=== PATIENT | female | born 1955 | race Caucasian/White ===

== ENCOUNTER 2017-06-30 14:46 | Emergency (ER) | payer MEDICARE, MEDICAID ==
[2017-06-30] MEDS ORDERED: DEXAMETHASONE SOD PHOS INJ 10 MG/1 ML VIAL IV ONE (15:22)
[2017-06-30] MEDS ORDERED: MAGNESIUM SULFATE/D5W 1 GM/100 ML RTUPB IV PRN (15:22)
[2017-06-30] MEDS ORDERED: IPRATROPIUM/ALBUTEROL 0.5-2.5 MG/3 ML AMPUL NEB ONE (15:22)
--- NOTE | 2017-06-30 15:32 | ER Document Report ---
ED Medical Screen (RME) - General Chief Complaint: Cough Stated Complaint: COUGH Time Seen by Provider: 06/30/17 15:14 TRAVEL OUTSIDE OF THE [place] IN LAST 30 DAYS: No - HPI Notes: 06/30/17 15:26 Patient is a 61-year-old female with a history of COPD, chronic pain, HTN who presents to the ED complaining of dry nonproductive cough, posttussive emesis, epigastric abdominal pain, worsening shortness of breath/dyspnea on exertion, chest tightness, and anxiousness 2 days. Pt developed nausea today as well. Patient states that she cannot lie supine bc she cannot breathe in that position. She is on oxygen 2 L nasal cannula at home. Patient states that she has been under a lot of stress lately as well and her anxiety has been flaring up. She denies any drug allergies. She is eating and drinking without any difficulties, but does have a decreased p.o. intake. She is urinating normally and having normal bowel movements. Denies any previous VA. Denies any headache , fever, neck pain, URI, sore throat, palpitations, syncope, abdominal pain, diarrhea, urinary retention, dysuria, hematuria, or rash. I have treated and performed a rapid initial assessment of this patient. A comprehensive ED assessment and evaluation of the patient, analysis of test results and completion of medical decision making process will be conducted by additional ED providers. PHYSICAL EXAMINATION: GENERAL: A&Ox4. Answers questions appropriately. Able to speak about 3 word sentences, but does have trouble breathing near the end. Is on O2 via [place] currently. LUNGS: Dec breath sounds throughout HEART: Regular rate and rhythm without murmurs, rubs, gallops. ABDOMEN: Soft, nondistended abdomen. No guarding, no rebound. No masses appreciated. Normal bowel sounds present. No CVA tenderness bilaterally. + epigastric tenderness Extremities: No cyanosis, clubbing, or edema b/l. PSYCH: Normal mood, normal affect. - Related Data Allergies/Adverse Reactions: No Known Allergies Allergy (Verified 06/30/17 14:50) Physical Exam - Vital signs Vitals: Temp Pulse Resp BP Pulse Ox 97.6 F 82 16 184/105 H 97 06/30/17 14:53 06/30/17 14:53 06/30/17 14:53 06/30/17 14:53 06/30/17 14:53 Course - Vital Signs Vital signs: Temp Pulse Resp BP Pulse Ox 97.6 F 82 16 184/105 H 97 06/30/17 14:53 06/30/17 14:53 06/30/17 14:53 06/30/17 14:53 06/30/17 14:53
--- NOTE | 2017-06-30 16:22 | ER Document Report ---
ED General <MONSE PENNY - Last Filed: 07/01/17 07:05> - General Mode of Arrival: Medic Information source: Patient TRAVEL OUTSIDE OF THE [place] IN LAST 30 DAYS: No - HPI Onset: Last week Onset/Duration: Persistent Quality of pain: Achy Associated symptoms: Nonproductive cough, Shortness of breath Exacerbated by: Movement, Walking Relieved by: Denies Similar symptoms previously: Yes Recently seen / treated by doctor: No <REJI NUNEZ - Last Filed: 07/06/17 11:44> - General Chief Complaint: Cough Stated Complaint: COUGH Time Seen by Provider: 06/30/17 15:14 Notes: Patient presents to emergency department via EMS. Patient reports that she has had a deep cough nonproductive for the past 2 days it is getting worse. She complains of epigastric right upper quadrant abdominal pain. Patient reports she did have some chest pressure but does not have any now. Reports increasing cough and shortness of breath. Patient has been on home oxygen for the past 3 years. She lives alone. She reports few years ago she was [place] for respiratory failure. Patient has a history of COPD & reflux. Patient also complains of back and neck pain for which she takes Clarinda. Patient reports she has vomited after coughing several times. Patient reports she called EMS because she could not breathe. When they arrived they told her that she was fine but told her that she should come to the emergency department. Patient is very irritated reports she is having a difficult time breathing. (REJI NUNEZ) - Related Data Allergies/Adverse Reactions: No Known Allergies Allergy (Verified 06/30/17 14:50) Past Medical History - General Information source: Patient - Social History Smoking Status: Former Smoker Chew tobacco use (# tins/day): No Frequency of alcohol use: None Drug Abuse: None Lives with: Alone Family History: Reviewed & Not Pertinent Patient has suicidal ideation: No Patient has homicidal ideation: No Pulmonary Medical History: Reports: Hx COPD Renal/ Medical History: Denies: Hx Peritoneal Dialysis Past Surgical History: Reports: Hx Hysterectomy, Hx Tubal Ligation <REJI NUNEZ - Last Filed: 07/06/17 11:44> Review of Systems <MONSE PENNY - Last Filed: 07/01/17 07:05> <REJI NUNEZ - Last Filed: 07/06/17 11:44> - Review of Systems Notes: Review HPI for review of systems., All other systems negative (REJI NUNEZ) Physical Exam <MONSE PENNY - Last Filed: 07/01/17 07:05> <REJI NUNEZ - Last Filed: 07/06/17 11:44> - Vital signs Vitals: Temp Pulse Resp BP Pulse Ox 97.6 F 82 16 184/105 H 97 06/30/17 14:53 06/30/17 14:53 06/30/17 14:53 06/30/17 14:53 06/30/17 14:53 - Notes Notes: PHYSICAL EXAMINATION: GENERAL: looks older than stated age HEAD: Atraumatic, normocephalic. EYES: Pupils equal round, extraocular movements intact, sclera anicteric, conjunctiva are normal. ENT: nares patent, oropharynx clear without exudates. Moist mucous membranes. NECK: Normal range of motion, supple without lymphadenopathy c/o pain LUNGS: decreased bilateral a&p HEART: Regular rate and rhythm ABDOMEN: Soft, c/o RUQ, Epigastric ttp EXTREMITIES: Normal range of motion, no pitting edema. No cyanosis. NEUROLOGICAL: Cranial nerves grossly intact. Normal sensory/motor exams. PSYCH: irritated SKIN: Warm, Dry, normal turgor, no rashes or lesions noted (REJI NUNEZ) Course - Laboratory Result Diagrams: 06/30/17 16:00 06/30/17 16:00 <MONSE PENNY - Last Filed: 07/01/17 07:05> - Laboratory Result Diagrams: 06/30/17 16:00 06/30/17 16:00 - Diagnostic Test Radiology reviewed: Image reviewed, Reports reviewed - Diagnostic report text EXAM DESCRIPTION: CHEST 2 VIEWS COMPLETED DATE/TIME: 06/30/2017 4: 18 pm REASON FOR STUDY: cough COMPARISON: None. NUMBER OF VIEWS: Two view. TECHNIQUE: Frontal and lateral radiographic views of the chest acquired. LIMITATIONS: None. FINDINGS: LUNGS AND PLEURA: No opacities, masses or pneumothorax. No pleural effusion. Attenuated blood vessels and flattened suzie-diaphragms. MEDIASTINUM AND HILAR STRUCTURES: No masses. No contour abnormalities. HEART AND VASCULAR STRUCTURES: Heart normal in size and contour. No evidence for failure. BONES: No acute findings. HARDWARE: None in the chest. OTHER: No other significant finding. IMPRESSION: COPD. NO ACUTE RADIOGRAPHIC FINDING IN THE CHEST EXAM DESCRIPTION: U/S ABDOMEN LIMITED W/O DOP COMPLETED DATE/TIME: 06/30/2017 6:24 pm REASON FOR STUDY: abdominal pain COMPARISON: None. TECHNIQUE: Dynamic and static grayscale images acquired of the abdomen and recorded on PACS. Additional selected color Doppler and spectral images recorded. LIMITATIONS: None. FINDINGS: PANCREAS: No masses. Visualized pancreatic duct normal caliber. LIVER: No masses. Echotexture normal. LIVER VASCULATURE: Normal directional flow of the main portal vein and hepatic veins. GALLBLADDER: No stones. Normal wall thickness. No pericholecystic fluid. ULTRASOUND-DETECTED TOLLIVER'S SIGN: Negative. INTRAHEPATIC DUCTS AND COMMON DUCT: CBD and intrahepatic ducts normal caliber. No filling defects. INFERIOR VENA CAVA: Normal flow. AORTA: No aneurysm. RIGHT KIDNEY: Normal size. Small parenchymal cysts, largest 1.9 cm. No solid or suspicious masses. No hydronephrosis. No calcifications. PERITONEAL AND RIGHT PLEURAL SPACE: No ascites or effusions. OTHER: No other significant findings. IMPRESSION: No acute findings. - EKG Interpretation by [facility] EKG shows normal: Sinus rhythm Rate: Normal <REJI NUNEZ - Last Filed: 07/06/17 11:44> - Re-evaluation Re-evalutation: Second troponin was negative. Patient states that she is unable to be discharged home as she has no oxygen taking. Patient states that she brought her oxygen tank and that it was lost at some point. Staff members contacted EMS and looked around the emergency department there is no sign of said oxygen tank. Patient is discharged from a medical standpoint. Will arrange transport via from the medical floor oxygen usage. (MONSE PENNY) 06/30/17 19:08 Discussed all labs with patient. Discussed negative ultrasound negative chest xray. Waiting for the second troponin. Patient reports she is tired, just wants to sleep, worried how she will get home to [place]. Report given to Monse YI (REJI NUNEZ) - Vital Signs Vital signs: Temp Pulse Resp BP Pulse Ox 97.8 F 92 16 175/84 H 97 07/01/17 06:30 07/01/17 06:30 07/01/17 06:30 07/01/17 06:30 07/01/17 06:30 - Laboratory Laboratory results interpreted by me: 06/30/17 16:00 Creatine Kinase 181 H Discharge <MONSE PENNY - Last Filed: 07/01/17 07:05> <REJI NUNEZ - Last Filed: 07/06/17 11:44> - Discharge Clinical Impression: Anxiety, Cough High blood pressure Qualifiers: Hypertension type: unspecified Qualified Code(s): I10 - Essential (primary) hypertension Condition: Stable Disposition: HOME, SELF-CARE Additional Instructions: Please start taking the hydrochlorothiazide 25 mg each morning for your blood pressure. We have also been given a prescription for Vistaril, this is for your anxiety. You may take this every 6 hours as needed when you feel a heightened state of anxiety. It is very important that you have close follow- up with a primary care provider. Please call your primary care provider this week and get a follow-up appointment as the blood pressure medication that we have prescribed will only last to 30 days. You have been given a dose of dexamethasone in the emergency room today, this will last 3 days. Please return to the emergency department if you develop worsening symptoms, shortness of breath, chest pain, fever or any other symptoms that are concerning to you. Prescriptions: Hydrochlorothiazide 25 mg PO DAILY 30 Days #30 tablet Hydroxyzine Pamoate [Vistaril 25 mg Capsule] 25 mg PO Q6 PRN #30 capsule PRN Reason: Anxiety Forms: Elevated Blood Pressure Referrals: ARUNA ISAACS NP-C [Primary Care Provider] - Follow up as needed
[2017-06-30 16:30] LABS: ABSOLUTE BASOPHILS # (AUTO) 0.1 10^3/uL (0.0-0.2); ABSOLUTE EOSINOPHILS # (AUTO) 0.2 10^3/uL (0.0-0.6); ABSOLUTE LYMPHOCYTES (AUTO) 1.5 10^3/uL (0.5-4.7); ABSOLUTE MONOCYTES (AUTO) 0.9 10^3/uL (0.1-1.4); ABSOLUTE NEUT (AUTO) 6.1 10^3/uL (1.7-8.2); BASOPHILS % (AUTO) 1.1 % (0-2); EOSINOPHILS % (AUTO) 2.6 % (0-6); HEMATOCRIT 38.3 % (36.0-47.0); HEMOGLOBIN 12.8 g/dL (12.0-15.5); LYMPHOCYTES % (AUTO) 17.1 % (13-45); MEAN CORPUSCULAR HEMOGLOBIN 28.3 pg (27.0-33.4); MEAN CORPUSCULAR HGB CONC 33.4 g/dL (32.0-36.0); MEAN CORPUSCULAR VOLUME 85 fl (80-97); MONOCYTES % (AUTO) 10.3 % (3-13); PLATELET COUNT 377 10^3/uL (150-450); RED BLOOD COUNT 4.53 10^6/uL (3.72-5.28); RED CELL DISTRIBUTION WIDTH 13.8 % (11.5-14.0); SEGMENTED NEUTROPHILS % (AUTO) 68.9 % (42-78); TOTAL CELLS COUNTED % (AUTO) 100 %; WHITE BLOOD COUNT 8.9 10^3/uL (4.0-10.5)
--- NOTE | 2017-06-30 16:31 | RADIOLOGY REPORT (SQ) ---
EXAM DESCRIPTION: CHEST 2 VIEWS COMPLETED DATE/TIME: 06/30/2017 4:18 pm REASON FOR STUDY: cough COMPARISON: None. NUMBER OF VIEWS: Two view. TECHNIQUE: Frontal and lateral radiographic views of the chest acquired. LIMITATIONS: None. FINDINGS: LUNGS AND PLEURA: No opacities, masses or pneumothorax. No pleural effusion. Attenuated bl ood vessels and flattened suzie-diaphragms. MEDIASTINUM AND HILAR STRUCTURES: No masses. No contour abnormalities. HEART AND VASCULAR STRUCTURES: Heart normal in size and contour. No evidence for failure. BONES: No acute findings. HARDWARE: None in the chest. OTHER: No other significant finding. IMPRESSION: COPD. NO ACUTE RADIOGRAPHIC FINDING IN THE CHEST. TECHNICAL DOCUMENTATION: JOB ID: [id number] [employer]- All Rights Reserved Reading location - IP/workstation name: [email or web address]
[2017-06-30 16:32] LABS: INTERNATIONAL RATION (INR) 0.88; PARTIAL THROMBOPLASTIN TIME 29.9 SEC (23.5-35.8); PROTHROMBIN TIME 12.4 SEC (11.4-15.4)
[2017-06-30 16:47] LABS: ALANINE AMINOTRANSFERASE 35 U/L (9-52); ALBUMIN 4.2 g/dL (3.5-5.0); ALKALINE PHOSPHATASE 81 U/L (38-126); ANION GAP 9 (5-19); ASPARTATE AMINO TRANSFERASE 30 U/L (14-36); BILIRUBIN,DIRECT 0.3 mg/dL (0.0-0.4); BILIRUBIN,TOTAL 0.4 mg/dL (0.2-1.3); BLOOD UREA NITROGEN 8 mg/dL (7-20); CALCIUM 9.7 mg/dL (8.4-10.2); CARBON DIOXIDE 30 mmol/L (22-30); CHLORIDE 99 mmol/L (98-107); CREATINE KINASE 181 U/L (30-135); GLUCOSE 103 mg/dL (75-110); POTASSIUM 4.7 mmol/L (3.6-5.0); SODIUM 138.4 mmol/L (137-145); TOTAL PROTEIN 6.8 g/dL (6.3-8.2)
[2017-06-30 17:01] LABS: TROPONIN I < 0.012 ng/mL
[2017-06-30 17:03] LABS: CREATINE KINASE MB 3.41 ng/mL (<4.55); NT PRO BNP 400 pg/mL (5-900)
--- NOTE | 2017-06-30 17:40 | EKG REPORT ---
SEVERITY:- NORMAL ECG - SINUS RHYTHM : Confirmed by: Inocente Lorenzo MD 30-Jun-2017 17:39:04
--- NOTE | 2017-06-30 18:33 | RADIOLOGY REPORT (SQ) ---
EXAM DESCRIPTION: U/S ABDOMEN LIMITED W/O DOP COMPLETED DATE/TIME: 06/30/2017 6:24 pm REASON FOR STUDY: abdominal pain COMPARISON: None. TECHNIQUE: Dynamic and static grayscale images acquired of the abdomen and recorded on PACS. Additio nal selected color Doppler and spectral images recorded. LIMITATIONS: None. FINDINGS: PANCREAS: No masses. Visualized pancreatic duct normal caliber. LIVER: No masses. Echotexture normal. LIVER VASCULATURE: Normal directional flow of the main portal vein and hepatic veins. GALLBLADDER: No stones. Normal wall thickness. No pericholecystic fluid. ULTRASOUND-DETECTED TOLLIVER'S SIGN: Negative. INTRAHEPATIC DUCTS AND COMMON DUCT: CBD and intrahepatic ducts normal caliber. No filling defects. INFERIOR VENA CAVA: Normal flow. AORTA: No aneurysm. RIGHT KIDNEY: Normal size. Small parenchymal cysts, largest 1.9 cm. No solid or suspicious masses. No hydronephrosis. No calcifications. PERITONEAL AND RIGHT PLEURAL SPACE: No ascites or effusions. OTHER: No other significant findings. IMPRESSION: No acute findings. TECHNICAL DOCUMENTATION: JOB ID: [id number] [id number] 2010 [employer]- All Rights Reserved Reading location - IP/workstation name: [email or web address]
[2017-06-30] MEDS ORDERED: HYDROCHLOROTHIAZIDE 25 MG TABLET PO ONE (21:43)
[2017-06-30] MEDS ORDERED: ACETAMINOPHEN 325 MG TABLET PO ONE (21:44)
[2017-06-30] MEDS ORDERED: IBUPROFEN 600 MG TABLET PO ONE (22:08)
[2017-07-01] MEDS ORDERED: ACETAMINOPHEN 325 MG TABLET PO ONE (07:13)
[2017-07-01 07:24] VITALS: BP 175/84
== END 2017-07-01 07:23 | disposition home or self-care (01) ==
LOC: ER 14:46
DX: R05 Cough (principal); F41.9 Anxiety disorder, unspecified; I10 Essential (primary) hypertension; R10.13 Epigastric pain; R10.11 Right upper quadrant pain; R06.02 Shortness of breath; J44.9 Chronic obstructive pulmonary disease, unspecified; Z99.81 Dependence on supplemental oxygen; M54.9 Dorsalgia, unspecified; M54.2 Cervicalgia; Z87.19 Personal history of other diseases of the digestive system; Z87.891 Personal history of nicotine dependence
CPT/HCPCS: 93005; 94640; 99284; 96374; 36415; 82553; 82550; 83690; 85025; 85610; 85730; 80053; 84484; 83880; 71046; 76705; 93010; A9270 ×4; J1100; J7620

== ENCOUNTER → 2017-07-31 | Outpatient (CLI) | payer MEDICARE, MEDICAID ==
--- NOTE | 2017-07-31 14:23 | RADIOLOGY REPORT (SQ) ---
EXAM DESCRIPTION: CT CHEST WITHOUT COMPLETED DATE/TIME: 07/31/2017 12:54 pm REASON FOR STUDY: PULMONARY NODULE (R91.1) R91.1 SOLITARY PULMONARY NODULE COMPARISON: 11/29/2015 TECHNIQUE: CT scan performed of the chest without intravenous contrast. Images reviewed with lung, soft tissue and bone windows. Reconstructed coronal and sagittal MPR images reviewed. All images st ored on PACS. All CT scanners at this facility use dose modulation, iterative reconstruction, and/or weight based d osing when appropriate to reduce radiation dose to as low as reasonably achievable (ALARA). [facility]: Dose Right [facility]: CareDose [facility]: Dose Right [facility]: Teradose 4D [facility]: Smart [employer] RADIATION DOSE: CT Rad equipment meets quality standard of care and radiation dose reduction techniq ues were employed. CTDIvol: 2.9 mGy. DLP: 124 mGy-cm. mGy. LIMITATIONS: No technical limitations. FINDINGS: LUNGS AND PLEURA: Right lower lobe has cleared. There has been interval decrease in the a mount of scarring in the middle lobe. Stable scarring in the lingula. No developing nodules. No ef fusions. HILAR AND MEDIASTINAL STRUCTURES: No identified masses or abnormal nodes. No obvious aneurysm. HEART AND VASCULAR STRUCTURES: No aneurysm. No pericardial effusion. UPPER ABDOMEN: No significant findings. Limited exam. THYROID AND OTHER SOFT TISSUES: No masses. No adenopathy. BONES: No significant finding. HARDWARE: None in the chest. OTHER: No other significant findings. IMPRESSION: COPD. Stable chest with interval clearing of the right lower lobe. No developing nodul es. TECHNICAL DOCUMENTATION: JOB ID: [id number] Quality ID # [id number]: Final reports with documentation of one or more dose reduction techniques (e.g., Au tomated exposure control, adjustment of the mA and/or kV according to patient size, use of iterative reconstruction technique) 2010 [employer]- All Rights Reserved Reading location - IP/workstation name: [email or web address]
== END ==
LOC: RAD 12:41
PROVIDERS: ATTEND Internal Medicine Critical Care Medicine
DX: J40 Bronchitis, not specified as acute or chronic (principal); R06.09 Other forms of dyspnea; R91.1 Solitary pulmonary nodule; J45.40 Moderate persistent asthma, uncomplicated; J30.9 Allergic rhinitis, unspecified; R91.8 Other nonspecific abnormal finding of lung field; R09.02 Hypoxemia; K21.9 Gastro-esophageal reflux disease without esophagitis; J43.9 Emphysema, unspecified
CPT/HCPCS: 36415; 71250; 82785

== ENCOUNTER 2018-03-31 09:18 | Inpatient (IN) | payer MEDICARE, MEDICAID ==
[2018-03-31] MEDS ORDERED: PROPOFOL 1,000 MG/100 ML INFUS..BTL IV ONE (09:28)
[2018-03-31] MEDS ORDERED: ROCURONIUM BROMIDE INJ 50 MG/5 ML VIAL IV ONE ×2 (09:30→14:55)
[2018-03-31] MEDS ORDERED: FENTANYL CITRATE INJ/PF 100 MCG/2 ML AMPUL ONE (09:30)
[2018-03-31] MEDS ORDERED: ETOMIDATE INJ/PF 20 MG/10 ML SDV IV ONE ×2 (09:30)
[2018-03-31] MEDS ORDERED: FENTANYL CITRATE INJ/PF 100 MCG/2 ML AMPUL IV ONE (09:31)
[2018-03-31] MEDS ORDERED: NORMAL SALINE 1000 ML 1,000 ML IV ONE ×3 (09:31→09:49)
[2018-03-31] MEDS ORDERED: METHYLPREDNISOLONE INJ 125 MG/2 ML SDV IV ONE (09:36)
[2018-03-31] MEDS ORDERED: IPRATROPIUM/ALBUTEROL 0.5-2.5 MG/3 ML AMPUL NEB ONE (09:36)
[2018-03-31 09:51] LABS: ABSOLUTE BASOPHILS # (AUTO) 0.1 10^3/uL (0.0-0.2); ABSOLUTE LYMPHOCYTES (AUTO) 4.6 10^3/uL (0.5-4.7); ABSOLUTE MONOCYTES (AUTO) 0.8 10^3/uL (0.1-1.4); ABSOLUTE NEUT (AUTO) 7.5 10^3/uL (1.7-8.2); EOSINOPHILS % (AUTO) 0.1 % (0-6); HEMATOCRIT 43.4 % (36.0-47.0); LYMPHOCYTES % (AUTO) 35.2 % (13-45); MEAN CORPUSCULAR HEMOGLOBIN 28.6 pg (27.0-33.4); MEAN CORPUSCULAR HGB CONC 32.1 g/dL (32.0-36.0); MEAN CORPUSCULAR VOLUME 89 fl (80-97); MONOCYTES % (AUTO) 5.8 % (3-13); PLATELET COUNT 316 10^3/uL (150-450); RED BLOOD COUNT 4.88 10^6/uL (3.72-5.28); RED CELL DISTRIBUTION WIDTH 13.9 % (11.5-14.0); SEGMENTED NEUTROPHILS % (AUTO) 57.9 % (42-78); TOTAL CELLS COUNTED % (AUTO) 100 %
--- NOTE | 2018-03-31 09:51 | RADIOLOGY REPORT (SQ) ---
EXAM DESCRIPTION: CHEST SINGLE VIEW COMPLETED DATE/TIME: 03/31/2018 9:37 am REASON FOR STUDY: post intubation COMPARISON: CT chest 07/05/2015, 11/29/2015, 07/31/2017 Two-view chest 06/30/2017 EXAM PARAMETERS: NUMBER OF VIEWS: One view. TECHNIQUE: Single frontal radiographic view of the chest acquired. RADIATION DOSE: NA LIMITATIONS: None. FINDINGS: LUNGS AND PLEURA: Lungs are hyperinflated and hyperlucent from obstructive disease. No fo dustin infiltrates. No pleural effusion. No pneumothorax. MEDIASTINUM AND HILAR STRUCTURES: No masses. Contour normal. HEART AND VASCULAR STRUCTURES: Heart normal in size. Normal vasculature. BONES: No acute findings. HARDWARE: Endotracheal tube tip 5 to 6 cm above the aiyana. Nasogastric tube tip and side port in th e stomach. OTHER: No other significant finding. IMPRESSION: Obstructive lung disease without focal infiltrates. Endotracheal and nasogastric tubes in good positioning. TECHNICAL DOCUMENTATION: JOB ID: [id number] [employer]- All Rights Reserved Reading location - IP/workstation name: [email or web address]
[2018-03-31 09:57] LABS: INTERNATIONAL RATION (INR) 0.93
[2018-03-31 10:05] LABS: VENOUS BLOOD BASE EXCESS -0.4 mmol/L; VENOUS BLOOD HCO3 33.3 mmol/L (20-32)
[2018-03-31 10:11] LABS: ALANINE AMINOTRANSFERASE 31 U/L (9-52); ALBUMIN 4.1 g/dL (3.5-5.0); ALKALINE PHOSPHATASE 84 U/L (38-126); ASPARTATE AMINO TRANSFERASE 38 U/L (14-36); BILIRUBIN,DIRECT 0.3 mg/dL (0.0-0.4); BILIRUBIN,TOTAL 0.5 mg/dL (0.2-1.3); BLOOD UREA NITROGEN 10 mg/dL (7-20); CALCIUM 9.2 mg/dL (8.4-10.2); CHLORIDE 91 mmol/L (98-107); GLUCOSE 132 mg/dL (75-110); LIPASE 27.4 U/L (23-300); POTASSIUM 4.8 mmol/L (3.6-5.0); SODIUM 142.8 mmol/L (137-145); TOTAL PROTEIN 6.6 g/dL (6.3-8.2)
[2018-03-31] MEDS ORDERED: DIGOXIN INJ 0.5 MG/2 ML AMPULE IV ONE (10:15)
[2018-03-31 10:21] LABS: VENOUS BLOOD PCO2 126.4 mmHg (35-63); VENOUS BLOOD PH 7.04 (7.30-7.42)
[2018-03-31 10:21] LABS: ANION GAP 7 (5-19); CARBON DIOXIDE 45 mmol/L (22-30)
[2018-03-31 10:22] LABS: NT PRO BNP 684 pg/mL (5-900)
[2018-03-31 10:24] LABS: TROPONIN I < 0.012 ng/mL
--- NOTE | 2018-03-31 10:29 | RADIOLOGY REPORT (SQ) ---
EXAM DESCRIPTION: CHEST SINGLE VIEW COMPLETED DATE/TIME: 03/31/2018 9:56 am REASON FOR STUDY: NG tube placement COMPARISON: CT chest 07/05/2015, 11/29/2015, 07/31/2017 Chest films 03/31/2018, 06/30/2017 EXAM PARAMETERS: NUMBER OF VIEWS: One view. TECHNIQUE: Single frontal radiographic view of the chest acquired. RADIATION DOSE: NA LIMITATIONS: None. FINDINGS: LUNGS AND PLEURA: Lungs are hyperinflated and hyperlucent from obstructive disease. No pn eumothorax or pleural effusion. No acute infiltrate. MEDIASTINUM AND HILAR STRUCTURES: No masses. Contour normal. HEART AND VASCULAR STRUCTURES: Heart normal in size. Normal vasculature. BONES: No acute findings. HARDWARE: Nasogastric tube tip and side port in the stomach. Endotracheal tube tip in the midtrachea OTHER: No other significant finding. IMPRESSION: Nasogastric tube tip and side port in the stomach. Endotracheal tube tip in the midtrac hea. Lungs hyperinflated and hyperlucent from obstructive disease TECHNICAL DOCUMENTATION: JOB ID: [id number] [employer]- All Rights Reserved Reading location - IP/workstation name: [email or web address]
--- NOTE | 2018-03-31 11:06 | RADIOLOGY REPORT (SQ) ---
EXAM DESCRIPTION: CT HEAD WITHOUT COMPLETED DATE/TIME: 03/31/2018 10:55 am REASON FOR STUDY: ams resp failure COMPARISON: None. TECHNIQUE: Axial images acquired through the brain without intravenous contrast. Images reviewed wi th bone, brain and subdural windows. Additional sagittal and coronal reconstructions were generated. Images stored on PACS. All CT scanners at this facility use dose modulation, iterative reconstruction, and/or weight based d osing when appropriate to reduce radiation dose to as low as reasonably achievable (ALARA). [facility]: Dose Right [facility]: CareDose [facility]: Dose Right [facility]: Teradose 4D [facility]: Smart [employer] RADIATION DOSE: CT Rad equipment meets quality standard of care and radiation dose reduction techniq ues were employed. CTDIvol: 53.2 mGy. DLP: 1044 mGy-cm. mGy. LIMITATIONS: None. FINDINGS: VENTRICLES: Normal size and contour. CEREBRUM: No masses. No hemorrhage. No midline shift. No evidence for acute infarction. Normal gra y/white matter differentiation. No areas of low density in the white matter. CEREBELLUM: No masses. No hemorrhage. No alteration of density. No evidence for acute infarction. EXTRAAXIAL SPACES: No fluid collections. No masses. ORBITS AND GLOBE: No intra- or extraconal masses. Normal contour of globe without masses. CALVARIUM: No fracture. PARANASAL SINUSES: No fluid or mucosal thickening. SOFT TISSUES: No mass or hematoma. OTHER: No other significant finding. IMPRESSION: NORMAL BRAIN CT WITHOUT CONTRAST. EVIDENCE OF ACUTE STROKE: NO. COMMENT: Quality ID # 436: Final reports with documentation of one or more dose reduction techniques (e.g., Automated exposure control, adjustment of the mA and/or kV according to patient size, use of iterative reconstruction technique) TECHNICAL DOCUMENTATION: JOB ID: [id number] [employer]- All Rights Reserved Reading location - IP/workstation name: [email or web address]
--- NOTE | 2018-03-31 11:12 | RADIOLOGY REPORT (SQ) ---
EXAM DESCRIPTION: CTA CHEST COMPLETED DATE/TIME: 03/31/2018 10:55 am REASON FOR STUDY: ams resp failure COMPARISON: CT chest 07/05/2015, 11/29/2015, 07/31/2017 TECHNIQUE: CT scan of the chest performed using helical scanning technique with dynamic intravenous contrast injection. Images reviewed with lung, soft tissue and bone windows. Reconstructed coronal and sagittal MPR images reviewed. Additional 3 dimensional post-processing performed to develop Maximal Intensity Projection images (NE P). All images stored on PACS. All CT scanners at this facility use dose modulation, iterative reconstruction, and/or weight based d osing when appropriate to reduce radiation dose to as low as reasonably achievable (ALARA). [facility]: Dose Right [facility]: CareDose [facility]: Dose Right [facility]: Teradose 4D [facility]: [employer] CONTRAST TYPE AND DOSE: contrast/concentration: Isovue 350.00 mg/ml; Total Contrast Delivered: 72.0 ml; Total Saline Delivered: 80.0 ml Contrast bolus optimized for the pulmonary arteries and thoracic aorta. RENAL FUNCTION: Creatinine 0.5 RADIATION DOSE: CT Rad equipment meets quality standard of care and radiation dose reduction techniq ues were employed. CTDIvol: 6.6 - 33.1 mGy. DLP: 1229 mGy-cm. . LIMITATIONS: None. FINDINGS: LUNGS AND PLEURA: Advanced changes of obstructive lung disease with diffuse hyperinflation and hyperlucency. Chronic consolidation and volume loss in the right middle lobe unchanged from 2016. Since the prior studies, patient has developed a 1.5 cm nodule in the posterior right lower lobe on a xial image 65. No acute infiltrates. No pleural effusion. No pneumothorax. AORTA AND GREAT VESSELS: Ascending aorta 3.7 cm in greatest diameter, similar compared to previous st udies. No thoracic aortic dissection. . HEART: No pericardial effusion. Moderate left coronary artery calcifications. PULMONARY ARTERIES: No emboli visualized in the main pulmonary arteries or the segmental branches. HILAR AND MEDIASTINAL STRUCTURES: No identified masses or abnormal nodes. HARDWARE: Right jugular central line tip superior vena cava. Endotracheal tube tip midtrachea. Naso gastric tube tip and side port in the stomach. UPPER ABDOMEN: No significant findings. Limited exam. THYROID AND OTHER SOFT TISSUES: No masses. No adenopathy. BONES: No acute or significant finding. 3D MIPS: Confirm above findings. OTHER: No other significant finding. IMPRESSION: No CT angio evidence of acute pulmonary emboli or thoracic aortic dissection. No acute infiltrates. Chronic right middle lobe volume loss and consolidation 1.5 cm nodule in the posterior right lower lobe, new compared to prior CT 07/31/2017. This is worriso me for malignancy COMMENT: Quality ID # 436: Final reports with documentation of one or more dose reduction techniques (e.g., Automated exposure control, adjustment of the mA and/or kV according to patient size, use of iterative reconstruction technique) TECHNICAL DOCUMENTATION: JOB ID: [id number] [employer]- All Rights Reserved Reading location - IP/workstation name: [email or web address]
--- NOTE | 2018-03-31 11:19 | RADIOLOGY REPORT (SQ) ---
EXAM DESCRIPTION: CHEST SINGLE VIEW COMPLETED DATE/TIME: 03/31/2018 11:06 am REASON FOR STUDY: s/p line COMPARISON: Previous chest film 03/31/2018, [address] angio chest 03/31/2018, 1045 hours EXAM PARAMETERS: NUMBER OF VIEWS: One view. TECHNIQUE: Single frontal radiographic view of the chest acquired. RADIATION DOSE: NA LIMITATIONS: None. FINDINGS: LUNGS AND PLEURA: Hyperinflated and hyperlucent from obstructive disease. Chronic collaps e right middle lobe, 1.5 cm right lower lobe nodule seen on chest CT 03/31/2018 are not apparent by pl ain film. No pneumothorax post right jugular line placement. MEDIASTINUM AND HILAR STRUCTURES: No masses. Contour normal. HEART AND VASCULAR STRUCTURES: Heart normal in size. Normal vasculature. BONES: No acute findings. HARDWARE: Endotracheal tube, nasogastric tube, right jugular line in good positioning. OTHER: No other significant finding. IMPRESSION: No pneumothorax post right jugular central line placement TECHNICAL DOCUMENTATION: JOB ID: [id number] [employer]- All Rights Reserved Reading location - IP/workstation name: [email or web address]
[2018-03-31 11:28] LABS: APPEARANCE,URINE TURBID; BILIRUBIN,URINE NEGATIVE (NEGATIVE); COLOR,URINE AMBER; GLUCOSE, URINE NEGATIVE (NEGATIVE); KETONES,URINE 20 mg/dL (NEGATIVE); LEUKOCYTE ESTERASE,URINE NEGATIVE (NEGATIVE); NITRITE,URINE NEGATIVE (NEGATIVE); PROTEIN,URINE 100 mg/dL (NEGATIVE); URINE SPECIFIC GRAVITY 1.025; UROBILINOGEN,URINE NEGATIVE mg/dL (<2.0)
[2018-03-31] MEDS ORDERED: PROMETHAZINE HCL INJ 25 MG/1 ML VIAL IV PRN (11:59)
--- NOTE | 2018-03-31 12:05 | ER Document Report ---
ED General - General Chief Complaint: Respiratory Distress Stated Complaint: DIFFICULTY BREATHING Time Seen by Provider: 03/31/18 09:30 TRAVEL OUTSIDE OF THE [place] IN LAST 30 DAYS: No - HPI Patient complains to provider of: Respiratory distress Notes: Patient coming in for evaluation of respiratory distress. According to EMS that because the patient's house to 3 times earlier this week for respiratory distress patient has a history of COPD continues to smoke. States the patient called today started on antibiotic treatments that she was found hypoxic however during transport became combative and not tolerate CPAP upon evaluation here in ER more obtunded pulses and respiratory rate remained however patient had pink foamy sputum coming out of the mouth. Patient upon my evaluation not following commands is nonverbal spontaneously opening of her eyes. - Related Data Allergies/Adverse Reactions: No Known Allergies Allergy (Verified 06/30/17 14:50) Past Medical History - Social History Smoking Status: Unknown if Ever Smoked Family History: Reviewed & Not Pertinent Pulmonary Medical History: Reports: Hx COPD Renal/ Medical History: Denies: Hx Peritoneal Dialysis Past Surgical History: Reports: Hx Hysterectomy, Hx Tubal Ligation Review of Systems - Review of Systems -: Yes ROS unobtainable due to patient's medical condition - Respiratory distress Physical Exam - Vital signs Vitals: Resp BP 12 62/39 L 03/31/18 09:46 03/31/18 09:46 Interpretation: Hypertensive, Tachycardic, Tachypneic - General General appearance: Alert, Unresponsive In distress: Severe - HEENT Head: Normocephalic, Atraumatic Eyes: Normal Conjunctiva: Normal Cornea: Normal Eyelashes: Normal Notes: Patient will what looks like to be anisocoria or postsurgical changes to the right eye dilated approximately 6 mm with the left eye approximately 3 mm - Respiratory Respiratory status: Respiratory distress Chest status: Nontender Breath sounds: Decreased air movement, Wheezing Chest palpation: [place] frothy sputum - Cardiovascular Rhythm: Regular, Tachycardia Heart sounds: Normal auscultation Murmur: No - Abdominal Inspection: Normal Distension: No distension Bowel sounds: Normal Tenderness: Nontender Organomegaly: No organomegaly - Back Back: Normal, Nontender - Extremities General upper extremity: Normal inspection, Nontender, Normal temperature General lower extremity: Normal inspection, Nontender, Normal temperature - Neurological [place] Coma Scale Eye Opening: Spontaneous [place] Coma Scale Verbal: None Cory Coma Scale Motor: None [place] Coma Scale Total: 6 - Skin Skin Temperature: Warm Skin Moisture: Dry Skin Color: Normal Course - Re-evaluation Re-evalutation: 03/31/18 14:29 Patient was intubated with central line placement Patient initially was significantly hypertensive with systolics in the 250s. After intubation patient went into a A. fib with RVR and became hypotensive. Patient was given digoxin IV fluids with later improvement of her vital signs transitioning from atrial fibrillation to sinus tach workup because of anisocoria head CT was performed this was otherwise negative. Patient also had a CTA performed because of slight swelling to the right leg this was negative for PE Doppler was also performed and was negative for DVT. Laboratory studies shows hypercapnia with acidosis. Otherwise no signs of infection patient afebrile no consolidations on CT scan. More likely significant COPD exacerbation. Patient case was discussed with the hospitalist will admit to the ICU 03/31/18 14:30 - Vital Signs Vital signs: Temp Pulse Resp BP Pulse Ox 97.3 F 27 H 185/97 H 100 03/31/18 12:46 03/31/18 12:46 03/31/18 12:46 03/31/18 12:46 - Laboratory Result Diagrams: 03/31/18 09:24 03/31/18 09:24 Laboratory results interpreted by me: 03/31/18 03/31/18 03/31/18 09:24 09:24 09:46 WBC 13.0 H Carbonic Acid ABG pH ABG pCO2 ABG pO2 ABG HCO3 ABG Total CO2 ABG O2 Saturation VBG pH VBG pCO2 VBG HCO3 Chloride 91 L Carbon Dioxide 45 H* Creatinine 0.49 L Glucose 132 H Magnesium 4.7 H* AST 38 H Urine Protein 100 H Urine Ketones 20 H Urine Blood SMALL H 03/31/18 03/31/18 09:55 11:25 WBC Carbonic Acid 2.05 H ABG pH 7.27 L ABG pCO2 68.0 H ABG pO2 135.7 H ABG HCO3 30.6 H ABG Total CO2 32.7 H ABG O2 Saturation 98.3 H VBG pH 7.04 L* VBG pCO2 126.4 H* VBG HCO3 33.3 H Chloride Carbon Dioxide Creatinine Glucose Magnesium AST Urine Protein Urine Ketones Urine Blood Procedures - Central Line Right Internal jugular Consent obtained: Yes Central line pre-insertion: Sterile PPE donned Central line lumen type: Triple Ultrasound guided: Yes CM at insertion site: 20 Line secured with sutures: Yes Central line post-insertion: Blood return from lumens, Biopatch applied, Sutured, Sterile dressing applied, Position confirmed w/ CXR Number of attempts: 1 Complications: No - Intubation Nasotracheal Airway evaluation: Normal anatomy Mallampati Classification: Class 2 Medications: Etomidate, Other - rocuronium Intubation method: Orotracheal Blade size: 3 Equipment used: Glidescope ETT size: 7.0 ETT secured at: Teeth ETT secured at (cm): 20 Breath Sounds after Intubation: Equal Post Intubation Xray: Yes Intubation Complications: No complications Critical Care Note - Critical Care Note Total time excluding time spent on procedures (mins): 60 Comments: Time managing patient with development of A. fib RVR hypertension COPD exacerbation requiring intubation time excludes procedures performed Discharge - Discharge Clinical Impression: Acute respiratory distress Condition: Good [facility] Unit Admitted: ICU
[2018-03-31 12:07] LABS: ARTERIAL BLOOD BASE EXCESS 1.8 mmol/L; ARTERIAL BLOOD H2CO3 2.05 mmol/L (1.05-1.35); ARTERIAL BLOOD HCO3 30.6 mmol/L (20-24); ARTERIAL BLOOD O2 SATURATION 98.3 % (94-98); ARTERIAL BLOOD PH 7.27 (7.35-7.45); ARTERIAL BLOOD PO2 135.7 mmHg (80-100); ARTERIAL BLOOD TOTAL CO2 32.7 mmol/L (21-25)
[2018-03-31 12:08] LABS: ARTERIAL BLOOD FIO2 100%
[2018-03-31] MEDS ORDERED: DEXTROSE 40% GEL 15 GM TUBE PO PRN ×2 (12:09)
[2018-03-31] MEDS ORDERED: DEXTROSE 50%-WATER 25 GM/50 ML DISP.SYRIN IV PRN ×2 (12:09)
[2018-03-31] MEDS ORDERED: INSULIN LISPRO 100 UNIT/ML 3 ML VIAL SUBCUT PRN (12:09)
[2018-03-31] MEDS ORDERED: GLUCAGON,HUMAN RECOMB 1 MG INJ IM PRN (12:09)
[2018-03-31 13:32] LABS: URINE AMPHETAMINES SCREEN NEGATIVE; URINE BARBITURATES SCREEN NEGATIVE; URINE BENZODIAZEPINES SCREEN NEGATIVE; URINE COCAINE SCREEN NEGATIVE; URINE MARIJUANA (THC) SCREEN NEGATIVE; URINE METHADONE SCREEN NEGATIVE; URINE PHENCYCLIDINE SCREEN NEGATIVE
--- NOTE | 2018-03-31 13:52 | RADIOLOGY REPORT (SQ) ---
EXAM DESCRIPTION: VENOUS UNILATERAL LOWER COMPLETED DATE/TIME: 03/31/2018 1:37 pm REASON FOR STUDY: right leg swelling COMPARISON: None. TECHNIQUE: Grayscale and color images acquired of the right leg venous system. Selected spectral gurwinder ges acquired with additional compression and augmentation maneuvers. The contralateral common femoral vein and saphenofemoral junction were also imaged. Images stored on PACS. LIMITATIONS: None. FINDINGS: COMMON FEMORAL: Normal phasicity, compression and augmentation. No visualized echogenic ma terial on rodriguez scale. No defects on color images. FEMORAL: Normal compression and augmentation. No visualized echogenic material on rodriguez scale. No defe cts on color images. POPLITEAL: Normal compression, augmentation. No visualized echogenic material on rodriguez scale. No defec ts on color images. CALF VESSELS: Normal compression, augmentation. No visualized echogenic material on rodriguez scale. No de fects on color images. GSV and SSV: Normal compression, augmentation. No visualized echogenic material on rodriguez scale. No def ects on color images. ANY DEEP VENOUS INSUFFICIENCY: Not evaluated. ANY EVIDENCE OF POPLITEAL CYST: No. CONTRALATERAL COMMON FEMORAL VEIN AND SAPHENOFEMORAL JUNCTION: Normal phasicity, compression and augmentation. No visualized echogenic material on rodriguez scale. No de fects on color images. IMPRESSION: NO EVIDENCE FOR DVT OR SVT IN THE RIGHT LEG. TECHNICAL DOCUMENTATION: JOB ID: [id number] [employer]- All Rights Reserved Reading location - IP/workstation name: [email or web address]
[2018-03-31] MEDS ORDERED: SUCCINYLCHOLINE CHLORIDE INJ 200 MG/10 ML VIAL ONE (14:55)
[2018-03-31] MEDS: DEXTROSE 5%-NORMAL SALINE 1,000 ML IV PRN (15:00)
[2018-03-31] MEDS: CEFTRIAXONE 1 GM/D5W RTU 1 GM/50 ML RTUPB IV SCH (17:00)
[2018-03-31] MEDS: PROPOFOL 1,000 MG/100 ML INFUS..BTL IV PRN (17:46)
[2018-03-31] MEDS: HEPARIN SOD (PORCINE) 5,000 UNIT/ML 1 ML SYRINGE SUBCUT SCH ×2 (18:07→22:40)
--- NOTE | 2018-03-31 18:16 | PDOC H&P ---
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 Patient was brought to ED by EMS for respiratory distress. According to EMS report that had been to patient's house 3 times earlier this week for respiratory distress. As per EMS report during transport patient became com bative could not tolerate CPAP and by the time she was in ED she was obtunded. As per ED doctor as of report patient had pink foamy sputum coming out of the mouth. She was intubated in ED and was noted to be hypertensive with systolics in the 250s. Intubation patient briefly went to A. fib went into A. fib with RVR and became hypotensive. She was given 1 dose of IV digoxin, fluids and patient converted back to sinus tach. Patient was noted to have anisocoria and a CT head was done which was negative. CTA of the chest was also negative for PE showed a new 1.5 cm nodule in the posterior right lower lobe compared to previous CT in 2018. Was also noted to have right ankle swelling and a Doppler was done to rule out any DVT which was negative. Labs significant for white blood cell of 13,000 otherwise unremarkable, coags within normal limits, VBG showed pH of 7.04 and a follow-up ABG positive for pH of 7.27, PCO2 of 68, PO2 of 135. Troponin is negative, BNP 684. On my encounter patient was intubated and sedated. Past Medical History Pulmonary Medical History: Reports: Chronic Obstructive Pulmonary Disease (COPD) Past Surgical History Past Surgical History: Reports: Hysterectomy, Tubal Ligation Social History Smoking Status: Unknown if Ever Smoked Family History Family History: Reviewed & Not Pertinent Parental Family History Reviewed: Yes Children Family History Reviewed: Yes Sibling(s) Family History Reviewed.: Yes Medication/Allergy Home Medications: Albuterol Sulfate [Proair Hfa Inhalation Aerosol 8.5 gm Mdi] 2 puff IH Q6HP PRN 03/31/18 Fluticasone/Salmeterol [Advair 500-50 Diskus 14 Dose/Diskus] 1 inh IH Q12 03/31/18 Gabapentin [Neurontin 400 mg Capsule] 800 mg PO Q8 03/31/18 Hydrocodone Bit/Acetaminophen [Hydrocodon-Acetaminophn 10-325] 1 each PO Q8HP PRN 03/31/18 Hydroxyzine Pamoate [Vistaril 25 mg Capsule] 25 mg PO Q8HP PRN 03/31/18 Ipratropium/Albuterol Sulfate [Duoneb 3 ml Ampul] 3 ml NEB RTQIDP PRN 03/31/18 Umeclidinium Thompson [Incruse Ellipta] 1 puff IH DAILY 03/31/18 Allergies/Adverse Reactions: No Known Allergies Allergy (Verified 06/30/17 14:50) Review of Systems ROS unobtainable: Due to endotracheal tube Physical Exam Vital Signs: Temp Pulse Resp BP Pulse Ox 99.3 F 23 H 143/81 H 100 03/31/18 15:01 03/31/18 15:01 03/31/18 15:00 03/31/18 16:00 Intake & Output 03/30/18 03/31/18 04/01/18 06:59 06:59 06:59 Intake Total 50 Balance 50 Weight 51.1 kg General appearance: PRESENT: thin, other - Intubated. Head exam: PRESENT: atraumatic, normocephalic Respiratory exam: PRESENT: symmetrical, wheezes Cardiovascular exam: PRESENT: RRR. ABSENT: diastolic murmur, rubs, systolic murmur Pulses: PRESENT: normal dorsalis pedis pul GI/Abdominal exam: PRESENT: normal bowel sounds, soft. ABSENT: distended, guarding, mass, organolmegaly, rebound, tenderness Extremities exam: PRESENT: other - Mild right ankle swelling. Neurological exam: PRESENT: other - Intubated. Sedated Results Laboratory Results: 03/31/18 09:24 03/31/18 09:24 03/31/18 03/31/18 03/31/18 09:24 09:24 09:24 WBC 13.0 H RBC 4.88 Hgb 14.0 Hct 43.4 MCV 89 MCH 28.6 MCHC 32.1 RDW 13.9 Plt Count 316 Seg Neutrophils % 57.9 Lymphocytes % 35.2 Monocytes % 5.8 Eosinophils % 0.1 Basophils % 1.0 Absolute Neutrophils 7.5 Absolute Lymphocytes 4.6 Absolute Monocytes 0.8 Absolute Eosinophils 0.0 Absolute Basophils 0.1 Carbonic Acid HCO3/H2CO3 Ratio ABG pH ABG pCO2 ABG pO2 ABG HCO3 ABG O2 Saturation ABG Base Excess VBG pH VBG pCO2 VBG HCO3 VBG Base Excess FiO2 Sodium 142.8 Potassium 4.8 Chloride 91 L Carbon Dioxide 45 H* Anion Gap 7 BUN 10 Creatinine 0.49 L Est GFR ( Amer) > 60 Est GFR (Non-Af Amer) > 60 Glucose 132 H Lactic Acid 1.2 Calcium 9.2 Magnesium 4.7 H* Total Bilirubin 0.5 AST 38 H ALT 31 Alkaline Phosphatase 84 Total Protein 6.6 Albumin 4.1 Lipase 27.4 Urine Color Urine Appearance Urine pH Ur Specific [place] Urine Protein Urine Glucose (UA) Urine Ketones Urine Blood Urine Nitrite Ur Leukocyte Esterase Urine WBC (Auto) Urine RBC (Auto) 03/31/18 03/31/18 03/31/18 09:46 09:55 11:25 WBC RBC Hgb Hct MCV MCH MCHC RDW Plt Count Seg Neutrophils % Lymphocytes % Monocytes % Eosinophils % Basophils % Absolute Neutrophils Absolute Lymphocytes Absolute Monocytes Absolute Eosinophils Absolute Basophils Carbonic Acid 2.05 H HCO3/H2CO3 Ratio 14:1 ABG pH 7.27 L ABG pCO2 68.0 H ABG pO2 135.7 H ABG HCO3 30.6 H ABG O2 Saturation 98.3 H ABG Base Excess 1.8 VBG pH 7.04 L* VBG pCO2 126.4 H* VBG HCO3 33.3 H VBG Base Excess -0.4 FiO2 100% Sodium Potassium Chloride Carbon Dioxide Anion Gap BUN Creatinine Est GFR ( Amer) Est GFR (Non-Af Amer) Glucose Lactic Acid Calcium Magnesium Total Bilirubin AST ALT Alkaline Phosphatase Total Protein Albumin Lipase Urine Color ROSENDO Urine Appearance TURBID Urine pH 5.0 Ur Specific [place] 1.025 Urine Protein 100 H Urine Glucose (UA) NEGATIVE Urine Ketones 20 H Urine Blood SMALL H Urine Nitrite NEGATIVE Ur Leukocyte Esterase NEGATIVE Urine WBC (Auto) 1 Urine RBC (Auto) 13 03/31/18 09:24 Troponin I < 0.012 NT-Pro-B Natriuret Pep 684 Impressions: Chest X-Ray 03/31/18 10:36 IMPRESSION: No pneumothorax post right jugular central line placement Chest/Abdomen CTA 03/31/18 10:36 IMPRESSION: No CT angio evidence of acute pulmonary emboli or thoracic aortic dissection. No acute infiltrates. Chronic right middle lobe volume loss and consolidation 1.5 cm nodule in the posterior right lower lobe, new compared to prior CT 07/31/2017. This is worrisome for malignancy Head CT 03/31/18 10:36 IMPRESSION: NORMAL BRAIN CT WITHOUT CONTRAST. EVIDENCE OF ACUTE STROKE: NO. Venous Doppler Study 03/31/18 12:07 IMPRESSION: NO EVIDENCE FOR DVT OR SVT IN THE RIGHT LEG. Assessment & Plan - Diagnosis (1) Acute respiratory failure with hypercapnia Is this a current diagnosis for this admission?: Yes Plan: Likely due to COPD exacerbation. 2018. ABG: PH 7.27, PCO2 68.0, PO2 135.7, O2 sat 98% on 100% oxygen. Ventilatory support, IV steroids, empiric antibiotics. ABG, CBC, CMP tomorrow. Pulmonary consult. (2) COPD exacerbation Is this a current diagnosis for this admission?: Yes Plan: As per problem #1. (3) Atrial fibrillation, transient Is this a current diagnosis for this admission?: Yes Plan: Likely induced by intubation and COPD exacerbation. [id number] Score 1. Patient converted back to sinus tach receiving 1 dose of digoxin. Will start on aspirin. 2D echo. Cardiology consulted. (4) Tobacco abuse Is this a current diagnosis for this admission?: Yes Plan: Will provide counseling on quitting and nicotine patch. (5) Lung nodule Is this a current diagnosis for this admission?: Yes Plan: Likely malignant due to high risk factors. Pulmonary consulted for further recommendation.
[2018-03-31] MEDS ORDERED: MIDAZOLAM HCL 50 MG/100 ML RTUINJ ONE (20:13)
[2018-03-31] MEDS: MIDAZOLAM HCL 50 MG/100 ML RTUINJ IV PRN (20:35)
[2018-03-31] MEDS ORDERED: ACETAMINOPHEN 325 MG SUPP.RECT PR ONE (21:36)
[2018-03-31] MEDS ORDERED: ACETAMINOPHEN 650 MG SUPP.RECT PR ONE ×2 (21:36→21:44)
[2018-03-31] MEDS: FAMOTIDINE INJ/PF 20 MG/2 ML SDV IV SCH (21:40)
[2018-03-31] MEDS: METHYLPREDNISOLONE INJ 125 MG/2 ML SDV IV SCH (21:41)
[2018-04-01] MEDS: KETOROLAC TROMETHAMINE INJ/PF 30 MG/1 ML SDV IV PRN ×2 (00:13→20:42)
[2018-04-01] MEDS: PROPOFOL 1,000 MG/100 ML INFUS..BTL IV PRN ×5 (02:25→22:35)
[2018-04-01 04:10] LABS: HEMATOCRIT 36.1 % (36.0-47.0); MEAN CORPUSCULAR HEMOGLOBIN 28.5 pg (27.0-33.4); MEAN CORPUSCULAR HGB CONC 32.5 g/dL (32.0-36.0); MEAN CORPUSCULAR VOLUME 88 fl (80-97); PLATELET COUNT 195 10^3/uL (150-450); RED BLOOD COUNT 4.12 10^6/uL (3.72-5.28); RED CELL DISTRIBUTION WIDTH 14.2 % (11.5-14.0); WHITE BLOOD COUNT 19.7 10^3/uL (4.0-10.5)
[2018-04-01] MEDS: DEXTROSE 5%-NORMAL SALINE 1,000 ML IV PRN ×2 (04:11→21:18)
[2018-04-01 04:25] LABS: ALANINE AMINOTRANSFERASE 27 U/L (9-52); ALBUMIN 2.8 g/dL (3.5-5.0); ALKALINE PHOSPHATASE 55 U/L (38-126); ANION GAP 5 (5-19); ASPARTATE AMINO TRANSFERASE 34 U/L (14-36); BILIRUBIN,DIRECT 0.4 mg/dL (0.0-0.4); BILIRUBIN,TOTAL 0.4 mg/dL (0.2-1.3); BLOOD UREA NITROGEN 14 mg/dL (7-20); CALCIUM 7.9 mg/dL (8.4-10.2); CHLORIDE 100 mmol/L (98-107); GLUCOSE 165 mg/dL (75-110); TOTAL PROTEIN 4.8 g/dL (6.3-8.2)
[2018-04-01 04:31] LABS: HEMOGLOBIN 11.7 g/dL (12.0-15.5)
[2018-04-01 04:37] LABS: ABSOLUTE MONOCYTES # (MANUAL) 1.2 10^3/uL (0.1-1.4); ABSOLUTE NEUTROPHILS# (MANUAL) 17.5 10^3/uL (1.7-8.2); BASOPHILS % (MANUAL) 0 % (0-2); EOSINOPHILS % (MANUAL) 0 % (0-6); LYMPHOCYTES % (MANUAL) 5 % (13-45); MONOCYTES % (MANUAL) 6 % (3-13); SEGMENTED NEUTROPHILS % (MAN) 89 % (42-78); TOTAL CELLS COUNTED 100
[2018-04-01 04:38] LABS: ANISOCYTOSIS SLIGHT; POIKILOCYTOSIS SLIGHT; TOXIC GRANULATION SLIGHT; TOXIC VACUOLATION PRESENT
[2018-04-01 04:39] LABS: HELMET CELLS SLIGHT; OVALOCYTES SLIGHT; PLATELET COMMENT ADEQUATE
[2018-04-01 04:43] LABS: CARBON DIOXIDE 33 mmol/L (22-30)
[2018-04-01 05:03] LABS: ARTERIAL BLOOD BASE EXCESS 8.1 mmol/L; ARTERIAL BLOOD FIO2 28%; ARTERIAL BLOOD H2CO3 1.78 mmol/L (1.05-1.35); ARTERIAL BLOOD HCO3 34.8 mmol/L (20-24); ARTERIAL BLOOD O2 SATURATION 89.9 % (94-98); ARTERIAL BLOOD PH 7.39 (7.35-7.45); ARTERIAL BLOOD PO2 59.4 mmHg (80-100); ARTERIAL BLOOD TOTAL CO2 36.6 mmol/L (21-25)
[2018-04-01] MEDS: METHYLPREDNISOLONE INJ 125 MG/2 ML SDV IV SCH ×3 (05:12→22:35)
[2018-04-01] MEDS: HEPARIN SOD (PORCINE) 5,000 UNIT/ML 1 ML SYRINGE SUBCUT SCH (05:12)
[2018-04-01] MEDS: MIDAZOLAM HCL 50 MG/100 ML RTUINJ IV PRN ×2 (06:47→17:32)
--- NOTE | 2018-04-01 07:04 | RADIOLOGY REPORT (SQ) ---
EXAM DESCRIPTION: X-ray single view chest. CLINICAL HISTORY: 62 years Female, intubated COMPARISON: 03/31/2018 at 11:05 AM 9:[address] chest performed on 03/31/2018. TECHNIQUE: Single portable view of the chest performed on 04/01/2018 at 6:19 AM FINDINGS: The lungs are hyperinflated consistent with underlying obstructive airways disease. The previously identified nodule in the right lower lobe is not clearly demonstrated on this examination. There is no evidence of a pneumothorax. The cardiac silhouette is normal in size and configuration. The mediastinal contours are normal. No acute osseous abnormality is identified. No focal soft tissue abnormalities are seen. Lines and tubes: The endotracheal tube, right IJ central venous catheter and feeding tube are grossly stable as visualized. IMPRESSION: 1. Hyperinflation of the lungs consistent with underlying obstructive airways disease. No definite acute intrathoracic disease. 2. Stable life support lines and tubes.
--- NOTE | 2018-04-01 07:25 | EKG REPORT ---
SEVERITY:- ABNORMAL ECG - SINUS TACHYCARDIA RIGHT ATRIAL ABNORMALITY BORDERLINE T ABNORMALITIES, ANT-LAT LEADS : Confirmed by: Alisia Edmond MD 01-Apr-2018 07:25:07
--- NOTE | 2018-04-01 07:25 | EKG REPORT ---
SEVERITY:- ABNORMAL ECG - ATRIAL FIBRILLATION, V-RATE 109-[address] DEPRESSION, DIFFUSE LEADS PROLONGED QT INTERVAL : Confirmed by: Alisia Edmond MD 01-Apr-2018 07:25:16
[2018-04-01] MEDS: CEFTRIAXONE 1 GM/D5W RTU 1 GM/50 ML RTUPB IV SCH (10:16)
[2018-04-01] MEDS: FAMOTIDINE INJ/PF 20 MG/2 ML SDV IV SCH ×2 (10:17→22:36)
[2018-04-01] MEDS ORDERED: DILTIAZEM HCL/D5W 125 MG/125 ML RTUINJ IV ONE (11:16)
[2018-04-01] MEDS: DILTIAZEM HCL/D5W 125 MG/125 ML RTUINJ IV PRN (11:20)
--- NOTE | 2018-04-01 13:20 | EKG REPORT ---
SEVERITY:- ABNORMAL ECG - ATRIAL FIBRILLATION, V-RATE 91-[address]-T CHANGES- INFERIOR LEADS : Confirmed by: Inocente Lorenzo MD 01-Apr-2018 13:19:10
--- NOTE | 2018-04-01 19:05 | PDOC PROGRESS REPORT ---
Subjective Progress Note for:: 04/01/18 Subjective:: Patient still intubated. ABG shows mild improvement of hypercarbia but worsening hypoxia. PH is within normal limits. Patient has white blood cell 19.7 which could likely be due to IV steroids that she is receiving. Reason For Visit: HYPOXIC RESPIRATORY DISTRESS Physical Exam Vital Signs: Temp Pulse Resp BP Pulse Ox 100.0 F 91 12 141/84 H 100 04/01/18 16:00 04/01/18 18:00 04/01/18 18:00 04/01/18 18:00 04/01/18 18:00 Intake & Output 03/31/18 04/01/18 04/02/18 06:59 06:59 06:59 Intake Total 3667 231 Output Total 2665 190 Balance 1002 41 Weight 47.1 kg General appearance: PRESENT: other - Intubated Respiratory exam: PRESENT: clear to auscultation flaco, other - Intubated. GI/Abdominal exam: PRESENT: normal bowel sounds, soft. ABSENT: distended, guarding, mass, organolmegaly, rebound, tenderness Neurological exam: PRESENT: other - Intubated and sedated Results Laboratory Results: 04/01/18 03:45 04/01/18 03:45 04/01/18 04/01/18 04/01/18 03:45 03:45 03:45 WBC 19.7 H RBC 4.12 Hgb 11.7 L D Hct 36.1 MCV 88 MCH 28.5 MCHC 32.5 RDW 14.2 H Plt Count 195 Seg Neutrophils % Not Reportable Lymphocytes % Not Reportable Monocytes % Not Reportable Eosinophils % Not Reportable Basophils % Not Reportable Absolute Neutrophils Not Reportable Absolute Lymphocytes Not Reportable Absolute Monocytes Not Reportable Absolute Eosinophils Not Reportable Absolute Basophils Not Reportable Carbonic Acid HCO3/H2CO3 Ratio ABG pH ABG pCO2 ABG pO2 ABG HCO3 ABG O2 Saturation ABG Base Excess FiO2 Sodium 138.0 Potassium 4.0 Chloride 100 Carbon Dioxide 33 H D Anion Gap 5 BUN 14 Creatinine 0.50 L Est GFR ( Amer) > 60 Est GFR (Non-Af Amer) > 60 Glucose 165 H Calcium 7.9 L Magnesium 2.3 D Total Bilirubin 0.4 AST 34 ALT 27 Alkaline Phosphatase 55 Total Protein 4.8 L Albumin 2.8 L TSH 0.07 L 04/01/18 04:57 WBC RBC Hgb Hct MCV MCH MCHC RDW Plt Count Seg Neutrophils % Lymphocytes % Monocytes % Eosinophils % Basophils % Absolute Neutrophils Absolute Lymphocytes Absolute Monocytes Absolute Eosinophils Absolute Basophils Carbonic Acid 1.78 H HCO3/H2CO3 Ratio 19:1 ABG pH 7.39 ABG pCO2 59.0 H ABG pO2 59.4 L ABG HCO3 34.8 H ABG O2 Saturation 89.9 L ABG Base Excess 8.1 FiO2 28% Sodium Potassium Chloride Carbon Dioxide Anion Gap BUN Creatinine Est GFR ( Amer) Est GFR (Non-Af Amer) Glucose Calcium Magnesium Total Bilirubin AST ALT Alkaline Phosphatase Total Protein Albumin TSH 03/31/18 09:24 Troponin I < 0.012 NT-Pro-B Natriuret Pep 684 Impressions: Chest/Abdomen CTA 03/31/18 10:36 IMPRESSION: No CT angio evidence of acute pulmonary emboli or thoracic aortic dissection. No acute infiltrates. Chronic right middle lobe volume loss and consolidation 1.5 cm nodule in the posterior right lower lobe, new compared to prior CT 07/31/2017. This is worrisome for malignancy Head CT 03/31/18 10:36 IMPRESSION: NORMAL BRAIN CT WITHOUT CONTRAST. EVIDENCE OF ACUTE STROKE: NO. Venous Doppler Study 03/31/18 12:07 IMPRESSION: NO EVIDENCE FOR DVT OR SVT IN THE RIGHT LEG. Chest X-Ray 04/01/18 06:00 IMPRESSION: 1. Hyperinflation of the lungs consistent with underlying obstructive airways disease. No definite acute intrathoracic disease. 2. Stable life support lines and tubes. Assessment & Plan - Diagnosis (1) Acute respiratory failure with hypercapnia Is this a current diagnosis for this admission?: Yes Plan: Likely due to COPD exacerbation. Ventilatory support, IV steroids, empiric antibiotics. ABG, CBC, CMP tomorrow. Pulmonary consult. (2) COPD exacerbation Is this a current diagnosis for this admission?: Yes Plan: As per problem #1. (3) Atrial fibrillation, transient Is this a current diagnosis for this admission?: Yes Plan: Likely induced by intubation and COPD exacerbation. [id number] Score 1. Patient converted back to sinus tach receiving 1 dose of digoxin. Will start on aspirin. 2D echo. Cardiology consulted. (4) Tobacco abuse Is this a current diagnosis for this admission?: Yes Plan: Will counseled on quitting and start on nicotine patch if desired (5) Lung nodule Is this a current diagnosis for this admission?: Yes Plan: Likely malignant due to high risk factors. Pulmonary consulted for further recommendation.
[2018-04-01] MEDS: FENTANYL CITRATE INJ/PF 100 MCG/2 ML AMPUL IV PRN (21:12)
[2018-04-01] MEDS: ENOXAPARIN SODIUM INJ 60 MG/0.6 ML DISP.SYRIN SUBCUT SCH (22:36)
[2018-04-01] MEDS: PIPERACILLIN/TAZOBACTAM 3.375 GM VIAL IV SCH (22:36)
--- NOTE | 2018-04-01 22:41 | PDOC CONSULTATION ---
Consultation-Blank Consultation: CARDIOLOGY CONSULTATION by Dr. Alisia Edmond. Patient seen at 10:10 AM on 04/01/2018. 60 minutes spent on this patient, with more than 50% of time spent in direct patient care. REASON FOR CONSULTATION: New onset atrial fibrillation with rapid ventricular response. HISTORY PRESENT ILLNESS: Note unable to obtain history from patient since she is intubated and sedated. Her chart has been reviewed in detail. Patient is a 62-year-old female with known history of COPD with ongoing tobacco abuse, and chronic pain syndrome on gabapentin, was brought into the emergency room in acute respiratory distress. She was in acute hypercapnic respiratory failure on admission, and subsequently intubated. She continues to be in acute respiratory failure with hypoxemia and hypercarbia. The patient the last week and multiple visits by the EMT to her house. The patient today developed atrial fibrillation with rapid ventricular response. The patient has been started on Cardizem drip with control of her heart rate. PAST MEDICAL HISTORY: The patient has no history of hypertension or diabetes mellitus. There is no history of chronic kidney disease. The patient has no major illnesses. It is not clear if the patient has had prior atrial fibrillation episodes. PAST SURGICAL HISTORY: Hysterectomy and tubal ligation. SOCIAL HISTORY: History of ongoing tobacco abuse. ALLERGIES: The patient has no known drug allergies. DISPOSITION: The patient is a full code. Her son Mr. Rocky Irwin is her surrogate healthcare decision maker. REVIEW SYSTEMS: Is not obtainable since the patient is intubated and sedated, and no family member available. PHYSICAL EXAMINATION: The patient is a frail build, appears to be chronically ill. Selected Entries 04/01/18 04/01/18 10:00 10:28 Core 99.0 F Temperature Pulse Rate 117 H Respiratory 36 H Rate Blood Pressure 116/70 [Upper Arm] Blood Pressure 85 Mean [Upper Arm ] O2 Sat by Pulse 100 Oximetry Oxygen Delivery Mechanical Method ( Ventilator includes room air) FIO2 equals 35% HEAD: Head is atraumatic and normocephalic. EYES: Pupils are equal round regular reactive to light accommodation. Extraocular movements are normal, there is no conjunctival pallor, and no scleral icterus. EARS: Tympanic membranes are intact external auditory canals are clear. NOSE: There is no inflammation of the nasal mucous membrane there is no deviated nasal septum. MOUTH: Mucous membranes of mouth and tongue are moist, there is no ulcers in the mouth or tongue, and no bleeding from the gums. THROAT: There is no redness of the oropharynx, no exudate seen. SKIN: There is no petechia or ecchymosis. There is no rashes or lesions. NECK: Supple. There is no JVD. Carotids are equal there is no bruit. There is no lymphadenopathy. There is no goiter. Trachea central LUNGS: There is diminished air entry and prolonged expiration. There is bilateral scattered rhonchi. On percussion there is hyperresonance although there is no chest wall tenderness HEART: S1 and S2 are heard. S1 is of variable intensity, there is no S3 or S4 gallops. There is a systolic murmur the left sternal border and the apex. There is no rub. ABDOMEN: Normoactive bowel sounds, soft, nontender, no masses, no rebound, no guarding. There is no hepatosplenomegaly. EXTREMITIES: Femorals are slightly diminished. There is no femoral bruits. Leg pulses are diminished. There is no pedal edema. There is no DVT or cellulitis. There is no cyanosis or clubbing. 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 03/31/18 03/31/18 03/31/18 09:24 09:24 09:46 WBC RBC Hgb Hct MCV MCH MCHC RDW Plt Count Total Counted Seg Neuts % (Manual) Lymphocytes % Lymphocytes % (Manual) Monocytes % Monocytes % (Manual) Eosinophils % Basophils % Basophils % (Manual) Absolute Neutrophils Abs Neuts (Manual) Absolute Lymphocytes Abs Lymphs (Manual) Absolute Monocytes Abs Monocytes (Manual) Absolute Eosinophils Absolute Eos (Manual) Absolute Basophils Abs Basophils (Manual) Toxic Granulation PT 13.0 INR 0.93 Carbonic Acid ABG pCO2 ABG pO2 ABG HCO3 ABG Total CO2 ABG O2 Saturation ABG Base Excess FiO2 Sodium Potassium Chloride Carbon Dioxide Anion Gap BUN Creatinine Est GFR (Non-Af Amer) Glucose Calcium Magnesium Total Bilirubin Direct Bilirubin Neonat Total Bilirubin Neonat Direct Bilirubin Neonat Indirect Bili AST ALT Alkaline Phosphatase Troponin I < 0.012 NT-Pro-B Natriuret Pep 684 Total Protein Albumin TSH Urine Opiates Screen UNCONFIRMED POSITIVE Urine Methadone Screen NEGATIVE Ur Barbiturates Screen NEGATIVE Ur Phencyclidine Scrn NEGATIVE Ur Amphetamines Screen NEGATIVE U Benzodiazepines Scrn NEGATIVE Urine Cocaine Screen NEGATIVE U Marijuana (THC) Screen NEGATIVE 04/01/18 04/01/18 04/01/18 03:45 03:45 03:45 WBC 19.7 H RBC 4.12 Hgb 11.7 L D Hct 36.1 MCV 88 MCH 28.5 MCHC 32.5 RDW 14.2 H Plt Count 195 Total Counted 100 Seg Neuts % (Manual) 89 H Lymphocytes % Not Reportable Lymphocytes % (Manual) 5 L Monocytes % Not Reportable Monocytes % (Manual) 6 Eosinophils % Not Reportable Basophils % Not Reportable Basophils % (Manual) 0 Absolute Neutrophils Not Reportable Abs Neuts (Manual) 17.5 H Absolute Lymphocytes Not Reportable Abs Lymphs (Manual) 1.0 Absolute Monocytes Not Reportable Abs Monocytes (Manual) 1.2 Absolute Eosinophils Not Reportable Absolute Eos (Manual) 0.0 Absolute Basophils Not Reportable Abs Basophils (Manual) 0.0 Toxic Granulation SLIGHT PT INR Carbonic Acid ABG pCO2 ABG pO2 ABG HCO3 ABG Total CO2 ABG O2 Saturation ABG Base Excess FiO2 Sodium 138.0 Potassium 4.0 Chloride 100 Carbon Dioxide 33 H D Anion Gap 5 BUN 14 Creatinine 0.50 L Est GFR (Non-Af Amer) > 60 Glucose 165 H Calcium 7.9 L Magnesium 2.3 D Total Bilirubin 0.4 Direct Bilirubin 0.4 Neonat Total Bilirubin Not Reportable Neonat Direct Bilirubin Not Reportable Neonat Indirect Bili Not Reportable AST 34 ALT 27 Alkaline Phosphatase 55 Troponin I NT-Pro-B Natriuret Pep Total Protein 4.8 L Albumin 2.8 L TSH 0.07 L Urine Opiates Screen Urine Methadone Screen Ur Barbiturates Screen Ur Phencyclidine Scrn Ur Amphetamines Screen U Benzodiazepines Scrn Urine Cocaine Screen U Marijuana (THC) Screen 04/01/18 04:57 WBC RBC Hgb Hct MCV MCH MCHC RDW Plt Count Total Counted Seg Neuts % (Manual) Lymphocytes % Lymphocytes % (Manual) Monocytes % Monocytes % (Manual) Eosinophils % Basophils % Basophils % (Manual) Absolute Neutrophils Abs Neuts (Manual) Absolute Lymphocytes Abs Lymphs (Manual) Absolute Monocytes Abs Monocytes (Manual) Absolute Eosinophils Absolute Eos (Manual) Absolute Basophils Abs Basophils (Manual) Toxic Granulation PT INR Carbonic Acid 1.78 H ABG pCO2 59.0 H ABG pO2 59.4 L ABG HCO3 34.8 H ABG Total CO2 36.6 H ABG O2 Saturation 89.9 L ABG Base Excess 8.1 FiO2 28% Sodium Potassium Chloride Carbon Dioxide Anion Gap BUN Creatinine Est GFR (Non-Af Amer) Glucose Calcium Magnesium Total Bilirubin Direct Bilirubin Neonat Total Bilirubin Neonat Direct Bilirubin Neonat Indirect Bili AST ALT Alkaline Phosphatase Troponin I NT-Pro-B Natriuret Pep Total Protein Albumin TSH Urine Opiates Screen Urine Methadone Screen Ur Barbiturates Screen Ur Phencyclidine Scrn Ur Amphetamines Screen U Benzodiazepines Scrn Urine Cocaine Screen U Marijuana (THC) Screen Home Meds Table Albuterol Sulfate [Proair HFA Inhalation Aerosol 8.5 gm MDI] 2 puff IH Q6HP PRN 03/31/18 Fluticasone/Salmeterol [Advair 500-50 Diskus 14 Dose/Diskus] 1 inh IH Q12 03/31/18 Gabapentin [Neurontin 400 mg Capsule] 800 mg PO Q8 03/31/18 Hydrocodone Bit/Acetaminophen [Hydrocodon-Acetaminophn 10-325] 1 each PO Q8HP PRN 03/31/18 Hydroxyzine Pamoate [Vistaril 25 mg Capsule] 25 mg PO Q8HP PRN 03/31/18 Ipratropium/Albuterol Sulfate [Duoneb 3 ml Ampul] 3 ml NEB RTQIDP PRN 03/31/18 Umeclidinium [place] [Incruse Ellipta] 1 puff IH DAILY 03/31/18 03/31/18 11:59 Dextrose 5%-Normal Saline [D5ns 1000 ml IV Soln] 1,000 ml IV CONTINUOUS Promethazine HCl [Phenergan Inj 25 mg/1 ml Vial] 12.5 mg IV Q4HP PRN Propofol [Diprivan RTU 1000 mg/100 ml Inf.bottle] 1,000 mg in 100 ml IV CONTINUOUS 03/31/18 12:09 Dextrose 50%-Water [Dextrose Inj 50% Syringe (25 gm/50 ml)] 12.5 gm IV PRN PRN Dextrose 50%-Water [Dextrose Inj 50% Syringe (25 gm/50 ml)] 25 gm IV PRN PRN Dextrose [Glutose 40% Gel 15 gm Tube] 15 gm PO PRN PRN Dextrose [Glutose 40% Gel 15 gm Tube] 30 gm PO PRN PRN Glucagon,Human Recombinant [Glucagen Inj 1 mg Vial] 1 mg IM PRN PRN Insulin Lispro [Humalog Insulin 100 Unit/1 ml 3 ml Vial] 0 - 12 unit SUBCUT ACHSP PRN 03/31/18 14:00 Normal Saline [Saline Flush 2.5 ml Monoject Prefil Syrin] 2.5 ml IV Q8 03/31/18 20:16 Midazolam HCl [Versed RTU 50 mg/100 ml Premix Bag] 50 mg in 100 ml IV CONTINUOUS 03/31/18 22:00 Famotidine/Pf [Pepcid Inj/Pf 20 mg/2 ml Sdv] 20 mg IV Q12 Methylprednisolone Sod Succ/Pf [Solu-Medrol Inj/Pf 125 mg/2 ml Sdv] 60 mg IV Q8 03/31/18 23:51 Ketorolac Tromethamine [Toradol Inj/Pf 30 mg/1 ml Sdv] 30 mg IV Q8HP PRN 04/01/18 03:15 Flu Vacc [id number](6Mos Up)/Pf [Fluarix Adlt Quad Vac 0.5 ml Syr] 0.5 ml IM .DISCHARGE PRN 04/01/18 11:16 Diltiazem HCl/D5w [Cardizem RTU Inj 125 mg-D5w 125 ml Premix] 125 mg in 125 ml IV .STK-MED 04/01/18 11:32 Diltiazem HCl/D5w [Cardizem RTU Inj 125 mg-D5w 125 ml Premix] 125 mg in 125 ml IV CONTINUOUS 04/01/18 19:36 Albuterol Sulfate [Ventolin 0.083% Neb 2.5 mg/3 ml Ampul] 2.5 mg NEB RTQ6HP PRN 04/01/18 20:47 Fentanyl Citrate/Pf [Sublimaze Inj/Pf 100 Mcg/2 ml Ampule] 50 mcg IV Q4HP PRN 04/01/18 22:00 Piperacillin Sodium/Tazobactam [Zosyn Inj 3.375 gm Vial] 3.375 gm IV Q8 04/02/18 00:00 Ipratropium [place] [Atrovent 0.02% Neb 0.5 mg/2.5 ml Ampul] 0.5 mg NEB RTQ8 Levalbuterol HCl [Xopenex Neb 1.25 mg/3 ml Ampul] 1.25 mg NEB RTQ8 EKG: Shows atrial fibrillation with rapid ventricular response. CHEST x-ray: Shows COPD with no acute infiltrates. IMPRESSION/RECOMMENDATION: 1. New onset of atrial fibrillation with rapid ventricular response: The patient will be started on a Cardizem drip and will titrate the drip up from the starting dose of 5 mg/h to obtain adequate rate control or conversion of the patient to sinus rhythm. Note that the patient's corrected enedelia was VASC 2 score is 1. Hence can go with aspirin 325 mg via the NG tube or p.o. daily. No indication for chronic long-term anticoagulation. 2. Acute on chronic respiratory failure with at present acute hypercapnic and hypoxic sick respiratory failure 3. History of chronic pain syndrome. 4. History of tobacco abuse. Medications reviewed. Medications started. Medical decision making is of moderate complexity. Note 60 minutes spent on this patient with more than 50% of time spent in direct patient care. Management plan discussed with the attending physician on the case. Will follow with you.
[2018-04-02] MEDS ORDERED: ALBUTEROL SULFATE 0.042% NEB (1.25 MG/3 ML) AMPUL NEB SCH
[2018-04-02] MEDS: LEVALBUTEROL HCL NEB 1.25 MG/3 ML AMPUL NEB SCH ×4 (00:12→23:59)
[2018-04-02] MEDS: IPRATROPIUM BROMIDE 0.02% NEB 0.5 MG/2.5 ML AMPUL NEB SCH ×4 (00:12→23:59)
[2018-04-02] MEDS: MIDAZOLAM HCL 50 MG/100 ML RTUINJ IV PRN ×3 (01:08→18:19)
[2018-04-02] MEDS: FENTANYL CITRATE INJ/PF 100 MCG/2 ML AMPUL IV PRN ×2 (02:04→20:48)
[2018-04-02] MEDS: PROPOFOL 1,000 MG/100 ML INFUS..BTL IV PRN ×4 (03:28→21:17)
[2018-04-02 04:35] LABS: ARTERIAL BLOOD BASE EXCESS 4.6 mmol/L; ARTERIAL BLOOD H2CO3 1.87 mmol/L (1.05-1.35); ARTERIAL BLOOD HCO3 32.1 mmol/L (20-24); ARTERIAL BLOOD PCO2 62.1 mmHg (35-45); ARTERIAL BLOOD PH 7.33 (7.35-7.45); ARTERIAL BLOOD PO2 89.3 mmHg (80-100)
[2018-04-02 04:40] LABS: HEMATOCRIT 35.6 % (36.0-47.0); HEMOGLOBIN 11.4 g/dL (12.0-15.5); MEAN CORPUSCULAR HEMOGLOBIN 28.1 pg (27.0-33.4); MEAN CORPUSCULAR HGB CONC 31.9 g/dL (32.0-36.0); MEAN CORPUSCULAR VOLUME 88 fl (80-97); PLATELET COUNT 197 10^3/uL (150-450); RED BLOOD COUNT 4.04 10^6/uL (3.72-5.28); RED CELL DISTRIBUTION WIDTH 14.5 % (11.5-14.0); WHITE BLOOD COUNT 14.9 10^3/uL (4.0-10.5)
[2018-04-02 04:41] LABS: ARTERIAL BLOOD FIO2 35%
[2018-04-02 05:04] LABS: ABSOLUTE LYMPHOCYTES# (MANUAL) 0.3 10^3/uL (0.5-4.7); ABSOLUTE NEUTROPHILS# (MANUAL) 14.6 10^3/uL (1.7-8.2); ALANINE AMINOTRANSFERASE 26 U/L (9-52); ALBUMIN 2.5 g/dL (3.5-5.0); ALKALINE PHOSPHATASE 56 U/L (38-126); ASPARTATE AMINO TRANSFERASE 16 U/L (14-36); BAND NEUTROPHILS % (MANUAL) 6 % (3-5); BASOPHILS % (MANUAL) 0 % (0-2); BILIRUBIN,DIRECT 0.2 mg/dL (0.0-0.4); BILIRUBIN,TOTAL 0.2 mg/dL (0.2-1.3); BLOOD UREA NITROGEN 17 mg/dL (7-20); EOSINOPHILS % (MANUAL) 0 % (0-6); GLUCOSE 242 mg/dL (75-110); LYMPHOCYTES % (MANUAL) 2 % (13-45); MONOCYTES % (MANUAL) 0 % (3-13); PLATELET COMMENT ADEQUATE; POTASSIUM 3.8 mmol/L (3.6-5.0); RBC MORPHOLOGY COMMENT NORMO-CYTIC/CHROMIC; SEGMENTED NEUTROPHILS % (MAN) 92 % (42-78); TOTAL CELLS COUNTED 100; TOTAL PROTEIN 4.7 g/dL (6.3-8.2)
[2018-04-02 05:09] LABS: CARBON DIOXIDE 34 mmol/L (22-30); CHLORIDE 101 mmol/L (98-107); SODIUM 139.1 mmol/L (137-145)
[2018-04-02 05:17] LABS: ANION GAP 4 (5-19)
[2018-04-02] MEDS: PIPERACILLIN/TAZOBACTAM 3.375 GM VIAL IV SCH (05:35)
[2018-04-02] MEDS: METHYLPREDNISOLONE INJ 125 MG/2 ML SDV IV SCH ×3 (05:36→21:16)
[2018-04-02] MEDS: DILTIAZEM HCL/D5W 125 MG/125 ML RTUINJ IV PRN (05:43)
--- NOTE | 2018-04-02 07:38 | EKG REPORT ---
SEVERITY:- OTHERWISE NORMAL ECG - SINUS RHYTHM BORDERLINE RIGHT AXIS DEVIATION : Confirmed by: Inocente Lorenzo MD 02-Apr-2018 07:37:45
--- NOTE | 2018-04-02 08:27 | RADIOLOGY REPORT (SQ) ---
EXAM DESCRIPTION: CHEST SINGLE VIEW COMPLETED DATE/TIME: 04/02/2018 6:43 am REASON FOR STUDY: on ventilator COMPARISON: 04/01/2018 EXAM PARAMETERS: NUMBER OF VIEWS: One view. TECHNIQUE: Single frontal radiographic view of the chest acquired. RADIATION DOSE: NA LIMITATIONS: None. FINDINGS: LUNGS AND PLEURA: COPD, unchanged finding. Mild interstitial changes at the left lung ba se, unchanged finding. No pneumothorax or pleural effusion. MEDIASTINUM AND HILAR STRUCTURES: No masses. Contour normal. HEART AND VASCULAR STRUCTURES: Heart normal in size. Normal vasculature. BONES: No acute findings. HARDWARE: Support tubes and lines are unchanged. OTHER: No other significant finding. IMPRESSION: 1. No significant interval changes since the prior examination dated 04/01/2018. Findin gs of COPD and mild interstitial changes at the left lung base. 2. Support lines and tubes, unchanged findings. TECHNICAL DOCUMENTATION: JOB ID: [id number] [employer]- All Rights Reserved Reading location - IP/workstation name: [email or web address]
[2018-04-02] MEDS: FAMOTIDINE INJ/PF 20 MG/2 ML SDV IV SCH ×2 (09:54→21:16)
[2018-04-02] MEDS: ENOXAPARIN SODIUM INJ 60 MG/0.6 ML DISP.SYRIN SUBCUT SCH ×2 (09:55→21:15)
[2018-04-02] MEDS: DEXTROSE 5%-NORMAL SALINE 1,000 ML IV PRN (10:02)
[2018-04-02] MEDS: INSULIN LISPRO 100 UNIT/ML 3 ML VIAL SUBCUT SCH ×3 (11:18→21:29)
[2018-04-02] MEDS: PIPERACILLIN SODIUM/TAZOBACTAM 3.375 GM in NORMAL SALINE 100 ML IV SCH ×2 (13:53→21:16)
--- NOTE | 2018-04-02 15:27 | PDOC PROGRESS REPORT ---
Subjective Progress Note for:: 04/02/18 Subjective:: No acute events overnight. Patient is still intubated and sedated. Saturating 93% on FiO2 of 35%. She has been afebrile except for one episode of hypothermia temperature 96.6. White blood cells 14.9 down from 19.7 and ABG pH is 7.33 PCO2 62.1 PO2 89 up from 59.4 chemistry within normal limits 11 cultures positive for gram-positive cocci and sputum culture prelim positive for gram-positive cocci gram-negative rods. Reason For Visit: HYPOXIC RESPIRATORY DISTRESS Physical Exam Vital Signs: Temp Pulse Resp BP Pulse Ox 98.1 F 76 12 107/75 93 04/02/18 14:00 04/02/18 14:00 04/02/18 14:00 04/02/18 14:00 04/02/18 14:00 Intake & Output 04/01/18 04/02/18 04/03/18 06:59 06:59 06:59 Intake Total 3667 1731 981 Output Total 2665 520 25 Balance 1002 1211 956 Weight 47.1 kg 49 kg General appearance: PRESENT: other - Sedated and intubated. Head exam: PRESENT: atraumatic, normocephalic Respiratory exam: PRESENT: clear to auscultation flaco. ABSENT: rales, rhonchi, wheezes GI/Abdominal exam: PRESENT: normal bowel sounds, soft. ABSENT: distended, guarding, mass, rebound, tenderness Neurological exam: PRESENT: other - Sedated and intubated. Results Laboratory Results: 04/02/18 04:20 04/02/18 04:20 04/02/18 04/02/18 04/02/18 04:20 04:20 04:20 WBC 14.9 H RBC 4.04 Hgb 11.4 L Hct 35.6 L MCV 88 MCH 28.1 MCHC 31.9 L RDW 14.5 H Plt Count 197 Seg Neutrophils % Not Reportable Lymphocytes % Not Reportable Monocytes % Not Reportable Eosinophils % Not Reportable Basophils % Not Reportable Absolute Neutrophils Not Reportable Absolute Lymphocytes Not Reportable Absolute Monocytes Not Reportable Absolute Eosinophils Not Reportable Absolute Basophils Not Reportable Carbonic Acid 1.87 H HCO3/H2CO3 Ratio 17:1 ABG pH 7.33 L ABG pCO2 62.1 H ABG pO2 89.3 ABG HCO3 32.1 H ABG O2 Saturation 96.0 ABG Base Excess 4.6 FiO2 35% Sodium 139.1 Potassium 3.8 Chloride 101 Carbon Dioxide 34 H Anion Gap 4 L BUN 17 Creatinine 0.55 Est GFR ( Amer) > 60 Est GFR (Non-Af Amer) > 60 Glucose 242 H Calcium 8.0 L Magnesium 2.2 Total Bilirubin 0.2 AST 16 ALT 26 Alkaline Phosphatase 56 Total Protein 4.7 L Albumin 2.5 L 03/31/18 09:46 Catheterized Urine Urine Culture - Final NO GROWTH 2 DAYS 03/31/18 09:24 Troponin I < 0.012 NT-Pro-B Natriuret Pep 684 Impressions: Chest/Abdomen CTA 03/31/18 10:36 IMPRESSION: No CT angio evidence of acute pulmonary emboli or thoracic aortic dissection. No acute infiltrates. Chronic right middle lobe volume loss and consolidation 1.5 cm nodule in the posterior right lower lobe, new compared to prior CT 07/31/2017. This is worrisome for malignancy Head CT 03/31/18 10:36 IMPRESSION: NORMAL BRAIN CT WITHOUT CONTRAST. EVIDENCE OF ACUTE STROKE: NO. Venous Doppler Study 03/31/18 12:07 IMPRESSION: NO EVIDENCE FOR DVT OR SVT IN THE RIGHT LEG. Chest X-Ray 04/02/18 05:00 IMPRESSION: 1. No significant interval changes since the prior examination dated 04/01/2018. Findings of COPD and mild interstitial changes at the left lung base. 2. Support lines and tubes, unchanged findings. Assessment & Plan - Diagnosis (1) Acute respiratory failure with hypercapnia Is this a current diagnosis for this admission?: Yes Plan: Likely due to COPD exacerbation/pneumonia. ABG pH is 7.33 PCO2 62.1 PO2 89 up from 59.4 Blood cultures positive for gram-positive cocci and sputum culture prelim positive for gram-positive cocci gram-negative rods. Ventilatory support, IV steroids, empiric antibiotics. ABG, CBC, CMP tomorrow. Pulmonary on board. (2) Gram-positive bacteremia Is this a current diagnosis for this admission?: Yes Plan: Prelim blood cultures from 04/02/2018 is + for gram-positive cocci in clusters. Currently on Zosyn. Will start Vanco for broader coverage. Follow-up cultures. (3) COPD exacerbation Is this a current diagnosis for this admission?: Yes Plan: As per problem #1. (4) Atrial fibrillation, transient Is this a current diagnosis for this admission?: Yes Plan: New onset, [id number] Score 1. Currently on Cardizem drip. Continue aspirin. No indication for chronic long-term anticoagulation as per cardiology note. (5) Tobacco abuse Is this a current diagnosis for this admission?: Yes Plan: Will provide counseling on quitting and nicotine patch. (6) Lung nodule Is this a current diagnosis for this admission?: Yes Plan: Likely malignant due to high risk factors. Pulmonary consulted for further recommendation.
[2018-04-02] MEDS ORDERED: VANCOMYCIN HCL 0 MG in DEXTROSE 5%-WATER 250 ML IV NR (15:30)
[2018-04-02] MEDS: VANCOMYCIN HCL 750 MG in DEXTROSE 5%-WATER 250 ML IV SCH (18:54)
[2018-04-02] MEDS: DILTIAZEM HCL 30 MG TABLET NG SCH (22:04)
--- NOTE | 2018-04-02 23:41 | Progress Note ---
Provider Note Provider Note: CARDIOLOGY PROGRESS NOTE by Dr. Alisia Hauser on 04/02/2018. SUBJECTIVE:. The patient is intubated and sedated. She is converted to sinus rhythm. There is no ventricular arrhythmia seen on the monitor. There is no leg edema. PHYSICAL examination: The patient appears to be chronically ill. She is at present in no acute distress. Selected Entries 04/02/18 04/02/18 20:29 21:00 Core 99.5 F Temperature Heart Rate ( 77 Monitors) Respiratory 20 12 Rate Blood Pressure 121/76 Blood Pressure 91 Mean O2 Sat by Pulse 97 94 Oximetry Fraction of 28 Inspired Oxygen (FIO2) HEAD: Head is atraumatic and normocephalic. EYES: Pupils are equal round regular reactive to light accommodation. Extraocular movements are normal, there is no conjunctival pallor, and no scleral icterus. EARS: Tympanic membranes are intact external auditory canals are clear. NOSE: There is no inflammation of the nasal mucous membrane there is no deviated nasal septum. MOUTH: Mucous membranes of mouth and tongue are moist, there is no ulcers in the mouth or tongue, and no bleeding from the gums. THROAT: There is no redness of the oropharynx, no exudate seen. SKIN: There is no petechia or ecchymosis. There is no rashes or lesions. NECK: Supple. There is no JVD. Carotids are equal there is no bruit. There is no lymphadenopathy. There is no goiter. Trachea central LUNGS: There is diminished air entry and prolonged expiration. There is bilateral scattered rhonchi. There are a few dry crackles at the left base. On percussion there is hyperresonance although there is no chest wall tenderness HEART: S1 and S2 are heard. S1 is of normal intensity, there is no S3 or S4 gallops. There is a systolic murmur the left sternal border and the apex. There is no rub. ABDOMEN: Normoactive bowel sounds, soft, nontender, no masses, no rebound, no guarding. There is no hepatosplenomegaly. EXTREMITIES: Femorals are slightly diminished. There is no femoral bruits. Leg pulses are diminished. There is no pedal edema. There is no DVT or cellulitis. There is no cyanosis or clubbing. 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 04/02/18 04/02/18 04/02/18 04:20 04:20 04:20 WBC 14.9 H RBC 4.04 Hgb 11.4 L Hct 35.6 L MCV 88 MCH 28.1 MCHC 31.9 L RDW 14.5 H Plt Count 197 Total Counted 100 Carbonic Acid 1.87 H HCO3/H2CO3 Ratio 17:1 ABG pH 7.33 L ABG pCO2 62.1 H ABG pO2 89.3 ABG HCO3 32.1 H ABG Total CO2 34.0 H ABG O2 Saturation 96.0 ABG Base Excess 4.6 FiO2 35% Sodium 139.1 Potassium 3.8 Chloride 101 Carbon Dioxide 34 H Anion Gap 4 L BUN 17 Creatinine 0.55 Est GFR (Non-Af Amer) > 60 Glucose 242 H Calcium 8.0 L Magnesium 2.2 Total Bilirubin 0.2 Direct Bilirubin 0.2 Neonat Total Bilirubin Not Reportable Neonat Direct Bilirubin Not Reportable Neonat Indirect Bili Not Reportable AST 16 ALT 26 Alkaline Phosphatase 56 Total Protein 4.7 L Albumin 2.5 L IMPRESSION/RECOMMENDATION: 1. PAROXYSMAL atrial fibrillation. Patient at present in sinus rhythm. We will stop the patient Cardizem drip and start the patient on Cardizem 30 mg via NG tube every 8 hours and increase as tolerated. Note that the patient's corrected enedelia was VASC 2 score is 1. Hence can go with aspirin 325 mg via the NG tube or p.o. daily. No indication for chronic long-term anticoagulation. We will discontinue the patient's foot Lovenox at 1 mg/kg subcutaneous every 12 hours, and start the patient on Lovenox at 40 mg subcutaneously daily for DVT prophylaxis. 2. Acute on chronic respiratory failure with at present acute hypercapnic and hypoxic sick respiratory failure 3. Possible left lower lobe pneumonia. Continue antibiotics. 4. History of tobacco abuse. .5. History of chronic pain syndrome. MEDICATIONS reviewed. Medications adjusted. Management plan discussed with attending physician on the case. Note medical decision making is of moderate complexity. 40 minutes spent on this patient with more than 50% time spent in direct patient care. Cardiac status stable. We will sign off.
[2018-04-03] MEDS: MIDAZOLAM HCL 50 MG/100 ML RTUINJ IV PRN ×3 (02:27→23:44)
[2018-04-03 03:45] LABS: ARTERIAL BLOOD BASE EXCESS 6.7 mmol/L; ARTERIAL BLOOD HCO3 32.4 mmol/L (20-24); ARTERIAL BLOOD O2 SATURATION 95.1 % (94-98); ARTERIAL BLOOD PCO2 49.9 mmHg (35-45); ARTERIAL BLOOD PH 7.43 (7.35-7.45); ARTERIAL BLOOD PO2 73.9 mmHg (80-100); ARTERIAL BLOOD TOTAL CO2 33.9 mmol/L (21-25)
[2018-04-03 03:46] LABS: HEMATOCRIT 34.2 % (36.0-47.0); MEAN CORPUSCULAR HGB CONC 32.2 g/dL (32.0-36.0); MEAN CORPUSCULAR VOLUME 87 fl (80-97); PLATELET COUNT 261 10^3/uL (150-450); RED BLOOD COUNT 3.93 10^6/uL (3.72-5.28); RED CELL DISTRIBUTION WIDTH 14.4 % (11.5-14.0); WHITE BLOOD COUNT 14.1 10^3/uL (4.0-10.5)
[2018-04-03 03:50] LABS: ARTERIAL BLOOD FIO2 28%
[2018-04-03 04:03] LABS: ABSOLUTE LYMPHOCYTES# (MANUAL) 0.7 10^3/uL (0.5-4.7); ABSOLUTE MONOCYTES # (MANUAL) 0.1 10^3/uL (0.1-1.4); ABSOLUTE NEUTROPHILS# (MANUAL) 13.3 10^3/uL (1.7-8.2); BAND NEUTROPHILS % (MANUAL) 3 % (3-5); BASOPHILS % (MANUAL) 0 % (0-2); EOSINOPHILS % (MANUAL) 0 % (0-6); LYMPHOCYTES % (MANUAL) 5 % (13-45); MONOCYTES % (MANUAL) 1 % (3-13); PLATELET COMMENT ADEQUATE; RBC MORPHOLOGY COMMENT NORMO-CYTIC/CHROMIC; SEGMENTED NEUTROPHILS % (MAN) 91 % (42-78); TOTAL CELLS COUNTED 100
[2018-04-03] MEDS: PROPOFOL 1,000 MG/100 ML INFUS..BTL IV PRN ×3 (04:18→17:10)
[2018-04-03] MEDS: FENTANYL CITRATE INJ/PF 100 MCG/2 ML AMPUL IV PRN ×3 (04:25→20:10)
[2018-04-03 04:31] LABS: ALANINE AMINOTRANSFERASE 24 U/L (9-52); ALBUMIN 2.4 g/dL (3.5-5.0); ALKALINE PHOSPHATASE 48 U/L (38-126); ASPARTATE AMINO TRANSFERASE 11 U/L (14-36); BILIRUBIN,DIRECT 0.3 mg/dL (0.0-0.4); BILIRUBIN,TOTAL 0.3 mg/dL (0.2-1.3); BLOOD UREA NITROGEN 16 mg/dL (7-20); CALCIUM 8.1 mg/dL (8.4-10.2); GLUCOSE 151 mg/dL (75-110); POTASSIUM 3.7 mmol/L (3.6-5.0); TOTAL PROTEIN 4.4 g/dL (6.3-8.2)
[2018-04-03 04:36] LABS: CARBON DIOXIDE 30 mmol/L (22-30); CHLORIDE 107 mmol/L (98-107); SODIUM 139.7 mmol/L (137-145)
[2018-04-03 04:41] LABS: ANION GAP 3 (5-19)
[2018-04-03 04:47] LABS: FREE T3 3.26 pg/mL (2.77-5.27); FREE T4 (FREE THYROXINE) 1.56 ng/dL (0.78-2.19)
[2018-04-03 05:05] LABS: THYROID STIMULATING HORMONE < 0.01 uIU/mL (0.47-4.68)
[2018-04-03] MEDS: METHYLPREDNISOLONE INJ 125 MG/2 ML SDV IV SCH ×3 (05:43→21:03)
[2018-04-03] MEDS: DILTIAZEM HCL 30 MG TABLET NG SCH ×3 (05:43→21:05)
[2018-04-03] MEDS: PIPERACILLIN SODIUM/TAZOBACTAM 3.375 GM in NORMAL SALINE 100 ML IV SCH (05:44)
[2018-04-03] MEDS: VANCOMYCIN HCL 750 MG in DEXTROSE 5%-WATER 250 ML IV SCH ×2 (05:44→17:09)
[2018-04-03] MEDS: DEXTROSE 5%-NORMAL SALINE 1,000 ML IV PRN (05:55)
--- NOTE | 2018-04-03 06:47 | RADIOLOGY REPORT (SQ) ---
EXAM DESCRIPTION: XR CHEST 1 VIEW COMPLETED DATE/TME: 04/03/2018 06:00 CLINICAL HISTORY: Respiratory Distress. 62 years Female, intubobated COMPARISON: One day prior. NUMBER OF VIEWS/TECHNIQUE: 1/AP FINDINGS: Increased lung volume, small streaky and bandlike opacity of the left lower retrocardiac lung. Adequate appearing endotracheal tube. Likely adequate appearing enteric tube partially obscured. Adequate appearing right jugular central line. Normal cardiac silhouette size. No pneumothorax. Stable bony thorax. IMPRESSION: No significant change.
--- NOTE | 2018-04-03 08:15 | CONSULTATION REPORT E ---
Consultation Report NAME: ILDA MORALES : 1955 AGE: 62Y DATE: 04/01/2018 606 A TO: DELMY NEELY M.D. FROM: SHREE CALLEJAS M.D. Requesting Physician HISTORY OF PRESENT ILLNESS: The patient is a 62-year-old female who came in with acute severe respiratory distress on 03/31/2018, yesterday. The patient was brought to the emergency room and eventually endotracheally intubated and mechanically ventilated. The CT scan yesterday showed no pulmonary embolism and a right lower infiltrate/pulmonary nodule, which is new compared to the previous CAT scan on July 2017. The patient had purulent moderate amount of endotracheal tube secretions today. The patient was started on Rocephin IV piggyback and patient was given Solu-Medrol 60 mg IV q. 8 hours. There was no vomiting. The patient has no NG tube feeding yet. PAST MEDICAL HISTORY: The patient has a history of COPD. PAST SURGICAL HISTORY: Hysterectomy and tubal ligation. FAMILY HISTORY: Reviewed but not pertinent. MEDICATIONS AT HOME: Include: 1. Albuterol inhaler. 2. Advair 500. 3. Neurontin. 4. Hydrocodone. 5. Tylenol. 6. Duoneb nebulizer. 7. Incruse. ALLERGIES: No known drug allergies. REVIEW OF SYSTEMS: Not obtainable due to endotracheal tube secretions. PHYSICAL EXAMINATION: GENERAL: The patient is sedated, afebrile, not in apparent severe respiratory distress. VITAL SIGNS: Temperature is 98.6 with a T-max of 100.7 earlier today. EYES: No jaundice or pallor. EARS, NOSE, AND THROAT: No ear drainage. No nasal discharge. Orotracheal tube is in place. CHEST AND LUNGS: Fine rales bilaterally. No wheezing. No rhonchi. CARDIOVASCULAR: S1, S2 distinct. Normal rate, regular rhythm. ABDOMEN: Flabby. Positive bowel sounds. Soft, nondistended, nontender. EXTREMITIES: No joint swelling. No cellulitis. LABORATORY: CBC done today showed white count of 19.7 from 13,000 yesterday. Hemoglobin is 11.7, hematocrit is 36.1, platelet count is 195. No bands noted. ABG done earlier today at 4:57 a.m. showed pH of 7.39, PCO2 of 59, PO2 of 59.4, bicarb is 34.8, and oxygen saturation 89.9. Chemistry done today showed sodium is 148, potassium is 4, chloride 100, CO2 of 33, BUN is 14, creatinine 0.5, glucose 165, calcium 7.9, magnesium is 2.3, total bilirubin 0.4. SGOT is 34, SGPT 27, and alkaline phosphatase 55. Albumin is 2.8, total protein is 4.8. Sputum culture done today is still pending. Blood culture also no growth in the last 24 hours. The patient had sputum culture November 29, 2015, which showed Pseudomonas aeruginosa and Streptococcus pneumoniae. The Pseudomonas scan was sensitive to the Levaquin. ASSESSMENT: 1. Acute respiratory failure requiring invasive mechanical ventilation, currently on SIMV rate of 12, tidal volume 400, PEEP of 5, pressor support 10 and above, FiO2 of 35%, currently saturating about 97-98%. 2. Pulmonary infiltrate right lower lobe, possible pneumonic process. Underlying malignancy cannot be completely excluded. 3. COPD and acute severe exacerbation, currently not in bronchospasm. PLAN AND RECOMMENDATIONS: Continue the IV Solu-Medrol at 60 mg IV q. 8. I will add Xopenex nebulizer treatment 1.25 mg every 8 hours and albuterol nebulizer treatment p.r.n. in between. Continue the DVT and GI prophylaxis. Will continue IV propofol light sedation. Will discontinue the Rocephin and will start patient on Zosyn 3.375 g IV piggyback q. 8 hours. Will get the sputum culture and do the blood culture . Will continue to optimize ventilatory support and titrate FiO2 to keep O2 sat 91-94%. Will start feeding tonight using oxepa 1.5 at 20 ml per hour. DICTATING PHYSICIAN: DELMY NEELY MD,BERNARDO,MPH [id number] PHY#: [id number] ID: [id number] JOB#: [id number] ACCT: [id number] cc:DELMY NEELY M.D. > MTDD
[2018-04-03] MEDS: INSULIN LISPRO 100 UNIT/ML 3 ML VIAL SUBCUT SCH ×4 (08:16→21:19)
[2018-04-03] MEDS: LEVALBUTEROL HCL NEB 1.25 MG/3 ML AMPUL NEB SCH ×2 (08:18→17:02)
[2018-04-03] MEDS: IPRATROPIUM BROMIDE 0.02% NEB 0.5 MG/2.5 ML AMPUL NEB SCH ×2 (08:18→17:02)
[2018-04-03] MEDS: ENOXAPARIN SODIUM INJ 40 MG/0.4 ML DISP.SYRIN SUBCUT SCH (09:48)
[2018-04-03] MEDS: FAMOTIDINE INJ/PF 20 MG/2 ML SDV IV SCH ×2 (09:49→21:03)
[2018-04-03] MEDS: ASPIRIN 325 MG TABLET NG SCH (09:49)
--- NOTE | 2018-04-03 18:13 | PDOC PROGRESS REPORT ---
Subjective Progress Note for:: 04/03/18 Subjective:: No significant changes, patient is still intubated and sedated. Systolic blood pressure running between 120-153, afebrile, saturating 98% on 28% oxygen mechanical ventilation. Sputum culture from admission positive for MRSA, tracheal aspirate from admission positive for MRSA, culture growing gram-positive cocci in clusters pending sensitivity. White blood cell 14.1 with bandemia, CMP within normal limits. Reason For Visit: HYPOXIC RESPIRATORY DISTRESS Physical Exam Vital Signs: Temp Pulse Resp BP Pulse Ox 98.1 F 67 12 153/87 H 98 04/03/18 16:00 04/03/18 17:02 04/03/18 17:02 04/03/18 16:00 04/03/18 17:02 Intake & Output 04/02/18 04/03/18 04/04/18 06:59 06:59 06:59 Intake Total 1731 2981 656 Output Total 520 535 575 Balance 1211 2446 81 Weight 49 kg 52.1 kg General appearance: PRESENT: other - Debated and sedated. Head exam: PRESENT: atraumatic, normocephalic Respiratory exam: PRESENT: clear to auscultation flaco. ABSENT: rales, rhonchi, wheezes Cardiovascular exam: PRESENT: RRR. ABSENT: diastolic murmur, rubs, systolic murmur Neurological exam: PRESENT: other - Intubated and sedated Skin exam: PRESENT: dry, intact, warm. ABSENT: cyanosis, rash Results Laboratory Results: 04/03/18 03:30 04/03/18 03:30 04/03/18 04/03/18 04/03/18 03:30 03:30 03:30 WBC 14.1 H RBC 3.93 Hgb 11.0 L Hct 34.2 L MCV 87 MCH 28.0 MCHC 32.2 RDW 14.4 H Plt Count 261 Seg Neutrophils % Not Reportable Lymphocytes % Not Reportable Monocytes % Not Reportable Eosinophils % Not Reportable Basophils % Not Reportable Absolute Neutrophils Not Reportable Absolute Lymphocytes Not Reportable Absolute Monocytes Not Reportable Absolute Eosinophils Not Reportable Absolute Basophils Not Reportable Carbonic Acid 1.50 H HCO3/H2CO3 Ratio 21:1 ABG pH 7.43 ABG pCO2 49.9 H ABG pO2 73.9 L ABG HCO3 32.4 H ABG O2 Saturation 95.1 ABG Base Excess 6.7 FiO2 28% Sodium 139.7 Potassium 3.7 Chloride 107 Carbon Dioxide 30 Anion Gap 3 L BUN 16 Creatinine 0.46 L Est GFR ( Amer) > 60 Est GFR (Non-Af Amer) > 60 Glucose 151 H Calcium 8.1 L Magnesium 2.0 Total Bilirubin 0.3 AST 11 L ALT 24 Alkaline Phosphatase 48 Total Protein 4.4 L Albumin 2.4 L TSH Free T4 Free T3 pg/mL 04/03/18 03:30 WBC RBC Hgb Hct MCV MCH MCHC RDW Plt Count Seg Neutrophils % Lymphocytes % Monocytes % Eosinophils % Basophils % Absolute Neutrophils Absolute Lymphocytes Absolute Monocytes Absolute Eosinophils Absolute Basophils Carbonic Acid HCO3/H2CO3 Ratio ABG pH ABG pCO2 ABG pO2 ABG HCO3 ABG O2 Saturation ABG Base Excess FiO2 Sodium Potassium Chloride Carbon Dioxide Anion Gap BUN Creatinine Est GFR ( Amer) Est GFR (Non-Af Amer) Glucose Calcium Magnesium Total Bilirubin AST ALT Alkaline Phosphatase Total Protein Albumin TSH < 0.01 L Free T4 1.56 Free T3 pg/mL 3.26 03/31/18 09:24 Troponin I < 0.012 NT-Pro-B Natriuret Pep 684 Impressions: Chest/Abdomen CTA 03/31/18 10:36 IMPRESSION: No CT angio evidence of acute pulmonary emboli or thoracic aortic dissection. No acute infiltrates. Chronic right middle lobe volume loss and consolidation 1.5 cm nodule in the posterior right lower lobe, new compared to prior CT 07/31/2017. This is worrisome for malignancy Head CT 03/31/18 10:36 IMPRESSION: NORMAL BRAIN CT WITHOUT CONTRAST. EVIDENCE OF ACUTE STROKE: NO. Venous Doppler Study 03/31/18 12:07 IMPRESSION: NO EVIDENCE FOR DVT OR SVT IN THE RIGHT LEG. Chest X-Ray 04/03/18 06:00 IMPRESSION: No significant change. Assessment & Plan - Diagnosis (1) Acute respiratory failure with hypercapnia Is this a current diagnosis for this admission?: Yes Plan: Likely due to COPD exacerbation/pneumonia. ABG pH is 7.33 PCO2 62.1 PO2 89 up from 59.4 Blood cultures positive for gram-positive cocci and sputum culture prelim positive for gram-positive cocci gram-negative rods. Ventilatory support, IV steroids, empiric antibiotics. ABG, CBC, CMP tomorrow. Pulmonary on board. (2) Gram-positive bacteremia Is this a current diagnosis for this admission?: Yes Plan: Prelim blood cultures from 04/02/2018 is + for gram-positive cocci in clusters. Currently on Zosyn. Will start Vanco for broader coverage. Follow-up cultures. (3) COPD exacerbation Is this a current diagnosis for this admission?: Yes Plan: As per problem #1. (4) Atrial fibrillation, transient Is this a current diagnosis for this admission?: Yes Plan: New onset, [id number] Score 1. Currently on Cardizem drip. Continue aspirin. No indication for chronic long-term anticoagulation as per cardiology note. (5) Tobacco abuse Is this a current diagnosis for this admission?: Yes Plan: Will provide counseling on quitting and nicotine patch. (6) Lung nodule Is this a current diagnosis for this admission?: Yes Plan: Likely malignant due to high risk factors. Pulmonary consulted for further recommendation.
[2018-04-03] MEDS: PIPERACILLIN SODIUM/TAZOBACTAM 4.5 GM in NORMAL SALINE 100 ML IV SCH (20:55)
[2018-04-04] MEDS: PROPOFOL 1,000 MG/100 ML INFUS..BTL IV PRN ×4 (00:22→17:25)
[2018-04-04] MEDS: FENTANYL CITRATE INJ/PF 100 MCG/2 ML AMPUL IV PRN ×3 (00:35→14:38)
[2018-04-04] MEDS: LEVALBUTEROL HCL NEB 1.25 MG/3 ML AMPUL NEB SCH ×3 (01:02→16:04)
[2018-04-04] MEDS: IPRATROPIUM BROMIDE 0.02% NEB 0.5 MG/2.5 ML AMPUL NEB SCH ×3 (01:02→16:04)
[2018-04-04] MEDS: PIPERACILLIN SODIUM/TAZOBACTAM 4.5 GM in NORMAL SALINE 100 ML IV SCH ×2 (02:56→08:45)
[2018-04-04] MEDS: DEXTROSE 5%-NORMAL SALINE 1,000 ML IV PRN (02:58)
[2018-04-04] MEDS: METHYLPREDNISOLONE INJ 125 MG/2 ML SDV IV SCH ×3 (06:35→22:53)
[2018-04-04] MEDS: DILTIAZEM HCL 30 MG TABLET NG SCH ×3 (06:45→22:52)
[2018-04-04] MEDS: VANCOMYCIN HCL 750 MG in DEXTROSE 5%-WATER 250 ML IV SCH ×2 (07:09→17:25)
[2018-04-04 07:12] LABS: HEMATOCRIT 36.2 % (36.0-47.0); HEMOGLOBIN 11.8 g/dL (12.0-15.5); MEAN CORPUSCULAR HEMOGLOBIN 28.1 pg (27.0-33.4); MEAN CORPUSCULAR HGB CONC 32.6 g/dL (32.0-36.0); MEAN CORPUSCULAR VOLUME 86 fl (80-97); PLATELET COUNT 302 10^3/uL (150-450); RED CELL DISTRIBUTION WIDTH 14.2 % (11.5-14.0); WHITE BLOOD COUNT 12.9 10^3/uL (4.0-10.5)
[2018-04-04 07:25] LABS: ALANINE AMINOTRANSFERASE 28 U/L (9-52); ALBUMIN 2.6 g/dL (3.5-5.0); ALKALINE PHOSPHATASE 48 U/L (38-126); ASPARTATE AMINO TRANSFERASE 13 U/L (14-36); BILIRUBIN,DIRECT 0.4 mg/dL (0.0-0.4); BILIRUBIN,TOTAL 0.4 mg/dL (0.2-1.3); BLOOD UREA NITROGEN 16 mg/dL (7-20); CALCIUM 8.4 mg/dL (8.4-10.2); GLUCOSE 132 mg/dL (75-110); POTASSIUM 4.1 mmol/L (3.6-5.0); TOTAL PROTEIN 4.8 g/dL (6.3-8.2)
[2018-04-04 07:28] LABS: VANCOMYCIN,TROUGH 7.4 ug/mL (5.0-20.0)
[2018-04-04 07:30] LABS: ABSOLUTE LYMPHOCYTES# (MANUAL) 0.3 10^3/uL (0.5-4.7); ABSOLUTE MONOCYTES # (MANUAL) 0.3 10^3/uL (0.1-1.4); ABSOLUTE NEUTROPHILS# (MANUAL) 12.4 10^3/uL (1.7-8.2); BASOPHILS % (MANUAL) 0 % (0-2); EOSINOPHILS % (MANUAL) 0 % (0-6); LYMPHOCYTES % (MANUAL) 2 % (13-45); MONOCYTES % (MANUAL) 2 % (3-13); SEGMENTED NEUTROPHILS % (MAN) 96 % (42-78); TOTAL CELLS COUNTED 100
[2018-04-04 07:31] LABS: ANISOCYTOSIS SLIGHT; PLATELET COMMENT ADEQUATE; POLYCHROMASIA 1+
[2018-04-04 07:32] LABS: CARBON DIOXIDE 32 mmol/L (22-30); CHLORIDE 106 mmol/L (98-107)
--- NOTE | 2018-04-04 07:35 | RADIOLOGY REPORT (SQ) ---
EXAM DESCRIPTION: XR CHEST 1 VIEW COMPLETED DATE/TME: 04/04/2018 18:15 CLINICAL HISTORY: Respiratory Distress. 62 years Female, Intubated COMPARISON: One day prior. NUMBER OF VIEWS/TECHNIQUE: 1/AP FINDINGS: Mild hazy opacity, effusion, and interstitial markings and bilateral lung bases Adequate appearing endotracheal tube. Likely adequate appearing enteric tube partially obscured. Adequate appearing right jugular central line. Normal cardiac silhouette size. No pneumothorax. Stable bony thorax. IMPRESSION: No significant change.
[2018-04-04 07:40] LABS: ANION GAP 2 (5-19)
[2018-04-04 07:46] LABS: ARTERIAL BLOOD BASE EXCESS 2.2 mmol/L; ARTERIAL BLOOD H2CO3 1.67 mmol/L (1.05-1.35); ARTERIAL BLOOD O2 SATURATION 94.8 % (94-98); ARTERIAL BLOOD PCO2 55.4 mmHg (35-45); ARTERIAL BLOOD PH 7.34 (7.35-7.45); ARTERIAL BLOOD PO2 79.2 mmHg (80-100); ARTERIAL BLOOD TOTAL CO2 30.7 mmol/L (21-25)
[2018-04-04 07:47] LABS: ARTERIAL BLOOD FIO2 28%
[2018-04-04] MEDS: INSULIN LISPRO 100 UNIT/ML 3 ML VIAL SUBCUT SCH ×4 (08:25→23:13)
[2018-04-04] MEDS: MIDAZOLAM HCL 50 MG/100 ML RTUINJ IV PRN ×2 (08:45→17:24)
[2018-04-04] MEDS ORDERED: BISACODYL 10 MG SUPP.RECT PR PRN (10:55)
[2018-04-04] MEDS: ENOXAPARIN SODIUM INJ 40 MG/0.4 ML DISP.SYRIN SUBCUT SCH (11:28)
[2018-04-04] MEDS: ASPIRIN 325 MG TABLET NG SCH (11:28)
[2018-04-04] MEDS: FAMOTIDINE INJ/PF 20 MG/2 ML SDV IV SCH ×2 (11:33→22:53)
[2018-04-04] MEDS: SULFAMETHOXAZOLE/TRIMETHOPRIM 400 MG in DEXTROSE 5%-WATER 500 ML IV SCH ×2 (12:13→18:29)
[2018-04-04 12:46] LABS: ARTERIAL BLOOD BASE EXCESS 1.6 mmol/L; ARTERIAL BLOOD H2CO3 1.38 mmol/L (1.05-1.35); ARTERIAL BLOOD O2 SATURATION 97.1 % (94-98); ARTERIAL BLOOD PH 7.39 (7.35-7.45); ARTERIAL BLOOD PO2 94.3 mmHg (80-100); ARTERIAL BLOOD TOTAL CO2 28.4 mmol/L (21-25)
[2018-04-04 12:47] LABS: ARTERIAL BLOOD FIO2 28%
--- NOTE | 2018-04-04 19:33 | PDOC PROGRESS REPORT ---
Subjective Progress Note for:: 04/04/18 Subjective:: No significant changes, patient is still intubated and sedated. Reason For Visit: HYPOXIC RESPIRATORY DISTRESS Physical Exam Vital Signs: Temp Pulse Resp BP Pulse Ox 99.3 F 100 18 162/79 H 98 04/04/18 18:00 04/04/18 18:00 04/04/18 18:00 04/04/18 18:00 04/04/18 18:00 Intake & Output 04/03/18 04/04/18 04/05/18 06:59 06:59 06:59 Intake Total 2981 2339 1130 Output Total 535 1360 1180 Balance 2446 979 -50 Weight 52.1 kg 53.9 kg General appearance: PRESENT: other - Intubated and sedated. Head exam: PRESENT: atraumatic, normocephalic Respiratory exam: PRESENT: clear to auscultation flaco. ABSENT: rales, rhonchi Cardiovascular exam: PRESENT: RRR. ABSENT: diastolic murmur, rubs, systolic murmur GI/Abdominal exam: PRESENT: normal bowel sounds Neurological exam: PRESENT: other - Intubated and sedated. Results Laboratory Results: 04/04/18 06:45 04/04/18 06:45 04/04/18 04/04/18 04/04/18 06:45 06:45 07:00 WBC 12.9 H RBC 4.20 Hgb 11.8 L Hct 36.2 MCV 86 MCH 28.1 MCHC 32.6 RDW 14.2 H Plt Count 302 Seg Neutrophils % Not Reportable Lymphocytes % Not Reportable Monocytes % Not Reportable Eosinophils % Not Reportable Basophils % Not Reportable Absolute Neutrophils Not Reportable Absolute Lymphocytes Not Reportable Absolute Monocytes Not Reportable Absolute Eosinophils Not Reportable Absolute Basophils Not Reportable Carbonic Acid Cancelled HCO3/H2CO3 Ratio Cancelled ABG pH Cancelled ABG pCO2 Cancelled ABG pO2 Cancelled ABG HCO3 Cancelled ABG O2 Saturation Cancelled ABG Base Excess Cancelled FiO2 Cancelled Sodium 140.0 Potassium 4.1 Chloride 106 Carbon Dioxide 32 H Anion Gap 2 L BUN 16 Creatinine 0.47 L Est GFR ( Amer) > 60 Est GFR (Non-Af Amer) > 60 Glucose 132 H Calcium 8.4 Magnesium 2.1 Total Bilirubin 0.4 AST 13 L ALT 28 Alkaline Phosphatase 48 Total Protein 4.8 L Albumin 2.6 L 04/04/18 04/04/18 07:30 12:35 WBC RBC Hgb Hct MCV MCH MCHC RDW Plt Count Seg Neutrophils % Lymphocytes % Monocytes % Eosinophils % Basophils % Absolute Neutrophils Absolute Lymphocytes Absolute Monocytes Absolute Eosinophils Absolute Basophils Carbonic Acid 1.67 H 1.38 H HCO3/H2CO3 Ratio 17:1 19:1 ABG pH 7.34 L 7.39 ABG pCO2 55.4 H 46.0 H ABG pO2 79.2 L 94.3 ABG HCO3 29.0 H 27.0 H ABG O2 Saturation 94.8 97.1 ABG Base Excess 2.2 1.6 FiO2 28% 28% Sodium Potassium Chloride Carbon Dioxide Anion Gap BUN Creatinine Est GFR ( Amer) Est GFR (Non-Af Amer) Glucose Calcium Magnesium Total Bilirubin AST ALT Alkaline Phosphatase Total Protein Albumin 04/02/18 03:40 Sputum Gram Stain - Final 04/02/18 03:40 Sputum Sputum Culture - Final Mrsa (Meth Resis Staph Aureus) Enterobacter Cloacae Stenotrophomonas Maltophilia Normal Basia Absent 03/31/18 13:55 Blood Blood Culture - Final Staphylococcus Hominis 04/01/18 04:57 Tracheal Aspirate Gram Stain - Final 04/01/18 04:57 Tracheal Aspirate Sputum Culture - Final Mrsa (Meth Resis Staph Aureus) Enterobacter Cloacae Haemophilus Influenzae Normal Basia Absent 03/31/18 09:24 Troponin I < 0.012 NT-Pro-B Natriuret Pep 684 Impressions: Chest/Abdomen CTA 03/31/18 10:36 IMPRESSION: No CT angio evidence of acute pulmonary emboli or thoracic aortic dissection. No acute infiltrates. Chronic right middle lobe volume loss and consolidation 1.5 cm nodule in the posterior right lower lobe, new compared to prior CT 018. This is worrisome for malignancy Head CT 03/31/18 10:36 IMPRESSION: NORMAL BRAIN CT WITHOUT CONTRAST. EVIDENCE OF ACUTE STROKE: NO. Venous Doppler Study 03/31/18 12:07 IMPRESSION: NO EVIDENCE FOR DVT OR SVT IN THE RIGHT LEG. Chest X-Ray 04/04/18 18:15 IMPRESSION: No significant change. Assessment & Plan - Diagnosis (1) Acute respiratory failure with hypercapnia Is this a current diagnosis for this admission?: Yes Plan: Likely due to COPD exacerbation/pneumonia. Tracheal aspirate positive for MRSA. Blood culture positive for staph hominis. Continue ventilatory support, IV steroids, empiric antibiotics. ABG, CBC, CMP tomorrow. Pulmonary on board. (2) Gram-positive bacteremia Is this a current diagnosis for this admission?: Yes Plan: Culture positive for staph hominis. Continue vancomycin and Bactrim. Follow-up repeat blood cultures. (3) COPD exacerbation Is this a current diagnosis for this admission?: Yes Plan: As per problem #1. (4) Atrial fibrillation, transient Is this a current diagnosis for this admission?: Yes Plan: New onset, [id number] Score 1. Currently on Cardizem drip. Continue aspirin. No indication for chronic long-term anticoagulation as per cardiology note. (5) Tobacco abuse Is this a current diagnosis for this admission?: Yes Plan: Will provide counseling on quitting and nicotine patch. (6) Lung nodule Is this a current diagnosis for this admission?: Yes Plan: Likely malignant due to high risk factors. Pulmonary consulted for further recommendation. (7) Hypertension Is this a current diagnosis for this admission?: Yes Plan: SBP 119-190. Started on hydralazine as needed. Continue Cardizem. Monitor vitals, adjust meds as needed.
[2018-04-05] MEDS: SULFAMETHOXAZOLE/TRIMETHOPRIM 400 MG in DEXTROSE 5%-WATER 500 ML IV SCH ×5 (00:08→17:57)
[2018-04-05] MEDS: PROPOFOL 1,000 MG/100 ML INFUS..BTL IV PRN ×4 (00:09→18:24)
[2018-04-05] MEDS: LEVALBUTEROL HCL NEB 1.25 MG/3 ML AMPUL NEB SCH ×4 (00:17→23:43)
[2018-04-05] MEDS: IPRATROPIUM BROMIDE 0.02% NEB 0.5 MG/2.5 ML AMPUL NEB SCH ×4 (00:17→23:43)
[2018-04-05] MEDS: VANCOMYCIN HCL 750 MG in DEXTROSE 5%-WATER 250 ML IV SCH ×3 (02:29→17:57)
[2018-04-05] MEDS: MIDAZOLAM HCL 50 MG/100 ML RTUINJ IV PRN ×3 (02:29→18:24)
[2018-04-05] MEDS: FENTANYL CITRATE INJ/PF 100 MCG/2 ML AMPUL IV PRN ×3 (04:33→17:07)
[2018-04-05 05:35] LABS: ARTERIAL BLOOD BASE EXCESS -1.1 mmol/L; ARTERIAL BLOOD FIO2 28%; ARTERIAL BLOOD H2CO3 1.38 mmol/L (1.05-1.35); ARTERIAL BLOOD HCO3 24.7 mmol/L (20-24); ARTERIAL BLOOD O2 SATURATION 94.8 % (94-98); ARTERIAL BLOOD PCO2 45.9 mmHg (35-45); ARTERIAL BLOOD PH 7.35 (7.35-7.45); ARTERIAL BLOOD PO2 77.6 mmHg (80-100); ARTERIAL BLOOD TOTAL CO2 26.1 mmol/L (21-25)
[2018-04-05] MEDS: METHYLPREDNISOLONE INJ 125 MG/2 ML SDV IV SCH ×3 (05:39→21:50)
[2018-04-05] MEDS: DILTIAZEM HCL 30 MG TABLET NG SCH ×3 (05:40→21:53)
[2018-04-05 05:42] LABS: HEMATOCRIT 32.3 % (36.0-47.0); HEMOGLOBIN 10.7 g/dL (12.0-15.5); MEAN CORPUSCULAR HEMOGLOBIN 28.6 pg (27.0-33.4); MEAN CORPUSCULAR HGB CONC 33.3 g/dL (32.0-36.0); MEAN CORPUSCULAR VOLUME 86 fl (80-97); PLATELET COUNT 317 10^3/uL (150-450); RED BLOOD COUNT 3.76 10^6/uL (3.72-5.28); WHITE BLOOD COUNT 11.2 10^3/uL (4.0-10.5)
[2018-04-05 06:07] LABS: ABSOLUTE LYMPHOCYTES# (MANUAL) 0.2 10^3/uL (0.5-4.7); ABSOLUTE MONOCYTES # (MANUAL) 0.6 10^3/uL (0.1-1.4); ABSOLUTE NEUTROPHILS# (MANUAL) 10.4 10^3/uL (1.7-8.2); BAND NEUTROPHILS % (MANUAL) 1 % (3-5); BASOPHILS % (MANUAL) 0 % (0-2); EOSINOPHILS % (MANUAL) 0 % (0-6); LYMPHOCYTES % (MANUAL) 2 % (13-45); MONOCYTES % (MANUAL) 5 % (3-13); RBC MORPHOLOGY COMMENT NORMO-CYTIC/CHROMIC; SEGMENTED NEUTROPHILS % (MAN) 92 % (42-78); TOTAL CELLS COUNTED 100
[2018-04-05 06:08] LABS: PLATELET COMMENT ADEQUATE
--- NOTE | 2018-04-05 06:36 | RADIOLOGY REPORT (SQ) ---
EXAM DESCRIPTION: XR CHEST 1 VIEW COMPLETED DATE/TME: 04/05/2018 18:15 CLINICAL HISTORY: 62 years Female, Intubated COMPARISON: One day prior. NUMBER OF VIEWS/TECHNIQUE: 1/AP FINDINGS: Clear lungs of adequate volume, and normal cardiac silhouette. Increased lung volume.Adequate appearing endotracheal tube. Likely adequate appearing enteric tube partially obscured. Adequate appearing right jugular central line. No pneumothorax. Stable bony thorax. IMPRESSION: No significant change.
[2018-04-05] MEDS: INSULIN LISPRO 100 UNIT/ML 3 ML VIAL SUBCUT SCH ×4 (09:13→21:51)
[2018-04-05] MEDS: FAMOTIDINE INJ/PF 20 MG/2 ML SDV IV SCH ×2 (09:25→21:50)
[2018-04-05] MEDS: ENOXAPARIN SODIUM INJ 40 MG/0.4 ML DISP.SYRIN SUBCUT SCH (09:25)
[2018-04-05] MEDS: ASPIRIN 325 MG TABLET NG SCH (09:25)
[2018-04-05] MEDS: DEXTROSE 5%-NORMAL SALINE 1,000 ML IV PRN (09:25)
--- NOTE | 2018-04-05 10:24 | PDOC PROGRESS REPORT ---
Subjective Progress Note for:: 04/05/18 Subjective:: intubated and sedated- doesn't respond to verbal command- reacts to physical stimuli Reason For Visit: HYPOXIC RESPIRATORY DISTRESS Physical Exam Vital Signs: Temp Pulse Resp BP Pulse Ox 98.1 F 83 18 111/72 95 04/05/18 08:00 04/05/18 09:56 04/05/18 08:00 04/05/18 08:00 04/05/18 08:00 Intake & Output 04/04/18 04/05/18 04/06/18 06:59 06:59 06:59 Intake Total 2339 3724 360 Output Total 1360 2605 200 Balance 979 1119 160 Weight 118 lb 13.266 oz 123 lb 3.814 oz General appearance: PRESENT: no acute distress Head exam: PRESENT: atraumatic, normocephalic Eye exam: PRESENT: EOMI. ABSENT: conjunctival injection, scleral icterus Ear exam: PRESENT: normal external ear exam Neck exam: ABSENT: tracheal deviation Respiratory exam: PRESENT: clear to auscultation flaco, symmetrical. ABSENT: wheezes Cardiovascular exam: PRESENT: +S1, +S2 Pulses: PRESENT: +2 pedal pulses bilateral GI/Abdominal exam: PRESENT: hypoactive bowel sounds, soft. ABSENT: tenderness Extremities exam: ABSENT: +2 edema Neurological exam: PRESENT: other - ventilator dependent Skin exam: PRESENT: dry, warm Results Laboratory Results: 04/05/18 05:20 04/04/18 06:45 04/04/18 04/05/18 04/05/18 12:35 05:20 05:20 WBC 11.2 H RBC 3.76 Hgb 10.7 L Hct 32.3 L MCV 86 MCH 28.6 MCHC 33.3 RDW 14.0 Plt Count 317 Seg Neutrophils % Not Reportable Lymphocytes % Not Reportable Monocytes % Not Reportable Eosinophils % Not Reportable Basophils % Not Reportable Absolute Neutrophils Not Reportable Absolute Lymphocytes Not Reportable Absolute Monocytes Not Reportable Absolute Eosinophils Not Reportable Absolute Basophils Not Reportable Carbonic Acid 1.38 H 1.38 H HCO3/H2CO3 Ratio 19:1 17:1 ABG pH 7.39 7.35 ABG pCO2 46.0 H 45.9 H ABG pO2 94.3 77.6 L ABG HCO3 27.0 H 24.7 H ABG O2 Saturation 97.1 94.8 ABG Base Excess 1.6 -1.1 FiO2 28% 28% Magnesium 04/05/18 05:20 WBC RBC Hgb Hct MCV MCH MCHC RDW Plt Count Seg Neutrophils % Lymphocytes % Monocytes % Eosinophils % Basophils % Absolute Neutrophils Absolute Lymphocytes Absolute Monocytes Absolute Eosinophils Absolute Basophils Carbonic Acid HCO3/H2CO3 Ratio ABG pH ABG pCO2 ABG pO2 ABG HCO3 ABG O2 Saturation ABG Base Excess FiO2 Magnesium 1.9 03/31/18 09:24 Blood Blood Culture - Final NO GROWTH IN 5 DAYS 04/02/18 03:40 Sputum Gram Stain - Final 04/02/18 03:40 Sputum Sputum Culture - Final Mrsa (Meth Resis Staph Aureus) Enterobacter Cloacae Stenotrophomonas Maltophilia Normal Basia Absent 03/31/18 13:55 Blood Blood Culture - Final Staphylococcus Hominis 04/01/18 04:57 Tracheal Aspirate Gram Stain - Final 04/01/18 04:57 Tracheal Aspirate Sputum Culture - Final Mrsa (Meth Resis Staph Aureus) Enterobacter Cloacae Haemophilus Influenzae Normal Basia Absent 03/31/18 09:24 Troponin I < 0.012 NT-Pro-B Natriuret Pep 684 Impressions: Chest/Abdomen CTA 03/31/18 10:36 IMPRESSION: No CT angio evidence of acute pulmonary emboli or thoracic aortic dissection. No acute infiltrates. Chronic right middle lobe volume loss and consolidation 1.5 cm nodule in the posterior right lower lobe, new compared to prior CT 07/31/2017. This is worrisome for malignancy Head CT 03/31/18 10:36 IMPRESSION: NORMAL BRAIN CT WITHOUT CONTRAST. EVIDENCE OF ACUTE STROKE: NO. Venous Doppler Study 03/31/18 12:07 IMPRESSION: NO EVIDENCE FOR DVT OR SVT IN THE RIGHT LEG. Chest X-Ray 04/05/18 18:15 IMPRESSION: No significant change. Assessment & Plan - Diagnosis (1) Ventilator dependent Is this a current diagnosis for this admission?: Yes (2) Acute respiratory failure with hypercapnia Is this a current diagnosis for this admission?: Yes (3) Atrial fibrillation, transient Is this a current diagnosis for this admission?: Yes (4) COPD exacerbation Is this a current diagnosis for this admission?: Yes (5) Gram-positive bacteremia Is this a current diagnosis for this admission?: Yes (6) Hypertension Is this a current diagnosis for this admission?: Yes (7) Lung nodule Is this a current diagnosis for this admission?: Yes (8) Tobacco abuse Is this a current diagnosis for this admission?: Yes - Time Total Critical Time (Minutes): 34 - Inpatient Certification Based on my medical assessment, after consideration of the patient's co morbidities, presenting symptoms, or acuity I expect that the services needed warrant INPATIENT care.: Yes I certify that my determination is in accordance with my understanding of Medicare's requirements for reasonable and necessary INPATIENT services [42 CFR 412.3e].: Yes Medical Necessity: Significant Comorbidiites Make Outpatient Treatment Too Risky, Need Close Monitoring Due to Risk of Patient Decompensation, Need For IV Fluids, Need For Continuous Telemetry Monitoring, Need for IV Antibiotics, Risk of Complication if Not Cared For in Hospital - Plan Summary Plan Summary: Acute respiratory failure w/ hypercapnia- multifactorial- COPD vs PNA vs sepsis. on ventilator support. Dr Barraza is consulted. i appreciate his assistance with vent management. i will follow along. SBT today. versed stopped- wean diprovan. Bacteremia- BCx growing staph hominis- sputum cx shows [address] Barraza- will c/w bactrim and vanco for now. COPD exac- on xopenex and atrovent- will restart her advair as home med today. HTN- c/w home meds of cardizem. Hydralazine PRN. BP on the higher side - will monitor.
--- NOTE | 2018-04-05 11:36 | RADIOLOGY REPORT (SQ) ---
EXAM DESCRIPTION: CT HEAD WITH COMPLETED DATE/TIME: 04/05/2018 11:14 am REASON FOR STUDY: CONJUGATED GAZE COMPARISON: 03/31/2018 TECHNIQUE: Axial images acquired through the brain with intravenous contrast. Images reviewed with b one, brain and subdural windows. Additional sagittal and coronal reconstructions were generated. Angie ges stored on PACS. All CT scanners at this facility use dose modulation, iterative reconstruction, and/or weight based d osing when appropriate to reduce radiation dose to as low as reasonably achievable (ALARA). [facility]: Dose Right [facility]: CareDose [facility]: Dose Right [facility]: Teradose 4D [facility]: Agribots CONTRAST TYPE AND DOSE: contrast/concentration: Isovue 350.00 mg/ml; Total Contrast Delivered: 50.0 ml; Total Saline Delivered: 55.0 ml RENAL FUNCTION: BUN 16, creatinine 0.47 RADIATION DOSE: CT Rad equipment meets quality standard of care and radiation dose reduction techniq ues were employed. CTDIvol: 48.5 mGy. DLP: 952 mGy-cm.. LIMITATIONS: None. FINDINGS: VENTRICLES: Normal size and contour. CEREBRUM: No masses. No hemorrhage. No midline shift. Normal rodriguez/white matter differentiation. No ev idence for acute infarction. No enhancing lesions. CEREBELLUM: No masses. No hemorrhage. No alteration of density. No evidence for acute infarction. No enhancing lesions. EXTRA-AXIAL SPACES: No fluid collections. No enhancing lesions. ORBITS AND GLOBE: No intra- or extraconal masses. Normal contour of globe without masses. CALVARIUM: No fracture. PARANASAL SINUSES: No fluid or mucosal thickening. SOFT TISSUES: No mass or hematoma. OTHER: No other significant finding. IMPRESSION: NORMAL BRAIN CT WITH CONTRAST. EVIDENCE OF ACUTE STROKE: NO. TECHNICAL DOCUMENTATION: JOB ID: [id number] Quality ID # [id number]: Final reports with documentation of one or more dose reduction techniques (e.g., Au tomated exposure control, adjustment of the mA and/or kV according to patient size, use of iterative reconstruction technique) 2010 [employer]- All Rights Reserved Reading location - IP/workstation name: [email or web address]
[2018-04-05] MEDS: FLUTICASONE/SALMETEROL DISKUS 500-50 MCG/DOSE IH SCH ×2 (11:44→21:52)
[2018-04-06] MEDS: SULFAMETHOXAZOLE/TRIMETHOPRIM 400 MG in DEXTROSE 5%-WATER 500 ML IV SCH ×4 (00:47→18:18)
[2018-04-06] MEDS: PROPOFOL 1,000 MG/100 ML INFUS..BTL IV PRN ×6 (00:47→21:57)
[2018-04-06] MEDS: VANCOMYCIN HCL 750 MG in DEXTROSE 5%-WATER 250 ML IV SCH ×3 (02:19→18:18)
[2018-04-06] MEDS: FENTANYL CITRATE INJ/PF 100 MCG/2 ML AMPUL IV PRN ×4 (02:55→22:03)
[2018-04-06] MEDS: METHYLPREDNISOLONE INJ 125 MG/2 ML SDV IV SCH ×3 (06:12→22:03)
[2018-04-06] MEDS: DILTIAZEM HCL 30 MG TABLET NG SCH ×3 (06:12→22:06)
[2018-04-06] MEDS: LEVALBUTEROL HCL NEB 1.25 MG/3 ML AMPUL NEB SCH ×2 (08:17→15:34)
[2018-04-06] MEDS: IPRATROPIUM BROMIDE 0.02% NEB 0.5 MG/2.5 ML AMPUL NEB SCH ×2 (08:17→15:34)
[2018-04-06] MEDS: INSULIN LISPRO 100 UNIT/ML 3 ML VIAL SUBCUT SCH ×4 (10:47→22:06)
[2018-04-06 11:38] LABS: ARTERIAL BLOOD BASE EXCESS 3.6 mmol/L; ARTERIAL BLOOD H2CO3 1.48 mmol/L (1.05-1.35); ARTERIAL BLOOD HCO3 29.3 mmol/L (20-24); ARTERIAL BLOOD PCO2 49.1 mmHg (35-45); ARTERIAL BLOOD PH 7.39 (7.35-7.45); ARTERIAL BLOOD PO2 74.2 mmHg (80-100); ARTERIAL BLOOD TOTAL CO2 30.8 mmol/L (21-25)
[2018-04-06 11:39] LABS: ARTERIAL BLOOD O2 SATURATION 94.7 % (94-98)
[2018-04-06 11:41] LABS: ARTERIAL BLOOD FIO2 28%
[2018-04-06 11:44] LABS: HEMATOCRIT 34.4 % (36.0-47.0); HEMOGLOBIN 11.3 g/dL (12.0-15.5); MEAN CORPUSCULAR HEMOGLOBIN 28.3 pg (27.0-33.4); MEAN CORPUSCULAR HGB CONC 32.9 g/dL (32.0-36.0); MEAN CORPUSCULAR VOLUME 86 fl (80-97); PLATELET COUNT 408 10^3/uL (150-450); RED CELL DISTRIBUTION WIDTH 14.3 % (11.5-14.0); WHITE BLOOD COUNT 17.9 10^3/uL (4.0-10.5)
--- NOTE | 2018-04-06 11:47 | RADIOLOGY REPORT (SQ) ---
EXAM DESCRIPTION: CHEST SINGLE VIEW COMPLETED DATE/TIME: 04/06/2018 11:32 am REASON FOR STUDY: respiratory failure COMPARISON: 04/05/2018 EXAM PARAMETERS: NUMBER OF VIEWS: One view TECHNIQUE: Single frontal radiograph of the chest. RADIATION DOSE: N/A LIMITATIONS: None. FINDINGS: TEMPORARY SUPPORT DEVICES:ETT in expected location. NG tube courses below the suzie-diaphr agm in to the stomach. Central venous access catheter tip is in expected location. LUNGS AND PLEURA: No opacities. No effusions. No masses. No pneumothorax. Marked hyperinflation. MEDIASTINUM AND HILAR STRUCTURES: No masses. Contour normal. HEART AND VASCULAR STRUCTURES: Heart normal in size. normal vascularity. Aorta normal for age. BONES: No acute findings. OTHER: No other significant finding. IMPRESSION: Severe COPD. SUPPORT DEVICE(S) IN EXPECTED LOCATIONS. TECHNICAL DOCUMENTATION: JOB ID: [id number] [employer]- All Rights Reserved Reading location - IP/workstation name: [email or web address]
[2018-04-06 11:56] LABS: ANION GAP 6 (5-19); BLOOD UREA NITROGEN 9 mg/dL (7-20); CALCIUM 8.6 mg/dL (8.4-10.2); CARBON DIOXIDE 32 mmol/L (22-30); CHLORIDE 102 mmol/L (98-107); GLUCOSE 96 mg/dL (75-110); POTASSIUM 4.1 mmol/L (3.6-5.0); SODIUM 140.4 mmol/L (137-145)
[2018-04-06] MEDS: FLUTICASONE/SALMETEROL DISKUS 500-50 MCG/DOSE IH SCH ×2 (12:05→21:59)
[2018-04-06] MEDS: FAMOTIDINE INJ/PF 20 MG/2 ML SDV IV SCH (12:05)
[2018-04-06 12:10] LABS: ABSOLUTE LYMPHOCYTES# (MANUAL) 1.1 10^3/uL (0.5-4.7); ABSOLUTE MONOCYTES # (MANUAL) 0.9 10^3/uL (0.1-1.4); ABSOLUTE NEUTROPHILS# (MANUAL) 15.9 10^3/uL (1.7-8.2); BAND NEUTROPHILS % (MANUAL) 2 % (3-5); BASOPHILS % (MANUAL) 0 % (0-2); EOSINOPHILS % (MANUAL) 0 % (0-6); LYMPHOCYTES % (MANUAL) 6 % (13-45); MONOCYTES % (MANUAL) 5 % (3-13); SEGMENTED NEUTROPHILS % (MAN) 87 % (42-78); TOTAL CELLS COUNTED 100
[2018-04-06 12:11] LABS: ANISOCYTOSIS SLIGHT; OVALOCYTES 1+; PLATELET COMMENT ADEQUATE; POIKILOCYTOSIS 1+; TOXIC GRANULATION SLIGHT
[2018-04-06] MEDS: ENOXAPARIN SODIUM INJ 40 MG/0.4 ML DISP.SYRIN SUBCUT SCH ×2 (12:20→13:49)
[2018-04-06] MEDS: ASPIRIN 325 MG TABLET NG SCH ×2 (12:24→13:49)
[2018-04-06] MEDS: MIDAZOLAM HCL 50 MG/100 ML RTUINJ IV PRN ×2 (14:06→22:03)
[2018-04-06] MEDS: DEXTROSE 5%-NORMAL SALINE 1,000 ML IV PRN (14:07)
[2018-04-06] MEDS: HYDRALAZINE HCL INJ/PF 20 MG/1 ML SDV IV PRN (15:47)
[2018-04-06] MEDS ORDERED: MORPHINE SULFATE 10 MG/ML INJ ONE (16:09)
[2018-04-06] MEDS ORDERED: LEVALBUTEROL HCL NEB 0.63 MG/3 ML AMPUL NEB ONE ×2 (16:59→17:00)
[2018-04-06] MEDS ORDERED: FUROSEMIDE INJ/PF 40 MG/4 ML SDV IV ONE (17:00)
[2018-04-06 17:01] LABS: ARTERIAL BLOOD BASE EXCESS 2.5 mmol/L; ARTERIAL BLOOD H2CO3 1.57 mmol/L (1.05-1.35); ARTERIAL BLOOD HCO3 28.8 mmol/L (20-24); ARTERIAL BLOOD O2 SATURATION 94.2 % (94-98); ARTERIAL BLOOD PCO2 52.1 mmHg (35-45); ARTERIAL BLOOD PH 7.36 (7.35-7.45); ARTERIAL BLOOD PO2 74.2 mmHg (80-100); ARTERIAL BLOOD TOTAL CO2 30.4 mmol/L (21-25)
[2018-04-06 17:05] LABS: ARTERIAL BLOOD FIO2 28%
--- NOTE | 2018-04-06 17:15 | RADIOLOGY REPORT (SQ) ---
EXAM DESCRIPTION: CHEST SINGLE VIEW COMPLETED DATE/TIME: 04/06/2018 4:59 pm REASON FOR STUDY: respratory distress COMPARISON: None. NUMBER OF VIEWS: One view. TECHNIQUE: Single frontal radiographic image of the chest acquired. LIMITATIONS: None. FINDINGS: ENDOTRACHEAL TUBE: Appropriate location. OTHER SUPPORT DEVICES: Right IJ central venous catheter nasogastric catheter appear stable. CHANGES IN RADIOGRAPHIC FINDINGS: None. Stable appearance. HARDWARE: None in the chest. OTHER: No other significant finding. IMPRESSION: STABLE APPEARANCE OF THE CHEST. TECHNICAL DOCUMENTATION: JOB ID: [id number] [employer]- All Rights Reserved Reading location - IP/workstation name: [email or web address]
[2018-04-06] MEDS: PANTOPRAZOLE SODIUM 40 MG VIAL IV SCH (18:18)
--- NOTE | 2018-04-06 19:17 | PDOC PROGRESS REPORT ---
Subjective Progress Note for:: 04/06/18 Subjective:: remains sedated and on vent support- SBT every day Reason For Visit: HYPOXIC RESPIRATORY DISTRESS Physical Exam Vital Signs: Temp Pulse Resp BP Pulse Ox 98.6 F 103 H 27 H 114/70 94 04/06/18 18:00 04/06/18 18:00 04/06/18 18:00 04/06/18 18:00 04/06/18 18:00 Intake & Output 04/05/18 04/06/18 04/07/18 06:59 06:59 06:59 Intake Total 3724 4040 1652 Output Total 2608 3785 2280 Balance 1119 255 -628 Weight 123 lb 3.814 oz 123 lb 10.869 oz General appearance: PRESENT: no acute distress, other - sedated Head exam: PRESENT: atraumatic, normocephalic Eye exam: ABSENT: conjunctival injection Ear exam: PRESENT: normal external ear exam Neck exam: ABSENT: tracheal deviation Respiratory exam: PRESENT: decreased breath sounds, symmetrical Cardiovascular exam: PRESENT: +S1, +S2 Pulses: PRESENT: +2 pedal pulses bilateral GI/Abdominal exam: PRESENT: hypoactive bowel sounds, soft Extremities exam: PRESENT: +1 edema - b/l UE Neurological exam: PRESENT: other - sedated- doesn't respond to verbal or physical stimuli Skin exam: PRESENT: dry, warm Results Laboratory Results: 04/06/18 11:09 04/06/18 11:09 04/06/18 04/06/18 04/06/18 11:09 11:09 11:09 WBC 17.9 H RBC 4.00 Hgb 11.3 L Hct 34.4 L MCV 86 MCH 28.3 MCHC 32.9 RDW 14.3 H Plt Count 408 Seg Neutrophils % Not Reportable Lymphocytes % Not Reportable Monocytes % Not Reportable Eosinophils % Not Reportable Basophils % Not Reportable Absolute Neutrophils Not Reportable Absolute Lymphocytes Not Reportable Absolute Monocytes Not Reportable Absolute Eosinophils Not Reportable Absolute Basophils Not Reportable Carbonic Acid 1.48 H HCO3/H2CO3 Ratio 19:1 ABG pH 7.39 ABG pCO2 49.1 H ABG pO2 74.2 L ABG HCO3 29.3 H ABG O2 Saturation 94.7 ABG Base Excess 3.6 FiO2 28% Sodium 140.4 Potassium 4.1 Chloride 102 Carbon Dioxide 32 H Anion Gap 6 BUN 9 Creatinine 0.43 L Est GFR ( Amer) > 60 Est GFR (Non-Af Amer) > 60 Glucose 96 Calcium 8.6 Magnesium 2.2 04/06/18 16:43 WBC RBC Hgb Hct MCV MCH MCHC RDW Plt Count Seg Neutrophils % Lymphocytes % Monocytes % Eosinophils % Basophils % Absolute Neutrophils Absolute Lymphocytes Absolute Monocytes Absolute Eosinophils Absolute Basophils Carbonic Acid 1.57 H HCO3/H2CO3 Ratio 18:1 ABG pH 7.36 ABG pCO2 52.1 H ABG pO2 74.2 L ABG HCO3 28.8 H ABG O2 Saturation 94.2 ABG Base Excess 2.5 FiO2 28% Sodium Potassium Chloride Carbon Dioxide Anion Gap BUN Creatinine Est GFR ( Amer) Est GFR (Non-Af Amer) Glucose Calcium Magnesium 03/31/18 09:24 Troponin I < 0.012 NT-Pro-B Natriuret Pep 684 Impressions: Chest/Abdomen CTA 03/31/18 10:36 IMPRESSION: No CT angio evidence of acute pulmonary emboli or thoracic aortic dissection. No acute infiltrates. Chronic right middle lobe volume loss and consolidation 1.5 cm nodule in the posterior right lower lobe, new compared to prior CT 07/31/2017. This is worrisome for malignancy Venous Doppler Study 03/31/18 12:07 IMPRESSION: NO EVIDENCE FOR DVT OR SVT IN THE RIGHT LEG. Head CT 04/05/18 09:43 IMPRESSION: NORMAL BRAIN CT WITH CONTRAST. EVIDENCE OF ACUTE STROKE: NO. Chest X-Ray 04/06/18 00:00 IMPRESSION: STABLE APPEARANCE OF THE CHEST. Assessment & Plan - Diagnosis (1) Ventilator dependent Is this a current diagnosis for this admission?: Yes (2) Acute respiratory failure with hypercapnia Is this a current diagnosis for this admission?: Yes (3) Atrial fibrillation, transient Is this a current diagnosis for this admission?: Yes (4) COPD exacerbation Is this a current diagnosis for this admission?: Yes (5) Gram-positive bacteremia Is this a current diagnosis for this admission?: Yes (6) Hypertension Is this a current diagnosis for this admission?: Yes (7) Lung nodule Is this a current diagnosis for this admission?: Yes (8) Tobacco abuse Is this a current diagnosis for this admission?: Yes - Time Total Critical Time (Minutes): 35 - Inpatient Certification Based on my medical assessment, after consideration of the patient's comorbidities, presenting symptoms, or acuity I expect that the services needed warrant INPATIENT care.: Yes I certify that my determination is in accordance with my understanding of Medicare's requirements for reasonable and necessary INPATIENT services [42 CFR 412.3e].: Yes Medical Necessity: Need Close Monitoring Due to Risk of Patient Decompensation, Need For Continuous Telemetry Monitoring, Need for IV Antibiotics, Risk of Complication if Not Cared For in Hospital, Other - vent dependent - Plan Summary Plan Summary: Acute respiratory failure w/ hypercapnia- multifactorial- COPD vs PNA vs sepsis. on ventilator support. Dr Barraza is consulted. had acute respiratory distress while on the vent today. HR >140, RR >30s- SaO2 >92%. Vent settings FiO2 28%, RR 18, PEEP 5 with Vt 400. got stat CXR and ABG. gave 4mg IV morphine. tried adjusting vent - increased PEEP to 8 but that didn't help. gave 50mcg Fentanyl and she got better- she's on Diprovan and versed drip now- will consider weaning and switching to fentanyl drip in AM. will continue to use more fentanyl 50mcg Q4H as needed. Bacteremia- BCx growing staph hominis- sputum cx shows [address] Barraza- will c/w bactrim and vanco for now. COPD exac- on xopenex and atrovent- will restart her advair as home med today. c/w solumedrol IV 60mg Q8. HTN- c/w home meds of cardizem Q8H. Hydralazine PRN. BP on the higher side - will monitor.
[2018-04-07] MEDS: IPRATROPIUM BROMIDE 0.02% NEB 0.5 MG/2.5 ML AMPUL NEB SCH ×3 (00:20→15:34)
[2018-04-07] MEDS: LEVALBUTEROL HCL NEB 1.25 MG/3 ML AMPUL NEB SCH ×3 (00:20→15:34)
[2018-04-07] MEDS: PROPOFOL 1,000 MG/100 ML INFUS..BTL IV PRN ×4 (02:31→21:41)
[2018-04-07] MEDS: VANCOMYCIN HCL 750 MG in DEXTROSE 5%-WATER 250 ML IV SCH ×3 (02:36→17:01)
[2018-04-07] MEDS: SULFAMETHOXAZOLE/TRIMETHOPRIM 400 MG in DEXTROSE 5%-WATER 500 ML IV SCH ×3 (02:37→21:42)
[2018-04-07] MEDS: FENTANYL CITRATE INJ/PF 100 MCG/2 ML AMPUL IV PRN ×3 (02:38→23:25)
[2018-04-07] MEDS: PANTOPRAZOLE SODIUM 40 MG VIAL IV SCH ×2 (05:55→17:01)
[2018-04-07] MEDS: DILTIAZEM HCL 30 MG TABLET NG SCH ×3 (05:55→21:43)
[2018-04-07] MEDS: METHYLPREDNISOLONE INJ 125 MG/2 ML SDV IV SCH ×3 (05:56→21:43)
[2018-04-07 05:57] LABS: ARTERIAL BLOOD H2CO3 1.48 mmol/L (1.05-1.35); ARTERIAL BLOOD HCO3 30.5 mmol/L (20-24); ARTERIAL BLOOD O2 SATURATION 95.9 % (94-98); ARTERIAL BLOOD PCO2 49.2 mmHg (35-45); ARTERIAL BLOOD PH 7.41 (7.35-7.45); ARTERIAL BLOOD PO2 80.6 mmHg (80-100)
[2018-04-07 05:58] LABS: HEMATOCRIT 32.2 % (36.0-47.0); HEMOGLOBIN 10.7 g/dL (12.0-15.5); MEAN CORPUSCULAR HEMOGLOBIN 28.6 pg (27.0-33.4); MEAN CORPUSCULAR HGB CONC 33.3 g/dL (32.0-36.0); MEAN CORPUSCULAR VOLUME 86 fl (80-97); PLATELET COUNT 441 10^3/uL (150-450); RED BLOOD COUNT 3.75 10^6/uL (3.72-5.28); RED CELL DISTRIBUTION WIDTH 14.6 % (11.5-14.0); WHITE BLOOD COUNT 21.6 10^3/uL (4.0-10.5)
[2018-04-07 06:02] LABS: ARTERIAL BLOOD FIO2 28%
[2018-04-07 06:17] LABS: ABSOLUTE LYMPHOCYTES# (MANUAL) 1.1 10^3/uL (0.5-4.7); ABSOLUTE MONOCYTES # (MANUAL) 1.3 10^3/uL (0.1-1.4); ABSOLUTE NEUTROPHILS# (MANUAL) 19.2 10^3/uL (1.7-8.2); BASOPHILS % (MANUAL) 0 % (0-2); EOSINOPHILS % (MANUAL) 0 % (0-6); LYMPHOCYTES % (MANUAL) 5 % (13-45); MONOCYTES % (MANUAL) 6 % (3-13); SEGMENTED NEUTROPHILS % (MAN) 89 % (42-78); TOTAL CELLS COUNTED 100; TOXIC GRANULATION 1+; TOXIC VACUOLATION PRESENT
[2018-04-07] MEDS: DEXTROSE 5%-NORMAL SALINE 1,000 ML IV PRN (06:18)
[2018-04-07 06:20] LABS: ANISOCYTOSIS SLIGHT; BURR CELLS SLIGHT; HELMET CELLS SLIGHT; OVALOCYTES 1+; PLATELET COMMENT ADEQUATE; POIKILOCYTOSIS 1+
[2018-04-07 06:23] LABS: ALANINE AMINOTRANSFERASE 66 U/L (9-52); ALBUMIN 2.7 g/dL (3.5-5.0); ALKALINE PHOSPHATASE 45 U/L (38-126); ANION GAP 9 (5-19); ASPARTATE AMINO TRANSFERASE 17 U/L (14-36); BILIRUBIN,DIRECT 0.1 mg/dL (0.0-0.4); BILIRUBIN,TOTAL 0.1 mg/dL (0.2-1.3); BLOOD UREA NITROGEN 10 mg/dL (7-20); CALCIUM 8.1 mg/dL (8.4-10.2); CARBON DIOXIDE 30 mmol/L (22-30); CHLORIDE 97 mmol/L (98-107); GLUCOSE 125 mg/dL (75-110); POTASSIUM 3.9 mmol/L (3.6-5.0); SODIUM 136.3 mmol/L (137-145); TOTAL PROTEIN 4.5 g/dL (6.3-8.2)
[2018-04-07] MEDS: INSULIN LISPRO 100 UNIT/ML 3 ML VIAL SUBCUT SCH ×4 (07:52→21:44)
[2018-04-07] MEDS ORDERED: SULFAMETHOXAZOLE/TRIMETHOPRIM 400 MG in DEXTROSE 5%-WATER 500 ML IV SCH (09:00)
[2018-04-07] MEDS: ASPIRIN 325 MG TABLET NG SCH (09:23)
[2018-04-07] MEDS: ENOXAPARIN SODIUM INJ 40 MG/0.4 ML DISP.SYRIN SUBCUT SCH (09:24)
[2018-04-07] MEDS: FLUTICASONE/SALMETEROL DISKUS 500-50 MCG/DOSE IH SCH ×2 (09:24→21:43)
[2018-04-07] MEDS ORDERED: FENTANYL CITRATE/PF 600 MCG/60 ML BAG IV PRN (10:45)
[2018-04-07] MEDS: ALBUTEROL SULFATE 0.083% NEB 2.5 MG/3 ML AMPUL NEB PRN (12:17)
[2018-04-07] MEDS: MIDAZOLAM HCL 50 MG/100 ML RTUINJ IV PRN ×2 (14:22→20:38)
[2018-04-07] MEDS ORDERED: MAGNESIUM SULFATE/D5W 1 GM/100 ML RTUPB IV ONE ×2 (17:00)
--- NOTE | 2018-04-07 19:07 | PDOC PROGRESS REPORT ---
Subjective Progress Note for:: 04/07/18 Subjective:: Saw patient on rounds early this morning. She remains sedated-spoke with nursing and ICU staff at bedside. Reason For Visit: HYPOXIC RESPIRATORY DISTRESS Physical Exam Vital Signs: Temp Pulse Resp BP Pulse Ox 98.4 F 90 18 113/60 95 04/07/18 18:00 04/07/18 18:00 04/07/18 18:00 04/07/18 18:00 04/07/18 18:00 Intake & Output 04/06/18 04/07/18 04/08/18 06:59 06:59 06:59 Intake Total 4040 3934 420 Output Total 3785 3645 840 Balance 255 289 -420 Weight 123 lb 10.869 oz 127 lb 3.307 oz General appearance: PRESENT: no acute distress Head exam: PRESENT: atraumatic, normocephalic Ear exam: PRESENT: normal external ear exam Neck exam: ABSENT: tracheal deviation Respiratory exam: PRESENT: decreased breath sounds - Diminished breath sounds in all lung mireles, symmetrical Cardiovascular exam: PRESENT: +S1, +S2 Pulses: PRESENT: +2 pedal pulses bilateral GI/Abdominal exam: PRESENT: normal bowel sounds, soft Extremities exam: PRESENT: +1 edema - Bilateral hands. ABSENT: pedal edema Neurological exam: PRESENT: other - Sedated-does not respond to verbal commands or physical stimuli Skin exam: PRESENT: dry, warm Results Laboratory Results: 04/07/18 05:45 04/07/18 05:45 04/07/18 04/07/18 04/07/18 05:45 05:45 05:45 WBC 21.6 H RBC 3.75 Hgb 10.7 L Hct 32.2 L MCV 86 MCH 28.6 MCHC 33.3 RDW 14.6 H Plt Count 441 Seg Neutrophils % Not Reportable Lymphocytes % Not Reportable Monocytes % Not Reportable Eosinophils % Not Reportable Basophils % Not Reportable Absolute Neutrophils Not Reportable Absolute Lymphocytes Not Reportable Absolute Monocytes Not Reportable Absolute Eosinophils Not Reportable Absolute Basophils Not Reportable Carbonic Acid 1.48 H HCO3/H2CO3 Ratio 20:1 ABG pH 7.41 ABG pCO2 49.2 H ABG pO2 80.6 ABG HCO3 30.5 H ABG O2 Saturation 95.9 ABG Base Excess 5.0 FiO2 28% Sodium 136.3 L Potassium 3.9 Chloride 97 L Carbon Dioxide 30 Anion Gap 9 BUN 10 Creatinine 0.43 L Est GFR ( Amer) > 60 Est GFR (Non-Af Amer) > 60 Glucose 125 H Calcium 8.1 L Magnesium 1.9 Total Bilirubin 0.1 L AST 17 ALT 66 H Alkaline Phosphatase 45 Total Protein 4.5 L Albumin 2.7 L 03/31/18 04/07/18 09:24 05:45 Troponin I < 0.012 0.017 NT-Pro-B Natriuret Pep 684 Impressions: Chest/Abdomen CTA 03/31/18 10:36 IMPRESSION: No CT angio evidence of acute pulmonary emboli or thoracic aortic dissection. No acute infiltrates. Chronic right middle lobe volume loss and consolidation 1.5 cm nodule in the posterior right lower lobe, new compared to prior CT 07/31/2017. This is worrisome for malignancy Venous Doppler Study 03/31/18 12:07 IMPRESSION: NO EVIDENCE FOR DVT OR SVT IN THE RIGHT LEG. Head CT 04/05/18 09:43 IMPRESSION: NORMAL BRAIN CT WITH CONTRAST. EVIDENCE OF ACUTE STROKE: NO. Chest X-Ray 04/06/18 00:00 IMPRESSION: STABLE APPEARANCE OF THE CHEST. Assessment & Plan - Diagnosis (1) Ventilator dependent Is this a current diagnosis for this admission?: Yes (2) Acute respiratory failure with hypercapnia Is this a current diagnosis for this admission?: Yes (3) Atrial fibrillation, transient Is this a current diagnosis for this admission?: Yes (4) COPD exacerbation Is this a current diagnosis for this admission?: Yes (5) Gram-positive bacteremia Is this a current diagnosis for this admission?: Yes (6) Hypertension Is this a current diagnosis for this admission?: Yes (7) Lung nodule Is this a current diagnosis for this admission?: Yes (8) Tobacco abuse Is this a current diagnosis for this admission?: Yes - Time Total Critical Time (Minutes): 34 Anticipated discharge: Acute Rehab - Inpatient Certification Based on my medical assessment, after consideration of the patient's comorbidities, presenting symptoms, or acuity I expect that the services needed warrant INPATIENT care.: Yes I certify that my determination is in accordance with my understanding of Medicare's requirements for reasonable and necessary INPATIENT services [42 CFR 412.3e].: Yes Medical Necessity: Need Close Monitoring Due to Risk of Patient Decompensation, Need for IV Antibiotics, Risk of Complication if Not Cared For in Hospital - Plan Summary Plan Summary: Acute respiratory failure w/ hypercapnia- multifactorial- COPD vs PNA vs sepsis. on ventilator support. Dr Barraza is consulted. Patient has been given fentanyl every 4 hours and this seems to be helping with her respiratory distress when she becomes tachycardic and tachypneic. I had a long discussion with ICU staff today and after further discussion we have decided to try her on a fentanyl drip since she seems to be tolerating the fentanyl better than the Versed and prevent. I started on 12.5 mics per hour of fentanyl drip. I have asked nursing to titrate from the Versed and to prevent as much as possible and tolerated. She remains on ventilator support with tidal volume of 400, FiO2 of 28%, PEEP of 8 and respiratory rate of 18. She seems to be breathing over the vent at 20-25 at times. I have asked respiratory to decrease the PEEP to 5. This morning her heart rate was better and was less than 100 and her respiratory rate was improved since yesterday. Unfortunately she is not improving and I am not sure COPD driven or not. I did order a d-dimer and it was elevated hence I ordered a CT of the chest to rule out a PE-this is still pending. Bacteremia- BCx growing staph hominis- sputum cx shows [address] Barraza- will c/w bactrim and vanco for now. COPD exac- on xopenex and atrovent- will restart her advair as home med today. c/w solumedrol IV 60mg Q8. HTN- c/w home meds of cardizem Q8H. Hydralazine PRN - will monitor.
--- NOTE | 2018-04-07 19:19 | RADIOLOGY REPORT (SQ) ---
EXAM DESCRIPTION: CTA CHEST COMPLETED DATE/TIME: 04/07/2018 6:58 pm REASON FOR STUDY: positive DDimer, tachypnea COMPARISON: Chest radiographs, 04/06/2018, CT chest, 03/31/2018 TECHNIQUE: CT scan of the chest performed using helical scanning technique with dynamic intravenous contrast injection. Images reviewed with lung, soft tissue and bone windows. Reconstructed coronal and sagittal MPR images reviewed. Additional 3 dimensional post-processing performed to develop Maximal Intensity Projection images (IL P). All images stored on PACS. All CT scanners at this facility use dose modulation, iterative reconstruction, and/or weight based d osing when appropriate to reduce radiation dose to as low as reasonably achievable (ALARA). [facility]: Dose Right [facility]: CareDose [facility]: Dose Right [facility]: Teradose 4D [facility]: [place] CONTRAST TYPE AND DOSE: contrast/concentration: Isovue 350.00 mg/ml; Total Contrast Delivered: 65.0 ml; Total Saline Delivered: 65.0 ml Contrast bolus optimized for the pulmonary arteries. Not diagnostic for the aorta. RENAL FUNCTION: GFR > 60. RADIATION DOSE: CT Rad equipment meets quality standard of care and radiation dose reduction techniq ues were employed. CTDIvol: 6.6 - 14.3 mGy. DLP: 586 mGy-cm. . LIMITATIONS: None. FINDINGS: LUNGS AND PLEURA: Redemonstrated hyperinflation and emphysema. Unchanged consolidations o f the medial right middle lobe and right lung base. AORTA AND GREAT VESSELS: Contrast bolus not optimized for the aorta. Mixed calcific atherosclerosis. HEART: No pericardial effusion. No significant coronary artery calcifications. PULMONARY ARTERIES: No emboli visualized in the main pulmonary arteries or the segmental branches. HILAR AND MEDIASTINAL STRUCTURES: No identified masses or abnormal nodes. HARDWARE: None in the chest. UPPER ABDOMEN: No significant findings. Limited exam. THYROID AND OTHER SOFT TISSUES: No masses. No adenopathy. BONES: No acute or significant finding. 3D MIPS: Confirm above findings. OTHER: Stable support apparatus. IMPRESSION: Negative examination for pulmonary embolism. COMMENT: Quality ID # [id number]: Final reports with documentation of one or more dose reduction techniques (e.g., Automated exposure control, adjustment of the mA and/or kV according to patient size, use of iterative reconstruction technique) TECHNICAL DOCUMENTATION: JOB ID: [id number]- All Rights Reserved Reading location - IP/workstation name: [email or web address]
[2018-04-08] MEDS: IPRATROPIUM BROMIDE 0.02% NEB 0.5 MG/2.5 ML AMPUL NEB SCH ×3 (00:28→15:24)
[2018-04-08] MEDS: LEVALBUTEROL HCL NEB 1.25 MG/3 ML AMPUL NEB SCH ×3 (00:28→15:24)
[2018-04-08] MEDS: VANCOMYCIN HCL 750 MG in DEXTROSE 5%-WATER 250 ML IV SCH ×3 (02:26→17:16)
[2018-04-08] MEDS: PROPOFOL 1,000 MG/100 ML INFUS..BTL IV PRN ×3 (02:26→16:16)
[2018-04-08] MEDS: SULFAMETHOXAZOLE/TRIMETHOPRIM 400 MG in DEXTROSE 5%-WATER 500 ML IV SCH ×4 (03:50→21:55)
[2018-04-08 04:01] LABS: HEMATOCRIT 29.3 % (36.0-47.0); HEMOGLOBIN 9.7 g/dL (12.0-15.5); MEAN CORPUSCULAR HEMOGLOBIN 28.4 pg (27.0-33.4); MEAN CORPUSCULAR HGB CONC 33.2 g/dL (32.0-36.0); MEAN CORPUSCULAR VOLUME 86 fl (80-97); PLATELET COUNT 408 10^3/uL (150-450); RED BLOOD COUNT 3.42 10^6/uL (3.72-5.28); RED CELL DISTRIBUTION WIDTH 14.4 % (11.5-14.0); WHITE BLOOD COUNT 16.9 10^3/uL (4.0-10.5)
[2018-04-08 04:17] LABS: ARTERIAL BLOOD BASE EXCESS 4.5 mmol/L; ARTERIAL BLOOD H2CO3 1.57 mmol/L (1.05-1.35); ARTERIAL BLOOD HCO3 30.4 mmol/L (20-24); ARTERIAL BLOOD O2 SATURATION 94.9 % (94-98); ARTERIAL BLOOD PH 7.39 (7.35-7.45); ARTERIAL BLOOD PO2 76.2 mmHg (80-100)
[2018-04-08 04:19] LABS: ARTERIAL BLOOD FIO2 28%
[2018-04-08 04:22] LABS: ABSOLUTE LYMPHOCYTES# (MANUAL) 0.5 10^3/uL (0.5-4.7); ABSOLUTE MONOCYTES # (MANUAL) 0.5 10^3/uL (0.1-1.4); ABSOLUTE NEUTROPHILS# (MANUAL) 15.9 10^3/uL (1.7-8.2); BASOPHILS % (MANUAL) 0 % (0-2); EOSINOPHILS % (MANUAL) 0 % (0-6); LYMPHOCYTES % (MANUAL) 3 % (13-45); MONOCYTES % (MANUAL) 3 % (3-13); RBC MORPHOLOGY COMMENT NORMO-CYTIC/CHROMIC; SEGMENTED NEUTROPHILS % (MAN) 94 % (42-78); TOTAL CELLS COUNTED 100
[2018-04-08 04:23] LABS: PLATELET COMMENT ADEQUATE
[2018-04-08 04:24] LABS: ANION GAP 7 (5-19); BLOOD UREA NITROGEN 11 mg/dL (7-20); CALCIUM 8.1 mg/dL (8.4-10.2); CARBON DIOXIDE 31 mmol/L (22-30); CHLORIDE 95 mmol/L (98-107); GLUCOSE 130 mg/dL (75-110); POTASSIUM 4.3 mmol/L (3.6-5.0); SODIUM 133.1 mmol/L (137-145)
[2018-04-08] MEDS: METHYLPREDNISOLONE INJ 125 MG/2 ML SDV IV SCH ×3 (06:06→21:56)
[2018-04-08] MEDS: FENTANYL CITRATE INJ/PF 100 MCG/2 ML AMPUL IV PRN (06:06)
[2018-04-08] MEDS: PANTOPRAZOLE SODIUM 40 MG VIAL IV SCH ×2 (06:06→17:18)
[2018-04-08] MEDS: DILTIAZEM HCL 30 MG TABLET NG SCH ×3 (06:07→21:55)
[2018-04-08] MEDS: DEXTROSE 5%-NORMAL SALINE 1,000 ML IV PRN (06:07)
--- NOTE | 2018-04-08 06:48 | RADIOLOGY REPORT (SQ) ---
CLINICAL HISTORY: Resp. Failure on vent COMPARISON: None. 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 Lungs are clear without consolidation, atelectasis, mass or edema. There is no pleural effusion. There is no pneumothorax. There are no acute osseous findings. Endotracheal tube tip is in the midtrachea. NG tube tip is in the stomach. Right IJ central line tip is in the lower SVC. IMPRESSION: No pneumonia.
[2018-04-08] MEDS: INSULIN LISPRO 100 UNIT/ML 3 ML VIAL SUBCUT SCH ×4 (09:25→21:56)
[2018-04-08] MEDS: FLUTICASONE/SALMETEROL DISKUS 500-50 MCG/DOSE IH SCH ×2 (09:27→21:56)
[2018-04-08] MEDS: ENOXAPARIN SODIUM INJ 40 MG/0.4 ML DISP.SYRIN SUBCUT SCH (09:49)
[2018-04-08] MEDS: ASPIRIN 325 MG TABLET NG SCH (09:49)
[2018-04-08] MEDS ORDERED: LEVOFLOXACIN 750 MG/D5W RTU 750 MG/150 ML RTUPB IV SCH (10:30)
--- NOTE | 2018-04-08 19:50 | PDOC PROGRESS REPORT ---
Subjective Progress Note for:: 04/08/18 Reason For Visit: HYPOXIC RESPIRATORY DISTRESS Physical Exam Vital Signs: Temp Pulse Resp BP Pulse Ox 98.4 F 90 20 111/63 95 04/08/18 12:00 04/08/18 15:24 04/08/18 15:24 04/08/18 14:23 04/08/18 15:24 Intake & Output 04/07/18 04/08/18 04/09/18 06:59 06:59 06:59 Intake Total 4459 3909 1362 Output Total 3645 2610 625 Balance 814 1299 737 Weight 127 lb 3.307 oz 128 lb 4.944 oz Results Laboratory Results: 04/08/18 03:50 04/08/18 03:50 04/08/18 04/08/18 04/08/18 03:50 03:50 04:00 WBC 16.9 H RBC 3.42 L Hgb 9.7 L Hct 29.3 L MCV 86 MCH 28.4 MCHC 33.2 RDW 14.4 H Plt Count 408 Seg Neutrophils % Not Reportable Lymphocytes % Not Reportable Monocytes % Not Reportable Eosinophils % Not Reportable Basophils % Not Reportable Absolute Neutrophils Not Reportable Absolute Lymphocytes Not Reportable Absolute Monocytes Not Reportable Absolute Eosinophils Not Reportable Absolute Basophils Not Reportable Carbonic Acid 1.57 H HCO3/H2CO3 Ratio 19:1 ABG pH 7.39 ABG pCO2 52.0 H ABG pO2 76.2 L ABG HCO3 30.4 H ABG O2 Saturation 94.9 ABG Base Excess 4.5 FiO2 28% Sodium 133.1 L Potassium 4.3 Chloride 95 L Carbon Dioxide 31 H Anion Gap 7 BUN 11 Creatinine 0.49 L Est GFR ( Amer) > 60 Est GFR (Non-Af Amer) > 60 Glucose 130 H Calcium 8.1 L Magnesium 2.2 03/31/18 04/07/18 09:24 05:45 Troponin I < 0.012 0.017 NT-Pro-B Natriuret Pep 684 Impressions: Venous Doppler Study 03/31/18 12:07 IMPRESSION: NO EVIDENCE FOR DVT OR SVT IN THE RIGHT LEG. Head CT 04/05/18 09:43 IMPRESSION: NORMAL BRAIN CT WITH CONTRAST. EVIDENCE OF ACUTE STROKE: NO. Chest/Abdomen CTA 04/07/18 18:09 IMPRESSION: Negative examination for pulmonary embolism. Chest X-Ray 04/08/18 06:00 IMPRESSION: No pneumonia. Assessment & Plan - Diagnosis (1) Ventilator dependent Is this a current diagnosis for this admission?: Yes (2) Acute respiratory failure with hypercapnia Is this a current diagnosis for this admission?: Yes (3) Atrial fibrillation, transient Is this a current diagnosis for this admission?: Yes (4) COPD exacerbation Is this a current diagnosis for this admission?: Yes (5) Gram-positive bacteremia Is this a current diagnosis for this admission?: Yes (6) Hypertension Is this a current diagnosis for this admission?: Yes (7) Lung nodule Is this a current diagnosis for this admission?: Yes (8) Tobacco abuse Is this a current diagnosis for this admission?: Yes - Time Total Critical Time (Minutes): 33 - Inpatient Certification Based on my medical assessment, after consideration of the patient's comorbidities, presenting symptoms, or acuity I expect that the services needed warrant INPATIENT care.: Yes I certify that my determination is in accordance with my understanding of Medicare's requirements for reasonable and necessary INPATIENT services [42 CFR 412.3e].: Yes Medical Necessity: Need Close Monitoring Due to Risk of Patient Decompensation, Need For IV Fluids, Need For Continuous Telemetry Monitoring, Need for IV Antibiotics, Risk of Complication if Not Cared For in Hospital - Plan Summary Plan Summary: Acute respiratory failure w/ hypercapnia- multifactorial- COPD vs PNA vs sepsis. Remains on ventilator. Dr. Barraza consulted. I have started her on fentanyl 12.5mcg per hour and she remains on to prevent. Her Versed was titrated off. She seems to get tachycardic and tachypneic from time to time. This morning her blood pressure was low due to bolus of fentanyl given for her tachycardia and tachypnea. At this time is been difficult to wean her off the ventilator. We have been trying daily sedation vacation and also SBTs. I spoke with Dr. Barraza again regarding this patient. This morning he did try giving her 1 dose of Levaquin since her WBC has been elevated. But CBC this morning showed imp rovement in WBC to 16,000. I have stopped the Levaquin at this time. She continues to be on Bactrim and Vanco. Her vent settings remain the same at 20% FiO2, tidal volume of 400, PEEP of 5 and respiratory rate of 18. I spoke with respiratory therapist also regarding patient. She continues to get nebulizer treatments. She has severe COPD and weaning her off the ventilator will be difficult. Dr. Barraza is going to attempt to extubate her tomorrow if she does well on the pressure support. I am concerned that she may not be able to hold her airway and may require reintubation. I did get a CTA of the chest for concerns of PE and it was negative. Off of the sedation she does open her eyes but does not respond. If she fails and continues to be on the ventilator then we need to speak and discuss her long-term care with next of kin. Bacteremia- BCx growing staph hominis- sputum cx shows [address] Barraza- will c/w bactrim and vanco for now. COPD exac- on xopenex and atrovent- will restart her advair as home med today. c/w solumedrol IV 60mg Q8. HTN- c/w home meds of cardizem Q8H. Hydralazine PRN - will monitor.
[2018-04-09] MEDS: MIDAZOLAM HCL 50 MG/100 ML RTUINJ IV PRN ×2 (00:02→16:19)
[2018-04-09] MEDS: LEVALBUTEROL HCL NEB 1.25 MG/3 ML AMPUL NEB SCH ×3 (00:43→16:32)
[2018-04-09] MEDS: IPRATROPIUM BROMIDE 0.02% NEB 0.5 MG/2.5 ML AMPUL NEB SCH ×3 (00:43→16:32)
[2018-04-09] MEDS: VANCOMYCIN HCL 750 MG in DEXTROSE 5%-WATER 250 ML IV SCH (01:50)
[2018-04-09] MEDS: SULFAMETHOXAZOLE/TRIMETHOPRIM 400 MG in DEXTROSE 5%-WATER 500 ML IV SCH ×2 (02:06→09:49)
[2018-04-09] MEDS: PROPOFOL 1,000 MG/100 ML INFUS..BTL IV PRN ×4 (02:24→23:00)
[2018-04-09] MEDS: DEXTROSE 5%-NORMAL SALINE 1,000 ML IV PRN ×2 (03:20→17:18)
[2018-04-09 03:31] LABS: HEMATOCRIT 32.9 % (36.0-47.0); HEMOGLOBIN 10.9 g/dL (12.0-15.5); MEAN CORPUSCULAR HEMOGLOBIN 28.3 pg (27.0-33.4); MEAN CORPUSCULAR HGB CONC 33.3 g/dL (32.0-36.0); MEAN CORPUSCULAR VOLUME 85 fl (80-97); PLATELET COUNT 553 10^3/uL (150-450); RED BLOOD COUNT 3.86 10^6/uL (3.72-5.28); RED CELL DISTRIBUTION WIDTH 14.3 % (11.5-14.0); WHITE BLOOD COUNT 23.4 10^3/uL (4.0-10.5)
[2018-04-09 03:34] LABS: ALANINE AMINOTRANSFERASE 56 U/L (9-52); ALBUMIN 2.2 g/dL (3.5-5.0); ALKALINE PHOSPHATASE 43 U/L (38-126); ANION GAP 7 (5-19); ASPARTATE AMINO TRANSFERASE 16 U/L (14-36); BILIRUBIN,DIRECT 0.1 mg/dL (0.0-0.4); BILIRUBIN,TOTAL 0.1 mg/dL (0.2-1.3); BLOOD UREA NITROGEN 10 mg/dL (7-20); CALCIUM 7.2 mg/dL (8.4-10.2); CARBON DIOXIDE 28 mmol/L (22-30); CHLORIDE 102 mmol/L (98-107); GLUCOSE 120 mg/dL (75-110); POTASSIUM 3.7 mmol/L (3.6-5.0); SODIUM 136.5 mmol/L (137-145)
[2018-04-09 03:35] LABS: ARTERIAL BLOOD BASE EXCESS 4.4 mmol/L; ARTERIAL BLOOD H2CO3 1.45 mmol/L (1.05-1.35); ARTERIAL BLOOD HCO3 29.8 mmol/L (20-24); ARTERIAL BLOOD O2 SATURATION 95.3 % (94-98); ARTERIAL BLOOD PCO2 48.2 mmHg (35-45); ARTERIAL BLOOD PH 7.41 (7.35-7.45); ARTERIAL BLOOD PO2 76.8 mmHg (80-100); ARTERIAL BLOOD TOTAL CO2 31.3 mmol/L (21-25)
[2018-04-09 03:37] LABS: ARTERIAL BLOOD FIO2 28%
[2018-04-09 03:48] LABS: ABSOLUTE LYMPHOCYTES# (MANUAL) 1.2 10^3/uL (0.5-4.7); ABSOLUTE MONOCYTES # (MANUAL) 0.2 10^3/uL (0.1-1.4); BASOPHILS % (MANUAL) 0 % (0-2); EOSINOPHILS % (MANUAL) 0 % (0-6); LYMPHOCYTES % (MANUAL) 5 % (13-45); MONOCYTES % (MANUAL) 1 % (3-13); SEGMENTED NEUTROPHILS % (MAN) 94 % (42-78); TOTAL CELLS COUNTED 100
[2018-04-09 03:49] LABS: PLATELET COMMENT ADEQUATE; RBC MORPHOLOGY COMMENT NORMO-CYTIC/CHROMIC
[2018-04-09] MEDS ORDERED: METOPROLOL TARTRATE PF/INJ 5 MG/5 ML SDV IV ONE ×2 (03:56→04:15)
[2018-04-09] MEDS ORDERED: DILTIAZEM HCL 30 MG TABLET NG ONE (04:00)
[2018-04-09] MEDS: FENTANYL CITRATE INJ/PF 100 MCG/2 ML AMPUL IV PRN ×2 (04:01→19:57)
[2018-04-09] MEDS: METHYLPREDNISOLONE INJ 125 MG/2 ML SDV IV SCH ×3 (05:27→21:36)
[2018-04-09] MEDS: PANTOPRAZOLE SODIUM 40 MG VIAL IV SCH ×2 (05:28→17:20)
[2018-04-09] MEDS: DILTIAZEM HCL 30 MG TABLET NG SCH ×3 (05:29→21:37)
--- NOTE | 2018-04-09 08:12 | Progress Note ---
Provider Note Provider Note: ID Consult Note Asked to review chart of patient by Pharmacy. Pt not seen or examined. Ms. Higgins is a 62 year old woman with PMH including tobacco use, COPD, asthma who came to [facility] 03/31/18 with hypercapnic respiratory failure and obtundation. Her exam was notable for decreased air movement, wheezing and pink frothy sputum in the ED. She required intubation. She was given IV steroids and empiric antibiotics for COPD exacerbation in addition to ventilatory support. Pt has had no fever since 04/02. Imaging includes CTA chest 03/31: no PE, advanced obstructive lung disease changes, chronic consolidation and volume loss RML unchanged since 2015, 1.5 cm nodule posterior RLL, no acute infiltrates CTA of the chest 04/07: hyperinflation and emphysema, unchanged RML and R lung base findings. CXR 04/08 AP film: No pneumonia Microbiology has included BCx 03/31: Staph hominis - one bottle out of four on admission BCx 04/07: no growth x 1 day tracheal aspirate 04/01: MRSA, E cloacae, beta lactamase inhibitor positive H influenzae sputum cx 04/02: MRSA, E clocae, Stenotrophomonas maltophilia tracheal aspirate 04/07: preliminarily reported with GPCs in clusters, GNRs Abx: Rocephin 03/31 Zosyn 04/01-04/04 Bactrim 04/04 to present vancomycin 04/02 to present Per most recent notes, pt remains intubated, has been getting nebulizer treatments, has been difficult to liberate from ventilator, although trying sedation vacation and SBTs. Pt has had a leukocytosis during the duration of her hospitalization. Most recently WBC 18 -> 22 -> 17 -> 23. Impression/Recommendations Pt has severe COPD with acute exacerbation and required intubation for hypercarbic respiratory failure. She has no evidence of pneumonia. Staph hominis in initial blood cultures is most consistent with a contaminant. The patient has been treated with antibiotics effective against the organisms isolated from the tracheal aspirates collected after intubation. How much of a role Stenotrophomonas is playing is dubious, since she appears to have had improvement in ventilator requirements even prior to treatment being started effective against this organism. Duration of antibiotics for acute COPD exacerbation in hospitalized patients is usually in the range of 5-7 days, although sometimes longer courses in the range of 7-10 days are considered in severe exacerbations. Today is day 7 or 8 of antibiotics active against MRSA and Stenotrophomonas and day 9 for E clocae and H influenzae. I doubt there is much benefit to continuing vancomycin and Bactrim beyond what she has already received. It is not possible to sterilize the airways and lungs, and this should not be the goal. If she is not clinically worsening, I would not re-culture her tracheal aspirate. Mark Arredondo MD [facility] Infectious Diseases pager [phone]
--- NOTE | 2018-04-09 08:26 | RADIOLOGY REPORT (SQ) ---
EXAM DESCRIPTION: CHEST SINGLE VIEW COMPLETED DATE/TIME: 04/09/2018 7:43 am REASON FOR STUDY: Resp. Failure on vent COMPARISON: 04/08/2018 EXAM PARAMETERS: NUMBER OF VIEWS: One view. TECHNIQUE: Single frontal radiographic view of the chest acquired. RADIATION DOSE: NA LIMITATIONS: None. FINDINGS: LUNGS AND PLEURA: Emphysematous change. No evidence of focal airspace disease, pleural ef fusion or pneumothorax. MEDIASTINUM AND HILAR STRUCTURES: No masses. Contour normal. HEART AND VASCULAR STRUCTURES: Heart normal in size. Normal vasculature. BONES: No acute findings. HARDWARE: Right internal jugular central venous catheter tip overlies right atrium. Enteric tube tip below diaphragm but excluded by collimation. Endotracheal tube tip overlies midthoracic trachea. OTHER: No other significant finding. IMPRESSION: Stable chronic changes without evidence of new acute cardiopulmonary complication. TECHNICAL DOCUMENTATION: JOB ID: [id number] [employer]- All Rights Reserved Reading location - IP/workstation name: [email or web address]
[2018-04-09] MEDS: INSULIN LISPRO 100 UNIT/ML 3 ML VIAL SUBCUT SCH ×4 (08:44→22:00)
[2018-04-09] MEDS: FLUTICASONE/SALMETEROL DISKUS 500-50 MCG/DOSE IH SCH ×2 (09:39→21:16)
[2018-04-09] MEDS: ENOXAPARIN SODIUM INJ 40 MG/0.4 ML DISP.SYRIN SUBCUT SCH (09:42)
[2018-04-09] MEDS: ASPIRIN 325 MG TABLET NG SCH (09:42)
[2018-04-09] MEDS ORDERED: FUROSEMIDE INJ/PF 20 MG/2 ML SDV IV ONE (09:45)
--- NOTE | 2018-04-09 10:16 | PDOC PROGRESS REPORT ---
Subjective Progress Note for:: 04/09/18 Subjective:: Day 9 in the ICU intubated. The patient did respond slightly to verbal stimulus and did turn her head away when I try to retract her eyelid. She is currently on CPAP trial and is borderline tachycardic but not restless in bed. Reason For Visit: COPD exacerbation with hypoxic hypercapnic acute on chronic respiratory failure Physical Exam Vital Signs: Temp Pulse Resp BP Pulse Ox 99.0 F 86 25 H 138/71 H 94 04/09/18 08:00 04/09/18 08:00 04/09/18 08:00 04/09/18 08:00 04/09/18 08:00 Intake & Output 04/08/18 04/09/18 04/10/18 06:59 06:59 06:59 Intake Total 3909 5710 108 Output Total 2610 3220 80 Balance 1299 2490 28 Weight 58.2 kg 60 kg General appearance: PRESENT: no acute distress, other - Intubated and sedated Head exam: PRESENT: atraumatic, normocephalic Eye exam: PRESENT: conjunctiva pink, other - Disconjugate gaze. When left eye appears to be looking forward the right eye is medially deviated. Unable to perform extraocular muscle testing.. ABSENT: scleral icterus - Left pupil is round and reactive to light. Difficult to assess right eye. Ear exam: PRESENT: normal external ear exam Mouth exam: PRESENT: other - Endotracheal and gastric tube in place. Respiratory exam: PRESENT: clear to auscultation flaco. ABSENT: rales, rhonchi, wheezes Cardiovascular exam: PRESENT: RRR, +S1, +S2 GI/Abdominal exam: PRESENT: normal bowel sounds, soft. ABSENT: distended, tenderness - No grimacing with palpation Rectal exam: PRESENT: deferred Gentrourinary exam: PRESENT: indwelling catheter Extremities exam: PRESENT: other - Bilateral hand edema 1+ Neurological exam: PRESENT: other - Intubated and sedated Psychiatric exam: ABSENT: agitated Focused psych exam: ABSENT: restlessness Results Laboratory Results: 04/09/18 03:15 04/09/18 03:15 04/09/18 04/09/18 04/09/18 03:15 03:15 03:22 WBC 23.4 H RBC 3.86 Hgb 10.9 L Hct 32.9 L MCV 85 MCH 28.3 MCHC 33.3 RDW 14.3 H Plt Count 553 H Seg Neutrophils % Not Reportable Lymphocytes % Not Reportable Monocytes % Not Reportable Eosinophils % Not Reportable Basophils % Not Reportable Absolute Neutrophils Not Reportable Absolute Lymphocytes Not Reportable Absolute Monocytes Not Reportable Absolute Eosinophils Not Reportable Absolute Basophils Not Reportable Carbonic Acid 1.45 H HCO3/H2CO3 Ratio 20:1 ABG pH 7.41 ABG pCO2 48.2 H ABG pO2 76.8 L ABG HCO3 29.8 H ABG O2 Saturation 95.3 ABG Base Excess 4.4 FiO2 28% Sodium 136.5 L Potassium 3.7 Chloride 102 Carbon Dioxide 28 Anion Gap 7 BUN 10 Creatinine 0.42 L Est GFR ( Amer) > 60 Est GFR (Non-Af Amer) > 60 Glucose 120 H Calcium 7.2 L Magnesium 1.9 Total Bilirubin 0.1 L AST 16 ALT 56 H Alkaline Phosphatase 43 Total Protein 4.0 L Albumin 2.2 L 04/07/18 10:25 Plascencia Catheter Urine Culture - Final NO GROWTH 2 DAYS 03/31/18 04/07/18 09:24 05:45 Troponin I < 0.012 0.017 NT-Pro-B Natriuret Pep 684 Impressions: Venous Doppler Study 03/31/18 12:07 IMPRESSION: NO EVIDENCE FOR DVT OR SVT IN THE RIGHT LEG. Head CT 04/05/18 09:43 IMPRESSION: NORMAL BRAIN CT WITH CONTRAST. EVIDENCE OF ACUTE STROKE: NO. Chest/Abdomen CTA 04/07/18 18:09 IMPRESSION: Negative examination for pulmonary embolism. Chest X-Ray 04/09/18 06:00 IMPRESSION: Stable chronic changes without evidence of new acute cardiopulmon chantale complication. Assessment & Plan - Diagnosis (1) Acute on chronic respiratory failure with hypoxia and hypercapnia Is this a current diagnosis for this admission?: Yes Plan: The patient has been intubated and on the ventilator for approximately 9 days. She is currently in the midst of a CPAP trial with a goal for extubation. Currently on CPAP her pulse oximetry is 96% on FiO2 28%. Respiratory rate is 13 and she is borderline tachycardic. She is responding slightly to verbal s timulus as well. Please also see pulmonology note. Please also see pulmonology note. (2) COPD (chronic obstructive pulmonary disease) Qualifiers: COPD type: emphysema Is this a current diagnosis for this admission?: Yes Plan: Patient with long-standing chronic obstructive pulmonary disease. Hyperlucency on x-ray. Continue intravenous steroids and nebulizer treatments. With her history of episodes of tachycardia she is on scheduled Xopenex and Atrovent with as needed nebulizers available (3) Ventilator dependent Is this a current diagnosis for this admission?: Yes Plan: Continue weaning trials. If she tolerates CPAP today we will attempt extubation. (4) Tracheitis due to Staphylococcus infection Is this a current diagnosis for this admission?: Yes Plan: Endotracheal aspirate positive for methicillin-resistant staph aureus. Other organisms including stenotrophomonas, Enterobacter and Haemophilus were isolated. The patient does not have evidence of pneumonia on imaging or clinically. Dr. Maria Elena Hauser and infectious disease consult and suggested that she has had a sufficient course of antibiotic therapy at this time and so I have discontinued the vancomycin and Bactrim. We will continue to monitor white blood cell count as it has been labile. (5) Tobacco abuse Is this a current diagnosis for this admission?: Yes Plan: Still smoking despite use of oxygen at home. At this point no nicotine therapy will be instituted but consider counseling tobacco cessation if the patient recovers. (6) Essential hypertension Is this a current diagnosis for this admission?: Yes Plan: Blood pressure has been stable to slightly high. She seems to have been tolerating her diltiazem with intermittent use of furosemide. (7) Localized edema Is this a current diagnosis for this admission?: Yes Plan: Currently with hand edema. She is in wrist restraints. I am hoping that when she is extubated and the wrist restraints are off, normal movement will help resolve the edema. I will give her 20 mg of furosemide IV today x1 dose. (8) Lung nodule Is this a current diagnosis for this admission?: Yes Plan: There is a lung nodule on the right noted on CT scan. It is 1.5 cm in diameter. There is no previous imaging noting the nodule. She is currently too unstable for any further diagnostics. (9) Gram-positive bacteremia Is this a current diagnosis for this admission?: No Plan: Only one blood culture bottles was positive for Staphylococcus hominis. This is most likely a contaminant and not indicative of true clinical bacteremia. Please also see the note from Dr. Arredondo. - Time Time Spent with patient: 35 or more minutes Medications reviewed and adjusted accordingly: Yes
--- NOTE | 2018-04-09 14:29 | PDOC CONSULTATION ---
Consultation Consult Date: 04/01/18 Attending physician:: WENDY PELAYO Consult reason:: Acute on chronic respiratory failure/pneumonia History of Present Illness Admission Date/PCP: 03/31/18 12:27 DELMY NEELY MD History of Present Illness: ILDA MORALES is a 62 year old female,Presented to the emergency room after 2-3 days of increasing shortness of breath and a cough productive of yellow phlegm she was hypoxic as well as hypercapnic and was subsequently intubated she is currently in the ICU intubated and sedated Past Medical History Pulmonary Medical History: Reports: Chronic Obstructive Pulmonary Disease (COPD) Past Surgical History Past Surgical History: Reports: Hysterectomy, Tubal Ligation Social History Information Source: [facility] Records Smoking Status: Unknown if Ever Smoked Family History Parental Family History Reviewed: No Children Family History Reviewed: No Sibling(s) Family History Reviewed.: No Medication/Allergy Home Medications: Albuterol Sulfate [Proair Hfa Inhalation Aerosol 8.5 gm Mdi] 2 puff IH Q6HP PRN 03/31/18 Fluticasone/Salmeterol [Advair 500-50 Diskus 14 Dose/Diskus] 1 inh IH Q12 03/31/18 Gabapentin [Neurontin 400 mg Capsule] 800 mg PO Q8 03/31/18 Hydrocodone Bit/Acetaminophen [Hydrocodon-Acetaminophn 10-325] 1 each PO Q8HP PRN 03/31/18 Hydroxyzine Pamoate [Vistaril 25 mg Capsule] 25 mg PO Q8HP PRN 03/31/18 Ipratropium/Albuterol Sulfate [Duoneb 3 ml Ampul] 3 ml NEB RTQIDP PRN 03/31/18 Umeclidinium [place] [Incruse Ellipta] 1 puff IH DAILY 03/31/18 Allergies/Adverse Reactions: No Known Allergies Allergy (Verified 06/30/17 14:50) Review of Systems ROS unobtainable: Due to endotracheal tube Physical Exam Vital Signs: Temp Pulse Resp BP Pulse Ox 99.7 F 96 23 H 121/53 L 93 04/09/18 14:00 04/09/18 14:00 04/09/18 14:00 04/09/18 14:00 04/09/18 14:00 Intake & Output 04/08/18 04/09/18 04/10/18 06:59 06:59 06:59 Intake Total 3909 5710 112 Output Total 2610 3220 1600 Balance 1299 2490 -1488 Weight 58.2 kg 60 kg General appearance: PRESENT: no acute distress, disheveled, well-developed, well-nourished. ABSENT: cooperative Head exam: PRESENT: atraumatic, normocephalic Eye exam: PRESENT: conjunctiva pale. ABSENT: nystagmus, scleral icterus Mouth exam: PRESENT: dry mucosa, neck supple, tongue midline, other - Endotracheal tube Neck exam: ABSENT: carotid bruit, JVD, lymphadenopathy, thyromegaly, tracheal deviation, tracheostomy Respiratory exam: PRESENT: decreased breath sounds, prolonged expiratory phas, rales, rhonchi, tachypnea, unlabored. ABSENT: retraction, stridor Cardiovascular exam: PRESENT: RRR, +S1, +S2, tachycardia Pulses: PRESENT: normal radial pulses GI/Abdominal exam: PRESENT: soft. ABSENT: tenderness Gentrourinary exam: PRESENT: indwelling catheter Extremities exam: ABSENT: calf tenderness, clubbing, joint swelling, pedal edema Musculoskeletal exam: ABSENT: deformity, dislocation Neurological exam: ABSENT: awake Skin exam: PRESENT: dry, warm Results Laboratory Results: 04/09/18 03:15 04/09/18 03:15 04/09/18 04/09/18 04/09/18 03:15 03:15 03:22 WBC 23.4 H RBC 3.86 Hgb 10.9 L Hct 32.9 L MCV 85 MCH 28.3 MCHC 33.3 RDW 14.3 H Plt Count 553 H Seg Neutrophils % Not Reportable Lymphocytes % Not Reportable Monocytes % Not Reportable Eosinophils % Not Reportable Basophils % Not Reportable Absolute Neutrophils Not Reportable Absolute Lymphocytes Not Reportable Absolute Monocytes Not Reportable Absolute Eosinophils Not Reportable Absolute Basophils Not Reportable Carbonic Acid 1.45 H HCO3/H2CO3 Ratio 20:1 ABG pH 7.41 ABG pCO2 48.2 H ABG pO2 76.8 L ABG HCO3 29.8 H ABG O2 Saturation 95.3 ABG Base Excess 4.4 FiO2 28% Sodium 136.5 L Potassium 3.7 Chloride 102 Carbon Dioxide 28 Anion Gap 7 BUN 10 Creatinine 0.42 L Est GFR ( Amer) > 60 Est GFR (Non-Af Amer) > 60 Glucose 120 H Calcium 7.2 L Magnesium 1.9 Total Bilirubin 0.1 L AST 16 ALT 56 H Alkaline Phosphatase 43 Total Protein 4.0 L Albumin 2.2 L 04/07/18 11:38 Tracheal Aspirate Gram Stain - Final 04/07/18 10:25 Plascencia Catheter Urine Culture - Final NO GROWTH 2 DAYS 03/31/18 04/07/18 09:24 05:45 Troponin I < 0.012 0.017 NT-Pro-B Natriuret Pep 684 Impressions: Venous Doppler Study 03/31/18 12:07 IMPRESSION: NO EVIDENCE FOR DVT OR SVT IN THE RIGHT LEG. Head CT 04/05/18 09:43 IMPRESSION: NORMAL BRAIN CT WITH CONTRAST. EVIDENCE OF ACUTE STROKE: NO. Chest/Abdomen CTA 04/07/18 18:09 IMPRESSION: Negative examination for pulmonary embolism. Chest X-Ray 04/09/18 06:00 IMPRESSION: Stable chronic changes without evidence of new acute cardiopulmonary complication. Assessment & Plan - Diagnosis (1) Gram-positive bacteremia Is this a current diagnosis for this admission?: Yes Plan: 04/07/18 11:38 Gram Stain - Final Tracheal Aspirate Sputum Culture - Preliminary Gram Positive Cocci Clusters Stenotrophomonas Maltophilia Yeast, Not Eveline Albicans Greatly Reduced Normal Basia 04/02/18 03:40 Gram Stain - Final Sputum Sputum Culture - Final Mrsa (Meth Resis Staph Aureus) Enterobacter Cloacae Stenotrophomonas Maltophilia Normal Basia Absent 04/01/18 04:57 Gram Stain - Final Tracheal Aspirate Sputum Culture - Final Mrsa (Meth Resis Staph Aureus) Enterobacter Cloacae Haemophilus Influenzae Normal Basia Absent 03/31/18 13:55 Blood Culture - Final Blood Staphylococcus Hominis (2) Lung nodule Is this a current diagnosis for this admission?: Yes Plan: New onset will investigate further after the acute event was biopsies are not particularly revealing in the face of acute inflammation (3) Atrial fibrillation, transient Is this a current diagnosis for this admission?: Yes Plan: Intermittent total heart rate stable at this time (4) COPD (chronic obstructive pulmonary disease) Qualifiers: COPD type: emphysema Is this a current diagnosis for this admission?: Yes Plan: Continue current bronchodilator therapy (5) Essential hypertension Is this a current diagnosis for this admission?: Yes Plan: Stable at this time - Time Total Critical Time (Minutes): 55
--- NOTE | 2018-04-09 14:32 | PDOC PROGRESS REPORT ---
Subjective Progress Note for:: 04/02/18 Subjective:: Intubated and sedated Reason For Visit: HYPOXIC RESPIRATORY DISTRESS Physical Exam Vital Signs: Temp Pulse Resp BP Pulse Ox 97.6 F 83 22 H 121/68 94 04/02/18 06:00 04/02/18 09:06 04/02/18 09:06 04/02/18 08:00 04/02/18 09:06 Intake & Output 04/01/18 04/02/18 04/03/18 06:59 06:59 06:59 Intake Total 3667 1731 Output Total 2665 520 5 Balance 1002 1211 -5 Weight 47.1 kg 49 kg General appearance: PRESENT: no acute distress, disheveled, well-developed, well-nourished. ABSENT: cooperative Head exam: PRESENT: atraumatic, normocephalic Eye exam: PRESENT: conjunctiva pale. ABSENT: nystagmus Mouth exam: PRESENT: dry mucosa, neck supple, tongue midline, other - Endotracheal tube Neck exam: ABSENT: carotid bruit, JVD, lymphadenopathy, thyromegaly, tracheal deviation Respiratory exam: PRESENT: decreased breath sounds, prolonged expiratory phas, rales, rhonchi, unlabored. ABSENT: retraction, stridor Cardiovascular exam: PRESENT: irregular rhythm Pulses: PRESENT: normal radial pulses GI/Abdominal exam: PRESENT: soft. ABSENT: tenderness Gentrourinary exam: PRESENT: other Extremities exam: ABSENT: calf tenderness, clubbing, joint swelling, pedal edema Musculoskeletal exam: ABSENT: deformity, dislocation Neurological exam: ABSENT: awake Skin exam: PRESENT: dry, warm Results Laboratory Results: 04/02/18 04:20 04/02/18 04:20 04/02/18 04/02/18 04/02/18 04:20 04:20 04:20 WBC 14.9 H RBC 4.04 Hgb 11.4 L Hct 35.6 L MCV 88 MCH 28.1 MCHC 31.9 L RDW 14.5 H Plt Count 197 Seg Neutrophils % Not Reportable Lymphocytes % Not Reportable Monocytes % Not Reportable Eosinophils % Not Reportable Basophils % Not Reportable Absolute Neutrophils Not Reportable Absolute Lymphocytes Not Reportable Absolute Monocytes Not Reportable Absolute Eosinophils Not Reportable Absolute Basophils Not Reportable Carbonic Acid 1.87 H HCO3/H2CO3 Ratio 17:1 ABG pH 7.33 L ABG pCO2 62.1 H ABG pO2 89.3 ABG HCO3 32.1 H ABG O2 Saturation 96.0 ABG Base Excess 4.6 FiO2 35% Sodium 139.1 Potassium 3.8 Chloride 101 Carbon Dioxide 34 H Anion Gap 4 L BUN 17 Creatinine 0.55 Est GFR ( Amer) > 60 Est GFR (Non-Af Amer) > 60 Glucose 242 H Calcium 8.0 L Magnesium 2.2 Total Bilirubin 0.2 AST 16 ALT 26 Alkaline Phosphatase 56 Total Protein 4.7 L Albumin 2.5 L 03/31/18 09:46 Catheterized Urine Urine Culture - Final NO GROWTH 2 DAYS 03/31/18 09:24 Troponin I < 0.012 NT-Pro-B Natriuret Pep 684 Impressions: Chest/Abdomen CTA 03/31/18 10:36 IMPRESSION: No CT angio evidence of acute pulmonary emboli or thoracic aortic dissection. No acute infiltrates. Chronic right middle lobe volume loss and consolidation 1.5 cm nodule in the posterior right lower lobe, new compared to prior CT 07/31/2017. This is worrisome for malignancy Head CT 03/31/18 10:36 IMPRESSION: NORMAL BRAIN CT WITHOUT CONTRAST. EVIDENCE OF ACUTE STROKE: NO. Venous Doppler Study 03/31/18 12:07 IMPRESSION: NO EVIDENCE FOR DVT OR SVT IN THE RIGHT LEG. Chest X-Ray 04/02/18 05:00 IMPRESSION: 1. No significant interval changes since the prior examination dated 04/01/2018. Findings of COPD and mild interstitial changes at the left lung base. 2. Support lines and tubes, unchanged findings. Assessment & Plan - Diagnosis (1) Acute on chronic respiratory failure with hypoxia and hypercapnia Is this a current diagnosis for this admission?: Yes Plan: Ventilation and oxygenation to approximately her baseline (2) Atrial fibrillation, transient Is this a current diagnosis for this admission?: Yes Plan: Intermittent total heart rate stable at this time (3) COPD (chronic obstructive pulmonary disease) Qualifiers: COPD type: emphysema Is this a current diagnosis for this admission?: Yes Plan: Continue current bronchodilator therapy (4) Essential hypertension Is this a current diagnosis for this admission?: Yes Plan: Stable at this time (5) Gram-positive bacteremia Is this a current diagnosis for this admission?: Yes Plan: 04/07/18 11:38 Gram Stain - Final Tracheal Aspirate Sputum Culture - Preliminary Gram Positive Cocci Clusters Stenotrophomonas Maltophilia Yeast, Not Eveline Albicans Greatly Reduced Normal Basia 04/02/18 03:40 Gram Stain - Final Sputum Sputum Culture - Final Mrsa (Meth Resis Staph Aureus) Enterobacter Cloacae Stenotrophomonas Maltophilia Normal Basia Absent 04/01/18 04:57 Gram Stain - Final Tracheal Aspirate Sputum Culture - Final Mrsa (Meth Resis Staph Aureus) Enterobacter Cloacae Haemophilus Influenzae Normal Basia Absent 03/31/18 13:55 Blood Culture - Final Blood Staphylococcus Hominis (6) Lung nodule Is this a current diagnosis for this admission?: Yes Plan: New onset will investigate further after the acute event was biopsies are not particularly revealing in the face of acute inflammation - Time Total Critical Time (Minutes): 45
--- NOTE | 2018-04-09 14:34 | PDOC PROGRESS REPORT ---
Subjective Progress Note for:: 04/03/18 Subjective:: Intubated and sedated Reason For Visit: HYPOXIC RESPIRATORY DISTRESS Physical Exam Vital Signs: Temp Pulse Resp BP Pulse Ox 98.1 F 82 17 148/87 H 94 04/03/18 08:00 04/03/18 10:00 04/03/18 10:30 04/03/18 10:30 04/03/18 10:30 Intake & Output 04/02/18 04/03/18 04/04/18 06:59 06:59 06:59 Intake Total 1731 2981 450 Output Total 520 535 225 Balance 1211 2446 225 Weight 49 kg 52.1 kg General appearance: PRESENT: no acute distress, disheveled, well-developed, well-nourished. ABSENT: cooperative Head exam: PRESENT: atraumatic, normocephalic Eye exam: PRESENT: conjunctiva pale. ABSENT: nystagmus Mouth exam: PRESENT: dry mucosa, neck supple, tongue midline, other - ET tube in place Neck exam: ABSENT: carotid bruit, JVD, lymphadenopathy, thyromegaly, tracheal deviation, tracheostomy Respiratory exam: PRESENT: decreased breath sounds, prolonged expiratory phas, rales, rhonchi, unlabored. ABSENT: retraction, stridor Cardiovascular exam: PRESENT: irregular rhythm GI/Abdominal exam: PRESENT: soft. ABSENT: tenderness Gentrourinary exam: PRESENT: indwelling catheter Extremities exam: ABSENT: calf tenderness, clubbing, joint swelling, pedal edema Neurological exam: ABSENT: awake Skin exam: PRESENT: dry, warm Results Laboratory Results: 04/03/18 03:30 04/03/18 03:30 04/03/18 04/03/18 04/03/18 03:30 03:30 03:30 WBC 14.1 H RBC 3.93 Hgb 11.0 L Hct 34.2 L MCV 87 MCH 28.0 MCHC 32.2 RDW 14.4 H Plt Count 261 Seg Neutrophils % Not Reportable Lymphocytes % Not Reportable Monocytes % Not Reportable Eosinophils % Not Reportable Basophils % Not Reportable Absolute Neutrophils Not Reportable Absolute Lymphocytes Not Reportable Absolute Monocytes Not Reportable Absolute Eosinophils Not Reportable Absolute Basophils Not Reportable Carbonic Acid 1.50 H HCO3/H2CO3 Ratio 21:1 ABG pH 7.43 ABG pCO2 49.9 H ABG pO2 73.9 L ABG HCO3 32.4 H ABG O2 Saturation 95.1 ABG Base Excess 6.7 FiO2 28% Sodium 139.7 Potassium 3.7 Chloride 107 Carbon Dioxide 30 Anion Gap 3 L BUN 16 Creatinine 0.46 L Est GFR ( Amer) > 60 Est GFR (Non-Af Amer) > 60 Glucose 151 H Calcium 8.1 L Magnesium 2.0 Total Bilirubin 0.3 AST 11 L ALT 24 Alkaline Phosphatase 48 Total Protein 4.4 L Albumin 2.4 L TSH Free T4 Free T3 pg/mL 04/03/18 03:30 WBC RBC Hgb Hct MCV MCH MCHC RDW Plt Count Seg Neutrophils % Lymphocytes % Monocytes % Eosinophils % Basophils % Absolute Neutrophils Absolute Lymphocytes Absolute Monocytes Absolute Eosinophils Absolute Basophils Carbonic Acid HCO3/H2CO3 Ratio ABG pH ABG pCO2 ABG pO2 ABG HCO3 ABG O2 Saturation ABG Base Excess FiO2 Sodium Potassium Chloride Carbon Dioxide Anion Gap BUN Creatinine Est GFR ( Amer) Est GFR (Non-Af Amer) Glucose Calcium Magnesium Total Bilirubin AST ALT Alkaline Phosphatase Total Protein Albumin TSH < 0.01 L Free T4 1.56 Free T3 pg/mL 3.26 03/31/18 09:46 Catheterized Urine Urine Culture - Final NO GROWTH 2 DAYS 03/31/18 09:24 Troponin I < 0.012 NT-Pro-B Natriuret Pep 684 Impressions: Chest/Abdomen CTA 03/31/18 10:36 IMPRESSION: No CT angio evidence of acute pulmonary emboli or thoracic aortic dissection. No acute infiltrates. Chronic right middle lobe volume loss and consolidation 1.5 cm nodule in the posterior right lower lobe, new compared to prior CT 07/31/2017. This is worrisome for malignancy Head CT 03/31/18 10:36 IMPRESSION: NORMAL BRAIN CT WITHOUT CONTRAST. EVIDENCE OF ACUTE STROKE: NO. Venous Doppler Study 03/31/18 12:07 IMPRESSION: NO EVIDENCE FOR DVT OR SVT IN THE RIGHT LEG. Chest X-Ray 04/03/18 06:00 IMPRESSION: No significant change. Assessment & Plan - Diagnosis (1) Acute on chronic respiratory failure with hypoxia and hypercapnia Is this a current diagnosis for this admission?: Yes Plan: Ventilation and oxygenation to approximately her baseline (2) Atrial fibrillation, transient Is this a current diagnosis for this admission?: Yes Plan: Intermittent total heart rate stable at this time (3) COPD (chronic obstructive pulmonary disease) Qualifiers: COPD type: emphysema Is this a current diagnosis for this admission?: Yes Plan: Continue current bronchodilator therapy (4) Essential hypertension Is this a current diagnosis for this admission?: Yes Plan: Stable at this time (5) Gram-positive bacteremia Is this a current diagnosis for this admission?: Yes Plan: 04/07/18 11:38 Gram Stain - Final Tracheal Aspirate Sputum Culture - Preliminary Gram Positive Cocci Clusters Stenotrophomonas Maltophilia Yeast, Not Eveline Albicans Greatly Reduced Normal Basia 04/02/18 03:40 Gram Stain - Final Sputum Sputum Culture - Final Mrsa (Meth Resis Staph Aureus) Enterobacter Cloacae Stenotrophomonas Maltophilia Normal Basia Absent 04/01/18 04:57 Gram Stain - Final Tracheal Aspirate Sputum Culture - Final Mrsa (Meth Resis Staph Aureus) Enterobacter Cloacae Haemophilus Influenzae Normal Basia Absent 03/31/18 13:55 Blood Culture - Final Blood Staphylococcus Hominis (6) Lung nodule Is this a current diagnosis for this admission?: Yes Plan: New onset will investigate further after the acute event was biopsies are not particularly revealing in the face of acute inflammation - Time Total Critical Time (Minutes): 50
--- NOTE | 2018-04-09 14:36 | PDOC PROGRESS REPORT ---
Subjective Progress Note for:: 04/04/18 Subjective:: Intubated and sedated Reason For Visit: HYPOXIC RESPIRATORY DISTRESS Physical Exam Vital Signs: Temp Pulse Resp BP Pulse Ox 97.7 F 62 24 H 160/84 H 99 04/04/18 06:00 04/04/18 07:48 04/04/18 07:48 04/04/18 06:47 04/04/18 07:48 Intake & Output 04/03/18 04/04/18 04/05/18 06:59 06:59 06:59 Intake Total 2981 2339 94 Output Total 535 1360 Balance 2446 979 94 Weight 52.1 kg 53.9 kg General appearance: PRESENT: no acute distress, disheveled, well-developed, well-nourished. ABSENT: cooperative Head exam: PRESENT: atraumatic, normocephalic Eye exam: PRESENT: conjunctiva pale. ABSENT: nystagmus Mouth exam: PRESENT: dry mucosa, neck supple, tongue midline, other - ET tube Neck exam: ABSENT: carotid bruit, JVD, lymphadenopathy, thyromegaly, tracheal deviation, tracheostomy Respiratory exam: PRESENT: decreased breath sounds, prolonged expiratory phas, rales, rhonchi, unlabored. ABSENT: stridor Cardiovascular exam: PRESENT: irregular rhythm Pulses: PRESENT: normal radial pulses GI/Abdominal exam: PRESENT: soft. ABSENT: tenderness Gentrourinary exam: PRESENT: indwelling catheter Extremities exam: ABSENT: calf tenderness, clubbing, joint swelling, pedal edema Musculoskeletal exam: ABSENT: deformity, dislocation Neurological exam: ABSENT: awake Skin exam: PRESENT: dry, warm Results Laboratory Results: 04/04/18 06:45 04/04/18 06:45 04/04/18 04/04/18 04/04/18 06:45 06:45 07:00 WBC 12.9 H RBC 4.20 Hgb 11.8 L Hct 36.2 MCV 86 MCH 28.1 MCHC 32.6 RDW 14.2 H Plt Count 302 Seg Neutrophils % Not Reportable Lymphocytes % Not Reportable Monocytes % Not Reportable Eosinophils % Not Reportable Basophils % Not Reportable Absolute Neutrophils Not Reportable Absolute Lymphocytes Not Reportable Absolute Monocytes Not Reportable Absolute Eosinophils Not Reportable Absolute Basophils Not Reportable Carbonic Acid Cancelled HCO3/H2CO3 Ratio Cancelled ABG pH Cancelled ABG pCO2 Cancelled ABG pO2 Cancelled ABG HCO3 Cancelled ABG O2 Saturation Cancelled ABG Base Excess Cancelled FiO2 Cancelled Sodium 140.0 Potassium 4.1 Chloride 106 Carbon Dioxide 32 H Anion Gap 2 L BUN 16 Creatinine 0.47 L Est GFR ( Amer) > 60 Est GFR (Non-Af Amer) > 60 Glucose 132 H Calcium 8.4 Magnesium 2.1 Total Bilirubin 0.4 AST 13 L ALT 28 Alkaline Phosphatase 48 Total Protein 4.8 L Albumin 2.6 L 04/04/18 07:30 WBC RBC Hgb Hct MCV MCH MCHC RDW Plt Count Seg Neutrophils % Lymphocytes % Monocytes % Eosinophils % Basophils % Absolute Neutrophils Absolute Lymphocytes Absolute Monocytes Absolute Eosinophils Absolute Basophils Carbonic Acid 1.67 H HCO3/H2CO3 Ratio 17:1 ABG pH 7.34 L ABG pCO2 55.4 H ABG pO2 79.2 L ABG HCO3 29.0 H ABG O2 Saturation 94.8 ABG Base Excess 2.2 FiO2 28% Sodium Potassium Chloride Carbon Dioxide Anion Gap BUN Creatinine Est GFR ( Amer) Est GFR (Non-Af Amer) Glucose Calcium Magnesium Total Bilirubin AST ALT Alkaline Phosphatase Total Protein Albumin 04/01/18 04:57 Tracheal Aspirate Gram Stain - Final 04/01/18 04:57 Tracheal Aspirate Sputum Culture - Final Mrsa (Meth Resis Staph Aureus) Enterobacter Cloacae Haemophilus Influenzae Normal Basia Absent 03/31/18 09:24 Troponin I < 0.012 NT-Pro-B Natriuret Pep 684 Impressions: Chest/Abdomen CTA 03/31/18 10:36 IMPRESSION: No CT angio evidence of acute pulmonary emboli or thoracic aortic dissection. No acute infiltrates. Chronic right middle lobe volume loss and consolidation 1.5 cm nodule in the posterior right lower lobe, new compared to prior CT 07/31/2017. This is worrisome for malignancy Head CT 03/31/18 10:36 IMPRESSION: NORMAL BRAIN CT WITHOUT CONTRAST. EVIDENCE OF ACUTE STROKE: NO. Venous Doppler Study 03/31/18 12:07 IMPRESSION: NO EVIDENCE FOR DVT OR SVT IN THE RIGHT LEG. Chest X-Ray 04/04/18 18:15 IMPRESSION: No significant change. Assessment & Plan - Diagnosis (1) Acute on chronic respiratory failure with hypoxia and hypercapnia Is this a current diagnosis for this admission?: Yes Plan: Ventilation and oxygenation to approximately her baseline (2) Atrial fibrillation, transient Is this a current diagnosis for this admission?: Yes Plan: Intermittent total heart rate stable at this time (3) COPD (chronic obstructive pulmonary disease) Qualifiers: COPD type: emphysema Is this a current diagnosis for this admission?: Yes Plan: Continue current bronchodilator therapy (4) Essential hypertension Is this a current diagnosis for this admission?: Yes Plan: Stable at this time (5) Gram-positive bacteremia Is this a current diagnosis for this admission?: Yes Plan: 04/07/18 11:38 Gram Stain - Final Tracheal Aspirate Sputum Culture - Preliminary Gram Positive Cocci Clusters Stenotrophomonas Maltophilia Yeast, Not Eveline Albicans Greatly Reduced Normal Basia 04/02/18 03:40 Gram Stain - Final Sputum Sputum Culture - Final Mrsa (Meth Resis Staph Aureus) Enterobacter Cloacae Stenotrophomonas Maltophilia Normal Basia Absent 04/01/18 04:57 Gram Stain - Final Tracheal Aspirate Sputum Culture - Final Mrsa (Meth Resis Staph Aureus) Enterobacter Cloacae Haemophilus Influenzae Normal Basia Absent 03/31/18 13:55 Blood Culture - Final Blood Staphylococcus Hominis (6) Lung nodule Is this a current diagnosis for this admission?: Yes Plan: New onset will investigate further after the acute event was biopsies are not particularly revealing in the face of acute inflammation - Time Total Critical Time (Minutes): 40
--- NOTE | 2018-04-09 14:38 | PDOC PROGRESS REPORT ---
Subjective Progress Note for:: 04/05/18 Subjective:: Intubated and sedated Reason For Visit: HYPOXIC RESPIRATORY DISTRESS Physical Exam Vital Signs: Temp Pulse Resp BP Pulse Ox 97.5 F 91 18 132/72 H 96 04/08/18 08:00 04/08/18 08:00 04/08/18 08:27 04/08/18 08:27 04/08/18 08:27 Intake & Output 04/07/18 04/08/18 04/09/18 06:59 06:59 06:59 Intake Total 4459 3909 562 Output Total 3645 2610 225 Balance 814 1299 337 Weight 57.7 kg 58.2 kg General appearance: PRESENT: no acute distress, disheveled, well-developed, well-nourished. ABSENT: cooperative Head exam: PRESENT: atraumatic, normocephalic Eye exam: PRESENT: conjunctiva pale, other - Disconjugate gaze. ABSENT: nystagmus Mouth exam: PRESENT: dry mucosa, neck supple, tongue midline, other - ET tube in place Neck exam: ABSENT: carotid bruit, JVD, lymphadenopathy, thyromegaly, tracheal deviation, tracheostomy Respiratory exam: PRESENT: decreased breath sounds, prolonged expiratory phas, rales, rhonchi, unlabored. ABSENT: retraction, stridor Cardiovascular exam: PRESENT: irregular rhythm Pulses: PRESENT: normal radial pulses GI/Abdominal exam: PRESENT: soft. ABSENT: tenderness Gentrourinary exam: PRESENT: indwelling catheter Extremities exam: ABSENT: calf tenderness, clubbing, pedal edema Musculoskeletal exam: ABSENT: deformity, dislocation Neurological exam: PRESENT: altered, awake Skin exam: PRESENT: dry, warm Results Laboratory Results: 04/08/18 03:50 04/08/18 03:50 04/08/18 04/08/18 04/08/18 03:50 03:50 04:00 WBC 16.9 H RBC 3.42 L Hgb 9.7 L Hct 29.3 L MCV 86 MCH 28.4 MCHC 33.2 RDW 14.4 H Plt Count 408 Seg Neutrophils % Not Reportable Lymphocytes % Not Reportable Monocytes % Not Reportable Eosinophils % Not Reportable Basophils % Not Reportable Absolute Neutrophils Not Reportable Absolute Lymphocytes Not Reportable Absolute Monocytes Not Reportable Absolute Eosinophils Not Reportable Absolute Basophils Not Reportable Carbonic Acid 1.57 H HCO3/H2CO3 Ratio 19:1 ABG pH 7.39 ABG pCO2 52.0 H ABG pO2 76.2 L ABG HCO3 30.4 H ABG O2 Saturation 94.9 ABG Base Excess 4.5 FiO2 28% Sodium 133.1 L Potassium 4.3 Chloride 95 L Carbon Dioxide 31 H Anion Gap 7 BUN 11 Creatinine 0.49 L Est GFR ( Amer) > 60 Est GFR (Non-Af Amer) > 60 Glucose 130 H Calcium 8.1 L Magnesium 2.2 03/31/18 04/07/18 09:24 05:45 Troponin I < 0.012 0.017 NT-Pro-B Natriuret Pep 684 Impressions: Venous Doppler Study 03/31/18 12:07 IMPRESSION: NO EVIDENCE FOR DVT OR SVT IN THE RIGHT LEG. Head CT 04/05/18 09:43 IMPRESSION: NORMAL BRAIN CT WITH CONTRAST. EVIDENCE OF ACUTE STROKE: NO. Chest/Abdomen CTA 04/07/18 18:09 IMPRESSION: Negative examination for pulmonary embolism. Chest X-Ray 04/08/18 06:00 IMPRESSION: No pneumonia. Assessment & Plan - Diagnosis (1) Acute on chronic respiratory failure with hypoxia and hypercapnia Is this a current diagnosis for this admission?: Yes Plan: Ventilation and oxygenation to approximately her baseline (2) Atrial fibrillation, transient Is this a current diagnosis for this admission?: Yes Plan: Intermittent total heart rate stable at this time (3) COPD (chronic obstructive pulmonary disease) Qualifiers: COPD type: emphysema Is this a current diagnosis for this admission?: Yes Plan: Continue current bronchodilator therapy (4) Essential hypertension Is this a current diagnosis for this admission?: Yes Plan: Stable at this time (5) Gram-positive bacteremia Is this a current diagnosis for this admission?: Yes Plan: 04/07/18 11:38 Gram Stain - Final Tracheal Aspirate Sputum Culture - Preliminary Gram Positive Cocci Clusters Stenotrophomonas Maltophilia Yeast, Not Eveline Albicans Greatly Reduced Normal Basia 04/02/18 03:40 Gram Stain - Final Sputum Sputum Culture - Final Mrsa (Meth Resis Staph Aureus) Enterobacter Cloacae Stenotrophomonas Maltophilia Normal Basia Absent 04/01/18 04:57 Gram Stain - Final Tracheal Aspirate Sputum Culture - Final Mrsa (Meth Resis Staph Aureus) Enterobacter Cloacae Haemophilus Influenzae Normal Basia Absent 03/31/18 13:55 Blood Culture - Final Blood Staphylococcus Hominis (6) Lung nodule Is this a current diagnosis for this admission?: Yes Plan: New onset will investigate further after the acute event was biopsies are not particularly revealing in the face of acute inflammation - Time Total Critical Time (Minutes): 45
--- NOTE | 2018-04-09 14:40 | PDOC PROGRESS REPORT ---
Subjective Progress Note for:: 04/08/18 Subjective:: Intubated and sedated Reason For Visit: HYPOXIC RESPIRATORY DISTRESS Physical Exam Vital Signs: Temp Pulse Resp BP Pulse Ox 97.5 F 91 18 132/72 H 96 04/08/18 08:00 04/08/18 08:00 04/08/18 08:27 04/08/18 08:27 04/08/18 08:27 Intake & Output 04/07/18 04/08/18 04/09/18 06:59 06:59 06:59 Intake Total 4459 3909 562 Output Total 3645 2610 225 Balance 814 1299 337 Weight 57.7 kg 58.2 kg General appearance: PRESENT: no acute distress, disheveled. ABSENT: cooperative Head exam: PRESENT: atraumatic, normocephalic Eye exam: PRESENT: conjunctiva pale. ABSENT: nystagmus, periorbital swelling, scleral icterus Mouth exam: PRESENT: dry mucosa, neck supple, tongue midline, other - Endotracheal tube Neck exam: ABSENT: carotid bruit, JVD, lymphadenopathy, thyromegaly, tracheal deviation, tracheostomy Respiratory exam: PRESENT: decreased breath sounds, prolonged expiratory phas, rales, rhonchi, unlabored. ABSENT: retraction, stridor Cardiovascular exam: PRESENT: irregular rhythm Pulses: PRESENT: normal radial pulses GI/Abdominal exam: PRESENT: soft. ABSENT: tenderness Gentrourinary exam: PRESENT: indwelling catheter Extremities exam: ABSENT: calf tenderness, clubbing, joint swelling, pedal edema Neurological exam: PRESENT: altered, awake Skin exam: PRESENT: dry, warm Results Laboratory Results: 04/08/18 03:50 04/08/18 03:50 04/08/18 04/08/18 04/08/18 03:50 03:50 04:00 WBC 16.9 H RBC 3.42 L Hgb 9.7 L Hct 29.3 L MCV 86 MCH 28.4 MCHC 33.2 RDW 14.4 H Plt Count 408 Seg Neutrophils % Not Reportable Lymphocytes % Not Reportable Monocytes % Not Reportable Eosinophils % Not Reportable Basophils % Not Reportable Absolute Neutrophils Not Reportable Absolute Lymphocytes Not Reportable Absolute Monocytes Not Reportable Absolute Eosinophils Not Reportable Absolute Basophils Not Reportable Carbonic Acid 1.57 H HCO3/H2CO3 Ratio 19:1 ABG pH 7.39 ABG pCO2 52.0 H ABG pO2 76.2 L ABG HCO3 30.4 H ABG O2 Saturation 94.9 ABG Base Excess 4.5 FiO2 28% Sodium 133.1 L Potassium 4.3 Chloride 95 L Carbon Dioxide 31 H Anion Gap 7 BUN 11 Creatinine 0.49 L Est GFR ( Amer) > 60 Est GFR (Non-Af Amer) > 60 Glucose 130 H Calcium 8.1 L Magnesium 2.2 03/31/18 04/07/18 09:24 05:45 Troponin I < 0.012 0.017 NT-Pro-B Natriuret Pep 684 Impressions: Venous Doppler Study 03/31/18 12:07 IMPRESSION: NO EVIDENCE FOR DVT OR SVT IN THE RIGHT LEG. Head CT 04/05/18 09:43 IMPRESSION: NORMAL BRAIN CT WITH CONTRAST. EVIDENCE OF ACUTE STROKE: NO. Chest/Abdomen CTA 04/07/18 18:09 IMPRESSION: Negative examination for pulmonary embolism. Chest X-Ray 04/08/18 06:00 IMPRESSION: No pneumonia. Assessment & Plan - Diagnosis (1) Acute on chronic respiratory failure with hypoxia and hypercapnia Is this a current diagnosis for this admission?: Yes Plan: Ventilation and oxygenation to approximately her baseline (2) Atrial fibrillation, transient Is this a current diagnosis for this admission?: Yes Plan: Intermittent total heart rate stable at this time (3) COPD (chronic obstructive pulmonary disease) Qualifiers: COPD type: emphysema Is this a current diagnosis for this admission?: Yes Plan: Continue current bronchodilator therapy (4) Essential hypertension Is this a current diagnosis for this admission?: Yes Plan: Stable at this time (5) Gram-positive bacteremia Is this a current diagnosis for this admission?: Yes Plan: 04/07/18 11:38 Gram Stain - Final Tracheal Aspirate Sputum Culture - Preliminary Gram Positive Cocci Clusters Stenotrophomonas Maltophilia Yeast, Not Eveline Albicans Greatly Reduced Normal Basia 04/02/18 03:40 Gram Stain - Final Sputum Sputum Culture - Final Mrsa (Meth Resis Staph Aureus) Enterobacter Cloacae Stenotrophomonas Maltophilia Normal Basia Absent 04/01/18 04:57 Gram Stain - Final Tracheal Aspirate Sputum Culture - Final Mrsa (Meth Resis Staph Aureus) Enterobacter Cloacae Haemophilus Influenzae Normal Basia Absent 03/31/18 13:55 Blood Culture - Final Blood Staphylococcus Hominis (6) Lung nodule Is this a current diagnosis for this admission?: Yes Plan: New onset will investigate further after the acute event was biopsies are not particularly revealing in the face of acute inflammation - Time Total Critical Time (Minutes): 40
--- NOTE | 2018-04-09 21:30 | EKG REPORT ---
SEVERITY:- ABNORMAL ECG - A FIB WITH WIDE COMPLEX TACHYCARDIA MULTIPLE VENTRICULAR PREMATURE COMPLEXES NONSPECIFIC IVCD WITH LAD : Confirmed by: Brandy Johnson 09-Apr-2018 21:30:14
[2018-04-10] MEDS: FENTANYL CITRATE INJ/PF 100 MCG/2 ML AMPUL IV PRN ×4 (00:18→17:32)
[2018-04-10] MEDS: LEVALBUTEROL HCL NEB 1.25 MG/3 ML AMPUL NEB SCH ×3 (00:33→15:42)
[2018-04-10] MEDS: IPRATROPIUM BROMIDE 0.02% NEB 0.5 MG/2.5 ML AMPUL NEB SCH ×3 (00:33→15:42)
[2018-04-10] MEDS ORDERED: DILTIAZEM HCL 30 MG TABLET PO ONE (01:00)
[2018-04-10] MEDS ORDERED: METOPROLOL TARTRATE PF/INJ 5 MG/5 ML SDV IV ONE ×2 (01:23→01:30)
[2018-04-10 02:59] LABS: HEMATOCRIT 29.3 % (36.0-47.0); HEMOGLOBIN 9.7 g/dL (12.0-15.5); MEAN CORPUSCULAR HEMOGLOBIN 28.2 pg (27.0-33.4); MEAN CORPUSCULAR VOLUME 85 fl (80-97); PLATELET COUNT 454 10^3/uL (150-450); RED BLOOD COUNT 3.44 10^6/uL (3.72-5.28); RED CELL DISTRIBUTION WIDTH 14.1 % (11.5-14.0); WHITE BLOOD COUNT 20.6 10^3/uL (4.0-10.5)
[2018-04-10 03:00] LABS: ARTERIAL BLOOD BASE EXCESS 4.6 mmol/L; ARTERIAL BLOOD H2CO3 1.41 mmol/L (1.05-1.35); ARTERIAL BLOOD HCO3 29.7 mmol/L (20-24); ARTERIAL BLOOD O2 SATURATION 96.9 % (94-98); ARTERIAL BLOOD PCO2 46.8 mmHg (35-45); ARTERIAL BLOOD PH 7.42 (7.35-7.45); ARTERIAL BLOOD PO2 89.8 mmHg (80-100); ARTERIAL BLOOD TOTAL CO2 31.2 mmol/L (21-25)
[2018-04-10 03:02] LABS: ARTERIAL BLOOD FIO2 28%
[2018-04-10 03:10] LABS: ANION GAP 5 (5-19); BLOOD UREA NITROGEN 17 mg/dL (7-20); CALCIUM 7.9 mg/dL (8.4-10.2); CARBON DIOXIDE 33 mmol/L (22-30); CHLORIDE 97 mmol/L (98-107); GLUCOSE 122 mg/dL (75-110); POTASSIUM 4.3 mmol/L (3.6-5.0); SODIUM 134.7 mmol/L (137-145)
[2018-04-10 03:17] LABS: ABSOLUTE LYMPHOCYTES# (MANUAL) 0.2 10^3/uL (0.5-4.7); ABSOLUTE MONOCYTES # (MANUAL) 0.8 10^3/uL (0.1-1.4); ABSOLUTE NEUTROPHILS# (MANUAL) 19.6 10^3/uL (1.7-8.2); BASOPHILS % (MANUAL) 0 % (0-2); EOSINOPHILS % (MANUAL) 0 % (0-6); LYMPHOCYTES % (MANUAL) 1 % (13-45); MONOCYTES % (MANUAL) 4 % (3-13); SEGMENTED NEUTROPHILS % (MAN) 95 % (42-78); TOTAL CELLS COUNTED 100
[2018-04-10 03:20] LABS: PLATELET COMMENT INCREASED; RBC MORPHOLOGY COMMENT NORMO-CYTIC/CHROMIC; TOXIC GRANULATION SLIGHT; TOXIC VACUOLATION PRESENT
[2018-04-10] MEDS: PROPOFOL 1,000 MG/100 ML INFUS..BTL IV PRN ×2 (04:12→17:45)
[2018-04-10] MEDS: PANTOPRAZOLE SODIUM 40 MG VIAL IV SCH ×2 (06:02→17:06)
[2018-04-10] MEDS: METHYLPREDNISOLONE INJ 125 MG/2 ML SDV IV SCH ×3 (06:02→21:25)
[2018-04-10] MEDS: DILTIAZEM HCL 30 MG TABLET NG SCH ×3 (06:03→17:05)
[2018-04-10] MEDS: METOPROLOL TARTRATE 50 MG TABLET NG SCH ×3 (06:04→21:25)
[2018-04-10] MEDS: MIDAZOLAM HCL 50 MG/100 ML RTUINJ IV PRN (06:07)
[2018-04-10] MEDS: DEXTROSE 5%-NORMAL SALINE 1,000 ML IV PRN (09:20)
[2018-04-10] MEDS: INSULIN LISPRO 100 UNIT/ML 3 ML VIAL SUBCUT SCH ×4 (09:54→21:25)
[2018-04-10] MEDS: ASPIRIN 325 MG TABLET NG SCH (09:55)
[2018-04-10] MEDS: ENOXAPARIN SODIUM INJ 40 MG/0.4 ML DISP.SYRIN SUBCUT SCH (09:55)
[2018-04-10] MEDS: FLUTICASONE/SALMETEROL DISKUS 500-50 MCG/DOSE IH SCH ×2 (14:11→21:26)
[2018-04-10] MEDS: HYDRALAZINE HCL INJ/PF 20 MG/1 ML SDV IV PRN (15:14)
--- NOTE | 2018-04-10 22:24 | PDOC PROGRESS REPORT ---
Subjective Progress Note for:: 04/10/18 Subjective:: Patient remains intubated however eyes were open and she is slightly more responsive. She does not appear to be in distress. Reason For Visit: Acute hypoxic hypercapnic respiratory failure Physical Exam Vital Signs: Temp Pulse Resp BP Pulse Ox 100.2 F 104 H 18 156/83 H 94 04/10/18 21:46 04/10/18 21:46 04/10/18 21:46 04/10/18 21:46 04/10/18 21:46 Intake & Output 04/09/18 04/10/18 04/11/18 06:59 06:59 06:59 Intake Total 5710 1606 1554 Output Total 3220 2530 1405 Balance 2490 -924 149 Weight 60 kg 58.8 kg General appearance: PRESENT: no acute distress, other - Eyes open. Slight effort to establish eye contact. Head exam: PRESENT: normocephalic Mouth exam: PRESENT: other - Endotracheal tube in place Respiratory exam: PRESENT: decreased breath sounds, symmetrical, unlabored. ABSENT: rales, rhonchi, wheezes Cardiovascular exam: PRESENT: RRR, +S1, +S2 GI/Abdominal exam: PRESENT: normal bowel sounds, soft. ABSENT: distended, tenderness Rectal exam: PRESENT: deferred Gentrourinary exam: PRESENT: indwelling catheter Extremities exam: ABSENT: pedal edema Musculoskeletal exam: PRESENT: normal inspection Neurological exam: PRESENT: awake, other - Unable to further assess Psychiatric exam: ABSENT: agitated, anxious Results Laboratory Results: 04/10/18 02:43 04/10/18 02:43 04/10/18 04/10/18 04/10/18 02:43 02:43 02:53 WBC 20.6 H RBC 3.44 L Hgb 9.7 L Hct 29.3 L MCV 85 MCH 28.2 MCHC 33.0 RDW 14.1 H Plt Count 454 H Seg Neutrophils % Not Reportable Lymphocytes % Not Reportable Monocytes % Not Reportable Eosinophils % Not Reportable Basophils % Not Reportable Absolute Neutrophils Not Reportable Absolute Lymphocytes Not Reportable Absolute Monocytes Not Reportable Absolute Eosinophils Not Reportable Absolute Basophils Not Reportable Carbonic Acid 1.41 H HCO3/H2CO3 Ratio 21:1 ABG pH 7.42 ABG pCO2 46.8 H ABG pO2 89.8 ABG HCO3 29.7 H ABG O2 Saturation 96.9 ABG Base Excess 4.6 FiO2 28% Sodium 134.7 L Potassium 4.3 Chloride 97 L Carbon Dioxide 33 H Anion Gap 5 BUN 17 Creatinine 0.47 L Est GFR ( Amer) > 60 Est GFR (Non-Af Amer) > 60 Glucose 122 H Calcium 7.9 L Magnesium 2.1 04/07/18 11:38 Tracheal Aspirate Gram Stain - Final 04/07/18 11:38 Tracheal Aspirate Sputum Culture - Final Mrsa (Meth Resis Staph Aureus) Stenotrophomonas Maltophilia Yeast, Not Eveline Albicans Greatly Reduced Normal Basia 03/31/18 04/07/18 09:24 05:45 Troponin I < 0.012 0.017 NT-Pro-B Natriuret Pep 684 Impressions: Venous Doppler Study 03/31/18 12:07 IMPRESSION: NO EVIDENCE FOR DVT OR SVT IN THE RIGHT LEG. Head CT 04/05/18 09:43 IMPRESSION: NORMAL BRAIN CT WITH CONTRAST. EVIDENCE OF ACUTE STROKE: NO. Chest/Abdomen CTA 04/07/18 18:09 IMPRESSION: Negative examination for pulmonary embolism. Chest X-Ray 04/09/18 06:00 IMPRESSION: Stable chronic changes without evidence of new acute cardiopul monary complication. Assessment & Plan - Diagnosis (1) Acute on chronic respiratory failure with hypoxia and hypercapnia Is this a current diagnosis for this admission?: Yes Plan: Continue current medication regimen. Rest on IMV tonight and start pressure support trial in the morning. Consider extubation if stable. If extubation is not obtainable then we need to consider tracheostomy and PEG tube placement. (2) COPD (chronic obstructive pulmonary disease) Qualifiers: COPD type: emphysema Is this a current diagnosis for this admission?: Yes Plan: Slowly improving on current regimen. Consider decreasing steroid dose. (3) Ventilator dependent Is this a current diagnosis for this admission?: Yes Plan: Continue weaning attempts (4) Tracheitis due to Staphylococcus infection Is this a current diagnosis for this admission?: Yes Plan: Most recent endotracheal aspirate reveals yeast, stenotrophomonas and MRSA. I will recheck a white blood cell count tomorrow. If this increases then we will need to resume antibiotic therapy. We will also discuss with pulmonology. This certainly could be colonization and extubation may be of benefit. (5) Tobacco abuse Is this a current diagnosis for this admission?: Yes (6) Essential hypertension Is this a current diagnosis for this admission?: Yes Plan: Stable on metoprolol and diltiazem. (7) Localized edema Is this a current diagnosis for this admission?: Yes (8) Lung nodule Is this a current diagnosis for this admission?: Yes (9) Gram-positive bacteremia Is this a current diagnosis for this admission?: Yes Plan: Only one blood culture bottles was positive for Staphylococcus hominis. This is most likely a contaminant and not indicative of true clinical bacteremia. Please also see the note from Dr. Arredondo. - Time Time Spent with patient: 35 or more minutes Medications reviewed and adjusted accordingly: Yes
[2018-04-11] MEDS: LEVALBUTEROL HCL NEB 1.25 MG/3 ML AMPUL NEB SCH ×3 (00:09→16:26)
[2018-04-11] MEDS: IPRATROPIUM BROMIDE 0.02% NEB 0.5 MG/2.5 ML AMPUL NEB SCH ×3 (00:09→16:26)
[2018-04-11] MEDS: DILTIAZEM HCL 30 MG TABLET NG SCH ×5 (00:17→23:14)
[2018-04-11] MEDS: PROPOFOL 1,000 MG/100 ML INFUS..BTL IV PRN ×3 (01:50→20:28)
[2018-04-11] MEDS: DEXTROSE 5%-NORMAL SALINE 1,000 ML IV PRN ×2 (01:53→18:27)
[2018-04-11] MEDS: FENTANYL CITRATE INJ/PF 100 MCG/2 ML AMPUL IV PRN ×5 (01:55→23:14)
[2018-04-11 04:22] LABS: HEMATOCRIT 34.6 % (36.0-47.0); HEMOGLOBIN 11.4 g/dL (12.0-15.5); MEAN CORPUSCULAR VOLUME 85 fl (80-97); PLATELET COUNT 519 10^3/uL (150-450); RED BLOOD COUNT 4.08 10^6/uL (3.72-5.28)
[2018-04-11 04:38] LABS: ARTERIAL BLOOD BASE EXCESS 7.7 mmol/L; ARTERIAL BLOOD FIO2 28%; ARTERIAL BLOOD H2CO3 1.32 mmol/L (1.05-1.35); ARTERIAL BLOOD O2 SATURATION 94.3 % (94-98); ARTERIAL BLOOD PCO2 43.8 mmHg (35-45); ARTERIAL BLOOD PH 7.48 (7.35-7.45); ARTERIAL BLOOD PO2 66.4 mmHg (80-100); ARTERIAL BLOOD TOTAL CO2 33.4 mmol/L (21-25)
[2018-04-11 04:41] LABS: ALANINE AMINOTRANSFERASE 67 U/L (9-52); ALBUMIN 2.6 g/dL (3.5-5.0); ALKALINE PHOSPHATASE 57 U/L (38-126); ANION GAP 6 (5-19); ASPARTATE AMINO TRANSFERASE 33 U/L (14-36); BILIRUBIN,DIRECT 0.4 mg/dL (0.0-0.4); BILIRUBIN,TOTAL 0.5 mg/dL (0.2-1.3); BLOOD UREA NITROGEN 16 mg/dL (7-20); CALCIUM 8.1 mg/dL (8.4-10.2); CARBON DIOXIDE 33 mmol/L (22-30); CHLORIDE 100 mmol/L (98-107); GLUCOSE 134 mg/dL (75-110); SODIUM 138.6 mmol/L (137-145); TOTAL PROTEIN 4.5 g/dL (6.3-8.2)
[2018-04-11 04:45] LABS: ABSOLUTE LYMPHOCYTES# (MANUAL) 0.6 10^3/uL (0.5-4.7); ABSOLUTE MONOCYTES # (MANUAL) 1.3 10^3/uL (0.1-1.4); ABSOLUTE NEUTROPHILS# (MANUAL) 29.8 10^3/uL (1.7-8.2); BASOPHILS % (MANUAL) 0 % (0-2); EOSINOPHILS % (MANUAL) 0 % (0-6); LYMPHOCYTES % (MANUAL) 0 % (13-45); MONOCYTES % (MANUAL) 4 % (3-13); SEGMENTED NEUTROPHILS % (MAN) 94 % (42-78); TOTAL CELLS COUNTED 100
[2018-04-11 04:49] LABS: PLATELET COMMENT INCREASED; RBC MORPHOLOGY COMMENT NORMO-CYTIC/CHROMIC; TOXIC VACUOLATION PRESENT
[2018-04-11 04:51] LABS: WHITE BLOOD COUNT 31.7 10^3/uL (4.0-10.5)
[2018-04-11] MEDS: METHYLPREDNISOLONE INJ 125 MG/2 ML SDV IV SCH ×2 (05:14→16:05)
[2018-04-11] MEDS: METOPROLOL TARTRATE 50 MG TABLET NG SCH ×3 (05:14→21:43)
[2018-04-11] MEDS: PANTOPRAZOLE SODIUM 40 MG VIAL IV SCH ×2 (05:14→17:52)
[2018-04-11] MEDS: INSULIN LISPRO 100 UNIT/ML 3 ML VIAL SUBCUT SCH ×4 (08:44→22:30)
[2018-04-11] MEDS: ASPIRIN 325 MG TABLET NG SCH (09:45)
[2018-04-11] MEDS: ENOXAPARIN SODIUM INJ 40 MG/0.4 ML DISP.SYRIN SUBCUT SCH (09:46)
[2018-04-11] MEDS: HYDRALAZINE HCL INJ/PF 20 MG/1 ML SDV IV PRN (11:16)
[2018-04-11] MEDS: ALBUTEROL SULFATE 0.083% NEB 2.5 MG/3 ML AMPUL NEB PRN (12:52)
[2018-04-11] MEDS ORDERED: DILTIAZEM HCL INJ 25 MG/5 ML VIAL ONE ×2 (13:14→13:34)
[2018-04-11] MEDS: FLUTICASONE/SALMETEROL DISKUS 500-50 MCG/DOSE IH SCH ×2 (13:18→21:44)
[2018-04-11] MEDS ORDERED: LORAZEPAM INJ 2 MG/1 ML VIAL ONE (13:20)
[2018-04-11] MEDS ORDERED: DILTIAZEM HCL/D5W 125 MG/125 ML RTUINJ IV ONE (13:34)
[2018-04-11] MEDS ORDERED: DIGOXIN INJ 0.5 MG/2 ML AMPULE ONE (13:46)
[2018-04-11] MEDS ORDERED: MORPHINE SULFATE 10 MG/ML INJ ONE (13:53)
[2018-04-11] MEDS: DILTIAZEM HCL/D5W 125 MG/125 ML RTUINJ IV PRN (20:27)
[2018-04-11] MEDS: METHYLPREDNISOLONE INJ 40 MG/1 ML SDV IV SCH (21:35)
[2018-04-11] MEDS ORDERED: METHYLPREDNISOLONE INJ 125 MG/2 ML SDV IV SCH (22:00)
--- NOTE | 2018-04-11 22:34 | PDOC PROGRESS REPORT ---
Subjective Progress Note for:: 04/11/18 Subjective:: Plan to extubate was aborted Reason For Visit: HYPOXIC RESPIRATORY DISTRESS Atrial fibrillation Physical Exam Vital Signs: Temp Pulse Resp BP Pulse Ox 99.5 F 83 31 H 119/64 98 04/11/18 12:00 04/11/18 18:00 04/11/18 22:05 04/11/18 22:05 04/11/18 22:05 Intake & Output 04/10/18 04/11/18 04/12/18 06:59 06:59 06:59 Intake Total 1606 3197 1294 Output Total 2530 2455 1275 Balance -924 742 19 Weight 58.8 kg 57.8 kg General appearance: PRESENT: no acute distress Eye exam: PRESENT: other - Exhibits some spontaneous eye movement. No tracking. Mouth exam: PRESENT: other - Endotracheal tube in place Respiratory exam: PRESENT: clear to auscultation flaco - Anteriorly, decreased breath sounds, symmetrical. ABSENT: prolonged expiratory phas, rales, wheezes Cardiovascular exam: PRESENT: tachycardia GI/Abdominal exam: PRESENT: normal bowel sounds, soft. ABSENT: tenderness Neurological exam: PRESENT: awake Psychiatric exam: PRESENT: flat affect, other - Very difficult to assess for pain and anxiety. No isabel agitation noted. Results Laboratory Results: 04/11/18 04:02 04/11/18 04:02 04/11/18 04/11/18 04/11/18 04:02 04:02 04:22 WBC 31.7 H* RBC 4.08 Hgb 11.4 L Hct 34.6 L MCV 85 MCH 28.0 MCHC 33.0 RDW 14.0 Plt Count 519 H Seg Neutrophils % Not Reportable Lymphocytes % Not Reportable Monocytes % Not Reportable Eosinophils % Not Reportable Basophils % Not Reportable Absolute Neutrophils Not Reportable Absolute Lymphocytes Not Reportable Absolute Monocytes Not Reportable Absolute Eosinophils Not Reportable Absolute Basophils Not Reportable Carbonic Acid 1.32 HCO3/H2CO3 Ratio 24:1 ABG pH 7.48 H ABG pCO2 43.8 ABG pO2 66.4 L ABG HCO3 32.0 H ABG O2 Saturation 94.3 ABG Base Excess 7.7 FiO2 28% Sodium 138.6 Potassium 4.0 Chloride 100 Carbon Dioxide 33 H Anion Gap 6 BUN 16 Creatinine 0.40 L Est GFR ( Amer) > 60 Est GFR (Non-Af Amer) > 60 Glucose 134 H Calcium 8.1 L Total Bilirubin 0.5 AST 33 ALT 67 H Alkaline Phosphatase 57 Total Protein 4.5 L Albumin 2.6 L 03/31/18 04/07/18 09:24 05:45 Troponin I < 0.012 0.017 NT-Pro-B Natriuret Pep 684 Impressions: Venous Doppler Study 03/31/18 12:07 IMPRESSION: NO EVIDENCE FOR DVT OR SVT IN THE RIGHT LEG. Head CT 04/05/18 09:43 IMPRESSION: NORMAL BRAIN CT WITH CONTRAST. EVIDENCE OF ACUTE STROKE: NO. Chest/Abdomen CTA 04/07/18 18:09 IMPRESSION: Negative examination for pulmonary embolism. Chest X-Ray 04/09/18 06:00 IMPRESSION: Stable chronic changes without evidence of new acute cardiopulmonary complication. Assessment & Plan - Diagnosis (1) Acute on chronic respiratory failure with hypoxia and hypercapnia Is this a current diagnosis for this admission?: Yes Plan: Plans for extubation consistently aborted. Today it was due to marked tachycardia. Difficult to know if this is anxiety induced or not. The length of time that the patient has been intubated will require a PEG tube and tracheostomy for ongoing aggressive measures. (2) Atrial fibrillation with rapid ventricular response Is this a current diagnosis for this admission?: Yes Plan: When the patient exhibited the marked tachycardia she was given bolus dosing of diltiazem and eventually started on continuous infusion again. Intermittent benzodiazepines for anxiety also initiated. We will continue to monitor her heart rate. It is difficult to know the exact etiology as her marked tachycardia seems to revolve around decisions to extubate. (3) COPD (chronic obstructive pulmonary disease) Qualifiers: COPD type: emphysema Is this a current diagnosis for this admission?: Yes Plan: Continue current regimen (4) Ventilator dependent Is this a current diagnosis for this admission?: Yes Plan: Tends to tolerate windows of pressure support. When close to extubation her heart rate increases significantly and so extubation is aborted. (5) Tracheitis due to Staphylococcus infection Is this a current diagnosis for this admission?: Yes Plan: Her white blood cell count increased to 31,000. She has been off of antibiotics. Her endotracheal cultures still have methicillin-resistant staph aureus, stenotrophomonas and yeast. I have ordered repeat blood cultures and will obtain a new chest x-ray. I will recheck her white blood cell count. The patient may end up back on antibiotics. (6) Tobacco abuse Is this a current diagnosis for this admission?: Yes (7) Essential hypertension Is this a current diagnosis for this admission?: Yes (8) Localized edema Is this a current diagnosis for this admission?: Yes (9) Lung nodule Is this a current diagnosis for this admission?: Yes (10) Gram-positive bacteremia Is this a current diagnosis for this admission?: Yes - Time Time Spent with patient: 15-24 minutes Medications reviewed and adjusted accordingly: Yes
--- NOTE | 2018-04-11 23:21 | RADIOLOGY REPORT (SQ) ---
EXAM DESCRIPTION: X-ray single view chest. CLINICAL HISTORY: 62 years Female, Respiratory failure COMPARISON: 04/09/2018 and 04/08/2018 TECHNIQUE: Single portable view of the chest performed on 04/11/2018 at 10:59 PM FINDINGS: The lungs are hyperinflated and are clear. There is no evidence of a pneumothorax. The cardiac silhouette is normal in size and configuration. The mediastinal contours are normal. No acute osseous abnormality is identified. No focal soft tissue abnormalities are seen. Lines and tubes: The endotracheal tube, feeding tube and right IJ central venous catheter are grossly stable in position. IMPRESSION: 1. Hyperinflation of the lungs consistent with underlying COPD. 2. Stable life support lines and tubes. 3. No definite acute intrathoracic disease.
[2018-04-11 23:31] LABS: APPEARANCE,URINE CLEAR; BILIRUBIN,URINE NEGATIVE (NEGATIVE); COLOR,URINE STRAW; GLUCOSE, URINE NEGATIVE (NEGATIVE); KETONES,URINE NEGATIVE (NEGATIVE); LEUKOCYTE ESTERASE,URINE NEGATIVE (NEGATIVE); NITRITE,URINE NEGATIVE (NEGATIVE); PROTEIN,URINE NEGATIVE (NEGATIVE); URINE SPECIFIC GRAVITY 1.005; UROBILINOGEN,URINE NEGATIVE mg/dL (<2.0)
[2018-04-12] MEDS: IPRATROPIUM BROMIDE 0.02% NEB 0.5 MG/2.5 ML AMPUL NEB SCH ×3 (00:55→17:07)
[2018-04-12] MEDS: LEVALBUTEROL HCL NEB 1.25 MG/3 ML AMPUL NEB SCH ×3 (00:55→17:07)
[2018-04-12 04:36] LABS: HEMATOCRIT 31.5 % (36.0-47.0); HEMOGLOBIN 10.6 g/dL (12.0-15.5); MEAN CORPUSCULAR HEMOGLOBIN 28.5 pg (27.0-33.4); MEAN CORPUSCULAR HGB CONC 33.5 g/dL (32.0-36.0); MEAN CORPUSCULAR VOLUME 85 fl (80-97); PLATELET COUNT 445 10^3/uL (150-450); RED CELL DISTRIBUTION WIDTH 14.1 % (11.5-14.0)
[2018-04-12] MEDS: PROPOFOL 1,000 MG/100 ML INFUS..BTL IV PRN ×4 (04:36→23:04)
[2018-04-12 04:53] LABS: BLOOD UREA NITROGEN 16 mg/dL (7-20); CARBON DIOXIDE 33 mmol/L (22-30); GLUCOSE 138 mg/dL (75-110); POTASSIUM 3.7 mmol/L (3.6-5.0); SODIUM 137.3 mmol/L (137-145)
[2018-04-12 04:56] LABS: ABSOLUTE MONOCYTES # (MANUAL) 0.5 10^3/uL (0.1-1.4); ABSOLUTE NEUTROPHILS# (MANUAL) 23.5 10^3/uL (1.7-8.2); BASOPHILS % (MANUAL) 0 % (0-2); EOSINOPHILS % (MANUAL) 0 % (0-6); LYMPHOCYTES % (MANUAL) 4 % (13-45); MONOCYTES % (MANUAL) 2 % (3-13); SEGMENTED NEUTROPHILS % (MAN) 94 % (42-78); TOTAL CELLS COUNTED 100
[2018-04-12 04:57] LABS: ANISOCYTOSIS SLIGHT; PLATELET COMMENT ADEQUATE; POLYCHROMASIA SLIGHT
[2018-04-12 04:59] LABS: CHLORIDE 100 mmol/L (98-107)
[2018-04-12 05:11] LABS: ANION GAP 4 (5-19)
[2018-04-12] MEDS: DILTIAZEM HCL 30 MG TABLET NG SCH ×3 (05:56→18:16)
[2018-04-12] MEDS: METOPROLOL TARTRATE 50 MG TABLET NG SCH ×3 (05:56→23:04)
[2018-04-12] MEDS: PANTOPRAZOLE SODIUM 40 MG VIAL IV SCH (05:56)
[2018-04-12] MEDS: INSULIN LISPRO 100 UNIT/ML 3 ML VIAL SUBCUT SCH ×3 (09:30→18:16)
[2018-04-12] MEDS: FLUTICASONE/SALMETEROL DISKUS 500-50 MCG/DOSE IH SCH (09:31)
[2018-04-12] MEDS: FENTANYL CITRATE INJ/PF 100 MCG/2 ML AMPUL IV PRN (09:31)
[2018-04-12] MEDS: ASPIRIN 325 MG TABLET NG SCH (09:31)
[2018-04-12] MEDS: METHYLPREDNISOLONE INJ 40 MG/1 ML SDV IV SCH ×2 (09:31→23:04)
[2018-04-12] MEDS: ENOXAPARIN SODIUM INJ 40 MG/0.4 ML DISP.SYRIN SUBCUT SCH (09:33)
[2018-04-12] MEDS: DEXTROSE 5%-NORMAL SALINE 1,000 ML IV PRN (09:34)
[2018-04-12] MEDS: MIDAZOLAM 2 MG/2 ML INJ IV PRN (12:20)
[2018-04-12 15:41] LABS: ARTERIAL BLOOD BASE EXCESS 6.5 mmol/L; ARTERIAL BLOOD H2CO3 1.26 mmol/L (1.05-1.35); ARTERIAL BLOOD HCO3 30.6 mmol/L (20-24); ARTERIAL BLOOD O2 SATURATION 95.5 % (94-98); ARTERIAL BLOOD PCO2 41.7 mmHg (35-45); ARTERIAL BLOOD PH 7.48 (7.35-7.45); ARTERIAL BLOOD PO2 72.5 mmHg (80-100); ARTERIAL BLOOD TOTAL CO2 31.8 mmol/L (21-25)
[2018-04-12 15:42] LABS: ARTERIAL BLOOD FIO2 28%
[2018-04-13] MEDS: INSULIN LISPRO 100 UNIT/ML 3 ML VIAL SUBCUT SCH ×5 (00:25→21:22)
[2018-04-13] MEDS: DILTIAZEM HCL 30 MG TABLET NG SCH ×4 (00:26→18:39)
[2018-04-13] MEDS: FLUTICASONE/SALMETEROL DISKUS 500-50 MCG/DOSE IH SCH ×3 (00:26→21:22)
[2018-04-13] MEDS: DEXTROSE 5%-NORMAL SALINE 1,000 ML IV PRN (00:27)
[2018-04-13] MEDS: DILTIAZEM HCL/D5W 125 MG/125 ML RTUINJ IV PRN (00:27)
[2018-04-13] MEDS: LEVALBUTEROL HCL NEB 1.25 MG/3 ML AMPUL NEB SCH ×3 (01:45→16:31)
[2018-04-13] MEDS: IPRATROPIUM BROMIDE 0.02% NEB 0.5 MG/2.5 ML AMPUL NEB SCH ×3 (01:45→16:31)
[2018-04-13 05:01] LABS: HEMATOCRIT 28.4 % (36.0-47.0); HEMOGLOBIN 9.4 g/dL (12.0-15.5); MEAN CORPUSCULAR HEMOGLOBIN 28.6 pg (27.0-33.4); MEAN CORPUSCULAR VOLUME 87 fl (80-97); PLATELET COUNT 350 10^3/uL (150-450); RED BLOOD COUNT 3.27 10^6/uL (3.72-5.28); RED CELL DISTRIBUTION WIDTH 14.1 % (11.5-14.0); WHITE BLOOD COUNT 21.9 10^3/uL (4.0-10.5)
[2018-04-13 05:05] LABS: ARTERIAL BLOOD BASE EXCESS 8.6 mmol/L; ARTERIAL BLOOD H2CO3 1.35 mmol/L (1.05-1.35); ARTERIAL BLOOD O2 SATURATION 96.7 % (94-98); ARTERIAL BLOOD PCO2 44.8 mmHg (35-45); ARTERIAL BLOOD PH 7.49 (7.35-7.45); ARTERIAL BLOOD PO2 82.2 mmHg (80-100); ARTERIAL BLOOD TOTAL CO2 34.4 mmol/L (21-25)
[2018-04-13 05:06] LABS: ARTERIAL BLOOD FIO2 28%
[2018-04-13 05:16] LABS: ALANINE AMINOTRANSFERASE 138 U/L (9-52); ALBUMIN 2.1 g/dL (3.5-5.0); ALKALINE PHOSPHATASE 49 U/L (38-126); ASPARTATE AMINO TRANSFERASE 48 U/L (14-36); BILIRUBIN,DIRECT 0.5 mg/dL (0.0-0.4); BILIRUBIN,TOTAL 0.8 mg/dL (0.2-1.3); BLOOD UREA NITROGEN 16 mg/dL (7-20); CALCIUM 7.9 mg/dL (8.4-10.2); CARBON DIOXIDE 33 mmol/L (22-30); CHLORIDE 103 mmol/L (98-107); GLUCOSE 126 mg/dL (75-110); POTASSIUM 3.4 mmol/L (3.6-5.0); SODIUM 138.5 mmol/L (137-145); TOTAL PROTEIN 3.9 g/dL (6.3-8.2)
--- NOTE | 2018-04-13 05:25 | PDOC PROGRESS REPORT ---
Subjective Progress Note for:: 04/12/18 Subjective:: Still with periods of tachycardia. She converts in and out of atrial fibrillation. Still with elevated white count. Reason For Visit: HYPOXIC RESPIRATORY DISTRESS Physical Exam Vital Signs: Temp Pulse Resp BP Pulse Ox 99.7 F 72 26 H 118/63 98 04/12/18 16:00 04/13/18 00:35 04/13/18 02:00 04/13/18 01:51 04/13/18 03:31 Intake & Output 04/11/18 04/12/18 04/13/18 06:59 06:59 06:59 Intake Total 3197 1574 2666 Output Total 2450 2050 1540 Balance 742 -596 1126 Weight 57.8 kg 58.9 kg 60.2 kg General appearance: PRESENT: other - Well-developed 62-year-old female who looks older than her stated age. Intubated and sedated. Mouth exam: PRESENT: other - Endotracheal tube in place Respiratory exam: PRESENT: clear to auscultation flaco, symmetrical. ABSENT: rales, wheezes Cardiovascular exam: PRESENT: irregular rhythm GI/Abdominal exam: PRESENT: normal bowel sounds, soft Neurological exam: ABSENT: awake - Sedated Psychiatric exam: ABSENT: agitated Results Laboratory Results: 04/12/18 04/13/18 15:00 04:40 Carbonic Acid 1.26 1.35 HCO3/H2CO3 Ratio 24:1 24:1 ABG pH 7.48 H 7.49 H ABG pCO2 41.7 44.8 ABG pO2 72.5 L 82.2 ABG HCO3 30.6 H 33.0 H ABG O2 Saturation 95.5 96.7 ABG Base Excess 6.5 8.6 FiO2 28% 28% 04/07/18 10:44 Blood Blood Culture - Final NO GROWTH IN 5 DAYS 04/07/18 10:21 Blood Blood Culture - Final NO GROWTH IN 5 DAYS 03/31/18 04/07/18 09:24 05:45 Troponin I < 0.012 0.017 NT-Pro-B Natriuret Pep 684 Impressions: Venous Doppler Study 03/31/18 12:07 IMPRESSION: NO EVIDENCE FOR DVT OR SVT IN THE RIGHT LEG. Head CT 04/05/18 09:43 IMPRESSION: NORMAL BRAIN CT WITH CONTRAST. EVIDENCE OF ACUTE STROKE: NO. Chest/Abdomen CTA 04/07/18 18:09 IMPRESSION: Negative examination for pulmonary embolism. Chest X-Ray 04/11/18 22:30 IMPRESSION: 1. Hyperinflation of the lungs consistent with underlying COPD. 2. Stable life support lines and tubes. 3. No definite acute intrathoracic disease. Assessment & Plan - Diagnosis (1) Acute on chronic respiratory failure with hypoxia and hypercapnia Is this a current diagnosis for this admission?: Yes Plan: At this point, if continued aggressive measures are desired, the patient is going to require tracheostomy and PEG tube placement. I will discuss with family. (2) Atrial fibrillation with rapid ventricular response Is this a current diagnosis for this admission?: Yes Plan: Back on diltiazem drip. Heart rate and blood pressure tend to fluctuate. Still with concerns of underlying infection that could be triggering irregularities. (3) COPD (chronic obstructive pulmonary disease) Qualifiers: COPD type: emphysema Is this a current diagnosis for this admission?: Yes Plan: Continue current nebulizer regimen. (4) Ventilator dependent Is this a current diagnosis for this admission?: Yes (5) Tracheitis due to Staphylococcus infection Is this a current diagnosis for this admission?: Yes (6) Tobacco abuse Is this a current diagnosis for this admission?: Yes (7) Essential hypertension Is this a current diagnosis for this admission?: Yes (8) Localized edema Is this a current diagnosis for this admission?: Yes (9) Lung nodule Is this a current diagnosis for this admission?: Yes (10) Gram-positive bacteremia Is this a current diagnosis for this admission?: Yes Plan: Repeat blood cultures are growing gram-positive cocci. I will resume vancomycin. - Time Time Spent with patient: 25-34 minutes Medications reviewed and adjusted accordingly: Yes
[2018-04-13 05:27] LABS: ANION GAP 3 (5-19)
[2018-04-13] MEDS ORDERED: VANCOMYCIN HCL 0 MG in DEXTROSE 5%-WATER 250 ML IV NR (05:30)
[2018-04-13] MEDS ORDERED: VANCOMYCIN HCL INJ 1000 MG VIAL IV PRN (05:32)
[2018-04-13 05:37] LABS: ABSOLUTE LYMPHOCYTES# (MANUAL) 0.2 10^3/uL (0.5-4.7); ABSOLUTE MONOCYTES # (MANUAL) 1.5 10^3/uL (0.1-1.4); ABSOLUTE NEUTROPHILS# (MANUAL) 20.1 10^3/uL (1.7-8.2); BASOPHILS % (MANUAL) 0 % (0-2); EOSINOPHILS % (MANUAL) 0 % (0-6); LYMPHOCYTES % (MANUAL) 1 % (13-45); MONOCYTES % (MANUAL) 7 % (3-13); PLATELET COMMENT ADEQUATE; RBC MORPHOLOGY COMMENT NORMO-CYTIC/CHROMIC; SEGMENTED NEUTROPHILS % (MAN) 92 % (42-78); TOTAL CELLS COUNTED 100
[2018-04-13] MEDS ORDERED: VANCOMYCIN HCL 1,500 MG in DEXTROSE 5%-WATER 250 ML IV ONE ×2 (06:00→10:15)
[2018-04-13] MEDS: PROPOFOL 1,000 MG/100 ML INFUS..BTL IV PRN ×3 (06:09→21:21)
[2018-04-13] MEDS: METOPROLOL TARTRATE 50 MG TABLET NG SCH ×3 (06:10→21:22)
--- NOTE | 2018-04-13 06:43 | RADIOLOGY REPORT (SQ) ---
EXAM DESCRIPTION: XR CHEST 1 VIEW COMPLETED DATE/TME: 04/13/2018 06:00 CLINICAL HISTORY: 62 years, Female, Resp. Failure COMPARISON: 04/11/2018 chest x-ray NUMBER OF VIEWS: 1 TECHNIQUE: Portable chest LIMITATIONS: None. FINDINGS: Heart size is normal. Grossly stable indwelling lines and catheters. Osteopenia. Underlying emphysema. Lungs are clear. No pneumothorax IMPRESSION: Little interval change copyright 2010 [employer]- All Rights Reserved
--- NOTE | 2018-04-13 08:46 | PDOC PROGRESS REPORT ---
Subjective Progress Note for:: 04/13/18 Subjective:: Patient is awake and alert. Establishes eye contact. Answering questions. Reason For Visit: Acute on chronic respiratory failure Physical Exam Vital Signs: Temp Pulse Resp BP Pulse Ox 99.0 F 67 26 H 122/70 99 04/13/18 08:00 04/13/18 08:00 04/13/18 08:00 04/13/18 08:00 04/13/18 08:00 Intake & Output 04/12/18 04/13/18 04/14/18 06:59 06:59 06:59 Intake Total 1574 2766 Output Total 2050 1540 60 Balance -476 1226 -60 Weight 58.9 kg 60.2 kg General appearance: PRESENT: no acute distress Eye exam: PRESENT: conjunctiva pink. ABSENT: scleral icterus Ear exam: PRESENT: normal external ear exam Mouth exam: PRESENT: other - Endotracheal tube in place Throat exam: PRESENT: other - Nasogastric tube in place Respiratory exam: PRESENT: clear to auscultation flaco - Anteriorly, prolonged expiratory phas, other - Very limited inspiratory phase. ABSENT: rhonchi, wheezes Cardiovascular exam: PRESENT: irregular rhythm GI/Abdominal exam: PRESENT: normal bowel sounds, soft. ABSENT: tenderness Rectal exam: PRESENT: deferred Extremities exam: PRESENT: +2 edema - Bilateral upper extremities Neurological exam: PRESENT: alert, awake, oriented to person, oriented to place, other - Purposeful head nodding to answer questions. Results Laboratory Results: 04/13/18 04:40 04/13/18 04:40 04/12/18 04/13/18 04/13/18 15:00 04:40 04:40 WBC 21.9 H RBC 3.27 L Hgb 9.4 L Hct 28.4 L MCV 87 MCH 28.6 MCHC 33.0 RDW 14.1 H Plt Count 350 Seg Neutrophils % Not Reportable Lymphocytes % Not Reportable Monocytes % Not Reportable Eosinophils % Not Reportable Basophils % Not Reportable Absolute Neutrophils Not Reportable Absolute Lymphocytes Not Reportable Absolute Monocytes Not Reportable Absolute Eosinophils Not Reportable Absolute Basophils Not Reportable Carbonic Acid 1.26 1.35 HCO3/H2CO3 Ratio 24:1 24:1 ABG pH 7.48 H 7.49 H ABG pCO2 41.7 44.8 ABG pO2 72.5 L 82.2 ABG HCO3 30.6 H 33.0 H ABG O2 Saturation 95.5 96.7 ABG Base Excess 6.5 8.6 FiO2 28% 28% Sodium Potassium Chloride Carbon Dioxide Anion Gap BUN Creatinine Est GFR ( Amer) Est GFR (Non-Af Amer) Glucose Calcium Magnesium Total Bilirubin AST ALT Alkaline Phosphatase Total Protein Albumin 04/13/18 04:40 WBC RBC Hgb Hct MCV MCH MCHC RDW Plt Count Seg Neutrophils % Lymphocytes % Monocytes % Eosinophils % Basophils % Absolute Neutrophils Absolute Lymphocytes Absolute Monocytes Absolute Eosinophils Absolute Basophils Carbonic Acid HCO3/H2CO3 Ratio ABG pH ABG pCO2 ABG pO2 ABG HCO3 ABG O2 Saturation ABG Base Excess FiO2 Sodium 138.5 Potassium 3.4 L Chloride 103 Carbon Dioxide 33 H Anion Gap 3 L BUN 16 Creatinine 0.37 L Est GFR ( Amer) > 60 Est GFR (Non-Af Amer) > 60 Glucose 126 H Calcium 7.9 L Magnesium 2.1 Total Bilirubin 0.8 AST 48 H ALT 138 H Alkaline Phosphatase 49 Total Protein 3.9 L Albumin 2.1 L 04/07/18 10:44 Blood Blood Culture - Final NO GROWTH IN 5 DAYS 04/07/18 10:21 Blood Blood Culture - Final NO GROWTH IN 5 DAYS 03/31/18 04/07/18 09:24 05:45 Troponin I < 0.012 0.017 NT-Pro-B Natriuret Pep 684 Impressions: Venous Doppler Study 03/31/18 12:07 IMPRESSION: NO EVIDENCE FOR DVT OR SVT IN THE RIGHT LEG. Head CT 04/05/18 09:43 IMPRESSION: NORMAL BRAIN CT WITH CONTRAST. EVIDENCE OF ACUTE STROKE: NO. Chest/Abdomen CTA 04/07/18 18:09 IMPRESSION: Negative examination for pulmonary embolism. Chest X-Ray 04/13/18 06:00 IMPRESSION: Little interval change copyright 2011 [employer]- All Rights Reserved Assessment & Plan - Diagnosis (1) Acute on chronic respiratory failure with hypoxia and hypercapnia Is this a current diagnosis for this admission?: Yes Plan: The patient has consistently failed pressure support trials. We are at the point of extubating or placing a tracheostomy and PEG tube. With the nurse at the bedside I discussed this with the patient. The patient clearly indicated that she would not want a tracheostomy tube nor a PEG tube placed. There are mixed feelings within the family. I feel that she is perfectly capable of making this decision. If this is the case then we will pursue an elective extubation. Unfortunately due to the degree of chronic obstructive pulmonary disease the prognosis is poor. On IMV this morning she is breathing above the rate and she maintains good saturation with an FiO2 of 28%. (2) Atrial fibrillation with rapid ventricular response Is this a current diagnosis for this admission?: Yes Plan: Maintaining rate control with diltiazem infusion. Pressure support trials 10 to induce tachycardia. (3) COPD (chronic obstructive pulmonary disease) Qualifiers: COPD type: emphysema Is this a current diagnosis for this admission?: Yes Plan: We will continue nebulizer treatments. The FiO2 is 28%. I am going to decrease the Solu-Medrol to 40 mg once daily. Please also see above. (4) Ventilator dependent Is this a current diagnosis for this admission?: Yes (5) Tracheitis due to Staphylococcus infection Is this a current diagnosis for this admission?: Yes Plan: It is likely that the patient is colonized with MRSA in the trachea. She has had a significantly increased white blood cell count. I did discontinue the antibiotics and the white count increased to 35,000. With a positive blood culture I did reinstitute vancomycin. If this blood culture ends up being a contaminant then I will discontinue antibiotics again. (6) Tobacco abuse Is this a current diagnosis for this admission?: Yes (7) Essential hypertension Is this a current diagnosis for this admission?: Yes Plan: Vasopressors have been tapered off. We will continue to monitor blood pressure. The patient will be receiving furosemide due to volume overload. Will monitor pressures and electrolytes. (8) Localized edema Is this a current diagnosis for this admission?: Yes Plan: The patient has increased edema. This is likely due to volume overload. Now that her pressure is stable I will administer albumin and then begin Lasix dosing. She may require albumin daily for 2-3 days. Continue to monitor intake and output. (9) Lung nodule Is this a current diagnosis for this admission?: Yes (10) Gram-positive bacteremia Is this a current diagnosis for this admission?: Yes Plan: As above. Monitor cultures. If current positive blood cultures contaminant then discontinue antibiotics. - Time Time Spent with patient: 35 or more minutes Medications reviewed and adjusted accordingly: Yes - Plan Summary Plan Summary: As noted above the patient was awake and alert this morning. We discussed the need to make a decision regarding tracheostomy and PEG tube. With the nurse at the bedside it was quite clear that the patient does not want to proceed with tracheostomy and PEG tube. If this is the case, add and is confirmed by a second person, we will likely electively extubate the patient. Discussion about changing CODE STATUS and considering hospice should be undertaken as well.
[2018-04-13] MEDS: ASPIRIN 325 MG TABLET NG SCH (09:33)
[2018-04-13] MEDS: ALBUMIN HUMAN 12.5 GM/50 ML RTUINJ IV SCH ×2 (09:33→11:10)
[2018-04-13] MEDS: POTASSIUM CHLORIDE 20 MEQ/15 ML UDCUP NG SCH (09:34)
[2018-04-13] MEDS: ENOXAPARIN SODIUM INJ 40 MG/0.4 ML DISP.SYRIN SUBCUT SCH (09:34)
[2018-04-13] MEDS: METHYLPREDNISOLONE INJ 40 MG/1 ML SDV IV SCH (09:35)
[2018-04-13] MEDS ORDERED: FUROSEMIDE INJ/PF 100 MG/10 ML SDV IV ONE (10:00)
[2018-04-13 13:55] LABS: POTASSIUM 3.6 mmol/L (3.6-5.0)
[2018-04-13] MEDS: VANCOMYCIN HCL 750 MG in DEXTROSE 5%-WATER 250 ML IV SCH (18:36)
--- NOTE | 2018-04-13 20:06 | EKG REPORT ---
SEVERITY:- ABNORMAL ECG - SINUS RHYTHM MULTIFORM VENTRICULAR PREMATURE COMPLEXES PROBABLE LEFT ATRIAL ABNORMALITY PROBABLE INFERIOR INFARCT, OLD NONSPECIFIC T ABNORMALITIES, ANT-LAT LEADS : Confirmed by: Brandy Johnson 13-Apr-2018 20:05:25
[2018-04-13] MEDS: MIDAZOLAM 2 MG/2 ML INJ IV PRN (21:22)
[2018-04-14] MEDS: LEVALBUTEROL HCL NEB 1.25 MG/3 ML AMPUL NEB SCH ×4 (02:01→23:37)
[2018-04-14] MEDS: IPRATROPIUM BROMIDE 0.02% NEB 0.5 MG/2.5 ML AMPUL NEB SCH ×4 (02:01→23:37)
[2018-04-14] MEDS: PROPOFOL 1,000 MG/100 ML INFUS..BTL IV PRN ×2 (03:24→17:26)
[2018-04-14] MEDS: VANCOMYCIN HCL 750 MG in DEXTROSE 5%-WATER 250 ML IV SCH ×3 (05:55→18:33)
[2018-04-14] MEDS: DILTIAZEM HCL 30 MG TABLET NG SCH ×4 (05:55→17:17)
[2018-04-14] MEDS: METOPROLOL TARTRATE 50 MG TABLET NG SCH ×3 (05:56→21:59)
[2018-04-14 06:26] LABS: HEMOGLOBIN 9.7 g/dL (12.0-15.5); MEAN CORPUSCULAR HEMOGLOBIN 28.5 pg (27.0-33.4); MEAN CORPUSCULAR HGB CONC 33.4 g/dL (32.0-36.0); MEAN CORPUSCULAR VOLUME 86 fl (80-97); PLATELET COUNT 293 10^3/uL (150-450); RED BLOOD COUNT 3.39 10^6/uL (3.72-5.28); RED CELL DISTRIBUTION WIDTH 14.2 % (11.5-14.0); WHITE BLOOD COUNT 17.1 10^3/uL (4.0-10.5)
[2018-04-14 06:35] LABS: ALANINE AMINOTRANSFERASE 105 U/L (9-52); ALBUMIN 2.5 g/dL (3.5-5.0); ALKALINE PHOSPHATASE 51 U/L (38-126); ASPARTATE AMINO TRANSFERASE 26 U/L (14-36); BILIRUBIN,DIRECT 0.3 mg/dL (0.0-0.4); BILIRUBIN,TOTAL 0.6 mg/dL (0.2-1.3); BLOOD UREA NITROGEN 17 mg/dL (7-20); CALCIUM 8.1 mg/dL (8.4-10.2); GLUCOSE 85 mg/dL (75-110); TOTAL PROTEIN 4.2 g/dL (6.3-8.2)
[2018-04-14 06:38] LABS: ARTERIAL BLOOD BASE EXCESS 10.2 mmol/L; ARTERIAL BLOOD H2CO3 1.28 mmol/L (1.05-1.35); ARTERIAL BLOOD O2 SATURATION 96.6 % (94-98); ARTERIAL BLOOD PCO2 42.6 mmHg (35-45); ARTERIAL BLOOD PH 7.52 (7.35-7.45); ARTERIAL BLOOD PO2 78.5 mmHg (80-100); ARTERIAL BLOOD TOTAL CO2 35.3 mmol/L (21-25)
[2018-04-14 06:40] LABS: CARBON DIOXIDE 38 mmol/L (22-30); CHLORIDE 98 mmol/L (98-107)
[2018-04-14 06:44] LABS: ARTERIAL BLOOD FIO2 28%
[2018-04-14 06:45] LABS: ABSOLUTE LYMPHOCYTES# (MANUAL) 1.7 10^3/uL (0.5-4.7); ABSOLUTE MONOCYTES # (MANUAL) 0.3 10^3/uL (0.1-1.4); ANISOCYTOSIS 1+; BASOPHILS % (MANUAL) 0 % (0-2); EOSINOPHILS % (MANUAL) 0 % (0-6); LYMPHOCYTES % (MANUAL) 10 % (13-45); MONOCYTES % (MANUAL) 2 % (3-13); SEGMENTED NEUTROPHILS % (MAN) 88 % (42-78); TOTAL CELLS COUNTED 100
[2018-04-14 06:46] LABS: PLATELET COMMENT ADEQUATE; POLYCHROMASIA 1+
[2018-04-14 06:49] LABS: ANION GAP 2 (5-19)
[2018-04-14 06:50] LABS: POTASSIUM 2.9 mmol/L (3.6-5.0)
[2018-04-14] MEDS: POTASSI CL 20 MEQ/50 ML RIDER 20 MEQ/50 ML RTUPB IV SCH ×5 (07:51→16:20)
[2018-04-14] MEDS: INSULIN LISPRO 100 UNIT/ML 3 ML VIAL SUBCUT SCH ×3 (07:55→22:07)
--- NOTE | 2018-04-14 08:40 | RADIOLOGY REPORT (SQ) ---
EXAM DESCRIPTION: CHEST SINGLE VIEW COMPLETED DATE/TIME: 04/14/2018 6:26 am REASON FOR STUDY: Resp. Failure COMPARISON: 04/13/2018. FINDINGS: Single-view chest AP portable semi-upright. Stable appearance. Hyperinflated but otherwise clear lungs. Support lines and tubes look stable, appropriate. Includes adequate positioned endotracheal tube. TECHNICAL DOCUMENTATION: JOB ID: [id number] Reading location - IP/workstation name: [email or web address]
[2018-04-14] MEDS: FLUTICASONE/SALMETEROL DISKUS 500-50 MCG/DOSE IH SCH ×2 (10:24→21:25)
--- NOTE | 2018-04-14 11:53 | PDOC PROGRESS REPORT ---
Subjective Progress Note for:: 04/14/18 Subjective:: Patient is awake and alert. Her son and [id number] are at the bedside she maintains eye contact. She answers questions with nodding of her head. Reason For Visit: Acute hypoxic respiratory failure Atrial fibrillation with rapid ventricular response Hypotension Hemoccult positive gastric contents Physical Exam Vital Signs: Temp Pulse Resp BP Pulse Ox 100.2 F 89 20 133/81 H 97 04/14/18 08:00 04/14/18 10:00 04/14/18 10:00 04/14/18 10:00 04/14/18 10:00 Intake & Output 04/13/18 04/14/18 04/15/18 06:59 06:59 06:59 Intake Total 2766 1151 72 Output Total 1540 3695 125 Balance 1226 -2544 -53 Weight 60.2 kg 57.4 kg Exam: Well-developed very frail 62-year-old female who looks older than her stated age. Remains on the ventilator. She does not appear to be in any distress. Head exam: PRESENT: normocephalic, other - Nasogastric tube in place Ear exam: PRESENT: normal external ear exam Mouth exam: PRESENT: other - Endotracheal tube in place Respiratory exam: PRESENT: clear to auscultation flaco - Anteriorly. ABSENT: accessory muscle use, rhonchi, wheezes Cardiovascular exam: PRESENT: irregular rhythm GI/Abdominal exam: PRESENT: diminished bowel sounds, soft. ABSENT: tenderness Rectal exam: PRESENT: deferred Gentrourinary exam: PRESENT: indwelling catheter Extremities exam: PRESENT: +1 edema - Bilateral upper extremities. ABSENT: pedal edema Neurological exam: PRESENT: alert, awake, other - Appears to understand our discussion and her clinical condition. She is able to answer questions. Psychiatric exam: PRESENT: flat affect. ABSENT: agitated Results Laboratory Results: 04/14/18 06:10 04/14/18 06:10 04/13/18 04/14/18 04/14/18 13:09 06:10 06:10 WBC 17.1 H RBC 3.39 L Hgb 9.7 L Hct 29.0 L MCV 86 MCH 28.5 MCHC 33.4 RDW 14.2 H Plt Count 293 Seg Neutrophils % Not Reportable Lymphocytes % Not Reportable Monocytes % Not Reportable Eosinophils % Not Reportable Basophils % Not Reportable Absolute Neutrophils Not Reportable Absolute Lymphocytes Not Reportable Absolute Monocytes Not Reportable Absolute Eosinophils Not Reportable Absolute Basophils Not Reportable Carbonic Acid 1.28 HCO3/H2CO3 Ratio 26:1 ABG pH 7.52 H ABG pCO2 42.6 ABG pO2 78.5 L ABG HCO3 34.0 H ABG O2 Saturation 96.6 ABG Base Excess 10.2 FiO2 28% Sodium Potassium 3.6 Chloride Carbon Dioxide Anion Gap BUN Creatinine Est GFR ( Amer) Est GFR (Non-Af Amer) Glucose Calcium Magnesium 2.0 Total Bilirubin AST ALT Alkaline Phosphatase Total Protein Albumin 04/14/18 06:10 WBC RBC Hgb Hct MCV MCH MCHC RDW Plt Count Seg Neutrophils % Lymphocytes % Monocytes % Eosinophils % Basophils % Absolute Neutrophils Absolute Lymphocytes Absolute Monocytes Absolute Eosinophils Absolute Basophils Carbonic Acid HCO3/H2CO3 Ratio ABG pH ABG pCO2 ABG pO2 ABG HCO3 ABG O2 Saturation ABG Base Excess FiO2 Sodium 138.0 Potassium 2.9 L* Chloride 98 Carbon Dioxide 38 H Anion Gap 2 L BUN 17 Creatinine 0.43 L Est GFR ( Amer) > 60 Est GFR (Non-Af Amer) > 60 Glucose 85 Calcium 8.1 L Magnesium 2.1 Total Bilirubin 0.6 AST 26 ALT 105 H Alkaline Phosphatase 51 Total Protein 4.2 L Albumin 2.5 L 03/31/18 04/07/18 09:24 05:45 Troponin I < 0.012 0.017 NT-Pro-B Natriuret Pep 684 Impressions: Venous Doppler Study 03/31/18 12:07 IMPRESSION: NO EVIDENCE FOR DVT OR SVT IN THE RIGHT LEG. Head CT 04/05/18 09:43 IMPRESSION: NORMAL BRAIN CT WITH CONTRAST. EVIDENCE OF ACUTE STROKE: NO. Chest/Abdomen CTA 04/07/18 18:09 IMPRESSION: Negative examination for pulmonary embolism. Assessment & Plan - Diagnosis (1) Acute on chronic respiratory failure with hypoxia and hypercapnia Is this a current diagnosis for this admission?: Yes Plan: Patient still requires I am the support. Trials that pressure support and with marked tachycardia and tachypnea. She has consistently failed trials daily. As noted yesterday the patient was clear will be discussed tracheostomy and PEG tube placement. With her son and [id number] in the room she changed her answers to yes. She does want us to proceed with tracheostomy and PEG tube. Again I spent 20 minutes discussing her condition, prognosis and the subsequent consequences of tracheostomy such as unable to swallow unless she can be weaned from pressure support. Unable to talk unless she can be weaned from pressure support. The almost assuredly prognosis of remaining in a facility that is able to manage ventilators for the rest of her life. They did ask if they could take her home. I explained that because she is still on vasopressors and other cardiac medications that it would be impossible. I also pointed out that we may not be able to wean her from these medications. He did ask about extubating her and I told him that we could apply BiPAP but that this would not change the biomechanics of extremely flattened diaphragms and hyperinflated lungs. It is the son's opinion that he should still proceed with tracheostomy and PEG tube although when I asked him if he would be willing to trade places with his mother he looks somewhat bewildered. (2) Atrial fibrillation with rapid ventricular response Is this a current diagnosis for this admission?: Yes Plan: She is on diltiazem and metoprolol through the nasogastric tube. She still exhibits variability with her rate. She is currently off of vasopressors. (3) COPD (chronic obstructive pulmonary disease) Qualifiers: COPD type: emphysema Is this a current diagnosis for this admission?: Yes Plan: Continue nebulizer therapies, steroids and ventilator support. (4) Ventilator dependent Is this a current diagnosis for this admission?: Yes Plan: As above. See also discussion regarding placement in a facility for long-term ventilator use. (5) Tracheitis due to Staphylococcus infection Is this a current diagnosis for this admission?: Yes Plan: With resumption of vancomycin her white blood cell count is beginning to improve. (6) Gram-positive bacteremia Is this a current diagnosis for this admission?: Yes Plan: The initial culture of staph hominis was likely contaminant. With the persist ent endotracheal secretions growing MRSA, the most recent positive blood culture could represent clinically significant Staphylococcus bacteremia. The patient is back on vancomycin. (7) Hypokalemia Is this a current diagnosis for this admission?: Yes Plan: Furosemide are very introduced. The patient was retaining fluid she exhibited marked calcium loss with diuretic use. She is on the electrolyte replacement protocol. (8) Gastritis with bleeding Qualifiers: Chronicity: acute Is this a current diagnosis for this admission?: Yes Plan: The patient was on aspirin and VT E prophylaxis with Lovenox. Gastric contents tested Hemoccult positive. I will discontinue the 325 mg aspirin dose. At this time I will continue the Lovenox but follow her hemoglobin and hematocrit. If these begin to decrease I will discontinue the Lovenox as well. (9) Essential hypertension Is this a current diagnosis for this admission?: Yes Plan: Currently tolerating metoprolol, diltiazem and furosemide off of vasopressors. (10) Localized edema Is this a current diagnosis for this admission?: Yes Plan: Slowly improving with albumin and diuretics. (11) Tobacco abuse Is this a current diagnosis for this admission?: Yes Plan: Education on hold while she is critically ill. (12) Lung nodule Is this a current diagnosis for this admission?: Yes Plan: There is a lung nodule on the right noted on CT scan. It is 1.5 cm in diameter. There is no previous imaging noting the nodule. She is currently too unstable for any further diagnostics. - Time Time Spent with patient: 35 or more minutes Medications reviewed and adjusted accordingly: Yes - Plan Summary Plan Summary: As noted above, there was a long discussion with the patient's son and [id number]. More family members are expected to visit. There is differences of opinion with different family members. We will encourage them to discuss the situation outside of the patient's room. It is still the patient's decision but it appears that different family members have different levels of influence with the patient. I asked them to make a decision by the end of the day so that I can put the order in for the consult for the elective tracheostomy and PEG tube placement.
[2018-04-14] MEDS: METHYLPREDNISOLONE INJ 40 MG/1 ML SDV IV SCH (12:16)
[2018-04-14] MEDS: ENOXAPARIN SODIUM INJ 40 MG/0.4 ML DISP.SYRIN SUBCUT SCH (12:17)
[2018-04-14] MEDS: FUROSEMIDE INJ/PF 20 MG/2 ML SDV IV SCH (12:18)
[2018-04-14] MEDS ORDERED: LORAZEPAM INJ 2 MG/1 ML VIAL ONE ×2 (12:37→13:00)
[2018-04-14] MEDS: ALBUMIN HUMAN 12.5 GM/50 ML RTUINJ IV SCH ×2 (12:44→15:06)
[2018-04-14] MEDS ORDERED: DILTIAZEM HCL INJ 25 MG/5 ML VIAL ONE (13:33)
[2018-04-14] MEDS ORDERED: LORAZEPAM INJ 2 MG/1 ML VIAL IV ONE (14:00)
[2018-04-14] MEDS: ASPIRIN 325 MG TABLET NG SCH (15:06)
[2018-04-14] MEDS: POTASSIUM CHLORIDE 20 MEQ/15 ML UDCUP NG SCH (15:06)
[2018-04-14 17:51] LABS: ANION GAP 7 (5-19); BLOOD UREA NITROGEN 17 mg/dL (7-20); CALCIUM 7.9 mg/dL (8.4-10.2); CARBON DIOXIDE 35 mmol/L (22-30); CHLORIDE 96 mmol/L (98-107); GLUCOSE 112 mg/dL (75-110); POTASSIUM 3.8 mmol/L (3.6-5.0); SODIUM 137.7 mmol/L (137-145)
[2018-04-14 19:09] LABS: VANCOMYCIN,TROUGH 17.3 ug/mL (5.0-20.0)
[2018-04-14] MEDS ORDERED: ACETAMINOPHEN SOLN 325 MG/10.15 ML UDCUP ONE (21:30)
[2018-04-14] MEDS ORDERED: FENTANYL CITRATE INJ/PF 100 MCG/2 ML AMPUL IV PRN (21:42)
[2018-04-14] MEDS: MIDAZOLAM 2 MG/2 ML INJ IV PRN (21:58)
[2018-04-14] MEDS: ACETAMINOPHEN SOLN 325 MG/10.15 ML UDCUP NG PRN (21:59)
[2018-04-15] MEDS: DILTIAZEM HCL 30 MG TABLET NG SCH ×4 (00:57→19:28)
[2018-04-15] MEDS: VANCOMYCIN HCL 750 MG in DEXTROSE 5%-WATER 250 ML IV SCH ×3 (01:01→19:28)
[2018-04-15 06:09] LABS: HEMATOCRIT 26.4 % (36.0-47.0); HEMOGLOBIN 8.7 g/dL (12.0-15.5); MEAN CORPUSCULAR HEMOGLOBIN 28.3 pg (27.0-33.4); MEAN CORPUSCULAR HGB CONC 32.9 g/dL (32.0-36.0); MEAN CORPUSCULAR VOLUME 86 fl (80-97); PLATELET COUNT 222 10^3/uL (150-450); RED BLOOD COUNT 3.06 10^6/uL (3.72-5.28); RED CELL DISTRIBUTION WIDTH 13.7 % (11.5-14.0); WHITE BLOOD COUNT 13.3 10^3/uL (4.0-10.5)
[2018-04-15] MEDS: METOPROLOL TARTRATE 50 MG TABLET NG SCH ×3 (06:09→22:40)
[2018-04-15 06:17] LABS: ARTERIAL BLOOD BASE EXCESS 8.4 mmol/L; ARTERIAL BLOOD FIO2 28%; ARTERIAL BLOOD H2CO3 1.27 mmol/L (1.05-1.35); ARTERIAL BLOOD HCO3 32.3 mmol/L (20-24); ARTERIAL BLOOD O2 SATURATION 96.2 % (94-98); ARTERIAL BLOOD PCO2 42.2 mmHg (35-45); ARTERIAL BLOOD PO2 75.8 mmHg (80-100); ARTERIAL BLOOD TOTAL CO2 33.6 mmol/L (21-25)
[2018-04-15 06:32] LABS: BLOOD UREA NITROGEN 13 mg/dL (7-20); CALCIUM 7.8 mg/dL (8.4-10.2); GLUCOSE 100 mg/dL (75-110); PHOSPHORUS 3.3 mg/dL (2.5-4.5); POTASSIUM 3.3 mmol/L (3.6-5.0)
[2018-04-15 06:39] LABS: CARBON DIOXIDE 34 mmol/L (22-30); CHLORIDE 97 mmol/L (98-107); SODIUM 135.6 mmol/L (137-145)
[2018-04-15 06:40] LABS: ANION GAP 5 (5-19)
[2018-04-15] MEDS: PROPOFOL 1,000 MG/100 ML INFUS..BTL IV PRN (06:45)
[2018-04-15] MEDS: IPRATROPIUM BROMIDE 0.02% NEB 0.5 MG/2.5 ML AMPUL NEB SCH ×3 (08:33→23:49)
[2018-04-15] MEDS: LEVALBUTEROL HCL NEB 1.25 MG/3 ML AMPUL NEB SCH ×3 (08:33→23:49)
--- NOTE | 2018-04-15 08:50 | RADIOLOGY REPORT (SQ) ---
EXAM DESCRIPTION: CHEST SINGLE VIEW COMPLETED DATE/TIME: 04/15/2018 6:23 am REASON FOR STUDY: resp. failure COMPARISON: 04/14/2018 EXAM PARAMETERS: NUMBER OF VIEWS: One view. TECHNIQUE: Single frontal radiographic view of the chest acquired. RADIATION DOSE: NA LIMITATIONS: None. FINDINGS: LUNGS AND PLEURA: Findings of COPD suggested. Focal increased density is again identifie d in the right infrahilar region, may represent atelectasis or infiltrate. The left lung remains renaldo ar. No pneumothorax or pleural effusion. MEDIASTINUM AND HILAR STRUCTURES: No masses. Contour normal. HEART AND VASCULAR STRUCTURES: Heart normal in size. Normal vasculature. BONES: No acute findings. HARDWARE: Support tubes and lines,stable findings. OTHER: No other significant finding. IMPRESSION: 1. No significant interval changes since the prior study dated 04/14/2018. TECHNICAL DOCUMENTATION: JOB ID: [id number] [employer]- All Rights Reserved Reading location - IP/workstation name: [email or web address]
[2018-04-15] MEDS: FLUTICASONE/SALMETEROL DISKUS 500-50 MCG/DOSE IH SCH ×2 (12:02→21:06)
[2018-04-15] MEDS: METHYLPREDNISOLONE INJ 40 MG/1 ML SDV IV SCH (12:03)
[2018-04-15] MEDS: FUROSEMIDE INJ/PF 20 MG/2 ML SDV IV SCH (12:03)
[2018-04-15] MEDS: ENOXAPARIN SODIUM INJ 40 MG/0.4 ML DISP.SYRIN SUBCUT SCH (12:04)
[2018-04-15] MEDS: POTASSIUM CHLORIDE 20 MEQ/50 ML RTU IV SCH ×2 (12:38→15:09)
[2018-04-15] MEDS: INSULIN LISPRO 100 UNIT/ML 3 ML VIAL SUBCUT SCH ×3 (12:53→21:06)
[2018-04-15] MEDS: LORAZEPAM INJ 2 MG/1 ML VIAL IV PRN (13:12)
[2018-04-15] MEDS: MORPHINE SULFATE 10 MG/ML INJ IV PRN ×2 (14:04→19:28)
[2018-04-15] MEDS: POTASSIUM CHLORIDE 20 MEQ/15 ML UDCUP NG SCH (19:29)
[2018-04-15] MEDS: ACETAMINOPHEN SOLN 325 MG/10.15 ML UDCUP NG PRN (22:27)
[2018-04-15] MEDS ORDERED: NORMAL SALINE 1000 ML 1,000 ML IV ONE (23:59)
[2018-04-16] MEDS: MORPHINE SULFATE 10 MG/ML INJ IV PRN ×2 (02:19→14:09)
[2018-04-16] MEDS: VANCOMYCIN HCL 750 MG in DEXTROSE 5%-WATER 250 ML IV SCH (02:19)
[2018-04-16] MEDS: DILTIAZEM HCL 30 MG TABLET NG SCH ×4 (02:23→17:08)
[2018-04-16 04:17] LABS: ARTERIAL BLOOD BASE EXCESS 7.5 mmol/L; ARTERIAL BLOOD H2CO3 1.31 mmol/L (1.05-1.35); ARTERIAL BLOOD HCO3 31.7 mmol/L (20-24); ARTERIAL BLOOD O2 SATURATION 96.9 % (94-98); ARTERIAL BLOOD PCO2 43.4 mmHg (35-45); ARTERIAL BLOOD PH 7.48 (7.35-7.45); ARTERIAL BLOOD PO2 84.6 mmHg (80-100)
[2018-04-16 04:19] LABS: ARTERIAL BLOOD FIO2 28%
--- NOTE | 2018-04-16 06:22 | RADIOLOGY REPORT (SQ) ---
CLINICAL HISTORY: resp. failure COMPARISON: April 15, 2018. TECHNIQUE: XR CHEST 1 VIEW 04/16/2018 6:00 AM [employer] FINDINGS: Cardiac silhouette is normal in size. Lungs are mildly hyperinflated. There is no pleural effusion. There is no pneumothorax. There are no acute osseous findings. Endotracheal tube, nasogastric tube and right IJ central line are unchanged. IMPRESSION: No pneumonia.
[2018-04-16] MEDS: METOPROLOL TARTRATE 50 MG TABLET NG SCH ×3 (06:42→21:49)
[2018-04-16] MEDS: IPRATROPIUM BROMIDE 0.02% NEB 0.5 MG/2.5 ML AMPUL NEB SCH ×3 (08:13→23:46)
[2018-04-16] MEDS: LEVALBUTEROL HCL NEB 1.25 MG/3 ML AMPUL NEB SCH ×3 (08:13→23:46)
[2018-04-16] MEDS: FLUTICASONE/SALMETEROL DISKUS 500-50 MCG/DOSE IH SCH ×2 (09:33→21:48)
[2018-04-16] MEDS: INSULIN LISPRO 100 UNIT/ML 3 ML VIAL SUBCUT SCH ×4 (09:33→21:48)
--- NOTE | 2018-04-16 09:57 | PDOC PROGRESS REPORT ---
Subjective Progress Note for:: 04/15/18 Subjective:: The patient is awake and alert today. We need to discuss options regarding tracheostomy and PEG tube versus extubation. We then need to decide CODE STATUS with reintubation if she remains a full code versus DNR with consideration for comfort care. Reason For Visit: HYPOXIC RESPIRATORY DISTRESS Physical Exam Vital Signs: Temp Pulse Resp BP Pulse Ox 99.7 F 90 18 119/70 95 04/15/18 08:00 04/15/18 10:00 04/15/18 10:00 04/15/18 10:00 04/15/18 11:13 Intake & Output 04/14/18 04/15/18 04/16/18 06:59 06:59 06:59 Intake Total 1151 892 5 Output Total 3695 2055 224 Balance -2544 -1163 -219 Weight 57.4 kg 56.1 kg General appearance: PRESENT: cooperative, mild distress, other - Intubated but awake. Answering questions by nodding yes or no. Head exam: PRESENT: normocephalic Eye exam: PRESENT: conjunctiva pink. ABSENT: scleral icterus Ear exam: PRESENT: normal external ear exam Mouth exam: PRESENT: other - Endotracheal tube in place Respiratory exam: PRESENT: clear to auscultation flaco, symmetrical, other - Still on SIMV but breathing over the set rate. ABSENT: accessory muscle use, chest wall tenderness, rales, rhonchi, wheezes Cardiovascular exam: PRESENT: irregular rhythm GI/Abdominal exam: PRESENT: normal bowel sounds, soft. ABSENT: distended, tenderness Rectal exam: PRESENT: deferred Gentrourinary exam: PRESENT: indwelling catheter Extremities exam: ABSENT: pedal edema Neurological exam: PRESENT: alert, awake, oriented to person, oriented to place, oriented to situation, CN II-XII grossly intact Psychiatric exam: PRESENT: anxious, appropriate affect - Affect reflects significant anxiety as we are discussing prognosis and extubation versus tracheostomy and. ABSENT: agitated Focused psych exam: ABSENT: restlessness Skin exam: PRESENT: pallor Results Laboratory Results: 04/15/18 06:00 04/15/18 06:00 04/14/18 04/15/18 04/15/18 17:00 06:00 06:00 WBC RBC Hgb Hct MCV MCH MCHC RDW Plt Count Carbonic Acid 1.27 HCO3/H2CO3 Ratio 25:1 ABG pH 7.50 H ABG pCO2 42.2 ABG pO2 75.8 L ABG HCO3 32.3 H ABG O2 Saturation 96.2 ABG Base Excess 8.4 FiO2 28% Sodium 137.7 135.6 L Potassium 3.8 3.3 L Chloride 96 L 97 L Carbon Dioxide 35 H 34 H Anion Gap 7 5 BUN 17 13 Creatinine 0.41 L 0.29 L Est GFR ( Amer) > 60 > 60 Est GFR (Non-Af Amer) > 60 > 60 Glucose 112 H 100 Calcium 7.9 L 7.8 L Phosphorus 3.3 Magnesium 2.1 04/15/18 06:00 WBC 13.3 H RBC 3.06 L Hgb 8.7 L Hct 26.4 L MCV 86 MCH 28.3 MCHC 32.9 RDW 13.7 Plt Count 222 Carbonic Acid HCO3/H2CO3 Ratio ABG pH ABG pCO2 ABG pO2 ABG HCO3 ABG O2 Saturation ABG Base Excess FiO2 Sodium Potassium Chloride Carbon Dioxide Anion Gap BUN Creatinine Est GFR ( Amer) Est GFR (Non-Af Amer) Glucose Calcium Phosphorus Magnesium 04/11/18 16:40 Blood Blood Culture - Final Staphylococcus Epidermidis 03/31/18 04/07/18 09:24 05:45 Troponin I < 0.012 0.017 NT-Pro-B Natriuret Pep 684 Impressions: Venous Doppler Study 03/31/18 12:07 IMPRESSION: NO EVIDENCE FOR DVT OR SVT IN THE RIGHT LEG. Head CT 04/05/18 09:43 IMPRESSION: NORMAL BRAIN CT WITH CONTRAST. EVIDENCE OF ACUTE STROKE: NO. Chest/Abdomen CTA 04/07/18 18:09 IMPRESSION: Negative examination for pulmonary embolism. Chest X-Ray 04/15/18 06:00 IMPRESSION: 1. No significant interval changes since the prior study dated 04/14/2018. Assessment & Plan - Diagnosis (1) Acute on chronic respiratory failure with hypoxia and hypercapnia Is this a current diagnosis for this admission?: Yes Plan: 20- 30 minutes was spent at the bedside this morning reviewing the patient's current status with family. She has failed pressure support trials. We discussed placing a tracheostomy and PEG tube. Initially the patient did not want a tracheostomy and PEG tube. She does need to be decannulated. The patient remains a full code. We discussed decannulation with BiPAP support. The difficulty would be the very high likelihood that she would fail and if she remains a full code would have to be reintubated and undergo tracheostomy and PEG tube placement. If she wants to remain full code status we would extubate and in my opinion she would decline and fail extubation based on the multiple pressure support trials undertaken over the last week as well as the marked flattening of her diaphragms due to the severity of her COPD. If she were to decide on DNR status and if she did fail BiPAP therapy we would ensure comfort measures were undertaken so that she would not experience any discomfort or air hunger. I did explain to the patient and family that if she does undergo tracheostomy and PEG tube placement she would have to go to a ventilator facility. If they were unable to extubate, and there was enough family support, she might be able to go home on a [facility] home ventilator but I can not predict if this will be obtainable. The patient has expressed to me, with her nurse at the bedside, that she did not want a tracheostomy and PEG tube placed. This was on Sunday. After discussion with the family she apparently changed her mind. It seems that when the patient is alone she expresses wishes against those interventions but with family present she agrees. Finally late in the day the family was present when the patient expressed her decision not to undergo tracheostomy and PEG tube placement. However when it came time to extubate the patient she changed her mind and did not want to be extubated. The decision was made to leave her intubated overnight with a 10:00 family conference tomorrow morning to decide final disposition. It is likely that she will be extubated and we will attempt noninvasive positive pressure ventilation. She will likely need to be reintubated. In that case we would have no choice but to place tracheostomy and PEG tube. A great deal of time has been spent over the last 3-4 days educating the patient and family on her prognosis both proceeding with the PEG tube and tracheostomy and subsequently transferring to a facility that does accept ventilated patients versus de-escalating and withdrawing aggressive support which would end up in the patient expiring. (2) Atrial fibrillation with rapid ventricular response Is this a current diagnosis for this admission?: Yes (3) COPD (chronic obstructive pulmonary disease) Qualifiers: COPD type: emphysema Is this a current diagnosis for this admission?: Yes Plan: End-stage. She remained stable on aggressive regimen of nebulizer treatments. Unfortunate the severity of her COPD has caused failure of pressure support trials. (4) Ventilator dependent Is this a current diagnosis for this admission?: Yes (5) Tracheitis due to Staphylococcus infection Is this a current diagnosis for this admission?: Yes Plan: The patient has had methicillin-resistant staph aureus and endotracheal secretions. She did receive additional vancomycin. At this point I believe that this is colonization and would not benefit from ongoing antibiotic therapy. It is possible that with extubation this would have a chance to resolve. It is also possible that with a tracheostomy tube she can become recolonized. Because the staph organism in the blood culture is felt to be a contaminant I will discontinue the vancomycin. (6) Gram-positive bacteremia Is this a current diagnosis for this admission?: Yes Plan: After discussions with the laboratory, it was noted that only one blood culture bottle grew a coagulase-negative staph which is most likely a contaminant. (7) Hypokalemia Is this a current diagnosis for this admission?: Yes Plan: Despite potassium supplementation the patient's serum potassium still wavers near the lower limit of normal and occasionally is just below the lower limit of normal. She is on electrolyte management protocol. (8) Gastritis with bleeding Qualifiers: Chronicity: acute Is this a current diagnosis for this admission?: Yes Plan: The patient had occult positive gastric secretions. Her hemoglobin has slowly declined. I have held her aspirin. She does remain on VT E prophylaxis. Hopefully when the nasogastric tube is removed her gastritis will resolve. Her hemoglobin continues to decline then she may need endoscopy. (9) Essential hypertension Is this a current diagnosis for this admission?: Yes Plan: Currently controlled. Continue current medication regimen. (10) Localized edema Is this a current diagnosis for this admission?: Yes Plan: Resolved with use of diuretics. (11) Tobacco abuse Is this a current diagnosis for this admission?: Yes Plan: Education on hold while she is critically ill. (12) Lung nodule Is this a current diagnosis for this admission?: Yes Plan: There is a lung nodule on the right noted on CT scan. It is 1.5 cm in diameter. There is no previous imaging noting the nodule. She is currently too unstable for any further diagnostics. (13) On tube feeding diet Is this a current diagnosis for this admission?: Yes Plan: Nutrition being provided by tube feeds at this time. - Time Time Spent with patient: 35 or more minutes Medications reviewed and adjusted accordingly: Yes
[2018-04-16] MEDS: FUROSEMIDE INJ/PF 20 MG/2 ML SDV IV SCH (10:00)
[2018-04-16] MEDS: METHYLPREDNISOLONE INJ 40 MG/1 ML SDV IV SCH (10:01)
[2018-04-16] MEDS: POTASSIUM CHLORIDE 20 MEQ/15 ML UDCUP NG SCH ×2 (10:02→17:08)
[2018-04-16] MEDS: ENOXAPARIN SODIUM INJ 40 MG/0.4 ML DISP.SYRIN SUBCUT SCH (12:23)
[2018-04-16] MEDS: LORAZEPAM INJ 2 MG/1 ML VIAL IV PRN ×2 (13:07→17:08)
--- NOTE | 2018-04-16 14:50 | PDOC PROGRESS REPORT ---
Subjective Progress Note for:: 04/11/18 Subjective:: x to bi Reason For Visit: HYPOXIC RESPIRATORY DISTRESS Physical Exam Vital Signs: Temp Pulse Resp BP Pulse Ox 99.5 F 78 26 H 144/81 H 95 04/11/18 08:00 04/11/18 08:26 04/11/18 08:26 04/11/18 08:00 04/11/18 08:26 Intake & Output 04/10/18 04/11/18 04/12/18 06:59 06:59 06:59 Intake Total 1606 3197 28 Output Total 2530 3725 100 Balance -924 742 -72 Weight 58.8 kg 57.8 kg General appearance: PRESENT: no acute distress, disheveled, thin Head exam: PRESENT: atraumatic, normocephalic Eye exam: PRESENT: conjunctiva pale. ABSENT: EOMI, nystagmus Mouth exam: PRESENT: dry mucosa, neck supple, tongue midline, other - ET tube Neck exam: ABSENT: carotid bruit, JVD, lymphadenopathy, thyromegaly, tracheal deviation, tracheostomy Respiratory exam: PRESENT: decreased breath sounds, prolonged expiratory phas, rales, rhonchi, unlabored, wheezes. ABSENT: retraction, stridor, tachypnea Cardiovascular exam: PRESENT: irregular rhythm Pulses: PRESENT: normal radial pulses GI/Abdominal exam: PRESENT: soft. ABSENT: tenderness Gentrourinary exam: PRESENT: indwelling catheter Extremities exam: ABSENT: calf tenderness, clubbing, joint swelling, pedal edema Musculoskeletal exam: ABSENT: deformity, dislocation Neurological exam: PRESENT: altered Psychiatric exam: PRESENT: flat affect Skin exam: PRESENT: dry, warm Results Laboratory Results: 04/11/18 04:02 04/11/18 04:02 04/11/18 04/11/18 04/11/18 04:02 04:02 04:22 WBC 31.7 H* RBC 4.08 Hgb 11.4 L Hct 34.6 L MCV 85 MCH 28.0 MCHC 33.0 RDW 14.0 Plt Count 519 H Seg Neutrophils % Not Reportable Lymphocytes % Not Reportable Monocytes % Not Reportable Eosinophils % Not Reportable Basophils % Not Reportable Absolute Neutrophils Not Reportable Absolute Lymphocytes Not Reportable Absolute Monocytes Not Reportable Absolute Eosinophils Not Reportable Absolute Basophils Not Reportable Carbonic Acid 1.32 HCO3/H2CO3 Ratio 24:1 ABG pH 7.48 H ABG pCO2 43.8 ABG pO2 66.4 L ABG HCO3 32.0 H ABG O2 Saturation 94.3 ABG Base Excess 7.7 FiO2 28% Sodium 138.6 Potassium 4.0 Chloride 100 Carbon Dioxide 33 H Anion Gap 6 BUN 16 Creatinine 0.40 L Est GFR ( Amer) > 60 Est GFR (Non-Af Amer) > 60 Glucose 134 H Calcium 8.1 L Total Bilirubin 0.5 AST 33 ALT 67 H Alkaline Phosphatase 57 Total Protein 4.5 L Albumin 2.6 L 04/07/18 11:38 Tracheal Aspirate Gram Stain - Final 04/07/18 11:38 Tracheal Aspirate Sputum Culture - Final Mrsa (Meth Resis Staph Aureus) Stenotrophomonas Maltophilia Yeast, Not Eveline Albicans Greatly Reduced Normal Basia 03/31/18 04/07/18 09:24 05:45 Troponin I < 0.012 0.017 NT-Pro-B Natriuret Pep 684 Impressions: Venous Doppler Study 03/31/18 12:07 IMPRESSION: NO EVIDENCE FOR DVT OR SVT IN THE RIGHT LEG. Head CT 04/05/18 09:43 IMPRESSION: NORMAL BRAIN CT WITH CONTRAST. EVIDENCE OF ACUTE STROKE: NO. Chest/Abdomen CTA 04/07/18 18:09 IMPRESSION: Negative examination for pulmonary embolism. Chest X-Ray 04/09/18 06:00 IMPRESSION: Stable chronic changes without evidence of new acute cardiopulmonary complication. Assessment & Plan - Diagnosis (1) Acute on chronic respiratory failure with hypoxia and hypercapnia Is this a current diagnosis for this admission?: Yes Plan: Ventilation and oxygenation to approximately her baseline (2) Atrial fibrillation, transient Is this a current diagnosis for this admission?: Yes Plan: Intermittent total heart rate stable at this time (3) COPD (chronic obstructive pulmonary disease) Qualifiers: COPD type: emphysema Is this a current diagnosis for this admission?: Yes Plan: Continue current bronchodilator therapy (4) Essential hypertension Is this a current diagnosis for this admission?: Yes Plan: Stable at this time (5) Gram-positive bacteremia Is this a current diagnosis for this admission?: Yes Plan: 04/07/18 11:38 Gram Stain - Final Tracheal Aspirate Sputum Culture - Preliminary Gram Positive Cocci Clusters Stenotrophomonas Maltophilia Yeast, Not Eveline Albicans Greatly Reduced Normal Basia 04/02/18 03:40 Gram Stain - Final Sputum Sputum Culture - Final Mrsa (Meth Resis Staph Aureus) Enterobacter Cloacae Stenotrophomonas Maltophilia Normal Basia Absent 04/01/18 04:57 Gram Stain - Final Tracheal Aspirate Sputum Culture - Final Mrsa (Meth Resis Staph Aureus) Enterobacter Cloacae Haemophilus Influenzae Normal Basia Absent 03/31/18 13:55 Blood Culture - Final Blood Staphylococcus Hominis (6) Lung nodule Is this a current diagnosis for this admission?: Yes Plan: New onset will investigate further after the acute event was biopsies are not particularly revealing in the face of acute inflammation - Time Total Critical Time (Minutes): 45
--- NOTE | 2018-04-16 15:15 | PDOC PROGRESS REPORT ---
Subjective Progress Note for:: 04/15/18 Subjective:: unchanged Reason For Visit: HYPOXIC RESPIRATORY DISTRESS Physical Exam Vital Signs: Temp Pulse Resp BP Pulse Ox 100.0 F 181 H 22 H 119/67 91 L 04/16/18 12:00 04/16/18 12:00 04/16/18 14:25 04/16/18 14:25 04/16/18 14:25 Intake & Output 04/15/18 04/16/18 04/17/18 06:59 06:59 06:59 Intake Total 1142 2040 0 Output Total 2055 3074 1050 Balance -913 -1034 -1050 Weight 56.1 kg General appearance: PRESENT: no acute distress, disheveled Head exam: PRESENT: atraumatic, normocephalic Eye exam: PRESENT: conjunctiva pale, EOMI. ABSENT: nystagmus Mouth exam: PRESENT: dry mucosa, neck supple, tongue midline, other Neck exam: ABSENT: carotid bruit, JVD, lymphadenopathy, thyromegaly, tracheal deviation, tracheostomy Results Laboratory Results: 04/15/18 06:00 04/15/18 06:00 04/16/18 04:07 Carbonic Acid 1.31 HCO3/H2CO3 Ratio 24:1 ABG pH 7.48 H ABG pCO2 43.4 ABG pO2 84.6 ABG HCO3 31.7 H ABG O2 Saturation 96.9 ABG Base Excess 7.5 FiO2 28% 03/31/18 04/07/18 09:24 05:45 Troponin I < 0.012 0.017 NT-Pro-B Natriuret Pep 684 Impressions: Venous Doppler Study 03/31/18 12:07 IMPRESSION: NO EVIDENCE FOR DVT OR SVT IN THE RIGHT LEG. Head CT 04/05/18 09:43 IMPRESSION: NORMAL BRAIN CT WITH CONTRAST. EVIDENCE OF ACUTE STROKE: NO. Chest/Abdomen CTA 04/07/18 18:09 IMPRESSION: Negative examination for pulmonary embolism. Chest X-Ray 04/16/18 06:00 IMPRESSION: No pneumonia. Assessment & Plan - Diagnosis (1) Acute on chronic respiratory failure with hypoxia and hypercapnia Is this a current diagnosis for this admission?: Yes Plan: Ventilation and oxygenation to approximately her baseline (2) Atrial fibrillation, transient Is this a current diagnosis for this admission?: Yes Plan: Intermittent total heart rate stable at this time (3) COPD (chronic obstructive pulmonary disease) Qualifiers: COPD type: emphysema Is this a current diagnosis for this admission?: Yes Plan: Continue current bronchodilator therapy (4) Essential hypertension Is this a current diagnosis for this admission?: Yes Plan: Stable at this time (5) Gram-positive bacteremia Is this a current diagnosis for this admission?: Yes Plan: 04/07/18 11:38 Gram Stain - Final Tracheal Aspirate Sputum Culture - Preliminary Gram Positive Cocci Clusters Stenotrophomonas Maltophilia Yeast, Not Eveline Albicans Greatly Reduced Normal Basia 04/02/18 03:40 Gram Stain - Final Sputum Sputum Culture - Final Mrsa (Meth Resis Staph Aureus) Enterobacter Cloacae Stenotrophomonas Maltophilia Normal Basia Absent 04/01/18 04:57 Gram Stain - Final Tracheal Aspirate Sputum Culture - Final Mrsa (Meth Resis Staph Aureus) Enterobacter Cloacae Haemophilus Influenzae Normal Basia Absent 03/31/18 13:55 Blood Culture - Final Blood Staphylococcus Hominis (6) Lung nodule Is this a current diagnosis for this admission?: Yes Plan: New onset will investigate further after the acute event was biopsies are not particularly revealing in the face of acute inflammation - Time Total Critical Time (Minutes): 45
--- NOTE | 2018-04-16 15:19 | PDOC PROGRESS REPORT ---
Subjective Progress Note for:: 04/16/18 Subjective:: unchanged Reason For Visit: HYPOXIC RESPIRATORY DISTRESS Physical Exam Vital Signs: Temp Pulse Resp BP Pulse Ox 99.1 F 67 18 102/56 L 96 04/16/18 08:00 04/16/18 09:09 04/16/18 09:00 04/16/18 08:53 04/16/18 09:00 Intake & Output 04/15/18 04/16/18 04/17/18 06:59 06:59 06:59 Intake Total 1142 990 Output Total 5120 3074 60 Balance -913 -2084 -60 Weight 56.1 kg General appearance: PRESENT: disheveled, thin Head exam: PRESENT: atraumatic, normocephalic Eye exam: PRESENT: conjunctiva pale, EOMI. ABSENT: nystagmus Mouth exam: PRESENT: dry mucosa, neck supple, tongue midline, other Neck exam: ABSENT: carotid bruit, JVD, lymphadenopathy, thyromegaly, tracheal deviation, tracheostomy Respiratory exam: PRESENT: decreased breath sounds, prolonged expiratory phas, rales, rhonchi, unlabored, wheezes. ABSENT: retraction, stridor Cardiovascular exam: ABSENT: irregular rhythm Pulses: PRESENT: normal radial pulses GI/Abdominal exam: PRESENT: soft. ABSENT: tenderness Gentrourinary exam: PRESENT: indwelling catheter Extremities exam: ABSENT: calf tenderness, clubbing, joint swelling, pedal edema Musculoskeletal exam: ABSENT: deformity, dislocation Neurological exam: PRESENT: altered Skin exam: PRESENT: dry, warm Results Laboratory Results: 04/15/18 06:00 04/15/18 06:00 04/16/18 04:07 Carbonic Acid 1.31 HCO3/H2CO3 Ratio 24:1 ABG pH 7.48 H ABG pCO2 43.4 ABG pO2 84.6 ABG HCO3 31.7 H ABG O2 Saturation 96.9 ABG Base Excess 7.5 FiO2 28% 04/11/18 16:40 Blood Blood Culture - Final Staphylococcus Epidermidis 03/31/18 04/07/18 09:24 05:45 Troponin I < 0.012 0.017 NT-Pro-B Natriuret Pep 684 Impressions: Venous Doppler Study 03/31/18 12:07 IMPRESSION: NO EVIDENCE FOR DVT OR SVT IN THE RIGHT LEG. Head CT 04/05/18 09:43 IMPRESSION: NORMAL BRAIN CT WITH CONTRAST. EVIDENCE OF ACUTE STROKE: NO. Chest/Abdomen CTA 04/07/18 18:09 IMPRESSION: Negative examination for pulmonary embolism. Chest X-Ray 04/16/18 06:00 IMPRESSION: No pneumonia. Assessment & Plan - Diagnosis (1) Acute on chronic respiratory failure with hypoxia and hypercapnia Is this a current diagnosis for this admission?: Yes Plan: Ventilation and oxygenation to approximately her baseline (2) Atrial fibrillation, transient Is this a current diagnosis for this admission?: Yes Plan: Intermittent total heart rate stable at this time (3) COPD (chronic obstructive pulmonary disease) Qualifiers: COPD type: emphysema Is this a current diagnosis for this admission?: Yes Plan: Continue current bronchodilator therapy (4) Essential hypertension Is this a current diagnosis for this admission?: Yes Plan: Stable at this time (5) Gram-positive bacteremia Is this a current diagnosis for this admission?: Yes Plan: 04/07/18 11:38 Gram Stain - Final Tracheal Aspirate Sputum Culture - Preliminary Gram Positive Cocci Clusters Stenotrophomonas Maltophilia Yeast, Not Eveline Albicans Greatly Reduced Normal Basia 04/02/18 03:40 Gram Stain - Final Sputum Sputum Culture - Final Mrsa (Meth Resis Staph Aureus) Enterobacter Cloacae Stenotrophomonas Maltophilia Normal Basia Absent 04/01/18 04:57 Gram Stain - Final Tracheal Aspirate Sputum Culture - Final Mrsa (Meth Resis Staph Aureus) Enterobacter Cloacae Haemophilus Influenzae Normal Basia Absent 03/31/18 13:55 Blood Culture - Final Blood Staphylococcus Hominis (6) Lung nodule Is this a current diagnosis for this admission?: Yes Plan: New onset will investigate further after the acute event was biopsies are not particularly revealing in the face of acute inflammation - Time Total Critical Time (Minutes): 45
--- NOTE | 2018-04-16 19:17 | PDOC PROGRESS REPORT ---
Subjective Progress Note for:: 04/16/18 Subjective:: No adverse events overnight. Her status is unchanged. She is stable on the ventilator but is unable to come off. We spent an extraordinary amount of time today with this patient and her family trying to get them to understand her condition and her prognosis. She is unwilling to make a decision about whether or not she wants to come off the ventilator. She also is clear that she does not want 1 of her family making it decision for her. Reason For Visit: HYPOXIC RESPIRATORY DISTRESS Physical Exam Vital Signs: Temp Pulse Resp BP Pulse Ox 100.6 F H 88 18 84/49 L 92 04/16/18 18:00 04/16/18 18:00 04/16/18 18:25 04/16/18 18:25 04/16/18 18:25 Intake & Output 04/15/18 04/16/18 04/17/18 06:59 06:59 06:59 Intake Total 1142 2040 351 Output Total 2055 3074 1355 Balance -913 -1034 -1004 Weight 56.1 kg General appearance: PRESENT: disheveled, other - Intubated, not sedated, able to answer yes and no questions appropriately, looks 20-30 years older than her stated age Respiratory exam: PRESENT: decreased breath sounds, rhonchi, symmetrical. ABSENT: rales, tachypnea, unlabored, wheezes Cardiovascular exam: PRESENT: tachycardia Vascular exam: PRESENT: normal capillary refill GI/Abdominal exam: PRESENT: normal bowel sounds, soft. ABSENT: distended, guarding, rebound, tenderness Extremities exam: PRESENT: clubbing. ABSENT: pedal edema Musculoskeletal exam: PRESENT: normal inspection. ABSENT: deformity Neurological exam: PRESENT: alert, awake, oriented to person, oriented to place, oriented to situation Psychiatric exam: PRESENT: anxious Skin exam: PRESENT: dry, warm Results Laboratory Results: 04/15/18 06:00 04/15/18 06:00 04/16/18 04:07 Carbonic Acid 1.31 HCO3/H2CO3 Ratio 24:1 ABG pH 7.48 H ABG pCO2 43.4 ABG pO2 84.6 ABG HCO3 31.7 H ABG O2 Saturation 96.9 ABG Base Excess 7.5 FiO2 28% 04/11/18 16:32 Blood Blood Culture - Final NO GROWTH IN 5 DAYS 03/31/18 04/07/18 09:24 05:45 Troponin I < 0.012 0.017 NT-Pro-B Natriuret Pep 684 Impressions: Venous Doppler Study 03/31/18 12:07 IMPRESSION: NO EVIDENCE FOR DVT OR SVT IN THE RIGHT LEG. Head CT 04/05/18 09:43 IMPRESSION: NORMAL BRAIN CT WITH CONTRAST. EVIDENCE OF ACUTE STROKE: NO. Chest/Abdomen CTA 04/07/18 18:09 IMPRESSION: Negative examination for pulmonary embolism. Chest X-Ray 04/16/18 06:00 IMPRESSION: No pneumonia. 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 She also will not tell us if she wants to try BiPAP. We have explained to her in great detail many times, and also to her family, that if she goes on BiPAP, she has 2 choices. One, if she deteriorates and decides to go back on the ventilator through an ET tube, we will first have to replace the ET tube and then get a tracheostomy and a PEG tube. 2, if she deteriorates on BiPAP but does not want to go back on a ventilator or an ET tube, we can make her as comfortable as we can until she expires. She would not answer this question. - Time Time Spent with patient: 35 or more minutes
[2018-04-16] MEDS ORDERED: VANCOMYCIN HCL 0 MG in DEXTROSE 5%-WATER 250 ML IV NR (20:30)
[2018-04-16] MEDS ORDERED: VANCOMYCIN HCL 1,000 MG in DEXTROSE 5%-WATER 250 ML IV ONE (22:00)
[2018-04-17] MEDS: MORPHINE SULFATE 10 MG/ML INJ IV PRN ×4 (00:30→23:15)
[2018-04-17] MEDS: DILTIAZEM HCL 30 MG TABLET NG SCH ×3 (01:44→12:44)
[2018-04-17 05:11] LABS: ANION GAP 7 (5-19); BLOOD UREA NITROGEN 12 mg/dL (7-20); CALCIUM 8.2 mg/dL (8.4-10.2); CARBON DIOXIDE 31 mmol/L (22-30); CHLORIDE 98 mmol/L (98-107); GLUCOSE 90 mg/dL (75-110); POTASSIUM 3.7 mmol/L (3.6-5.0); SODIUM 136.1 mmol/L (137-145)
[2018-04-17] MEDS: VANCOMYCIN HCL 750 MG in DEXTROSE 5%-WATER 250 ML IV SCH ×3 (06:08→21:42)
[2018-04-17] MEDS: METOPROLOL TARTRATE 50 MG TABLET NG SCH ×3 (06:11→21:42)
[2018-04-17] MEDS: INSULIN LISPRO 100 UNIT/ML 3 ML VIAL SUBCUT SCH ×3 (07:50→21:42)
[2018-04-17] MEDS: LEVALBUTEROL HCL NEB 1.25 MG/3 ML AMPUL NEB SCH ×3 (08:37→23:54)
[2018-04-17] MEDS: IPRATROPIUM BROMIDE 0.02% NEB 0.5 MG/2.5 ML AMPUL NEB SCH ×3 (08:37→23:54)
[2018-04-17] MEDS: FLUTICASONE/SALMETEROL DISKUS 500-50 MCG/DOSE IH SCH ×2 (10:11→21:43)
[2018-04-17] MEDS: ENOXAPARIN SODIUM INJ 40 MG/0.4 ML DISP.SYRIN SUBCUT SCH (10:12)
[2018-04-17] MEDS: FUROSEMIDE INJ/PF 20 MG/2 ML SDV IV SCH (10:12)
[2018-04-17] MEDS: POTASSIUM CHLORIDE 20 MEQ/15 ML UDCUP NG SCH (10:12)
[2018-04-17] MEDS: METHYLPREDNISOLONE INJ 40 MG/1 ML SDV IV SCH (10:12)
[2018-04-17] MEDS ORDERED: DEXAMETHASONE SOD PHOSPHATE INJ 4 MG/1 ML VIAL ONE (11:03)
[2018-04-17] MEDS ORDERED: DEXAMETHASONE SOD PHOSPHATE INJ 4 MG/1 ML VIAL IV ONE (11:06)
[2018-04-17] MEDS: LORAZEPAM INJ 2 MG/1 ML VIAL IV PRN (12:07)
[2018-04-17] MEDS: PANTOPRAZOLE SODIUM 40 MG VIAL IV SCH (14:49)
[2018-04-17 15:04] LABS: HEMATOCRIT 29.5 % (36.0-47.0); HEMOGLOBIN 9.7 g/dL (12.0-15.5); MEAN CORPUSCULAR HEMOGLOBIN 28.4 pg (27.0-33.4); MEAN CORPUSCULAR VOLUME 86 fl (80-97); PLATELET COUNT 262 10^3/uL (150-450); RED BLOOD COUNT 3.43 10^6/uL (3.72-5.28); RED CELL DISTRIBUTION WIDTH 14.3 % (11.5-14.0)
[2018-04-17 15:21] LABS: ANION GAP 5 (5-19); BLOOD UREA NITROGEN 12 mg/dL (7-20); CALCIUM 8.2 mg/dL (8.4-10.2); CARBON DIOXIDE 35 mmol/L (22-30); CHLORIDE 94 mmol/L (98-107); GLUCOSE 113 mg/dL (75-110); POTASSIUM 3.4 mmol/L (3.6-5.0); SODIUM 134.4 mmol/L (137-145)
--- NOTE | 2018-04-17 15:34 | PDOC PROGRESS REPORT ---
Subjective Progress Note for:: 04/17/18 Subjective:: extubate Reason For Visit: HYPOXIC RESPIRATORY DISTRESS Physical Exam Vital Signs: Temp Pulse Resp BP Pulse Ox 99.3 F 75 22 H 98/56 L 93 04/17/18 08:00 04/17/18 08:00 04/17/18 08:00 04/17/18 08:00 04/17/18 08:00 Intake & Output 04/16/18 04/17/18 04/18/18 06:59 06:59 06:59 Intake Total 2040 601 Output Total 3074 2340 75 Balance -1034 -1739 -75 Weight 56.7 kg General appearance: PRESENT: no acute distress, cooperative, disheveled Head exam: PRESENT: atraumatic, normocephalic Eye exam: PRESENT: conjunctiva pale, EOMI. ABSENT: nystagmus Mouth exam: PRESENT: dry mucosa, neck supple, tongue midline, other Neck exam: ABSENT: carotid bruit, JVD, lymphadenopathy, thyromegaly, tracheal deviation, tracheostomy Respiratory exam: PRESENT: decreased breath sounds, prolonged expiratory phas, rales, rhonchi, symmetrical, unlabored, wheezes. ABSENT: stridor, tachypnea Cardiovascular exam: PRESENT: irregular rhythm Pulses: PRESENT: normal radial pulses GI/Abdominal exam: PRESENT: soft. ABSENT: tenderness Gentrourinary exam: PRESENT: indwelling catheter Extremities exam: ABSENT: calf tenderness, clubbing, joint swelling, pedal edema, tenderness Musculoskeletal exam: ABSENT: deformity, dislocation Neurological exam: PRESENT: awake Psychiatric exam: PRESENT: flat affect Skin exam: PRESENT: dry, warm Results Laboratory Results: 04/15/18 06:00 04/17/18 04:28 04/17/18 04:28 Sodium 136.1 L Potassium 3.7 Chloride 98 Carbon Dioxide 31 H Anion Gap 7 BUN 12 Creatinine 0.31 L Est GFR ( Amer) > 60 Est GFR (Non-Af Amer) > 60 Glucose 90 Calcium 8.2 L 04/11/18 16:32 Blood Blood Culture - Final NO GROWTH IN 5 DAYS 03/31/18 04/07/18 09:24 05:45 Troponin I < 0.012 0.017 NT-Pro-B Natriuret Pep 684 Impressions: Venous Doppler Study 03/31/18 12:07 IMPRESSION: NO EVIDENCE FOR DVT OR SVT IN THE RIGHT LEG. Head CT 04/05/18 09:43 IMPRESSION: NORMAL BRAIN CT WITH CONTRAST. EVIDENCE OF ACUTE STROKE: NO. Chest/Abdomen CTA 04/07/18 18:09 IMPRESSION: Negative examination for pulmonary embolism. Chest X-Ray 04/16/18 06:00 IMPRESSION: No pneumonia. Assessment & Plan - Diagnosis (1) Acute on chronic respiratory failure with hypoxia and hypercapnia Is this a current diagnosis for this admission?: Yes Plan: extubate to bipap (2) Atrial fibrillation, transient Is this a current diagnosis for this admission?: Yes Plan: Intermittent total heart rate stable at this time (3) COPD (chronic obstructive pulmonary disease) Qualifiers: COPD type: emphysema Is this a current diagnosis for this admission?: Yes Plan: Continue current bronchodilator therapy (4) Essential hypertension Is this a current diagnosis for this admission?: Yes Plan: Stable at this time (5) Gram-positive bacteremia Is this a current diagnosis for this admission?: No (6) Lung nodule Is this a current diagnosis for this admission?: Yes Plan: New onset will investigate further after the acute event was biopsies are not particularly revealing in the face of acute inflammation - Time Total Critical Time (Minutes): 55
--- NOTE | 2018-04-17 17:59 | PDOC PROGRESS REPORT ---
Subjective Progress Note for:: 04/17/18 Subjective:: She had a fever with a T-max of 100.8 Fahrenheit last night and was started on vancomycin due to the fact that she had had MRSA in a previous sputum culture. She is afebrile this morning and her heart rate had settled down. She wanted to proceed with extubation to BiPAP with the understanding that if she failed she would want to be reintubated and have a tracheostomy. Reason For Visit: HYPOXIC RESPIRATORY DISTRESS Physical Exam Vital Signs: Temp Pulse Resp BP Pulse Ox 99.5 F 108 H 14 112/68 98 04/17/18 16:00 04/17/18 16:38 04/17/18 16:38 04/17/18 16:00 04/17/18 16:38 Intake & Output 04/16/18 04/17/18 04/18/18 06:59 06:59 06:59 Intake Total 2040 601 250 Output Total 3074 2340 1225 Balance -4482 -3589 -635 Weight 56.7 kg General appearance: PRESENT: disheveled, other - Intubated, not sedated, able to answer yes and no questions appropriately, looks 20-30 years older than her stated age Respiratory exam: PRESENT: decreased breath sounds, rhonchi, symmetrical. ABSENT: rales, tachypnea, unlabored, wheezes Cardiovascular exam: PRESENT: tachycardia Vascular exam: PRESENT: normal capillary refill GI/Abdominal exam: PRESENT: normal bowel sounds, soft. ABSENT: distended, guarding, rebound, tenderness Extremities exam: PRESENT: clubbing. ABSENT: pedal edema Musculoskeletal exam: PRESENT: normal inspection. ABSENT: deformity Neurological exam: PRESENT: alert, awake, oriented to person, oriented to place, oriented to situation Psychiatric exam: PRESENT: anxious Skin exam: PRESENT: dry, warm Results Laboratory Results: 04/17/18 14:36 04/17/18 14:36 04/17/18 04/17/18 04/17/18 04:28 14:36 14:36 WBC 24.0 H RBC 3.43 L Hgb 9.7 L Hct 29.5 L MCV 86 MCH 28.4 MCHC 33.0 RDW 14.3 H Plt Count 262 Sodium 136.1 L 134.4 L Potassium 3.7 3.4 L Chloride 98 94 L Carbon Dioxide 31 H 35 H Anion Gap 7 5 BUN 12 12 Creatinine 0.31 L 0.34 L Est GFR ( Amer) > 60 > 60 Est GFR (Non-Af Amer) > 60 > 60 Glucose 90 113 H Calcium 8.2 L 8.2 L 04/16/18 22:27 Catheterized Urine Urine Culture - Final C.albicans/C.dubliniensis 04/11/18 16:32 Blood Blood Culture - Final NO GROWTH IN 5 DAYS 03/31/18 04/07/18 09:24 05:45 Troponin I < 0.012 0.017 NT-Pro-B Natriuret Pep 684 Impressions: Venous Doppler Study 03/31/18 12:07 IMPRESSION: NO EVIDENCE FOR DVT OR SVT IN THE RIGHT LEG. Head CT 04/05/18 09:43 IMPRESSION: NORMAL BRAIN CT WITH CONTRAST. EVIDENCE OF ACUTE STROKE: NO. Chest/Abdomen CTA 04/07/18 18:09 IMPRESSION: Negative examination for pulmonary embolism. Chest X-Ray 04/16/18 06:00 IMPRESSION: No pneumonia. Assessment & Plan - Diagnosis (1) Acute on chronic respiratory failure with hypoxia and hypercapnia Is this a current diagnosis for this admission?: Yes Plan: Plan to extubate to BiPAP today, and if she fails we will reintubate her and then get her set up for tracheostomy. 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 Seems to be doing a lot better today. She did get agitated earlier before the extubation and it picked up some but it has come back down below 100. (3) Tracheitis due to Staphylococcus infection Is this a current diagnosis for this admission?: Yes Plan: We started her back on vancomycin and have repeated her cultures. - Time Time Spent with patient: 25-34 minutes
[2018-04-17 22:15] LABS: VANCOMYCIN,TROUGH 15.7 ug/mL (5.0-20.0)
[2018-04-18] MEDS: DILTIAZEM HCL 30 MG TABLET NG SCH ×5 (00:50→17:04)
[2018-04-18] MEDS: MORPHINE SULFATE 10 MG/ML INJ IV PRN ×5 (03:18→23:05)
[2018-04-18 03:58] LABS: ARTERIAL BLOOD BASE EXCESS 6.3 mmol/L; ARTERIAL BLOOD H2CO3 1.16 mmol/L (1.05-1.35); ARTERIAL BLOOD HCO3 29.8 mmol/L (20-24); ARTERIAL BLOOD O2 SATURATION 99.4 % (94-98); ARTERIAL BLOOD PCO2 38.4 mmHg (35-45); ARTERIAL BLOOD PH 7.51 (7.35-7.45); ARTERIAL BLOOD PO2 190.1 mmHg (80-100)
[2018-04-18 04:05] LABS: ARTERIAL BLOOD FIO2 30%
[2018-04-18 04:06] LABS: HEMATOCRIT 25.2 % (36.0-47.0); HEMOGLOBIN 8.4 g/dL (12.0-15.5); MEAN CORPUSCULAR HEMOGLOBIN 28.7 pg (27.0-33.4); MEAN CORPUSCULAR HGB CONC 33.3 g/dL (32.0-36.0); MEAN CORPUSCULAR VOLUME 86 fl (80-97); PLATELET COUNT 221 10^3/uL (150-450); RED BLOOD COUNT 2.93 10^6/uL (3.72-5.28); RED CELL DISTRIBUTION WIDTH 13.8 % (11.5-14.0); WHITE BLOOD COUNT 15.7 10^3/uL (4.0-10.5)
[2018-04-18 04:08] LABS: ANION GAP 6 (5-19); BLOOD UREA NITROGEN 10 mg/dL (7-20); CARBON DIOXIDE 32 mmol/L (22-30); CHLORIDE 96 mmol/L (98-107); GLUCOSE 95 mg/dL (75-110); POTASSIUM 3.6 mmol/L (3.6-5.0); SODIUM 133.5 mmol/L (137-145)
[2018-04-18 04:27] LABS: ABSOLUTE LYMPHOCYTES# (MANUAL) 0.5 10^3/uL (0.5-4.7); ABSOLUTE MONOCYTES # (MANUAL) 0.5 10^3/uL (0.1-1.4); ABSOLUTE NEUTROPHILS# (MANUAL) 14.8 10^3/uL (1.7-8.2); BASOPHILS % (MANUAL) 0 % (0-2); EOSINOPHILS % (MANUAL) 0 % (0-6); HYPOCHROMASIA 1+; LYMPHOCYTES % (MANUAL) 3 % (13-45); MONOCYTES % (MANUAL) 3 % (3-13); SEGMENTED NEUTROPHILS % (MAN) 94 % (42-78); TOTAL CELLS COUNTED 100
[2018-04-18 04:28] LABS: PLATELET COMMENT ADEQUATE; POLYCHROMASIA SLIGHT
[2018-04-18 06:03] LABS: ALANINE AMINOTRANSFERASE 51 U/L (9-52); ALBUMIN 2.5 g/dL (3.5-5.0); ALKALINE PHOSPHATASE 60 U/L (38-126); ASPARTATE AMINO TRANSFERASE 15 U/L (14-36); BILIRUBIN,DIRECT 0.5 mg/dL (0.0-0.4); TOTAL PROTEIN 4.5 g/dL (6.3-8.2)
[2018-04-18] MEDS: VANCOMYCIN HCL 750 MG in DEXTROSE 5%-WATER 250 ML IV SCH ×3 (06:14→21:36)
[2018-04-18] MEDS: METOPROLOL TARTRATE 50 MG TABLET NG SCH ×3 (06:15→21:35)
--- NOTE | 2018-04-18 07:16 | RADIOLOGY REPORT (SQ) ---
EXAM DESCRIPTION: XR CHEST 1 VIEW COMPLETED DATE/TME: 04/18/2018 06:00 CLINICAL HISTORY: 62 years Female, resp failure COMPARISON: 2 days prior. NUMBER OF VIEWS/TECHNIQUE: 1/AP FINDINGS: Increased lung volume.Adequate appearing enteric tube with tip at the left upper abdominal quadrant. Adequate appearing right jugular central line. Normal cardiac silhouette size. No pneumothorax. Stable bony thorax. IMPRESSION: No significant change.
[2018-04-18] MEDS: IPRATROPIUM BROMIDE 0.02% NEB 0.5 MG/2.5 ML AMPUL NEB SCH ×2 (08:06→17:10)
[2018-04-18] MEDS: LEVALBUTEROL HCL NEB 1.25 MG/3 ML AMPUL NEB SCH ×2 (08:07→17:10)
[2018-04-18] MEDS: INSULIN LISPRO 100 UNIT/ML 3 ML VIAL SUBCUT SCH ×5 (08:39→21:35)
[2018-04-18] MEDS: HYDRALAZINE HCL INJ/PF 20 MG/1 ML SDV IV PRN ×2 (08:48→13:08)
[2018-04-18] MEDS: ENOXAPARIN SODIUM INJ 40 MG/0.4 ML DISP.SYRIN SUBCUT SCH (09:57)
[2018-04-18] MEDS: POTASSIUM CHLORIDE 20 MEQ/15 ML UDCUP NG SCH ×3 (09:57→17:04)
[2018-04-18] MEDS: PANTOPRAZOLE SODIUM 40 MG VIAL IV SCH ×2 (09:57→17:04)
[2018-04-18] MEDS: METHYLPREDNISOLONE INJ 40 MG/1 ML SDV IV SCH (09:57)
[2018-04-18] MEDS: FUROSEMIDE INJ/PF 20 MG/2 ML SDV IV SCH (09:57)
[2018-04-18] MEDS: FLUTICASONE/SALMETEROL DISKUS 500-50 MCG/DOSE IH SCH ×2 (09:58→21:35)
[2018-04-18] MEDS: LORAZEPAM INJ 2 MG/1 ML VIAL IV PRN ×2 (12:28→20:28)
[2018-04-18] MEDS ORDERED: DILTIAZEM HCL INJ 25 MG/5 ML VIAL ONE (13:44)
--- NOTE | 2018-04-18 15:55 | PDOC PROGRESS REPORT ---
Subjective Progress Note for:: 04/18/18 Subjective:: 24h s/p stable Reason For Visit: HYPOXIC RESPIRATORY DISTRESS Physical Exam Vital Signs: Temp Pulse Resp BP Pulse Ox 97.9 F 102 H 13 102/55 L 93 04/18/18 10:00 04/18/18 10:00 04/18/18 10:00 04/18/18 10:00 04/18/18 10:00 Intake & Output 04/17/18 04/18/18 04/19/18 06:59 06:59 06:59 Intake Total 601 851 15 Output Total 2340 2145 67 Balance -1739 -1294 -52 Weight 56.7 kg 53.3 kg General appearance: PRESENT: no acute distress, disheveled, thin Head exam: PRESENT: atraumatic, normocephalic Eye exam: PRESENT: conjunctiva pale, EOMI. ABSENT: nystagmus Mouth exam: PRESENT: dry mucosa, neck supple, tongue midline Neck exam: ABSENT: carotid bruit, JVD, lymphadenopathy, thyromegaly, tracheal deviation, tracheostomy Respiratory exam: PRESENT: decreased breath sounds, prolonged expiratory phas, rhonchi, unlabored. ABSENT: retraction, stridor Cardiovascular exam: PRESENT: irregular rhythm Pulses: PRESENT: normal radial pulses GI/Abdominal exam: PRESENT: soft. ABSENT: tenderness Gentrourinary exam: PRESENT: indwelling catheter Extremities exam: ABSENT: calf tenderness, clubbing, pedal edema Musculoskeletal exam: ABSENT: ambulatory, deformity, dislocation Neurological exam: PRESENT: awake Psychiatric exam: PRESENT: flat affect Skin exam: PRESENT: dry, warm Results Laboratory Results: 04/18/18 03:45 04/18/18 03:45 04/17/18 04/17/18 04/18/18 14:36 14:36 03:45 WBC 24.0 H RBC 3.43 L Hgb 9.7 L Hct 29.5 L MCV 86 MCH 28.4 MCHC 33.0 RDW 14.3 H Plt Count 262 Seg Neutrophils % Lymphocytes % Monocytes % Eosinophils % Basophils % Absolute Neutrophils Absolute Lymphocytes Absolute Monocytes Absolute Eosinophils Absolute Basophils Carbonic Acid HCO3/H2CO3 Ratio ABG pH ABG pCO2 ABG pO2 ABG HCO3 ABG O2 Saturation ABG Base Excess FiO2 Sodium 134.4 L 133.5 L Potassium 3.4 L 3.6 Chloride 94 L 96 L Carbon Dioxide 35 H 32 H Anion Gap 5 6 BUN 12 10 Creatinine 0.34 L 0.35 L Est GFR ( Amer) > 60 > 60 Est GFR (Non-Af Amer) > 60 > 60 Glucose 113 H 95 Calcium 8.2 L 8.0 L Total Bilirubin AST ALT Alkaline Phosphatase Total Protein Albumin 04/18/18 04/18/18 04/18/18 03:45 03:45 03:45 WBC 15.7 H RBC 2.93 L Hgb 8.4 L Hct 25.2 L MCV 86 MCH 28.7 MCHC 33.3 RDW 13.8 Plt Count 221 Seg Neutrophils % Not Reportable Lymphocytes % Not Reportable Monocytes % Not Reportable Eosinophils % Not Reportable Basophils % Not Reportable Absolute Neutrophils Not Reportable Absolute Lymphocytes Not Reportable Absolute Monocytes Not Reportable Absolute Eosinophils Not Reportable Absolute Basophils Not Reportable Carbonic Acid 1.16 HCO3/H2CO3 Ratio 25:1 ABG pH 7.51 H ABG pCO2 38.4 ABG pO2 190.1 H ABG HCO3 29.8 H ABG O2 Saturation 99.4 H ABG Base Excess 6.3 FiO2 30% Sodium Potassium Chloride Carbon Dioxide Anion Gap BUN Creatinine Est GFR ( Amer) Est GFR (Non-Af Amer) Glucose Calcium Total Bilirubin 1.0 AST 15 ALT 51 Alkaline Phosphatase 60 Total Protein 4.5 L Albumin 2.5 L 04/16/18 22:27 Catheterized Urine Urine Culture - Final C.albicans/C.dubliniensis 03/31/18 04/07/18 09:24 05:45 Troponin I < 0.012 0.017 NT-Pro-B Natriuret Pep 684 Impressions: Venous Doppler Study 03/31/18 12:07 IMPRESSION: NO EVIDENCE FOR DVT OR SVT IN THE RIGHT LEG. Head CT 04/05/18 09:43 IMPRESSION: NORMAL BRAIN CT WITH CONTRAST. EVIDENCE OF ACUTE STROKE: NO. Chest/Abdomen CTA 04/07/18 18:09 IMPRESSION: Negative examination for pulmonary embolism. Chest X-Ray 04/18/18 06:00 IMPRESSION: No significant change. Assessment & Plan - Diagnosis (1) Acute on chronic respiratory failure with hypoxia and hypercapnia Is this a current diagnosis for this admission?: Yes Plan: extubated last 24 hours stable (2) Atrial fibrillation, transient Is this a current diagnosis for this admission?: Yes Plan: Intermittent total heart rate stable at this time (3) COPD (chronic obstructive pulmonary disease) Qualifiers: COPD type: emphysema Is this a current diagnosis for this admission?: Yes Plan: Continue current bronchodilator therapy (4) Essential hypertension Is this a current diagnosis for this admission?: Yes Plan: Stable at this time (5) Gram-positive bacteremia Is this a current diagnosis for this admission?: No Plan: 04/07/18 11:38 Gram Stain - Final Tracheal Aspirate Sputum Culture - Preliminary Gram Positive Cocci Clusters Stenotrophomonas Maltophilia Yeast, Not Eveline Albicans Greatly Reduced Normal Basia 04/02/18 03:40 Gram Stain - Final Sputum Sputum Culture - Final Mrsa (Meth Resis Staph Aureus) Enterobacter Cloacae Stenotrophomonas Maltophilia Normal Basia Absent 04/01/18 04:57 Gram Stain - Final Tracheal Aspirate Sputum Culture - Final Mrsa (Meth Resis Staph Aureus) Enterobacter Cloacae Haemophilus Influenzae Normal Basia Absent 03/31/18 13:55 Blood Culture - Final Blood Staphylococcus Hominis (6) Lung nodule Is this a current diagnosis for this admission?: Yes Plan: New onset will investigate further after the acute event was biopsies are not particularly revealing in the face of acute inflammation - Time Total Critical Time (Minutes): 45
--- NOTE | 2018-04-18 18:05 | PDOC PROGRESS REPORT ---
Subjective Progress Note for:: 04/18/18 Subjective:: She was extubated yesterday and has been on BiPAP since. From a respiratory standpoint, she has not been able to come off the BiPAP but she is done fairly well on it. She still has an NG tube in place for tube feeds. She has had some intermittent elevated heart rates today and we had to increase her Cardizem. She is been afebrile. Reason For Visit: HYPOXIC RESPIRATORY DISTRESS Physical Exam Vital Signs: Temp Pulse Resp BP Pulse Ox 99.0 F 128 H 15 114/65 100 04/18/18 16:00 04/18/18 17:10 04/18/18 17:10 04/18/18 16:00 04/18/18 17:10 Intake & Output 04/17/18 04/18/18 04/19/18 06:59 06:59 06:59 Intake Total 601 851 515 Output Total 2340 2145 1180 Balance -6669 -1294 -665 Weight 56.7 kg 53.3 kg General appearance: PRESENT: disheveled, other -on BiPAP, not moving around in bed but nods her head yes and no, looks tired, not talking Respiratory exam: PRESENT: decreased breath sounds, rhonchi, symmetrical. ABSENT: rales, tachypnea, unlabored, wheezes Cardiovascular exam: PRESENT: tachycardia Vascular exam: PRESENT: normal capillary refill GI/Abdominal exam: PRESENT: normal bowel sounds, soft. ABSENT: distended, guarding, rebound, tenderness Extremities exam: PRESENT: clubbing. ABSENT: pedal edema Musculoskeletal exam: PRESENT: normal inspection. ABSENT: deformity Neurological exam: PRESENT: alert, awake, oriented to person, oriented to place, oriented to situation Psychiatric exam: PRESENT: anxious Skin exam: PRESENT: dry, warm Results Laboratory Results: 04/18/18 03:45 04/18/18 03:45 04/18/18 04/18/18 04/18/18 03:45 03:45 03:45 WBC 15.7 H RBC 2.93 L Hgb 8.4 L Hct 25.2 L MCV 86 MCH 28.7 MCHC 33.3 RDW 13.8 Plt Count 221 Seg Neutrophils % Not Reportable Lymphocytes % Not Reportable Monocytes % Not Reportable Eosinophils % Not Reportable Basophils % Not Reportable Absolute Neutrophils Not Reportable Absolute Lymphocytes Not Reportable Absolute Monocytes Not Reportable Absolute Eosinophils Not Reportable Absolute Basophils Not Reportable Carbonic Acid 1.16 HCO3/H2CO3 Ratio 25:1 ABG pH 7.51 H ABG pCO2 38.4 ABG pO2 190.1 H ABG HCO3 29.8 H ABG O2 Saturation 99.4 H ABG Base Excess 6.3 FiO2 30% Sodium 133.5 L Potassium 3.6 Chloride 96 L Carbon Dioxide 32 H Anion Gap 6 BUN 10 Creatinine 0.35 L Est GFR ( Amer) > 60 Est GFR (Non-Af Amer) > 60 Glucose 95 Calcium 8.0 L Total Bilirubin AST ALT Alkaline Phosphatase Total Protein Albumin 04/18/18 03:45 WBC RBC Hgb Hct MCV MCH MCHC RDW Plt Count Seg Neutrophils % Lymphocytes % Monocytes % Eosinophils % Basophils % Absolute Neutrophils Absolute Lymphocytes Absolute Monocytes Absolute Eosinophils Absolute Basophils Carbonic Acid HCO3/H2CO3 Ratio ABG pH ABG pCO2 ABG pO2 ABG HCO3 ABG O2 Saturation ABG Base Excess FiO2 Sodium Potassium Chloride Carbon Dioxide Anion Gap BUN Creatinine Est GFR ( Amer) Est GFR (Non-Af Amer) Glucose Calcium Total Bilirubin 1.0 AST 15 ALT 51 Alkaline Phosphatase 60 Total Protein 4.5 L Albumin 2.5 L 04/16/18 22:27 Catheterized Urine Urine Culture - Final C.albicans/C.dubliniensis 03/31/18 04/07/18 09:24 05:45 Troponin I < 0.012 0.017 NT-Pro-B Natriuret Pep 684 Impressions: Venous Doppler Study 03/31/18 12:07 IMPRESSION: NO EVIDENCE FOR DVT OR SVT IN THE RIGHT LEG. Head CT 04/05/18 09:43 IMPRESSION: NORMAL BRAIN CT WITH CONTRAST. EVIDENCE OF ACUTE STROKE: NO. Chest/Abdomen CTA 04/07/18 18:09 IMPRESSION: Negative examination for pulmonary embolism. Chest X-Ray 04/18/18 06:00 IMPRESSION: No significant change. Assessment & Plan - Diagnosis (1) Acute on chronic respiratory failure with hypoxia and hypercapnia Is this a current diagnosis for this admission?: Yes Plan: She is been extubated for over 24 hours and has been on BiPAP during that time. She is tired and it is pretty much all she can do to lay in bed and breathing on BiPAP, but we have not had to re-intubate yet. Monitoring her closely for signs of decompensation. (2) Atrial fibrillation, transient Is this a current diagnosis for this admission?: Yes Plan: She is on Lopressor and Cardizem. We had to give her an IV dose of Cardizem and then increase the frequency of her p.o. Cardizem dosing. If we are not able to get good heart rate control with this we may need to add some digoxin. (3) Tracheitis due to Staphylococcus infection Is this a current diagnosis for this admission?: Yes Plan: We started her back on vancomycin and have repeated her cultures. White blood cell count trending down. - Time Time Spent with patient: 25-34 minutes
[2018-04-19] MEDS: LEVALBUTEROL HCL NEB 1.25 MG/3 ML AMPUL NEB SCH ×3 (00:16→15:42)
[2018-04-19] MEDS: IPRATROPIUM BROMIDE 0.02% NEB 0.5 MG/2.5 ML AMPUL NEB SCH ×3 (00:16→15:42)
[2018-04-19] MEDS: DILTIAZEM HCL 30 MG TABLET NG SCH ×4 (00:29→17:10)
[2018-04-19] MEDS: LORAZEPAM INJ 2 MG/1 ML VIAL IV PRN ×4 (02:17→22:22)
[2018-04-19] MEDS: MORPHINE SULFATE 10 MG/ML INJ IV PRN ×4 (03:00→21:15)
[2018-04-19] MEDS: VANCOMYCIN HCL 750 MG in DEXTROSE 5%-WATER 250 ML IV SCH ×3 (06:11→22:23)
[2018-04-19] MEDS: METOPROLOL TARTRATE 50 MG TABLET NG SCH ×3 (06:12→22:24)
[2018-04-19] MEDS: INSULIN LISPRO 100 UNIT/ML 3 ML VIAL SUBCUT SCH ×4 (08:47→23:37)
[2018-04-19] MEDS: FLUTICASONE/SALMETEROL DISKUS 500-50 MCG/DOSE IH SCH ×2 (10:16→23:38)
[2018-04-19] MEDS: ENOXAPARIN SODIUM INJ 40 MG/0.4 ML DISP.SYRIN SUBCUT SCH (10:25)
[2018-04-19] MEDS: POTASSIUM CHLORIDE 20 MEQ/15 ML UDCUP NG SCH ×2 (10:25→17:09)
[2018-04-19] MEDS: FUROSEMIDE INJ/PF 20 MG/2 ML SDV IV SCH (10:25)
[2018-04-19] MEDS: METHYLPREDNISOLONE INJ 40 MG/1 ML SDV IV SCH (10:25)
[2018-04-19] MEDS: PANTOPRAZOLE SODIUM 40 MG VIAL IV SCH ×2 (10:25→17:10)
--- NOTE | 2018-04-19 17:36 | PDOC PROGRESS REPORT ---
Subjective Progress Note for:: 04/19/18 Subjective:: No adverse events overnight. She remains on BiPAP. Her clinical situation has not changed very much. She seems to be physically unable to talk, and when she tried to communicate with me this morning she moved her lips a little bit but I could not hear think she was trying to say, because she was too weak. She is been afebrile. Reason For Visit: HYPOXIC RESPIRATORY DISTRESS Physical Exam Vital Signs: Temp Pulse Resp BP Pulse Ox 98.6 F 88 15 142/72 H 100 04/19/18 16:00 04/19/18 16:00 04/19/18 16:00 04/19/18 16:00 04/19/18 16:00 Intake & Output 04/18/18 04/19/18 04/20/18 06:59 06:59 06:59 Intake Total 050 695 4311 Output Total 2145 1700 990 Balance -1294 -935 640 Weight 53.3 kg 53.4 kg General appearance: PRESENT: disheveled, other -on BiPAP, not moving around in bed but nods her head yes and no, looks tired, tries to talk but cannot do so effectively Respiratory exam: PRESENT: decreased breath sounds, rhonchi, symmetrical. ABSENT: rales, tachypnea, unlabored, wheezes Cardiovascular exam: PRESENT: tachycardia Vascular exam: PRESENT: normal capillary refill GI/Abdominal exam: PRESENT: normal bowel sounds, soft. ABSENT: distended, guarding, rebound, tenderness Extremities exam: PRESENT: clubbing. ABSENT: pedal edema Musculoskeletal exam: PRESENT: normal inspection. ABSENT: deformity Neurological exam: PRESENT: alert, awake, oriented to person, oriented to place, oriented to situation Psychiatric exam: PRESENT: anxious Skin exam: PRESENT: dry, warm Results Laboratory Results: 04/18/18 03:45 04/18/18 03:45 03/31/18 04/07/18 09:24 05:45 Troponin I < 0.012 0.017 NT-Pro-B Natriuret Pep 684 Impressions: Venous Doppler Study 03/31/18 12:07 IMPRESSION: NO EVIDENCE FOR DVT OR SVT IN THE RIGHT LEG. Head CT 04/05/18 09:43 IMPRESSION: NORMAL BRAIN CT WITH CONTRAST. EVIDENCE OF ACUTE STROKE: NO. Chest/Abdomen CTA 04/07/18 18:09 IMPRESSION: Negative examination for pulmonary embolism. Chest X-Ray 04/18/18 06:00 IMPRESSION: No significant change. Assessment & Plan - Diagnosis (1) Acute on chronic respiratory failure with hypoxia and hypercapnia Is this a current diagnosis for this admission?: Yes Plan: She is been extubated for over 48 hours and has been on BiPAP during that time. She is tired and it is pretty much all she can do to lay in bed and breathing on BiPAP, but we have not had to re-intubate yet. Monitoring her closely for signs of decompensation. She is starting a little bit of skin breakdown on the bridge of her nose from the BiPAP. (2) Atrial fibrillation, transient Is this a current diagnosis for this admission?: Yes Plan: She is on Lopressor and Cardizem. We had to give her an IV dose of Cardizem and then increase the frequency of her p.o. Cardizem dosing. If we are not able to get good heart rate control with this we may need to add some digoxin, but so far her heart rate is done well since we increased her dose of Cardizem. (3) Tracheitis due to Staphylococcus infection Is this a current diagnosis for this admission?: Yes Plan: We started her back on vancomycin and have repeated her cultures. White blood cell count trending down. She remains afebrile. - Time Time Spent with patient: 25-34 minutes
[2018-04-20] MEDS: IPRATROPIUM BROMIDE 0.02% NEB 0.5 MG/2.5 ML AMPUL NEB SCH ×3 (00:12→17:48)
[2018-04-20] MEDS: LEVALBUTEROL HCL NEB 1.25 MG/3 ML AMPUL NEB SCH ×3 (00:12→17:48)
[2018-04-20] MEDS: DILTIAZEM HCL 30 MG TABLET NG SCH ×4 (00:27→17:36)
[2018-04-20] MEDS: LORAZEPAM INJ 2 MG/1 ML VIAL IV PRN ×2 (02:34→11:53)
[2018-04-20 05:02] LABS: HEMATOCRIT 25.7 % (36.0-47.0); HEMOGLOBIN 8.5 g/dL (12.0-15.5); MEAN CORPUSCULAR HEMOGLOBIN 28.5 pg (27.0-33.4); MEAN CORPUSCULAR HGB CONC 33.1 g/dL (32.0-36.0); MEAN CORPUSCULAR VOLUME 86 fl (80-97); PLATELET COUNT 233 10^3/uL (150-450); RED BLOOD COUNT 2.98 10^6/uL (3.72-5.28); RED CELL DISTRIBUTION WIDTH 14.8 % (11.5-14.0); WHITE BLOOD COUNT 18.7 10^3/uL (4.0-10.5)
[2018-04-20 05:03] LABS: ARTERIAL BLOOD BASE EXCESS 6.3 mmol/L; ARTERIAL BLOOD H2CO3 1.27 mmol/L (1.05-1.35); ARTERIAL BLOOD HCO3 30.4 mmol/L (20-24); ARTERIAL BLOOD PCO2 42.1 mmHg (35-45); ARTERIAL BLOOD PH 7.48 (7.35-7.45); ARTERIAL BLOOD PO2 102.1 mmHg (80-100); ARTERIAL BLOOD TOTAL CO2 31.7 mmol/L (21-25)
[2018-04-20 05:05] LABS: ARTERIAL BLOOD FIO2 30%
[2018-04-20] MEDS: VANCOMYCIN HCL 750 MG in DEXTROSE 5%-WATER 250 ML IV SCH ×3 (05:13→21:26)
[2018-04-20] MEDS: METOPROLOL TARTRATE 50 MG TABLET NG SCH ×3 (05:14→21:26)
[2018-04-20 05:32] LABS: ALANINE AMINOTRANSFERASE 43 U/L (9-52); ALBUMIN 2.9 g/dL (3.5-5.0); ALKALINE PHOSPHATASE 72 U/L (38-126); ANION GAP 6 (5-19); ASPARTATE AMINO TRANSFERASE 16 U/L (14-36); BILIRUBIN,DIRECT 0.4 mg/dL (0.0-0.4); BILIRUBIN,TOTAL 0.9 mg/dL (0.2-1.3); BLOOD UREA NITROGEN 10 mg/dL (7-20); CALCIUM 8.3 mg/dL (8.4-10.2); CARBON DIOXIDE 33 mmol/L (22-30); CHLORIDE 96 mmol/L (98-107); GLUCOSE 91 mg/dL (75-110); PHOSPHORUS 3.5 mg/dL (2.5-4.5); POTASSIUM 3.7 mmol/L (3.6-5.0); SODIUM 134.5 mmol/L (137-145); TOTAL PROTEIN 5.1 g/dL (6.3-8.2)
[2018-04-20 05:44] LABS: ABSOLUTE LYMPHOCYTES# (MANUAL) 0.7 10^3/uL (0.5-4.7); ABSOLUTE MONOCYTES # (MANUAL) 0.7 10^3/uL (0.1-1.4); ABSOLUTE NEUTROPHILS# (MANUAL) 17.2 10^3/uL (1.7-8.2); BASOPHILS % (MANUAL) 0 % (0-2); EOSINOPHILS % (MANUAL) 0 % (0-6); LYMPHOCYTES % (MANUAL) 4 % (13-45); MONOCYTES % (MANUAL) 4 % (3-13); SEGMENTED NEUTROPHILS % (MAN) 92 % (42-78); TOTAL CELLS COUNTED 100
[2018-04-20 05:45] LABS: PLATELET COMMENT ADEQUATE; RBC MORPHOLOGY COMMENT NORMO-CYTIC/CHROMIC
--- NOTE | 2018-04-20 07:05 | RADIOLOGY REPORT (SQ) ---
EXAM DESCRIPTION: XR CHEST 1 VIEW COMPLETED DATE/TME: 04/20/2018 06:00 CLINICAL HISTORY: 62 years Female, resp failure COMPARISON: One day prior. NUMBER OF VIEWS/TECHNIQUE: 1/AP FINDINGS: Small right basilar opacity-effusion. Increased lung volume.Likely adequate appearing enteric tube partially obscured. Adequate appearing right jugular central line. Normal cardiac silhouette size. No pneumothorax. Stable bony thorax. IMPRESSION: No significant change.
[2018-04-20] MEDS: INSULIN LISPRO 100 UNIT/ML 3 ML VIAL SUBCUT SCH ×4 (08:12→22:00)
[2018-04-20] MEDS: FUROSEMIDE INJ/PF 20 MG/2 ML SDV IV SCH (10:04)
[2018-04-20] MEDS: POTASSIUM CHLORIDE 20 MEQ/15 ML UDCUP NG SCH ×2 (10:04→17:35)
[2018-04-20] MEDS: METHYLPREDNISOLONE INJ 40 MG/1 ML SDV IV SCH (10:05)
[2018-04-20] MEDS: PANTOPRAZOLE SODIUM 40 MG VIAL IV SCH (10:05)
[2018-04-20] MEDS: ENOXAPARIN SODIUM INJ 40 MG/0.4 ML DISP.SYRIN SUBCUT SCH (10:05)
[2018-04-20] MEDS: FLUTICASONE/SALMETEROL DISKUS 500-50 MCG/DOSE IH SCH (10:05)
[2018-04-20] MEDS: MORPHINE SULFATE 10 MG/ML INJ IV PRN (13:27)
--- NOTE | 2018-04-20 15:55 | PDOC PROGRESS REPORT ---
Subjective Progress Note for:: 04/20/18 Subjective:: No adverse events overnight. She remains on BiPAP. Her clinical situation has not changed very much. She still seems to be physically unable to tell, and her sister who was in the room this morning relate a similar experience to me that I experience with the patient yesterday morning. Overall this patient remains very weak and her BiPAP settings have not changed. Reason For Visit: HYPOXIC RESPIRATORY DISTRESS Physical Exam Vital Signs: Temp Pulse Resp BP Pulse Ox 99.1 F 84 12 97/62 L 98 04/20/18 12:00 04/20/18 12:00 04/20/18 15:00 04/20/18 14:42 04/20/18 15:00 Intake & Output 04/19/18 04/20/18 04/21/18 06:59 06:59 06:59 Intake Total 765 2130 526 Output Total 1700 2210 1900 Balance - Weight 53.4 kg 50.7 kg General appearance: PRESENT: disheveled, other -on BiPAP, not moving around in bed but nods her head yes and no, looks tired, tries to talk but cannot do so effectively Respiratory exam: PRESENT: decreased breath sounds, rhonchi, symmetrical. ABSEN T: rales, tachypnea, unlabored, wheezes Cardiovascular exam: PRESENT: tachycardia Vascular exam: PRESENT: normal capillary refill GI/Abdominal exam: PRESENT: normal bowel sounds, soft. ABSENT: distended, guarding, rebound, tenderness Extremities exam: PRESENT: clubbing. ABSENT: pedal edema Musculoskeletal exam: PRESENT: normal inspection. ABSENT: deformity Neurological exam: PRESENT: alert, awake, oriented to person, oriented to place, oriented to situation Psychiatric exam: PRESENT: anxious Skin exam: PRESENT: dry, warm Results Laboratory Results: 04/20/18 04:45 04/20/18 04:45 04/20/18 04/20/18 04/20/18 04:45 04:45 04:45 WBC 18.7 H RBC 2.98 L Hgb 8.5 L Hct 25.7 L MCV 86 MCH 28.5 MCHC 33.1 RDW 14.8 H Plt Count 233 Seg Neutrophils % Not Reportable Lymphocytes % Not Reportable Monocytes % Not Reportable Eosinophils % Not Reportable Basophils % Not Reportable Absolute Neutrophils Not Reportable Absolute Lymphocytes Not Reportable Absolute Monocytes Not Reportable Absolute Eosinophils Not Reportable Absolute Basophils Not Reportable Carbonic Acid 1.27 HCO3/H2CO3 Ratio 23:1 ABG pH 7.48 H ABG pCO2 42.1 ABG pO2 102.1 H ABG HCO3 30.4 H ABG O2 Saturation 98.0 ABG Base Excess 6.3 FiO2 30% Sodium 134.5 L Potassium 3.7 Chloride 96 L Carbon Dioxide 33 H Anion Gap 6 BUN 10 Creatinine 0.29 L Est GFR ( Amer) > 60 Est GFR (Non-Af Amer) > 60 Glucose 91 Calcium 8.3 L Phosphorus 3.5 Magnesium 2.1 Total Bilirubin 0.9 AST 16 ALT 43 Alkaline Phosphatase 72 Total Protein 5.1 L Albumin 2.9 L 03/31/18 04/07/18 09:24 05:45 Troponin I < 0.012 0.017 NT-Pro-B Natriuret Pep 684 Impressions: Venous Doppler Study 03/31/18 12:07 IMPRESSION: NO EVIDENCE FOR DVT OR SVT IN THE RIGHT LEG. Head CT 04/05/18 09:43 IMPRESSION: NORMAL BRAIN CT WITH CONTRAST. EVIDENCE OF ACUTE STROKE: NO. Chest/Abdomen CTA 04/07/18 18:09 IMPRESSION: Negative examination for pulmonary embolism. Chest X-Ray 04/20/18 06:00 IMPRESSION: No significant change. Assessment & Plan - Diagnosis (1) Acute on chronic respiratory failure with hypoxia and hypercapnia Is this a current diagnosis for this admission?: Yes Plan: She is been extubated for over 72 hours and has been on BiPAP during that time. She is tired and it is pretty much all she can do to lay in bed and breathing on BiPAP, but we have not had to re-intubate yet. Monitoring her closely for signs of decompensation. She is starting a little bit of skin breakdown on the bridge of her nose from the BiPAP. We will start weaning the pressure on her BiPAP to see how she tolerates it. (2) Atrial fibrillation, transient Is this a current diagnosis for this admission?: Yes Plan: She is on Lopressor and Cardizem. \She has done better since we increased the dose of her Cardizem. (3) Tracheitis due to Staphylococcus infection Is this a current diagnosis for this admission?: Yes Plan: We started her back on vancomycin and have repeated her cultures. White blood cell count trending down. She remains afebrile. Possibility of a right lower lobe infiltrate on chest x-ray. - Time Time Spent with patient: 25-34 minutes
[2018-04-21] MEDS: DILTIAZEM HCL 30 MG TABLET NG SCH ×5 (00:12→17:31)
[2018-04-21] MEDS: LEVALBUTEROL HCL NEB 1.25 MG/3 ML AMPUL NEB SCH ×3 (00:13→16:32)
[2018-04-21] MEDS: IPRATROPIUM BROMIDE 0.02% NEB 0.5 MG/2.5 ML AMPUL NEB SCH ×3 (00:13→16:32)
[2018-04-21] MEDS: FLUTICASONE/SALMETEROL DISKUS 500-50 MCG/DOSE IH SCH ×2 (03:06→10:52)
[2018-04-21] MEDS: METOPROLOL TARTRATE 50 MG TABLET NG SCH ×3 (05:16→21:24)
[2018-04-21] MEDS: VANCOMYCIN HCL 750 MG in DEXTROSE 5%-WATER 250 ML IV SCH ×3 (05:16→21:25)
[2018-04-21 05:21] LABS: ANION GAP 5 (5-19); BLOOD UREA NITROGEN 13 mg/dL (7-20); CALCIUM 8.1 mg/dL (8.4-10.2); CARBON DIOXIDE 34 mmol/L (22-30); CHLORIDE 94 mmol/L (98-107); GLUCOSE 110 mg/dL (75-110); POTASSIUM 3.6 mmol/L (3.6-5.0); SODIUM 133.1 mmol/L (137-145)
[2018-04-21] MEDS: LORAZEPAM INJ 2 MG/1 ML VIAL IV PRN (05:59)
[2018-04-21] MEDS: INSULIN LISPRO 100 UNIT/ML 3 ML VIAL SUBCUT SCH ×4 (08:31→22:00)
[2018-04-21] MEDS: HYDRALAZINE HCL INJ/PF 20 MG/1 ML SDV IV PRN (08:32)
[2018-04-21] MEDS: FUROSEMIDE INJ/PF 20 MG/2 ML SDV IV SCH (10:51)
[2018-04-21] MEDS: METHYLPREDNISOLONE INJ 40 MG/1 ML SDV IV SCH (10:51)
[2018-04-21] MEDS: ENOXAPARIN SODIUM INJ 40 MG/0.4 ML DISP.SYRIN SUBCUT SCH (10:52)
[2018-04-21] MEDS: POTASSIUM CHLORIDE 20 MEQ/15 ML UDCUP NG SCH ×2 (10:52→17:31)
[2018-04-21] MEDS: NICOTINE 21 MG/24 HR PATCH.TD24 TD SCH (12:39)
[2018-04-21] MEDS: MORPHINE SULFATE 10 MG/ML INJ IV PRN ×3 (12:40→22:19)
--- NOTE | 2018-04-21 17:04 | PDOC PROGRESS REPORT ---
Subjective Progress Note for:: 04/19/18 Subjective:: stable,awake w/o complaints Reason For Visit: HYPOXIC RESPIRATORY DISTRESS Physical Exam Vital Signs: Temp Pulse Resp BP Pulse Ox 97.7 F 55 L 19 128/65 H 100 04/19/18 08:00 04/19/18 08:27 04/19/18 08:27 04/19/18 08:00 04/19/18 08:27 Intake & Output 04/18/18 04/19/18 04/20/18 06:59 06:59 06:59 Intake Total 851 765 250 Output Total 2145 1700 30 Balance -1294 -935 220 Weight 53.3 kg 53.4 kg General appearance: PRESENT: no acute distress, cooperative, disheveled, thin Head exam: PRESENT: atraumatic Eye exam: PRESENT: conjunctiva pale, EOMI. ABSENT: nystagmus Mouth exam: PRESENT: dry mucosa, neck supple, tongue midline Neck exam: ABSENT: carotid bruit, JVD, lymphadenopathy, thyromegaly, tracheal deviation, tracheostomy Respiratory exam: PRESENT: decreased breath sounds, prolonged expiratory phas, rhonchi, unlabored. ABSENT: retraction, stridor Cardiovascular exam: PRESENT: irregular rhythm Pulses: PRESENT: normal radial pulses GI/Abdominal exam: PRESENT: soft. ABSENT: tenderness Gentrourinary exam: PRESENT: indwelling catheter Extremities exam: PRESENT: full ROM. ABSENT: calf tenderness, clubbing, joint swelling Musculoskeletal exam: PRESENT: dislocation. ABSENT: deformity Neurological exam: PRESENT: altered Psychiatric exam: PRESENT: flat affect Skin exam: PRESENT: dry, warm Results Laboratory Results: 04/18/18 03:45 04/18/18 03:45 03/31/18 04/07/18 09:24 05:45 Troponin I < 0.012 0.017 NT-Pro-B Natriuret Pep 684 Impressions: Venous Doppler Study 03/31/18 12:07 IMPRESSION: NO EVIDENCE FOR DVT OR SVT IN THE RIGHT LEG. Head CT 04/05/18 09:43 IMPRESSION: NORMAL BRAIN CT WITH CONTRAST. EVIDENCE OF ACUTE STROKE: NO. Chest/Abdomen CTA 04/07/18 18:09 IMPRESSION: Negative examination for pulmonary embolism. Chest X-Ray 04/18/18 06:00 IMPRESSION: No significant change. Assessment & Plan - Diagnosis (1) Acute on chronic respiratory failure with hypoxia and hypercapnia Is this a current diagnosis for this admission?: Yes Plan: remains on bipap stable (2) Atrial fibrillation, transient Is this a current diagnosis for this admission?: Yes Plan: Intermittent total heart rate stable at this time (3) COPD (chronic obstructive pulmonary disease) Qualifiers: COPD type: emphysema Is this a current diagnosis for this admission?: Yes Plan: Continue current bronchodilator therapy (4) Essential hypertension Is this a current diagnosis for this admission?: Yes Plan: Stable at this time (5) Gram-positive bacteremia Is this a current diagnosis for this admission?: No (6) Lung nodule Is this a current diagnosis for this admission?: Yes Plan: New onset will investigate further after the acute event was biopsies are not particularly revealing in the face of acute inflammation - Time Total Critical Time (Minutes): 45
--- NOTE | 2018-04-21 17:13 | PDOC PROGRESS REPORT ---
Subjective Progress Note for:: 04/20/18 Subjective:: stable,awake w/o complaints Reason For Visit: HYPOXIC RESPIRATORY DISTRESS Physical Exam Vital Signs: Temp Pulse Resp BP Pulse Ox 99.1 F 84 25 H 164/86 H 93 04/20/18 12:00 04/20/18 12:00 04/20/18 12:00 04/20/18 12:00 04/20/18 12:00 Intake & Output 04/19/18 04/20/18 04/21/18 06:59 06:59 06:59 Intake Total 765 2130 Output Total 1700 2210 1900 Balance - Weight 53.4 kg 50.7 kg General appearance: PRESENT: no acute distress, cooperative, disheveled, thin Head exam: PRESENT: atraumatic, normocephalic Eye exam: PRESENT: conjunctiva pale, EOMI. ABSENT: nystagmus Mouth exam: PRESENT: neck supple, tongue midline Neck exam: ABSENT: carotid bruit, JVD, lymphadenopathy, thyromegaly, tracheal deviation, tracheostomy Respiratory exam: PRESENT: decreased breath sounds, rhonchi, wheezes. ABSENT: retraction, stridor Cardiovascular exam: PRESENT: irregular rhythm Pulses: PRESENT: normal radial pulses GI/Abdominal exam: PRESENT: soft. ABSENT: tenderness Gentrourinary exam: PRESENT: indwelling catheter Extremities exam: ABSENT: calf tenderness, clubbing, joint swelling Musculoskeletal exam: ABSENT: deformity, dislocation Neurological exam: PRESENT: awake Psychiatric exam: PRESENT: flat affect Skin exam: PRESENT: dry, warm Results Laboratory Results: 04/20/18 04:45 04/20/18 04:45 04/20/18 04/20/18 04/20/18 04:45 04:45 04:45 WBC 18.7 H RBC 2.98 L Hgb 8.5 L Hct 25.7 L MCV 86 MCH 28.5 MCHC 33.1 RDW 14.8 H Plt Count 233 Seg Neutrophils % Not Reportable Lymphocytes % Not Reportable Monocytes % Not Reportable Eosinophils % Not Reportable Basophils % Not Reportable Absolute Neutrophils Not Reportable Absolute Lymphocytes Not Reportable Absolute Monocytes Not Reportable Absolute Eosinophils Not Reportable Absolute Basophils Not Reportable Carbonic Acid 1.27 HCO3/H2CO3 Ratio 23:1 ABG pH 7.48 H ABG pCO2 42.1 ABG pO2 102.1 H ABG HCO3 30.4 H ABG O2 Saturation 98.0 ABG Base Excess 6.3 FiO2 30% Sodium 134.5 L Potassium 3.7 Chloride 96 L Carbon Dioxide 33 H Anion Gap 6 BUN 10 Creatinine 0.29 L Est GFR ( Amer) > 60 Est GFR (Non-Af Amer) > 60 Glucose 91 Calcium 8.3 L Phosphorus 3.5 Magnesium 2.1 Total Bilirubin 0.9 AST 16 ALT 43 Alkaline Phosphatase 72 Total Protein 5.1 L Albumin 2.9 L 03/31/18 04/07/18 09:24 05:45 Troponin I < 0.012 0.017 NT-Pro-B Natriuret Pep 684 Impressions: Venous Doppler Study 03/31/18 12:07 IMPRESSION: NO EVIDENCE FOR DVT OR SVT IN THE RIGHT LEG. Head CT 04/05/18 09:43 IMPRESSION: NORMAL BRAIN CT WITH CONTRAST. EVIDENCE OF ACUTE STROKE: NO. Chest/Abdomen CTA 04/07/18 18:09 IMPRESSION: Negative examination for pulmonary embolism. Chest X-Ray 04/20/18 06:00 IMPRESSION: No significant change. Assessment & Plan - Diagnosis (1) Acute on chronic respiratory failure with hypoxia and hypercapnia Is this a current diagnosis for this admission?: Yes Plan: remains on bipap stable (2) Atrial fibrillation, transient Is this a current diagnosis for this admission?: Yes Plan: Intermittent tachycardia (3) COPD (chronic obstructive pulmonary disease) Qualifiers: COPD type: emphysema Is this a current diagnosis for this admission?: Yes Plan: Continue current bronchodilator therapy (4) Essential hypertension Is this a current diagnosis for this admission?: Yes Plan: Stable at this time (5) Gram-positive bacteremia Is this a current diagnosis for this admission?: No (6) Lung nodule Is this a current diagnosis for this admission?: Yes Plan: New onset will investigate further after the acute event was biopsies are not particularly revealing in the face of acute inflammation - Time Total Critical Time (Minutes): 50
--- NOTE | 2018-04-21 17:18 | PDOC PROGRESS REPORT ---
Subjective Progress Note for:: 04/21/18 Subjective:: 24h s/p stable Reason For Visit: HYPOXIC RESPIRATORY DISTRESS Physical Exam Vital Signs: Temp Pulse Resp BP Pulse Ox 97.9 F 57 L 21 H 115/76 95 04/21/18 10:00 04/21/18 10:00 04/21/18 11:00 04/21/18 10:41 04/21/18 11:00 Intake & Output 04/20/18 04/21/18 04/22/18 06:59 06:59 06:59 Intake Total 2130 1231 Output Total 2210 2870 325 Balance -80 -1639 -325 Weight 50.7 kg 49.6 kg General appearance: PRESENT: no acute distress, disheveled, thin Head exam: PRESENT: atraumatic, normocephalic Eye exam: PRESENT: conjunctiva pale, EOMI. ABSENT: nystagmus Mouth exam: PRESENT: dry mucosa, neck supple Neck exam: ABSENT: carotid bruit, full ROM, JVD, lymphadenopathy, meningismus, tenderness, thyromegaly, tracheal deviation, tracheostomy, other Respiratory exam: PRESENT: decreased breath sounds, prolonged expiratory phas, rhonchi, unlabored. ABSENT: retraction, stridor Cardiovascular exam: PRESENT: irregular rhythm Pulses: PRESENT: normal radial pulses GI/Abdominal exam: PRESENT: soft. ABSENT: tenderness Gentrourinary exam: PRESENT: indwelling catheter Extremities exam: ABSENT: calf tenderness, clubbing, joint swelling Musculoskeletal exam: ABSENT: ambulatory, deformity, dislocation Neurological exam: PRESENT: awake Psychiatric exam: PRESENT: flat affect Skin exam: PRESENT: dry, warm Results Laboratory Results: 04/20/18 04:45 04/21/18 04:38 04/21/18 04:38 Sodium 133.1 L Potassium 3.6 Chloride 94 L Carbon Dioxide 34 H Anion Gap 5 BUN 13 Creatinine 0.27 L Est GFR ( Amer) > 60 Est GFR (Non-Af Amer) > 60 Glucose 110 Calcium 8.1 L 03/31/18 04/07/18 09:24 05:45 Troponin I < 0.012 0.017 NT-Pro-B Natriuret Pep 684 Impressions: Venous Doppler Study 03/31/18 12:07 IMPRESSION: NO EVIDENCE FOR DVT OR SVT IN THE RIGHT LEG. Head CT 04/05/18 09:43 IMPRESSION: NORMAL BRAIN CT WITH CONTRAST. EVIDENCE OF ACUTE STROKE: NO. Chest/Abdomen CTA 04/07/18 18:09 IMPRESSION: Negative examination for pulmonary embolism. Chest X-Ray 04/20/18 06:00 IMPRESSION: No significant change. Assessment & Plan - Diagnosis (1) Acute on chronic respiratory failure with hypoxia and hypercapnia Is this a current diagnosis for this admission?: Yes Plan: extubated last 24 hours stable (2) Atrial fibrillation, transient Is this a current diagnosis for this admission?: Yes Plan: Intermittent total heart rate stable at this time (3) COPD (chronic obstructive pulmonary disease) Qualifiers: COPD type: emphysema Is this a current diagnosis for this admission?: Yes Plan: Continue current bronchodilator therapy (4) Essential hypertension Is this a current diagnosis for this admission?: Yes Plan: Stable at this time (5) Gram-positive bacteremia Is this a current diagnosis for this admission?: No (6) Lung nodule Is this a current diagnosis for this admission?: Yes Plan: New onset will investigate further after the acute event was biopsies are not particularly revealing in the face of acute inflammation - Time Total Critical Time (Minutes): 45
--- NOTE | 2018-04-21 18:19 | PDOC PROGRESS REPORT ---
Subjective Progress Note for:: 04/21/18 Subjective:: No adverse events overnight. Patient's condition remains unchanged. She remains on BiPAP, 20/6, 30% FiO2. She continues to look weak. Respiratory rate is around 20. Heart rate remained stable as long as she is not agitated. Reason For Visit: HYPOXIC RESPIRATORY DISTRESS Physical Exam Vital Signs: Temp Pulse Resp BP Pulse Ox 98.6 F 78 16 142/82 H 98 04/21/18 16:00 04/21/18 16:32 04/21/18 18:00 04/21/18 17:51 04/21/18 18:00 Intake & Output 04/20/18 04/21/18 04/22/18 06:59 06:59 06:59 Intake Total 2130 1481 250 Output Total 2210 0170 875 Balance -80 -8866 -505 Weight 50.7 kg 49.6 kg General appearance: PRESENT: disheveled, other -on BiPAP, not moving around in bed but nods her head yes and no, looks tired, tries to talk but cannot do so effectively Respiratory exam: PRESENT: decreased breath sounds, rhonchi, symmetrical. ABSENT: rales, tachypnea, unlabored, wheezes Cardiovascular exam: PRESENT: tachycardia Vascular exam: PRESENT: normal capillary refill GI/Abdominal exam: PRESENT: normal bowel sounds, soft. ABSENT: distended, guarding, rebound, tenderness Extremities exam: PRESENT: clubbing. ABSENT: pedal edema Musculoskeletal exam: PRESENT: normal inspection. ABSENT: deformity Neurological exam: PRESENT: alert, awake, oriented to person, oriented to place, oriented to situation Psychiatric exam: PRESENT: anxious Skin exam: PRESENT: dry, warm Results Laboratory Results: 04/20/18 04:45 04/21/18 04:38 04/21/18 04:38 Sodium 133.1 L Potassium 3.6 Chloride 94 L Carbon Dioxide 34 H Anion Gap 5 BUN 13 Creatinine 0.27 L Est GFR ( Amer) > 60 Est GFR (Non-Af Amer) > 60 Glucose 110 Calcium 8.1 L 03/31/18 04/07/18 09:24 05:45 Troponin I < 0.012 0.017 NT-Pro-B Natriuret Pep 684 Impressions: Venous Doppler Study 03/31/18 12:07 IMPRESSION: NO EVIDENCE FOR DVT OR SVT IN THE RIGHT LEG. Head CT 04/05/18 09:43 IMPRESSION: NORMAL BRAIN CT WITH CONTRAST. EVIDENCE OF ACUTE STROKE: NO. Chest/Abdomen CTA 04/07/18 18:09 IMPRESSION: Negative examination for pulmonary embolism. Chest X-Ray 04/20/18 06:00 IMPRESSION: No significant change. Assessment & Plan - Diagnosis (1) Acute on chronic respiratory failure with hypoxia and hypercapnia Is this a current diagnosis for this admission?: Yes Plan: She is been extubated for over 96 hours and has been on BiPAP during that time. She is tired and it is pretty much all she can do to lay in bed and breathing on BiPAP, but we have not had to re-intubate yet. Monitoring her closely for signs of decompensation. She is starting a little bit of skin breakdown on the bridge of her nose from the BiPAP. We will start weaning the pressure on her BiPAP to see how she tolerates it. We dropped her inspiratory pressure down to 16 this morning and are monitoring her response. (2) Atrial fibrillation, transient Is this a current diagnosis for this admission?: Yes Plan: She is on Lopressor and Cardizem. \She has done better since we increased the dose of her Cardizem. (3) Tracheitis due to Staphylococcus infection Is this a current diagnosis for this admission?: Yes Plan: We started her back on vancomycin and have repeated her cultures. White blood cell count trending down. She remains afebrile. Possibility of a right lower lobe infiltrate on chest x-ray. - Time Time Spent with patient: 25-34 minutes
[2018-04-22] MEDS: DILTIAZEM HCL 30 MG TABLET NG SCH ×2 (00:03→05:46)
[2018-04-22] MEDS: FLUTICASONE/SALMETEROL DISKUS 500-50 MCG/DOSE IH SCH ×3 (00:07→23:02)
[2018-04-22] MEDS: LEVALBUTEROL HCL NEB 1.25 MG/3 ML AMPUL NEB SCH ×3 (00:53→17:01)
[2018-04-22] MEDS: IPRATROPIUM BROMIDE 0.02% NEB 0.5 MG/2.5 ML AMPUL NEB SCH ×3 (00:53→17:01)
[2018-04-22] MEDS: MORPHINE SULFATE 10 MG/ML INJ IV PRN ×4 (04:30→19:47)
[2018-04-22 05:23] LABS: ANION GAP 5 (5-19); BLOOD UREA NITROGEN 14 mg/dL (7-20); CALCIUM 8.5 mg/dL (8.4-10.2); CARBON DIOXIDE 35 mmol/L (22-30); CHLORIDE 94 mmol/L (98-107); GLUCOSE 112 mg/dL (75-110); POTASSIUM 3.8 mmol/L (3.6-5.0); SODIUM 133.9 mmol/L (137-145)
[2018-04-22] MEDS: VANCOMYCIN HCL 750 MG in DEXTROSE 5%-WATER 250 ML IV SCH ×3 (05:45→23:21)
[2018-04-22] MEDS: METOPROLOL TARTRATE 50 MG TABLET NG SCH ×2 (05:46→13:52)
[2018-04-22] MEDS ORDERED: HYDROCODONE/ACETAMINOPHEN 10-325 MG TABLET PO PRN (07:51)
[2018-04-22] MEDS ORDERED: IPRATROPIUM/ALBUTEROL 0.5-2.5 MG/3 ML AMPUL NEB PRN (07:51)
[2018-04-22] MEDS ORDERED: ALBUTEROL SULFATE HFA (90 MCG/PUFF) 200 PUFF/8.5 GM MDI IH PRN (07:51)
[2018-04-22] MEDS: INSULIN LISPRO 100 UNIT/ML 3 ML VIAL SUBCUT SCH ×4 (08:00→23:01)
--- NOTE | 2018-04-22 08:32 | RADIOLOGY REPORT (SQ) ---
EXAM DESCRIPTION: CHEST SINGLE VIEW COMPLETED DATE/TIME: 04/22/2018 8:19 am REASON FOR STUDY: resp distress COMPARISON: 04/20/2018 EXAM PARAMETERS: NUMBER OF VIEWS: One view. TECHNIQUE: Single frontal radiographic view of the chest acquired. RADIATION DOSE: NA LIMITATIONS: None. FINDINGS: LUNGS AND PLEURA: Hyperinflation of the lungs and flattening of the diaphragms, stable fi ndings. Stable right base mild interstitial changes. No pneumothorax. MEDIASTINUM AND HILAR STRUCTURES: No masses. Contour normal. HEART AND VASCULAR STRUCTURES: Heart normal in size. Normal vasculature. BONES: Stable right internal jugular line and nasogastric tube. HARDWARE: None in the chest. OTHER: No other significant finding. IMPRESSION: 1. No significant interval changes since the examination dated 04/20/2018. TECHNICAL DOCUMENTATION: JOB ID: [id number] [employer]- All Rights Reserved Reading location - IP/workstation name: [email or web address]
--- NOTE | 2018-04-22 09:27 | PDOC PROGRESS REPORT ---
Subjective Progress Note for:: 04/22/18 Subjective:: 04/22/20180302-21-foad-old female with history of COPD admitted for acute on chronic respiratory failure with hypoxia and hypercapnia. Status post intubation and extubation. She is on BiPAP now. We have difficulty in weaning her off the BiPAP. Pulse ox is 100% on 30% oxygen. No acute events in the last 24 hours, patient is afebrile. Patient is requesting DNI. Reason For Visit: HYPOXIC RESPIRATORY DISTRESS Physical Exam Vital Signs: Temp Pulse Resp BP Pulse Ox 98.8 F 44 L 13 85/53 L 100 04/22/18 08:00 04/22/18 08:00 04/22/18 08:00 04/22/18 08:00 04/22/18 08:00 Intake & Output 04/21/18 04/22/18 04/23/18 06:59 06:59 06:59 Intake Total 1481 500 Output Total 2870 2505 110 Balance -1389 -2005 -110 Weight 49.6 kg 46.8 kg General appearance: PRESENT: other - Mild to moderate distress Head exam: PRESENT: atraumatic Eye exam: PRESENT: PERRLA Mouth exam: PRESENT: dry mucosa Neck exam: ABSENT: carotid bruit, JVD, lymphadenopathy, thyromegaly Respiratory exam: PRESENT: decreased breath sounds Cardiovascular exam: PRESENT: tachycardia GI/Abdominal exam: PRESENT: normal bowel sounds, soft. ABSENT: distended, guarding, mass, organolmegaly, rebound, tenderness Extremities exam: PRESENT: full ROM. ABSENT: calf tenderness, clubbing, pedal edema Neurological exam: PRESENT: alert, awake, oriented to person, oriented to place, oriented to time, oriented to situation, CN II-XII grossly intact. ABSENT: motor sensory deficit Psychiatric exam: PRESENT: anxious, appropriate affect, normal mood. ABSENT: homicidal ideation, suicidal ideation Results Laboratory Results: 04/20/18 04:45 04/22/18 04:45 04/22/18 04:45 Sodium 133.9 L Potassium 3.8 Chloride 94 L Carbon Dioxide 35 H Anion Gap 5 BUN 14 Creatinine 0.28 L Est GFR ( Amer) > 60 Est GFR (Non-Af Amer) > 60 Glucose 112 H Calcium 8.5 04/16/18 21:10 Blood Blood Culture - Final NO GROWTH IN 5 DAYS 04/16/18 21:00 Blood Blood Culture - Final NO GROWTH IN 5 DAYS 03/31/18 04/07/18 09:24 05:45 Troponin I < 0.012 0.017 NT-Pro-B Natriuret Pep 684 Impressions: Venous Doppler Study 03/31/18 12:07 IMPRESSION: NO EVIDENCE FOR DVT OR SVT IN THE RIGHT LEG. Head CT 04/05/18 09:43 IMPRESSION: NORMAL BRAIN CT WITH CONTRAST. EVIDENCE OF ACUTE STROKE: NO. Chest/Abdomen CTA 04/07/18 18:09 IMPRESSION: Negative examination for pulmonary embolism. Chest X-Ray 04/22/18 00:00 IMPRESSION: 1. No significant interval changes since the examination dated 04/20/2018. Assessment & Plan - Diagnosis (1) Acute on chronic respiratory failure with hypoxia and hypercapnia Is this a current diagnosis for this admission?: Yes Plan: She is been extubated for over 96 hours and has been on BiPAP during that time. She is tired and it is pretty much all she can do to lay in bed and breathing on BiPAP, but we have not had to re-intubate yet. Monitoring her closely for signs of decompensation. She is starting a little bit of skin breakdown on the bridge of her nose from the BiPAP. We will start weaning the pressure on her BiPAP to see how she tolerates it. We dropped her inspiratory pressure down to 16 this morning and are monitoring her response. 04/22/2018-patient still on BiPAP on 30% oxygen pulse ox is 100% today. Me and the nurse data conversion developer discussed the plan of care with the patient patient is agreeing for DO NOT INTUBATE status. ABG requested for this morning is pending. Chest x-ray was stable. Patient is presently on albuterol inhalation, albuterol nebulizations, DuoNeb nebulizations, Xopenex nebulizations. Plan is to continue the present management. May downgrade her to IMCU today. (2) Atrial fibrillation, transient Is this a current diagnosis for this admission?: Yes Plan: 04/22/2018-patient was admitted with atrial fibrillation. On Lopressor and diltiazem. Pulse rate is 99 today. Sinus rhythm today. Plan is to continue the present management today. (3) COPD (chronic obstructive pulmonary disease) Qualifiers: COPD type: emphysema Is this a current diagnosis for this admission?: Yes Plan: Patient has a long history of COPD, admitted with a COPD exacerbation status post intubation and extubation. Presently on BiPAP. Patient wants to be DNI. Presently on albuterol sulfate, Xopenex nebulizations, DuoNeb nebulizations. plan is to continue the present management. (4) Tobacco abuse Is this a current diagnosis for this admission?: Yes Plan: 04/22/2018-patient is a chronic smoker. COPD most likely secondary to smoking. Patient is presently on nicotine patch. (5) Lung nodule Is this a current diagnosis for this admission?: Yes Plan: 04/22/2018-incidental finding of the lung nodule. Dr. Barraza is doing the pulmonary consult. Planning for further recommendations from the pulmonary team. Because of the chronic history of smoking most likely malignant in nature. (6) Tracheitis due to Staphylococcus infection Is this a current diagnosis for this admission?: Yes Plan: We started her back on vancomycin and have repeated her cultures. White blood cell count trending down. She remains afebrile. Possibility of a right lower lobe infiltrate on chest x-ray. 04/22/2018-the tracheal aspirate shows MRSA. Blood culture showing staph epidermidis. Patient is afebrile. Presently on vancomycin. Chest x-ray shows right lower lobe infiltrate. Pneumonia most likely secondary to MRSA. Plan is to continue the present management. Vanco trough on he is 15.7 which is therapeutic. - Time Time Spent with patient: 25-34 minutes Smoking Cessation Education: over 10 minutes Anticipated discharge: Home
[2018-04-22 09:55] LABS: ARTERIAL BLOOD BASE EXCESS 8.6 mmol/L; ARTERIAL BLOOD H2CO3 1.46 mmol/L (1.05-1.35); ARTERIAL BLOOD HCO3 33.5 mmol/L (20-24); ARTERIAL BLOOD O2 SATURATION 98.3 % (94-98); ARTERIAL BLOOD PCO2 48.6 mmHg (35-45); ARTERIAL BLOOD PH 7.46 (7.35-7.45); ARTERIAL BLOOD PO2 113.7 mmHg (80-100)
[2018-04-22 09:56] LABS: ARTERIAL BLOOD FIO2 30%
[2018-04-22] MEDS ORDERED: (PENDING PHARMACY ID) (Umeclidinium Bromide [Incruse Ellipta] 1 PUFF) IH SCH (10:00)
[2018-04-22] MEDS: METHYLPREDNISOLONE INJ 40 MG/1 ML SDV IV SCH (10:06)
[2018-04-22] MEDS: NICOTINE 21 MG/24 HR PATCH.TD24 TD SCH (10:06)
[2018-04-22] MEDS: FUROSEMIDE INJ/PF 20 MG/2 ML SDV IV SCH (10:09)
[2018-04-22] MEDS: POTASSIUM CHLORIDE 20 MEQ/15 ML UDCUP NG SCH ×2 (10:09→18:37)
[2018-04-22] MEDS: ENOXAPARIN SODIUM INJ 40 MG/0.4 ML DISP.SYRIN SUBCUT SCH (10:10)
[2018-04-22] MEDS: DILTIAZEM HCL 60 MG TABLET NG SCH ×2 (13:51→18:36)
[2018-04-22] MEDS: GABAPENTIN 400 MG CAPSULE PO SCH ×2 (13:51→23:21)
[2018-04-22] MEDS ORDERED: NORMAL SALINE 1000 ML 1,000 ML IV PRN (17:56)
[2018-04-23] MEDS: IPRATROPIUM BROMIDE 0.02% NEB 0.5 MG/2.5 ML AMPUL NEB SCH ×3 (00:26→16:56)
[2018-04-23] MEDS: LEVALBUTEROL HCL NEB 1.25 MG/3 ML AMPUL NEB SCH ×3 (00:26→16:56)
[2018-04-23] MEDS: DILTIAZEM HCL 60 MG TABLET NG SCH ×5 (00:55→23:16)
[2018-04-23] MEDS: MORPHINE SULFATE 10 MG/ML INJ IV PRN ×5 (01:43→20:50)
[2018-04-23] MEDS: GABAPENTIN 400 MG CAPSULE PO SCH ×3 (06:55→22:23)
[2018-04-23] MEDS: VANCOMYCIN HCL 750 MG in DEXTROSE 5%-WATER 250 ML IV SCH ×3 (06:55→22:20)
[2018-04-23 08:16] LABS: HEMATOCRIT 24.5 % (36.0-47.0); HEMOGLOBIN 8.4 g/dL (12.0-15.5); MEAN CORPUSCULAR HEMOGLOBIN 29.6 pg (27.0-33.4); MEAN CORPUSCULAR HGB CONC 34.1 g/dL (32.0-36.0); MEAN CORPUSCULAR VOLUME 87 fl (80-97); PLATELET COUNT 211 10^3/uL (150-450); RED BLOOD COUNT 2.82 10^6/uL (3.72-5.28); WHITE BLOOD COUNT 10.9 10^3/uL (4.0-10.5)
[2018-04-23 08:22] LABS: ALANINE AMINOTRANSFERASE 34 U/L (9-52); ALBUMIN 2.8 g/dL (3.5-5.0); ALKALINE PHOSPHATASE 60 U/L (38-126); ANION GAP 5 (5-19); ASPARTATE AMINO TRANSFERASE 14 U/L (14-36); BILIRUBIN,DIRECT 0.3 mg/dL (0.0-0.4); BILIRUBIN,TOTAL 0.5 mg/dL (0.2-1.3); BLOOD UREA NITROGEN 14 mg/dL (7-20); CALCIUM 8.4 mg/dL (8.4-10.2); CARBON DIOXIDE 35 mmol/L (22-30); CHLORIDE 95 mmol/L (98-107); GLUCOSE 95 mg/dL (75-110); POTASSIUM 4.1 mmol/L (3.6-5.0); SODIUM 134.6 mmol/L (137-145)
[2018-04-23 09:05] LABS: ABSOLUTE LYMPHOCYTES# (MANUAL) 0.3 10^3/uL (0.5-4.7); ABSOLUTE MONOCYTES # (MANUAL) 0.1 10^3/uL (0.1-1.4); ABSOLUTE NEUTROPHILS# (MANUAL) 10.5 10^3/uL (1.7-8.2); BASOPHILS % (MANUAL) 0 % (0-2); EOSINOPHILS % (MANUAL) 0 % (0-6); LYMPHOCYTES % (MANUAL) 3 % (13-45); MONOCYTES % (MANUAL) 1 % (3-13); SEGMENTED NEUTROPHILS % (MAN) 96 % (42-78); TOTAL CELLS COUNTED 100
[2018-04-23 09:07] LABS: ANISOCYTOSIS 1+; OVALOCYTES SLIGHT; PLATELET COMMENT ADEQUATE; POIKILOCYTOSIS SLIGHT
[2018-04-23] MEDS: ENOXAPARIN SODIUM INJ 40 MG/0.4 ML DISP.SYRIN SUBCUT SCH (11:43)
[2018-04-23] MEDS: NICOTINE 21 MG/24 HR PATCH.TD24 TD SCH (11:43)
[2018-04-23] MEDS: POTASSIUM CHLORIDE 20 MEQ/15 ML UDCUP NG SCH ×2 (11:44→17:01)
[2018-04-23] MEDS: INSULIN LISPRO 100 UNIT/ML 3 ML VIAL SUBCUT SCH ×4 (11:44→22:01)
[2018-04-23] MEDS: FLUTICASONE/SALMETEROL DISKUS 500-50 MCG/DOSE IH SCH ×2 (11:44→22:26)
[2018-04-23] MEDS: FUROSEMIDE INJ/PF 20 MG/2 ML SDV IV SCH (11:44)
--- NOTE | 2018-04-23 12:32 | PDOC PROGRESS REPORT ---
Subjective Progress Note for:: 04/23/18 Subjective:: 04/22/[id number]-ddsa-old female with history of COPD admitted for acute on chronic respiratory failure with hypoxia and hypercapnia. Status post intubation and extubation. She is on BiPAP now. We have difficulty in weaning her off the BiPAP. Pulse ox is 100% on 30% oxygen. No acute events in the last 24 hours, patient is afebrile. Patient is requesting DNI. 04/23/[id number]-skuw-old female with history of COPD on BiPAP for acute on chronic respiratory failure with hypoxia and hypercapnia. She still on BiPAP today. No acute events in the last 24 hours. Patient is afebrile. I spoke to patient's son Rocky this morning he is going to talk to the other family members to make a decision about her trach and PEG. In the meantime he wants just to continue the present management. Reason For Visit: HYPOXIC RESPIRATORY DISTRESS Physical Exam Vital Signs: Temp Pulse Resp BP Pulse Ox 98.0 F 77 19 130/59 H 97 04/23/18 11:26 04/23/18 11:26 04/23/18 11:26 04/23/18 11:26 04/23/18 11:26 Intake & Output 04/22/18 04/23/18 04/24/18 06:59 06:59 06:59 Intake Total 500 1568 Output Total 2505 2460 825 [facility] -[phone] Weight 46.8 kg 40.4 kg General appearance: PRESENT: mild distress Head exam: PRESENT: atraumatic Eye exam: PRESENT: PERRLA Mouth exam: PRESENT: moist, tongue midline Neck exam: ABSENT: carotid bruit, JVD, lymphadenopathy, thyromegaly Respiratory exam: PRESENT: decreased breath sounds Cardiovascular exam: PRESENT: tachycardia GI/Abdominal exam: PRESENT: normal bowel sounds, soft. ABSENT: distended, gua rding, mass, organolmegaly, rebound, tenderness Extremities exam: PRESENT: full ROM. ABSENT: calf tenderness, clubbing, pedal edema Neurological exam: PRESENT: alert, awake, oriented to person, oriented to place, oriented to time, oriented to situation, CN II-XII grossly intact. ABSENT: motor sensory deficit Psychiatric exam: PRESENT: appropriate affect, normal mood. ABSENT: homicidal ideation, suicidal ideation Results Laboratory Results: 04/23/18 06:54 04/23/18 06:54 04/23/18 04/23/18 06:54 06:54 WBC 10.9 H RBC 2.82 L Hgb 8.4 L Hct 24.5 L MCV 87 MCH 29.6 MCHC 34.1 RDW 15.0 H Plt Count 211 Seg Neutrophils % Not Reportable Lymphocytes % Not Reportable Monocytes % Not Reportable Eosinophils % Not Reportable Basophils % Not Reportable Absolute Neutrophils Not Reportable Absolute Lymphocytes Not Reportable Absolute Monocytes Not Reportable Absolute Eosinophils Not Reportable Absolute Basophils Not Reportable Sodium 134.6 L Potassium 4.1 Chloride 95 L Carbon Dioxide 35 H Anion Gap 5 BUN 14 Creatinine 0.25 L Est GFR ( Amer) > 60 Est GFR (Non-Af Amer) > 60 Glucose 95 Calcium 8.4 Magnesium 2.1 Total Bilirubin 0.5 AST 14 ALT 34 Alkaline Phosphatase 60 Total Protein 5.0 L Albumin 2.8 L 03/31/18 04/07/18 09:24 05:45 Troponin I < 0.012 0.017 NT-Pro-B Natriuret Pep 684 Impressions: Venous Doppler Study 03/31/18 12:07 IMPRESSION: NO EVIDENCE FOR DVT OR SVT IN THE RIGHT LEG. Head CT 04/05/18 09:43 IMPRESSION: NORMAL BRAIN CT WITH CONTRAST. EVIDENCE OF ACUTE STROKE: NO. Chest/Abdomen CTA 04/07/18 18:09 IMPRESSION: Negative examination for pulmonary embolism. Chest X-Ray 04/22/18 00:00 IMPRESSION: 1. No significant interval changes since the examination dated 04/20/2018. Assessment & Plan - Diagnosis (1) Acute on chronic respiratory failure with hypoxia and hypercapnia Is this a current diagnosis for this admission?: Yes Plan: She is been extubated for over 96 hours and has been on BiPAP during that time. She is tired and it is pretty much all she can do to lay in bed and breathing on BiPAP, but we have not had to re-intubate yet. Monitoring her closely for signs of decompensation. She is starting a little bit of skin breakdown on the bridge of her nose from the BiPAP. We will start weaning the pressure on her BiPAP to see how she tolerates it. We dropped her inspiratory pressure down to 16 this morning and are monitoring her response. 04/22/2018-patient still on BiPAP on 30% oxygen pulse ox is 100% today. Me and the nurse non destructive testing specialist discussed the plan of care with the patient patient is agreeing for DO NOT INTUBATE status. ABG requested for this morning is pending. Chest x-ray was stable. Patient is presently on albuterol inhalation, albuterol nebulizations, DuoNeb nebulizations, Xopenex nebulizations. Plan is to continue the present management. May downgrade her to IMCU today. 04/23/2018-patient is still on BiPAP 30% oxygen pulse ox is 95%. We are unable to wean her off the BiPAP. Discussed the plan of care with the patient's son, is going to talk to the other family members to make a decision about her trach and PEG and let us know either tonight or tomorrow. In the meantime will contin ue albuterol nebulizations, DuoNeb nebulizations, Xopenex nebulizations. Patient is presently on IV vancomycin. Tracheal aspirate is positive for MRSA. Pneumonia most likely secondary to MRSA. (2) Atrial fibrillation, transient Is this a current diagnosis for this admission?: Yes Plan: 04/22/2018-patient was admitted with atrial fibrillation. On Lopressor and diltiazem. Pulse rate is 99 today. Sinus rhythm today. Plan is to continue the present management today. 04/23/2018-patient has a transient atrial fibrillation until yesterday she is on Lopressor and diltiazem, she became bradycardic yesterday evening Lopressor is on hold and patient is continued to receive Cardizem. Today heart rate is 58. (3) COPD (chronic obstructive pulmonary disease) Qualifiers: COPD type: emphysema Is this a current diagnosis for this admission?: Yes Plan: Patient has a long history of COPD, admitted with a COPD exacerbation status po st intubation and extubation. Presently on BiPAP. Patient wants to be DNI. Presently on albuterol sulfate, Xopenex nebulizations, DuoNeb nebulizations. plan is to continue the present management. 04/23/2018-patient has history of COPD, presently on BiPAP 30% oxygen. Patient is DNI. As mentioned above had a long discussion with the patient's son he is going to let me know about further plan of care in the tonight or tomorrow. (4) Tobacco abuse Is this a current diagnosis for this admission?: Yes (5) Lung nodule Is this a current diagnosis for this admission?: Yes Plan: 04/22/2018-incidental finding of the lung nodule. Dr. Barraza is doing the pulmonary consult. Planning for further recommendations from the pulmonary team. Because of the chronic history of smoking most likely malignant in nature. 04/23/2018-patient CT scan found to have a lung nodule. Pulmonary consult was done and further management as per Dr. Barraza. (6) Tracheitis due to Staphylococcus infection Is this a current diagnosis for this admission?: Yes Plan: We started her back on vancomycin and have repeated her cultures. White blood cell count trending down. She remains afebrile. Possibility of a right lower lobe infiltrate on chest x-ray. 04/22/2018-the tracheal aspirate shows MRSA. Blood culture showing staph epidermidis. Patient is afebrile. Presently on vancomycin. Chest x-ray shows right lower lobe infiltrate. Pneumonia most likely secondary to MRSA. Plan is to continue the present management. Vanco trough on he is 15.7 which is therapeutic. 04/23/2018-tracheal aspirate shows MRSA. Presently on IV vancomycin. Chest x- ray suggestive of right lower lobe pneumonia. Pneumonia most likely secondary to MRSA. Plan is to continue the present management. - Time Time Spent with patient: 15-24 minutes Medications reviewed and adjusted accordingly: Yes
[2018-04-23] MEDS ORDERED: METOPROLOL TARTRATE PF/INJ 5 MG/5 ML SDV IV ONE ×2 (16:34→17:45)
[2018-04-23] MEDS ORDERED: METOPROLOL TARTRATE PF/INJ 5 MG/5 ML SDV IV PRN (16:47)
[2018-04-23] MEDS: HYDROXYZINE PAMOATE 25 MG CAPSULE PO PRN (20:50)
[2018-04-23 21:39] LABS: VANCOMYCIN,TROUGH 23.4 ug/mL (5.0-20.0)
[2018-04-23] MEDS: METOPROLOL TARTRATE 50 MG TABLET PO SCH (22:24)
[2018-04-24] MEDS: LEVALBUTEROL HCL NEB 1.25 MG/3 ML AMPUL NEB SCH ×3 (00:36→16:43)
[2018-04-24] MEDS: IPRATROPIUM BROMIDE 0.02% NEB 0.5 MG/2.5 ML AMPUL NEB SCH ×3 (00:36→16:43)
[2018-04-24] MEDS: MORPHINE SULFATE 10 MG/ML INJ IV PRN (00:56)
[2018-04-24] MEDS: GABAPENTIN 400 MG CAPSULE PO SCH ×3 (05:27→22:14)
[2018-04-24] MEDS: DILTIAZEM HCL 60 MG TABLET NG SCH ×3 (05:27→17:22)
[2018-04-24] MEDS: INSULIN LISPRO 100 UNIT/ML 3 ML VIAL SUBCUT SCH ×4 (09:26→22:12)
[2018-04-24] MEDS: POTASSIUM CHLORIDE 20 MEQ/15 ML UDCUP NG SCH ×2 (09:41→17:23)
[2018-04-24] MEDS: FUROSEMIDE INJ/PF 20 MG/2 ML SDV IV SCH (09:41)
[2018-04-24] MEDS: METOPROLOL TARTRATE 50 MG TABLET PO SCH ×2 (09:41→22:13)
[2018-04-24] MEDS: NICOTINE 21 MG/24 HR PATCH.TD24 TD SCH (09:42)
[2018-04-24] MEDS: ENOXAPARIN SODIUM INJ 40 MG/0.4 ML DISP.SYRIN SUBCUT SCH (09:42)
[2018-04-24] MEDS: FLUTICASONE/SALMETEROL DISKUS 500-50 MCG/DOSE IH SCH ×2 (09:42→22:34)
--- NOTE | 2018-04-24 10:08 | PDOC PROGRESS REPORT ---
Subjective Progress Note for:: 04/24/18 Subjective:: 04/22/[id number]-wkyh-old female with history of COPD admitted for acute on chronic respiratory failure with hypoxia and hypercapnia. Status post intubation and extubation. She is on BiPAP now. We have difficulty in weaning her off the BiPAP. Pulse ox is 100% on 30% oxygen. No acute events in the last 24 hours, patient is afebrile. Patient is requesting DNI. 04/23/[id number]-akdk-old female with history of COPD on BiPAP for acute on chronic respiratory failure with hypoxia and hypercapnia. She still on BiPAP today. No acute events in the last 24 hours. Patient is afebrile. I spoke to patient's son Rocky this morning he is going to talk to the other family members to make a decision about her trach and PEG. In the meantime he wants just to continue the present management. 04/24/2018-no acute events in the last 24 hours. Patient is afebrile. Patient still on BiPAP. Pulse ox is 96% on 30% oxygen. I spoke to patient's son Rocky this morning again he is on the way to see his mom today after talking to the patient is going to let us know about further management like a trach placement and PEG placement. Patient status is DNI. Reason For Visit: HYPOXIC RESPIRATORY DISTRESS Physical Exam Vital Signs: Temp Pulse Resp BP Pulse Ox 98.8 F 99 15 131/73 H 96 04/24/18 07:26 04/24/18 07:26 04/24/18 07:26 04/24/18 07:26 04/24/18 07:26 Intake & Output 04/23/18 04/24/18 04/25/18 06:59 06:59 06:59 Intake Total 1568 1824 Output Total 2460 1445 400 Balance -808 -4103 -400 Weight 40.4 kg 39.4 kg General appearance: PRESENT: mild distress, other - thin cachectic female on BiPAP. Head exam: PRESENT: atraumatic Eye exam: PRESENT: conjunctiva pink, EOMI, PERRLA. ABSENT: scleral icterus Teeth exam: PRESENT: poor dentation Neck exam: ABSENT: carotid bruit, JVD, lymphadenopathy, thyromegaly Respiratory exam: PRESENT: other - Chest bilateral entry is severely decreased. Cardiovascular exam: PRESENT: irregular rhythm, tachycardia GI/Abdominal exam: PRESENT: normal bowel sounds, soft. ABSENT: distended, guarding, mass, organolmegaly, rebound, tenderness Extremities exam: PRESENT: full ROM. ABSENT: calf tenderness, clubbing, pedal edema Neurological exam: PRESENT: other - Patient is comfortably sleeping on BiPAP. Psychiatric exam: PRESENT: appropriate affect, normal mood. ABSENT: homicidal ideation, suicidal ideation Results Laboratory Results: 04/23/18 06:54 04/23/18 06:54 03/31/18 04/07/18 09:24 05:45 Troponin I < 0.012 0.017 NT-Pro-B Natriuret Pep 684 Impressions: Venous Doppler Study 03/31/18 12:07 IMPRESSION: NO EVIDENCE FOR DVT OR SVT IN THE RIGHT LEG. Head CT 04/05/18 09:43 IMPRESSION: NORMAL BRAIN CT WITH CONTRAST. EVIDENCE OF ACUTE STROKE: NO. Chest/Abdomen CTA 04/07/18 18:09 IMPRESSION: Negative examination for pulmonary embolism. Chest X-Ray 04/22/18 00:00 IMPRESSION: 1. No significant interval changes since the examination dated 04/20/2018. Assessment & Plan - Diagnosis (1) Acute on chronic respiratory failure with hypoxia and hypercapnia Is this a current diagnosis for this admission?: Yes Plan: She is been extubated for over 96 hours and has been on BiPAP during that time. She is tired and it is pretty much all she can do to lay in bed and breathing on BiPAP, but we have not had to re-intubate yet. Monitoring her closely for signs of decompensation. She is starting a little bit of skin breakdown on the bridge of her nose from the BiPAP. We will start weaning the pressure on her BiPAP to see how she tolerates it. We dropped her inspiratory pressure down to 16 this morning and are monitoring her response. 04/22/2018-patient still on BiPAP on 30% oxygen pulse ox is 100% today. Me and the nurse online user experience strategist discussed the plan of care with the patient patient is agreeing for DO NOT INTUBATE status. ABG requested for this morning is pending. Chest x-ray was stable. Patient is presently on albuterol inhalation, albuterol nebulizations, DuoNeb nebulizations, Xopenex nebulizations. Plan is to continue the present management. May downgrade her to IMCU today. 04/23/2018-patient is still on BiPAP 30% oxygen pulse ox is 95%. We are unable to wean her off the BiPAP. Discussed the plan of care with the patient's son, is going to talk to the other family members to make a decision about her trach and PEG and let us know either tonight or tomorrow. In the meantime will continue albuterol nebulizations, DuoNeb nebulizations, Xopenex nebulizations. Patient is presently on IV vancomycin. Tracheal aspirate is positive for MRSA. Pneumonia most likely secondary to MRSA. 04/24/2018-patient is still on BiPAP 30% oxygen pulse ox is 95%. Son is on the way to the hospital to discuss the further plan of care. Presently she is in schedule albuterol and DuoNeb nebulizations, Xopenex nebulizations. Tracheal aspirate is positive for MRSA. Pneumonia most likely secondary to MRSA. On IV vancomycin. Vancomycin trough is 23.4 yesterday. (2) Atrial fibrillation, transient Is this a current diagnosis for this admission?: Yes Plan: 04/22/2018-patient was admitted with atrial fibrillation. On Lopressor and diltiazem. Pulse rate is 99 today. Sinus rhythm today. Plan is to continue the present management today. 04/23/2018-patient has a transient atrial fibrillation until yesterday she is on Lopressor and diltiazem, she became bradycardic yesterday evening Lopressor is on hold and patient is continued to receive Cardizem. Today heart rate is 58. 04/24/2018-patient has a transient atrial fibrillation which is paroxysmal. Yesterday heart rate went up to 140s 150s and Lopressor was restarted again. Also placed Lopressor 2.5 mg IV as needed for the heart rate more than 120. Today still in A. fib heart rate is 99. Patient is seen by Dr. Edmond recommendation is aspirin 325 mg p.o. daily. (3) COPD (chronic obstructive pulmonary disease) Qualifiers: COPD type: emphysema Is this a current diagnosis for this admission?: Yes Plan: Patient has a long history of COPD, admitted with a COPD exacerbation status pos t intubation and extubation. Presently on BiPAP. Patient wants to be DNI. Presently on albuterol sulfate, Xopenex nebulizations, DuoNeb nebulizations. plan is to continue the present management. 04/23/2018-patient has history of COPD, presently on BiPAP 30% oxygen. Patient is DNI. As mentioned above had a long discussion with the patient's son he is going to let me know about further plan of care in the tonight or tomorrow. 04/24/2018 patient has history of COPD most likely secondary to chronic smoking. Still on BiPAP. Patient CODE STATUS is DNI. Family members are coming today to discuss further plan of care. (4) Tobacco abuse Is this a current diagnosis for this admission?: Yes (5) Lung nodule Is this a current diagnosis for this admission?: Yes Plan: 04/22/2018-incidental finding of the lung nodule. Dr. Barraza is doing the pulmonary consult. Planning for further recommendations from the pulmonary team. Because of the chronic history of smoking most likely malignant in nature. 04/23/2018-patient CT scan found to have a lung nodule. Pulmonary consult was done and further management as per Dr. Barraza. (6) Tracheitis due to Staphylococcus infection Is this a current diagnosis for this admission?: Yes Plan: We started her back on vancomycin and have repeated her cultures. White blood cell count trending down. She remains afebrile. Possibility of a right lower lobe infiltrate on chest x-ray. 04/22/2018-the tracheal aspirate shows MRSA. Blood culture showing staph epidermidis. Patient is afebrile. Presently on vancomycin. Chest x-ray shows right lower lobe infiltrate. Pneumonia most likely secondary to MRSA. Plan is to continue the present management. Vanco trough on 13 he is 15.7 which is therapeutic. 04/23/2018-tracheal aspirate shows MRSA. Presently on IV vancomycin. Chest x- ray suggestive of right lower lobe pneumonia. Pneumonia most likely secondary to MRSA. Plan is to continue the present management. 04/24/2018-tracheal aspirate shows MRSA on IV vancomycin trough level is 23.4. Chest x-ray suggestive of right lower lobe pneumonia pneumonia most likely secondary to MRSA. - Time Time Spent with patient: 15-24 minutes Medications reviewed and adjusted accordingly: Yes
[2018-04-24] MEDS: ACETAMINOPHEN SOLN 325 MG/10.15 ML UDCUP NG PRN ×2 (10:38→17:23)
[2018-04-24 11:30] LABS: ARTERIAL BLOOD BASE EXCESS 10.8 mmol/L; ARTERIAL BLOOD H2CO3 1.26 mmol/L (1.05-1.35); ARTERIAL BLOOD HCO3 34.4 mmol/L (20-24); ARTERIAL BLOOD PCO2 41.8 mmHg (35-45); ARTERIAL BLOOD PH 7.53 (7.35-7.45); ARTERIAL BLOOD PO2 66.3 mmHg (80-100); ARTERIAL BLOOD TOTAL CO2 35.7 mmol/L (21-25)
[2018-04-24 11:31] LABS: ARTERIAL BLOOD FIO2 30%
[2018-04-24] MEDS: NORMAL SALINE 1000 ML 1,000 ML IV PRN ×2 (16:10→20:51)
[2018-04-24] MEDS: MIDODRINE HCL 5 MG TABLET PO SCH ×2 (16:10→18:30)
--- NOTE | 2018-04-24 18:54 | PDOC CONSULTATION ---
Consultation Consult Date: 04/24/18 Consult reason:: Hypoxemic respiratory failure, inability to wean from BiPAP, need for tracheostomy and gastrostomy. History of Present Illness Admission Date/PCP: 03/31/18 12:27 DELMY NEELY MD History of Present Illness: ILDA MORALES is a 62 year old female admitted with hypoxemic respiratory failure. She has chronic COPD and requires home oxygen at baseline. The patient began having significant difficulty breathing and presented to the emergency department. The patient spent several days on the ventilator, and was eventually weaned. The patient has been unable to wean from BiPAP since that time. Currently the patient cannot maintain oxygen saturations without her BiP AP. She is beginning to experience pressure ulcers on her face, due to the BiPAP. The family has requested tracheostomy and gastrostomy to assist with her recovery and placement in a nursing facility. The patient reports shortness of breath, cough, generalized pain, malaise, and fatigue. Patient does not experience chest pain, headache, dizziness, abdominal pain, nausea, vomiting, blurry vision. Past Medical History Cardiac Medical History: Reports: Atrial Fibrillation Pulmonary Medical History: Reports: Chronic Obstructive Pulmonary Disease (COPD) Past Surgical History Past Surgical History: Reports: Hysterectomy, Tubal Ligation Social History Smoking Status: Current Every Day Smoker - Advance Directive Resuscitation Status: Do Not Intubate Family History Family History: Reviewed & Not Pertinent Parental Family History Reviewed: Yes Children Family History Reviewed: Yes Sibling(s) Family History Reviewed.: Yes Medication/Allergy Home Medications: Albuterol Sulfate [Proair Hfa Inhalation Aerosol 8.5 gm Mdi] 2 puff IH Q6HP PRN 03/31/18 Fluticasone/Salmeterol [Advair 500-50 Diskus 14 Dose/Diskus] 1 inh IH Q12 03/31/18 Gabapentin [Neurontin 400 mg Capsule] 800 mg PO Q8 03/31/18 Hydrocodone Bit/Acetaminophen [Hydrocodon-Acetaminophn 10-325] 1 each PO Q8HP PRN 03/31/18 Hydroxyzine Pamoate [Vistaril 25 mg Capsule] 25 mg PO Q8HP PRN 03/31/18 Ipratropium/Albuterol Sulfate [Duoneb 3 ml Ampul] 3 ml NEB RTQIDP PRN 03/31/18 Umeclidinium [place] [Incruse Ellipta] 1 puff IH DAILY 03/31/18 Allergies/Adverse Reactions: No Known Allergies Allergy (Verified 06/30/17 14:50) Review of Systems Constitutional: PRESENT: fatigue, weakness. ABSENT: fever(s), headache(s) Eyes: ABSENT: visual disturbances Ears: ABSENT: hearing changes Nose, Mouth, and Throat: ABSENT: sore throat Cardiovascular: PRESENT: dyspnea on exertion. ABSENT: chest pain Respiratory: PRESENT: cough, dyspnea Gastrointestinal: ABSENT: abdominal pain, bloating Genitourinary: ABSENT: dysuria, hematuria Integumentary: PRESENT: wounds - Pressure wounds from the BiPAP mask. ABSENT: pruritus, rash Neurological: ABSENT: convulsions, dizziness Psychiatric: ABSENT: anxiety, depression Endocrine: ABSENT: cold intolerance, heat intolerance Hematologic/Lymphatic: ABSENT: easy bleeding, easy bruising Physical Exam Vital Signs: Temp Pulse Resp BP Pulse Ox 99.0 F 81 13 79/49 L 96 04/24/18 11:50 04/24/18 14:00 04/24/18 11:51 04/24/18 11:50 04/24/18 11:51 Intake & Output 04/23/18 04/24/18 04/25/18 06:59 06:59 06:59 Intake Total 1568 1824 630 Output Total 2460 7695 1225 Balance -909 -5143 -087 Weight 40.4 kg 39.4 kg General appearance: PRESENT: mild distress - Respiratory Head exam: PRESENT: atraumatic, normocephalic Eye exam: PRESENT: EOMI, PERRLA. ABSENT: scleral icterus Mouth exam: PRESENT: neck supple Teeth exam: PRESENT: poor dentation Neck exam: ABSENT: meningismus, tenderness, thyromegaly, tracheal deviation Respiratory exam: PRESENT: crackles, rhonchi, tachypnea, wheezes. ABSENT: unlabored Cardiovascular exam: PRESENT: irregular rhythm Pulses: PRESENT: normal radial pulses GI/Abdominal exam: PRESENT: soft. ABSENT: distended, firm, guarding, rigid, tenderness Rectal exam: PRESENT: deferred Musculoskeletal exam: ABSENT: deformity Neurological exam: PRESENT: alert, awake Psychiatric exam: ABSENT: agitated, anxious Focused psych exam: ABSENT: delusional Skin exam: ABSENT: erythema, jaundice Results Laboratory Results: 04/23/18 06:54 04/23/18 06:54 04/24/18 10:35 Carbonic Acid 1.26 HCO3/H2CO3 Ratio 27:1 ABG pH 7.53 H ABG pCO2 41.8 ABG pO2 66.3 L ABG HCO3 34.4 H ABG O2 Saturation 95.0 ABG Base Excess 10.8 FiO2 30% 03/31/18 04/07/18 09:24 05:45 Troponin I < 0.012 0.017 NT-Pro-B Natriuret Pep 684 Impressions: Venous Doppler Study 03/31/18 12:07 IMPRESSION: NO EVIDENCE FOR DVT OR SVT IN THE RIGHT LEG. Head CT 04/05/18 09:43 IMPRESSION: NORMAL BRAIN CT WITH CONTRAST. EVIDENCE OF ACUTE STROKE: NO. Chest/Abdomen CTA 04/07/18 18:09 IMPRESSION: Negative examination for pulmonary embolism. Chest X-Ray 04/22/18 00:00 IMPRESSION: 1. No significant interval changes since the examination dated 04/20/2018. Assessment & Plan - Diagnosis (1) Inanition Is this a current diagnosis for this admission?: Yes (2) Acute on chronic respiratory failure with hypoxia and hypercapnia Is this a current diagnosis for this admission?: Yes - Plan Summary Plan Summary: This is a 62-year-old female with acute on chronic respiratory failure. She has MRSA pneumonia as well. The patient is currently unable to wean from BiPAP. Her BiPAP mask is beginning to create pressure ulcers on her face. The patient and her family are requesting tracheostomy and gastrostomy placement to facilitate her transition to a long-term care facility. I believe this is reasonable. I have discussed risks and benefits of these interventions with the patient and the family at length. Informed consent was obtained from the patient and her family. All questions were answered.
[2018-04-24] MEDS ORDERED: MIDODRINE HCL 5 MG TABLET PO ONE (20:00)
[2018-04-24] MEDS: HYDROXYZINE PAMOATE 25 MG CAPSULE PO PRN (20:12)
[2018-04-24] MEDS: HYDROCODONE/ACETAMINOPHEN 5-325 MG TABLET PO PRN (22:32)
[2018-04-25] MEDS: LEVALBUTEROL HCL NEB 1.25 MG/3 ML AMPUL NEB SCH ×3 (00:02→16:25)
[2018-04-25] MEDS: IPRATROPIUM BROMIDE 0.02% NEB 0.5 MG/2.5 ML AMPUL NEB SCH ×3 (00:02→16:25)
[2018-04-25] MEDS: DILTIAZEM HCL 60 MG TABLET NG SCH ×4 (01:00→17:06)
[2018-04-25] MEDS: HYDROCODONE/ACETAMINOPHEN 5-325 MG TABLET PO PRN (05:33)
[2018-04-25] MEDS: NORMAL SALINE 1000 ML 1,000 ML IV PRN ×3 (05:33→22:32)
[2018-04-25] MEDS: HYDROXYZINE PAMOATE 25 MG CAPSULE PO PRN (05:33)
[2018-04-25] MEDS: GABAPENTIN 400 MG CAPSULE PO SCH ×3 (05:35→21:40)
[2018-04-25 06:28] LABS: ABSOLUTE EOSINOPHILS # (AUTO) 0.1 10^3/uL (0.0-0.6); ABSOLUTE LYMPHOCYTES (AUTO) 0.3 10^3/uL (0.5-4.7); ABSOLUTE MONOCYTES (AUTO) 0.3 10^3/uL (0.1-1.4); ABSOLUTE NEUT (AUTO) 4.7 10^3/uL (1.7-8.2); BASOPHILS % (AUTO) 0.7 % (0-2); EOSINOPHILS % (AUTO) 2.7 % (0-6); HEMATOCRIT 23.1 % (36.0-47.0); LYMPHOCYTES % (AUTO) 6.3 % (13-45); MEAN CORPUSCULAR HEMOGLOBIN 29.6 pg (27.0-33.4); MEAN CORPUSCULAR VOLUME 87 fl (80-97); MONOCYTES % (AUTO) 4.7 % (3-13); PLATELET COUNT 164 10^3/uL (150-450); RED BLOOD COUNT 2.65 10^6/uL (3.72-5.28); RED CELL DISTRIBUTION WIDTH 15.1 % (11.5-14.0); SEGMENTED NEUTROPHILS % (AUTO) 85.6 % (42-78); TOTAL CELLS COUNTED % (AUTO) 100 %; WHITE BLOOD COUNT 5.5 10^3/uL (4.0-10.5)
[2018-04-25 06:33] LABS: HEMOGLOBIN 7.8 g/dL (12.0-15.5)
[2018-04-25 06:52] LABS: ALANINE AMINOTRANSFERASE 28 U/L (9-52); ALBUMIN 2.2 g/dL (3.5-5.0); ALKALINE PHOSPHATASE 58 U/L (38-126); ASPARTATE AMINO TRANSFERASE 12 U/L (14-36); BILIRUBIN,DIRECT 0.3 mg/dL (0.0-0.4); BILIRUBIN,TOTAL 0.5 mg/dL (0.2-1.3); BLOOD UREA NITROGEN 11 mg/dL (7-20); CALCIUM 7.4 mg/dL (8.4-10.2); CHLORIDE 102 mmol/L (98-107); GLUCOSE 83 mg/dL (75-110); TOTAL PROTEIN 4.3 g/dL (6.3-8.2)
[2018-04-25 06:58] LABS: CARBON DIOXIDE 30 mmol/L (22-30); SODIUM 135.8 mmol/L (137-145)
[2018-04-25 07:02] LABS: ANION GAP 4 (5-19)
--- NOTE | 2018-04-25 07:37 | EKG REPORT ---
SEVERITY:- ABNORMAL ECG - SINUS RHYTHM NONSPECIFIC T ABNORMALITIES, LATERAL LEADS : Confirmed by: Inocente Lorenzo MD 25-Apr-2018 07:37:08
[2018-04-25] MEDS: INSULIN LISPRO 100 UNIT/ML 3 ML VIAL SUBCUT SCH ×4 (07:39→22:08)
[2018-04-25] MEDS: FLUTICASONE/SALMETEROL DISKUS 500-50 MCG/DOSE IH SCH ×2 (09:19→21:39)
[2018-04-25] MEDS: POTASSIUM CHLORIDE 20 MEQ/15 ML UDCUP NG SCH ×2 (09:19→17:06)
[2018-04-25] MEDS: ASPIRIN 325 MG TABLET PO SCH (09:19)
[2018-04-25] MEDS: FUROSEMIDE INJ/PF 20 MG/2 ML SDV IV SCH (09:20)
[2018-04-25] MEDS: NICOTINE 21 MG/24 HR PATCH.TD24 TD SCH (09:20)
[2018-04-25] MEDS: MIDODRINE HCL 5 MG TABLET PO SCH ×3 (09:20→17:07)
[2018-04-25] MEDS: METOPROLOL TARTRATE 50 MG TABLET PO SCH ×2 (09:20→21:39)
[2018-04-25] MEDS ORDERED: MIDAZOLAM 2 MG/2 ML INJ ONE (09:34)
[2018-04-25] MEDS ORDERED: FENTANYL CITRATE INJ/PF 100 MCG/2 ML AMPUL ONE (09:34)
[2018-04-25] MEDS ORDERED: MORPHINE SULFATE 10 MG/ML INJ ONE (09:35)
[2018-04-25] MEDS ORDERED: PROPOFOL INJ 200 MG/20 ML VIAL IV ONE (09:35)
[2018-04-25] MEDS ORDERED: LIDOCAINE 2% JELLY 5 ML TUBE ONE (09:36)
[2018-04-25] MEDS ORDERED: LIDOCAINE 1%/EPINEPHRINE INJ 20 ML VIAL ONE (09:36)
[2018-04-25] MEDS ORDERED: ROCURONIUM BROMIDE INJ 50 MG/5 ML VIAL IV ONE (10:33)
[2018-04-25] MEDS ORDERED: SUCCINYLCHOLINE CHLORIDE INJ 200 MG/10 ML VIAL ONE (10:33)
--- NOTE | 2018-04-25 11:24 | Operative Report ---
Operative Report DATE OF SURGERY: 04/25/18 PREOPERATIVE DIAGNOSIS: Respiratory failure POSTOPERATIVE DIAGNOSIS: Same; intraoperative supraventricular tachycardia OPERATION: 1. Open tracheostomy with 6 inner diameter fenestrated Shiley tracheostomy tube. 2. Esophagogastroduodenoscopy with percutaneous endoscopic gastrostomy tube placement using Endo-eye 24 Burmese pull out tube SURGEON: FILIBERTO MCFADDEN ANESTHESIA: GA TISSUE REMOVED OR ALTERED: None COMPLICATIONS: None ESTIMATED BLOOD LOSS: Scant INTRAOPERATIVE FINDINGS: See below PROCEDURE: The patient was taken from the third floor to the preop holding area, in the main operating room where she was placed from the rney to the main operating table. The patient had irregular heart rate with what appeared to be an irregular supraventricular tachycardia. Anesthesia took over the care of the patient, and ascertained that it was safe to proceed with the planned trach and PEG placement. The patient was lay supine with the arms tucked, nasogastric tube removed, and tape securing the endotracheal tube removed. The neck was exposed, prepped and draped in sterile fashion. Surgical plan surgical timeout were conducted to include open tracheostomy tube followed by PEG placement the patient was stable enough for the procedure. The neck was marked just above the sternal notch. The skin was anesthetized with 1% plain lidocaine. Approximately 2-1/2 cm incision was made in a transverse fashion over the trachea. Subcutaneous tissue, platysma divided with electrocautery. Strap muscles were divided midline. The thyroid gland was low- lying in the upper portion was divided by approximately half a centimeter. This afforded exposure to the anterior trachea. The tracheal fatty tissue was divided, retractors placed laterally, and the trachea exposed satisfactorily for operative intervention. A standard large tracheostomy hook was placed into the trachea at the first and second interspace. An upside down U was cut into the trachea with a #15 blade, and a 2-0 Prolene suture was placed through the flap as a rescue stitch. The endotracheal tube was removed, tracheal suction, and the Shiley tracheostomy tube threaded into position. The obturator was removed, ventilator apparatus attached, and ventilation tubing attached. Appropriate oxygenation and ventilation was achieved. Tracheostomy tube secured to the skin at 4 sites with 2-0 Prolene suture. The tracheostomy balloon was inflated to the appropriate tension and the rescue stitch taped to the patient's anterior chest. Additional tracheostomy straps were secured. At this time the patient received esmolol for heart rate control. She remained relatively stable with a blood pressure in the 120s, saturations 99%. We felt conditions were suitable to proceed with the PEG Drapes were removed, abdomen exposed, patient placed in the reverse Trendelenb urg position. Flexible endoscopy was provided by Dr. Mcfadden. The flexible upper endoscope was advanced to the oropharynx, down the esophagus through the stomach into the duodenum. There is no evidence of tumor, obstruction, bleeding or any other problems. There was no evidence of a retained gastric contents. Scope was brought back into the stomach. The stomach was distended and a suitable site for placement of the PEG was chosen in the left upper quadrant. Skin was anesthetized with 1% plain lidocaine, clementina was made in the skin, and Jelco and wire threaded into the anterior abdominal wall into the stomach lumen. The wire was retrieved with the endoscopic snare and the snare scope and wire were all brought out through the patient's oropharynx. The push over pullout tube, 24 Burmese, was threaded over the green wire and the wire and feeding tube pulled up out through the anterior abdominal wall, with the bolster sitting against the anterior stomach wall. Repeat upper endoscopy by Dr. Mcfadden revealed the PEG tube to be in good position with no bleeding. Securing plastic apparatus placed into position around the PEG tube and appropriate dressings applied. Patient tolerated procedure well, taken to the recovery room and eventually the ICU in guarded condition. Graft chest x-ray pending at time dictation.
[2018-04-25] MEDS ORDERED: DILTIAZEM HCL/D5W 125 MG/125 ML RTUINJ IV ONE (11:35)
[2018-04-25] MEDS ORDERED: ESMOLOL HCL INJ/PF 100 MG/10 ML SDV IV ONE (11:42)
[2018-04-25] MEDS: DILTIAZEM HCL/D5W 125 MG/125 ML RTUINJ IV PRN ×2 (12:02→20:41)
--- NOTE | 2018-04-25 12:38 | RADIOLOGY REPORT (SQ) ---
EXAM DESCRIPTION: CHEST SINGLE VIEW COMPLETED DATE/TIME: 04/25/2018 11:58 am REASON FOR STUDY: s/p trach COMPARISON: 04/22/2018 EXAM PARAMETERS: NUMBER OF VIEWS: One view. TECHNIQUE: Single frontal radiographic view of the chest acquired. RADIATION DOSE: NA LIMITATIONS: None. FINDINGS: LUNGS AND PLEURA: The lungs are hyperexpanded. There is patchy opacification in the media l right base. MEDIASTINUM AND HILAR STRUCTURES: No masses. Contour normal. HEART AND VASCULAR STRUCTURES: Heart normal in size. Normal vasculature. BONES: No acute findings. HARDWARE: None in the chest. OTHER: No other significant finding. IMPRESSION: Chronic lung changes. Cannot exclude right middle lobe or lower lobe pneumonia. TECHNICAL DOCUMENTATION: JOB ID: [id number] [employer]- All Rights Reserved Reading location - IP/workstation name: [email or web address]
[2018-04-25] MEDS ORDERED: MIDAZOLAM HCL 50 MG/100 ML RTUINJ ONE (14:09)
[2018-04-25] MEDS: MIDAZOLAM HCL 50 MG/100 ML RTUINJ IV PRN (14:25)
--- NOTE | 2018-04-25 15:11 | PDOC PROGRESS REPORT ---
Subjective Progress Note for:: 04/25/18 Subjective:: Status post tracheostomy and PEG tube placement Reason For Visit: HYPOXIC RESPIRATORY DISTRESS Physical Exam Vital Signs: Temp Pulse Resp BP Pulse Ox 99.9 F 96 12 112/73 100 04/25/18 14:17 04/25/18 14:00 04/25/18 14:17 04/25/18 14:17 04/25/18 14:17 Intake & Output 04/24/18 04/25/18 04/26/18 06:59 06:59 06:59 Intake Total 1824 2425 100 Output Total 3375 2375 100 Balance -1551 50 0 Weight 39.4 kg 40.1 kg General appearance: PRESENT: no acute distress, disheveled, thin Head exam: PRESENT: atraumatic, normocephalic Eye exam: PRESENT: conjunctiva pale, EOMI. ABSENT: nystagmus, scleral icterus Mouth exam: PRESENT: dry mucosa, neck supple, tongue midline Neck exam: PRESENT: tracheostomy. ABSENT: carotid bruit, JVD, lymphadenopathy, thyromegaly, tracheal deviation Respiratory exam: PRESENT: decreased breath sounds, prolonged expiratory phas, rales, rhonchi, symmetrical, unlabored. ABSENT: retraction, stridor, tachypnea Cardiovascular exam: PRESENT: irregular rhythm. ABSENT: tachycardia Pulses: PRESENT: normal radial pulses GI/Abdominal exam: PRESENT: soft, other - Status post PEG placement Gentrourinary exam: PRESENT: indwelling catheter Extremities exam: ABSENT: calf tenderness, joint swelling Musculoskeletal exam: ABSENT: ambulatory, deformity, dislocation Neurological exam: PRESENT: alert, awake Psychiatric exam: PRESENT: anxious, flat affect Skin exam: PRESENT: dry, warm Results Laboratory Results: 04/25/18 05:46 04/25/18 05:46 04/25/18 04/25/18 05:46 05:46 WBC 5.5 RBC 2.65 L Hgb 7.8 L Hct 23.1 L MCV 87 MCH 29.6 MCHC 34.0 RDW 15.1 H Plt Count 164 Seg Neutrophils % 85.6 H Lymphocytes % 6.3 L Monocytes % 4.7 Eosinophils % 2.7 Basophils % 0.7 Absolute Neutrophils 4.7 Absolute Lymphocytes 0.3 L Absolute Monocytes 0.3 Absolute Eosinophils 0.1 Absolute Basophils 0.0 Sodium 135.8 L Potassium 4.0 Chloride 102 Carbon Dioxide 30 Anion Gap 4 L BUN 11 Creatinine 0.29 L Est GFR ( Amer) > 60 Est GFR (Non-Af Amer) > 60 Glucose 83 Calcium 7.4 L Magnesium 2.1 Total Bilirubin 0.5 AST 12 L ALT 28 Alkaline Phosphatase 58 Total Protein 4.3 L Albumin 2.2 L 03/31/18 04/07/18 09:24 05:45 Troponin I < 0.012 0.017 NT-Pro-B Natriuret Pep 684 Impressions: Venous Doppler Study 03/31/18 12:07 IMPRESSION: NO EVIDENCE FOR DVT OR SVT IN THE RIGHT LEG. Head CT 04/05/18 09:43 IMPRESSION: NORMAL BRAIN CT WITH CONTRAST. EVIDENCE OF ACUTE STROKE: NO. Chest/Abdomen CTA 04/07/18 18:09 IMPRESSION: Negative examination for pulmonary embolism. Chest X-Ray 04/25/18 11:26 IMPRESSION: Chronic lung changes. Cannot exclude right middle lobe or lower lobe pneumonia. Assessment & Plan - Diagnosis (1) Acute on chronic respiratory failure with hypoxia and hypercapnia Is this a current diagnosis for this admission?: Yes Plan: Status post tracheostomy stable at this time on mechanical ventilation (2) Atrial fibrillation, transient Is this a current diagnosis for this admission?: Yes Plan: Unchanged (3) COPD (chronic obstructive pulmonary disease) Qualifiers: COPD type: emphysema Is this a current diagnosis for this admission?: Yes Plan: Continue current bronchodilator therapy (4) Essential hypertension Is this a current diagnosis for this admission?: Yes Plan: Stable at this time (5) Gram-positive bacteremia Is this a current diagnosis for this admission?: No (6) Lung nodule Is this a current diagnosis for this admission?: Yes Plan: New onset will investigate further after the acute event was biopsies are not particularly revealing in the face of acute inflammation - Time Total Critical Time (Minutes): 50
--- NOTE | 2018-04-25 15:14 | PDOC PROGRESS REPORT ---
Subjective Progress Note for:: 04/22/18 Subjective:: Stable at this time Reason For Visit: HYPOXIC RESPIRATORY DISTRESS Physical Exam Vital Signs: Temp Pulse Resp BP Pulse Ox 98.8 F 44 L 13 85/53 L 100 04/22/18 08:00 04/22/18 08:00 04/22/18 08:00 04/22/18 08:00 04/22/18 08:00 Intake & Output 04/21/18 04/22/18 04/23/18 06:59 06:59 06:59 Intake Total 1481 500 Output Total 2870 2505 110 Balance -1389 -2005 -110 Weight 49.6 kg 46.8 kg General appearance: PRESENT: no acute distress, cooperative, disheveled, thin Head exam: PRESENT: atraumatic, normocephalic Eye exam: PRESENT: conjunctiva pale, EOMI. ABSENT: nystagmus Mouth exam: PRESENT: dry mucosa, neck supple, tongue midline Neck exam: ABSENT: carotid bruit, JVD, lymphadenopathy, thyromegaly, tracheal deviation, tracheostomy Respiratory exam: PRESENT: decreased breath sounds, prolonged expiratory phas, rhonchi, unlabored. ABSENT: retraction, stridor Cardiovascular exam: PRESENT: RRR, +S1, +S2 Pulses: PRESENT: normal radial pulses GI/Abdominal exam: PRESENT: soft. ABSENT: tenderness Extremities exam: ABSENT: calf tenderness, clubbing, joint swelling Musculoskeletal exam: ABSENT: ambulatory, deformity, dislocation Neurological exam: PRESENT: awake Psychiatric exam: PRESENT: anxious, flat affect Skin exam: PRESENT: dry, warm Results Laboratory Results: 04/20/18 04:45 04/22/18 04:45 04/22/18 04:45 Sodium 133.9 L Potassium 3.8 Chloride 94 L Carbon Dioxide 35 H Anion Gap 5 BUN 14 Creatinine 0.28 L Est GFR ( Amer) > 60 Est GFR (Non-Af Amer) > 60 Glucose 112 H Calcium 8.5 04/16/18 21:10 Blood Blood Culture - Final NO GROWTH IN 5 DAYS 04/16/18 21:00 Blood Blood Culture - Final NO GROWTH IN 5 DAYS 03/31/18 04/07/18 09:24 05:45 Troponin I < 0.012 0.017 NT-Pro-B Natriuret Pep 684 Impressions: Venous Doppler Study 03/31/18 12:07 IMPRESSION: NO EVIDENCE FOR DVT OR SVT IN THE RIGHT LEG. Head CT 04/05/18 09:43 IMPRESSION: NORMAL BRAIN CT WITH CONTRAST. EVIDENCE OF ACUTE STROKE: NO. Chest/Abdomen CTA 04/07/18 18:09 IMPRESSION: Negative examination for pulmonary embolism. Chest X-Ray 04/22/18 00:00 IMPRESSION: 1. No significant interval changes since the examination dated 04/20/2018. Assessment & Plan - Diagnosis (1) Acute on chronic respiratory failure with hypoxia and hypercapnia Is this a current diagnosis for this admission?: Yes Plan: stable at this time (2) Atrial fibrillation, transient Is this a current diagnosis for this admission?: Yes Plan: Unchanged (3) COPD (chronic obstructive pulmonary disease) Qualifiers: COPD type: emphysema Is this a current diagnosis for this admission?: Yes Plan: Continue current bronchodilator therapy (4) Essential hypertension Is this a current diagnosis for this admission?: Yes Plan: Stable at this time (5) Lung nodule Is this a current diagnosis for this admission?: Yes Plan: New onset will investigate further after the acute event was biopsies are not particularly revealing in the face of acute inflammation - Time Total Critical Time (Minutes): 50
[2018-04-25 21:12] LABS: HEMATOCRIT 22.9 % (36.0-47.0); MEAN CORPUSCULAR HEMOGLOBIN 29.2 pg (27.0-33.4); MEAN CORPUSCULAR HGB CONC 33.3 g/dL (32.0-36.0); MEAN CORPUSCULAR VOLUME 88 fl (80-97); PLATELET COUNT 166 10^3/uL (150-450); RED BLOOD COUNT 2.61 10^6/uL (3.72-5.28); WHITE BLOOD COUNT 5.3 10^3/uL (4.0-10.5)
[2018-04-25 21:16] LABS: HEMOGLOBIN 7.6 g/dL (12.0-15.5)
[2018-04-25] MEDS: ACETAMINOPHEN SOLN 325 MG/10.15 ML UDCUP NG PRN (21:40)
[2018-04-26] MEDS: LEVALBUTEROL HCL NEB 1.25 MG/3 ML AMPUL NEB SCH ×4 (00:02→23:42)
[2018-04-26] MEDS: IPRATROPIUM BROMIDE 0.02% NEB 0.5 MG/2.5 ML AMPUL NEB SCH ×4 (00:02→23:42)
[2018-04-26] MEDS: DILTIAZEM HCL 60 MG TABLET NG SCH ×2 (01:35→05:38)
[2018-04-26] MEDS: GABAPENTIN 400 MG CAPSULE PO SCH ×3 (05:38→21:38)
[2018-04-26] MEDS: MIDAZOLAM HCL 50 MG/100 ML RTUINJ IV PRN ×2 (05:39→21:57)
[2018-04-26 06:01] LABS: MEAN CORPUSCULAR HEMOGLOBIN 28.9 pg (27.0-33.4); MEAN CORPUSCULAR VOLUME 88 fl (80-97); PLATELET COUNT 173 10^3/uL (150-450); RED BLOOD COUNT 2.51 10^6/uL (3.72-5.28); WHITE BLOOD COUNT 4.2 10^3/uL (4.0-10.5)
[2018-04-26 06:17] LABS: ANION GAP 5 (5-19); BLOOD UREA NITROGEN 8 mg/dL (7-20); CALCIUM 7.3 mg/dL (8.4-10.2); CARBON DIOXIDE 27 mmol/L (22-30); CHLORIDE 105 mmol/L (98-107); GLUCOSE 88 mg/dL (75-110); POTASSIUM 3.4 mmol/L (3.6-5.0); SODIUM 136.5 mmol/L (137-145)
[2018-04-26 06:30] LABS: HEMOGLOBIN 7.3 g/dL (12.0-15.5)
[2018-04-26] MEDS: INSULIN LISPRO 100 UNIT/ML 3 ML VIAL SUBCUT SCH ×4 (07:52→21:38)
[2018-04-26] MEDS: NORMAL SALINE 1000 ML 1,000 ML IV PRN ×3 (08:41→23:57)
[2018-04-26] MEDS ORDERED: NORMAL SALINE 250 ML IV PRN ×3 (09:04→09:05)
[2018-04-26] MEDS: FLUTICASONE/SALMETEROL DISKUS 500-50 MCG/DOSE IH SCH (09:12)
[2018-04-26] MEDS ORDERED: DILTIAZEM HCL 60 MG TABLET ONE ×2 (09:34→13:06)
[2018-04-26] MEDS: POTASSIUM CHLORIDE 20 MEQ/15 ML UDCUP NG SCH ×2 (09:44→17:36)
[2018-04-26] MEDS: METOPROLOL TARTRATE 50 MG TABLET PO SCH (09:44)
[2018-04-26] MEDS: MIDODRINE HCL 5 MG TABLET PO SCH ×3 (09:45→17:36)
[2018-04-26] MEDS: NICOTINE 21 MG/24 HR PATCH.TD24 TD SCH (09:45)
[2018-04-26] MEDS: FUROSEMIDE INJ/PF 20 MG/2 ML SDV IV SCH (09:45)
[2018-04-26] MEDS: ASPIRIN 325 MG TABLET PO SCH (09:45)
[2018-04-26] MEDS ORDERED: LEVALBUTEROL HCL NEB 1.25 MG/3 ML AMPUL NEB PRN (09:55)
[2018-04-26] MEDS ORDERED: METOPROLOL TARTRATE 50 MG TABLET PO SCH (09:57)
[2018-04-26] MEDS ORDERED: DILTIAZEM HCL 30 MG TABLET PEG SCH (12:00)
--- NOTE | 2018-04-26 12:08 | PDOC PROGRESS REPORT ---
Subjective Progress Note for:: 04/26/18 Subjective:: 24 hrs s/p PEG & trach ;stable at this time Reason For Visit: HYPOXIC RESPIRATORY DISTRESS Physical Exam Vital Signs: Temp Pulse Resp BP Pulse Ox 99.5 F 80 16 109/60 100 04/26/18 08:00 04/26/18 08:00 04/26/18 08:00 04/26/18 08:00 04/26/18 08:00 Intake & Output 04/25/18 04/26/18 04/27/18 06:59 06:59 06:59 Intake Total 2425 2918 Output Total 2375 1035 25 Balance 50 1883 -25 Weight 40.1 kg 48.8 kg General appearance: PRESENT: no acute distress, cooperative, disheveled, thin Head exam: PRESENT: atraumatic, normocephalic Eye exam: PRESENT: conjunctiva pale, EOMI. ABSENT: nystagmus Mouth exam: PRESENT: dry mucosa, neck supple, tongue midline Neck exam: PRESENT: tracheostomy. ABSENT: carotid bruit, JVD, lymphadenopathy, thyromegaly, tracheal deviation Respiratory exam: PRESENT: decreased breath sounds, prolonged expiratory phas, rales, rhonchi, unlabored. ABSENT: retraction, stridor Cardiovascular exam: PRESENT: RRR, +S1, +S2 Pulses: PRESENT: normal radial pulses GI/Abdominal exam: PRESENT: soft, other - S/P PEG Gentrourinary exam: PRESENT: indwelling catheter Extremities exam: ABSENT: calf tenderness, clubbing, joint swelling Musculoskeletal exam: ABSENT: deformity, dislocation Neurological exam: PRESENT: awake Psychiatric exam: PRESENT: anxious Skin exam: PRESENT: dry, warm Results Laboratory Results: 04/26/18 05:40 04/26/18 05:40 04/25/18 04/26/18 04/26/18 20:50 05:40 05:40 WBC 5.3 4.2 RBC 2.61 L 2.51 L Hgb 7.6 L 7.3 L Hct 22.9 L 22.0 L MCV 88 88 MCH 29.2 28.9 MCHC 33.3 33.0 RDW 15.0 H 15.0 H Plt Count 166 173 Sodium 136.5 L Potassium 3.4 L Chloride 105 Carbon Dioxide 27 Anion Gap 5 BUN 8 Creatinine 0.32 L Est GFR ( Amer) > 60 Est GFR (Non-Af Amer) > 60 Glucose 88 Calcium 7.3 L 03/31/18 04/07/18 09:24 05:45 Troponin I < 0.012 0.017 NT-Pro-B Natriuret Pep 684 Impressions: Venous Doppler Study 03/31/18 12:07 IMPRESSION: NO EVIDENCE FOR DVT OR SVT IN THE RIGHT LEG. Head CT 04/05/18 09:43 IMPRESSION: NORMAL BRAIN CT WITH CONTRAST. EVIDENCE OF ACUTE STROKE: NO. Chest/Abdomen CTA 04/07/18 18:09 IMPRESSION: Negative examination for pulmonary embolism. Chest X-Ray 04/25/18 11:26 IMPRESSION: Chronic lung changes. Cannot exclude right middle lobe or lower lobe pneumonia. Assessment & Plan - Diagnosis (1) Acute on chronic respiratory failure with hypoxia and hypercapnia Is this a current diagnosis for this admission?: Yes Plan: stable at this time will tx 2u prbc (2) Atrial fibrillation, transient Is this a current diagnosis for this admission?: Yes Plan: Unchanged (3) COPD (chronic obstructive pulmonary disease) Qualifiers: COPD type: emphysema Is this a current diagnosis for this admission?: Yes Plan: Continue current bronchodilator therapy (4) Essential hypertension Is this a current diagnosis for this admission?: Yes Plan: Stable at this time (5) Lung nodule Is this a current diagnosis for this admission?: Yes - Time Total Critical Time (Minutes): 45
--- NOTE | 2018-04-26 13:06 | PDOC TRANSFER SUMMARY ---
General Admission Date/PCP: 03/31/18 12:27 DELMY NEELY MD Transfer Date: 04/26/18 Accepting Facility: Other (Comments) - [facility] Resuscitation Status: Do Not Intubate - Transfer Diagnosis (1) Acute on chronic respiratory failure with hypoxia and hypercapnia Is this a current diagnosis for this admission?: Yes Diagnosis Summary: This is an end-stage chronic obstructive pulmonary disease patient who was visited at home by EMS on 3 separate occasions the week prior to admission. On the day of admission there were called to her home and found her to be hypoxic. She was placed on CPAP and given nebulizer treatments and transported to the [facility] emergency department. Upon arrival she was obtunded and required mechanical intubation. Venous blood gas prior to intubation revealed a PCO2 of 126. The patient remained on mechanical intubation until April 20. During that time she was given aggressive treatment with nebulizers, steroids and antibiotics. The patient was unable to tolerate pressure support for long periods. Her atrial fibrillation also complicated weaning. Multiple long discussions were had with the patient and her family. When alone the patient understood that the next step would be tracheostomy and PEG tube. She indicated that she would not want to have this procedure. When her son and daughter were in the room there were able to convince her to change her mind. She remained extubated from 20 April through 25 April but was BiPAP dependent. She elected to have the PEG tube and tracheostomy placed on April 25. She remains on pressure support via the tracheostomy at this time. FiO2 is 30% at 16/5. (2) Atrial fibrillation with rapid ventricular response Is this a current diagnosis for this admission?: Yes Diagnosis Summary: On admission the patient exhibited atrial fibrillation with rapid ventricular response. She was intubated for her acute hypoxic hypercapnic respiratory failure. She was placed on diltiazem infusion. Several attempts were made to wean the diltiazem. Eventually she was able to tolerate metoprolol. The diltiazem infusion was discontinued and she was on metoprolol 50 mg twice daily with diltiazem 60 mg 3 times a day. Unfortunately during the tracheostomy and PEG tube procedures the patient went into rapid ventricular response again. She is currently being weaned from her diltiazem infusion. She is receiving diltiazem 60 mg every 8 hours through her PEG tube. She did receive doses of digoxin after her first weaning. She may need to return to the digoxin or resume metoprolol. Hypotension has limited medication use but she is on midodrine 5 mg 3 times a day. She has not been anticoagulated due to anemia. (3) COPD (chronic obstructive pulmonary disease) Is this a current diagnosis for this admission?: Yes Diagnosis Summary: Continue nebulizer treatments. The prognosis for vent weaning is very poor. This has been discussed with the family on multiple occasions and at length. (4) Ventilator dependent Is this a current diagnosis for this admission?: Yes Diagnosis Summary: The patient is tolerating pressure support during the day. She currently returns to IMV at night but the goal is to wean to pressure support completely and hopefully weaning to no need for pressure support. (5) Tracheitis due to Staphylococcus infection Is this a current diagnosis for this admission?: Yes Diagnosis Summary: The patient had methicillin-resistant staph aureus cultured from the endotracheal tube without evidence of pneumonia. She was treated with several courses of antibiotics. It was felt that the staff was colonizing. She had been exhibiting elevated white blood cell counts but after the antibiotics were discontinued her white count improved. (6) Hypokalemia Is this a current diagnosis for this admission?: Yes Diagnosis Summary: The patient was given intravenous fluids for hypotension. Diuretic therapy was initiated. The patient had hypokalemia and still is on a small potassium supplement. She has been normokalemic. (7) Gastritis with bleeding Is this a current diagnosis for this admission?: Yes Diagnosis Summary: The patient did have guaiac positive stools earlier in her hospitalization. Anticoagulation and antiplatelet therapy were discontinued. The patient is anemic again. Hemoccult studies have been ordered. She received 2 units of packed red blood cells today. (8) Essential hypertension Is this a current diagnosis for this admission?: Yes Diagnosis Summary: Prior to this episode the patient was on medications for hypertension. Currently the medications utilized for her atrial fibrillation are adequate. In fact she is still on midodrine 5 mg 3 times a day. The goal would be to wean her off of the myometrium. (9) Localized edema Is this a current diagnosis for this admission?: Yes Diagnosis Summary: With fluid resuscitation the patient developed edema in her arms and legs. Aggressive treatment with diuretics resolve this issue. (10) Tobacco abuse Is this a current diagnosis for this admission?: Yes Diagnosis Summary: The patient smoked up until the day of admission. She has been on a NicoDerm patch. (11) Lung nodule Is this a current diagnosis for this admission?: Yes Diagnosis Summary: During the initial evaluation, diagnostic imaging revealed a 1.5 cm lung nodule. No further workup is planned at this time due to the high risk of biopsy. (12) On tube feeding diet Is this a current diagnosis for this admission?: Yes Diagnosis Summary: The patient is currently receiving nutrition by way of PEG tube feeding. (13) Anemia Is this a current diagnosis for this admission?: Yes Diagnosis Summary: As noted above the patient had Hemoccult positive stools. She received transfusions earlier during her hospitalization. Her hemoglobin dropped again today to 7.3. 2 units of packed red blood cells have been ordered. (14) Gram-positive bacteremia Is this a current diagnosis for this admission?: No Diagnosis Summary: The patient did have multiple negative blood cultures. There was one blood culture positive for staph epidermidis and this was felt to be a contaminant. - Transfer Medications Home Medications: Albuterol Sulfate [Proair Hfa Inhalation Aerosol 8.5 gm Mdi] 2 puff IH Q6HP PRN 03/31/18 Fluticasone/Salmeterol [Advair 500-50 Diskus 14 Dose/Diskus] 1 inh IH Q12 03/31/18 Gabapentin [Neurontin 400 mg Capsule] 800 mg PO Q8 03/31/18 Hydrocodone Bit/Acetaminophen [Hydrocodon-Acetaminophn 10-325] 1 each PO Q8HP PRN 03/31/18 Hydroxyzine Pamoate [Vistaril 25 mg Capsule] 25 mg PO Q8HP PRN 03/31/18 Ipratropium/Albuterol Sulfate [Duoneb 3 ml Ampul] 3 ml NEB RTQIDP PRN 03/31/18 Umeclidinium Charlotte [Incruse Ellipta] 1 puff IH DAILY 03/31/18 Transfer Medications: Current Medications Acetaminophen (Tylenol Soln 325 Mg/10.15 Ml Udcup) 650 mg NG Q4HP PRN PRN Reason: FEVER ABOVE 100.4 Stop: 05/14/18 21:36 Last Admin: 04/25/18 21:40 Dose: 650 mg Documented by: Hydrocodone Bitart/Acetaminophen (Blackburn 5-325 Mg Tablet) 1 tab PO Q4HP PRN PRN Reason: FOR PAIN Stop: 05/01/18 10:48 Last Admin: 04/25/18 05:33 Dose: 1 tab Documented by: Aspirin (Aspirin 325 Mg Tablet) 325 mg PO DAILY AMANDA Stop: 05/25/18 09:59 Last Admin: 04/26/18 09:45 Dose: 325 mg Documented by: Bisacodyl (Dulcolax 10 Mg Supp.Rect) 10 mg MA DAILYP PRN PRN Reason: CONSTIPATION Stop: 05/04/18 10:54 Last Admin: 04/04/18 11:28 Dose: 10 mg Documented by: Dextrose (Dextrose Inj 50% Syringe (25 Gm/50 Ml)) 12.5 gm IV PRN PRN; Protocol PRN Reason: FOR BG 50-69 IN ALERT PATIENT Stop: 04/30/18 12:08 Last Admin: 04/17/18 21:55 Dose: 12.5 gm Documented by: Dextrose (Dextrose Inj 50% Syringe (25 Gm/50 Ml)) 25 gm IV PRN PRN; Protocol PRN Reason: PER PROTOCOL Stop: 04/30/18 12:08 Diltiazem HCl (Cardizem 30 Mg Tablet) 30 mg PEG Q6 AMANDA Stop: 05/26/18 11:59 Last Admin: 04/26/18 11:50 Dose: 30 mg Documented by: Enoxaparin Sodium (Lovenox Inj 40 Mg/0.4 Ml Disp.Syrin) 40 mg SUBCUT DAILY AMANDA Stop: 05/03/18 09:59 Last Admin: 04/24/18 09:42 Dose: 40 mg Documented by: Furosemide (Lasix Inj/Pf 20 Mg/2 Ml Sdv) 20 mg IV DAILY AMANDA Stop: 05/14/18 09:59 Last Admin: 04/26/18 09:45 Dose: 20 mg Documented by: Gabapentin (Neurontin 400 Mg Capsule) 800 mg PO Q8 AMANDA Stop: 05/22/18 13:59 Last Admin: 04/26/18 05:38 Dose: 800 mg Documented by: Glucagon (Glucagen Inj 1 Mg Vial) 1 mg IM PRN PRN; Protocol PRN Reason: Evaluate for BG < 70 Stop: 04/30/18 12:08 Glucose (Glutose 40% Gel 15 Gm Tube) 15 gm PO PRN PRN; Protocol PRN Reason: FOR BG 50-69 IN ALERT PATIENT Stop: 04/30/18 12:08 Glucose (Glutose 40% Gel 15 Gm Tube) 30 gm PO PRN PRN; Protocol PRN Reason: FOR BG < 50 IN ALERT PATIENT Stop: 04/30/18 12:08 Hydralazine HCl (Apresoline Inj/Pf 20 Mg/1 Ml Sdv) 20 mg IV Q3HP PRN PRN Reason: for SBP>160 Stop: 05/04/18 19:22 Last Admin: 04/21/18 08:32 Dose: 20 mg Documented by: Hydroxyzine Pamoate (Vistaril 25 Mg Capsule) 25 mg PO Q8HP PRN PRN Reason: ANXIETY Stop: 05/22/18 07:50 Last Admin: 04/25/18 05:33 Dose: 25 mg Documented by: Sodium Chloride (Nacl 0.9% 1000 Ml Iv Soln) 1,000 mls @ 125 mls/hr IV CONTINUOUS PRN PRN Reason: THIS MED IS NOT "PRN" Stop: 05/24/18 12:10 Last Admin: 04/26/18 08:41 Dose: 125 mls/hr Documented by: Diltiazem HCl (Cardizem Rtu Inj 125 Mg-D5w 125 Ml Premix) 125 mg in 125 mls @ 0 mls/hr IV CONTINUOUS PRN; Protocol PRN Reason: THIS MED IS NOT "PRN" Stop: 05/25/18 11:46 Last Titration: 04/25/18 22:18 Dose: 0 mg/h, 0 mls/hr Documented by: Midazolam HCl (Versed Rtu 50 Mg/100 Ml Premix Bag) 50 mg in 100 mls @ 0 mls/hr IV CONTINUOUS PRN; Protocol PRN Reason: THIS MED IS NOT "PRN" Stop: 05/02/18 14:06 Last Titration: 04/26/18 11:56 Dose: 4 mg/hr, 8 mls/hr Documented by: Sodium Chloride (Nacl 0.9% 250 Ml Iv Soln) 250 mls @ 30 mls/hr IV .DURING TRANSFUSION PRN PRN Reason: THIS MED IS NOT "PRN" Stop: 04/27/18 09:03 Sodium Chloride (Nacl 0.9% 250 Ml Iv Soln) 250 mls @ 30 mls/hr IV .DURING TRANSFUSION PRN PRN Reason: THIS MED IS NOT "PRN" Stop: 04/27/18 09:04 Sodium Chloride (Nacl 0.9% 250 Ml Iv Soln) 250 mls @ 0 mls/hr IV CONTINUOUS PRN PRN Reason: AFTER EACH UNIT Stop: 04/27/18 09:03 Influenza Virus Vaccine Quadrival (Fluarix Adlt Quad Vac 0.5 Ml Syr) 0.5 ml IM .DISCHARGE PRN PRN Reason: THIS MED IS NOT "PRN" Stop: 05/01/18 03:14 Insulin Human Lispro (Humalog Insulin 100 Unit/1 Ml 3 Ml Vial) 0 - 12 unit SUBCUT [facility]; Protocol Stop: 04/30/18 10:59 Last Admin: 04/26/18 11:43 Dose: Not Given Documented by: Ipratropium Charlotte (Atrovent 0.02% Neb 0.5 Mg/2.5 Ml Ampul) 0.5 mg NEB RTQ8 [facility] Stop: 05/02/18 00:00 Last Admin: 04/26/18 08:26 Dose: 0.5 mg Documented by: Levalbuterol HCl (Xopenex Neb 1.25 Mg/3 Ml Ampul) 1.25 mg NEB RTQ8 [facility] Stop: 05/02/18 00:00 Last Admin: 04/26/18 08:26 Dose: 1.25 mg Documented by: Levalbuterol HCl (Xopenex Neb 1.25 Mg/3 Ml Ampul) 1.25 mg NEB RTQ4HP PRN PRN Reason: SHORTNESS OF BREATH Stop: 05/26/18 09:54 Metoprolol Tartrate (Lopressor Inj/Pf 5 Mg/5 Ml Sdv) 2.5 mg IV Q6HP PRN PRN Reason: GIVE FOR HR > [] Stop: 05/23/18 16:46 Last Admin: 04/24/18 22:32 Dose: 2.5 mg Documented by: Midodrine (Proamatine 5 Mg Tablet) 5 mg PO TID [facility] Stop: 05/24/18 15:59 Last Admin: 04/26/18 09:45 Dose: 5 mg Documented by: Morphine Sulfate (Morphine 10 Mg/Ml Inj) 2 mg IV Q4HP PRN PRN Reason: PAIN Stop: 05/03/18 09:30 Nicotine (Nicoderm 21 Mg/24 Hr Transderm Patch) 1 each TD DAILY AMANDA Stop: 05/21/18 12:59 Last Admin: 04/26/18 09:45 Dose: 1 each Documented by: Potassium Chloride (Kaon-Cl 20 Meq/15 Ml Udcup) 20 meq NG BID AMANDA Stop: 05/15/18 17:59 Last Admin: 04/26/18 09:44 Dose: 20 meq Documented by: Promethazine HCl (Phenergan Inj 25 Mg/1 Ml Vial) 12.5 mg IV Q4HP PRN PRN Reason: FOR NAUSEA/VOMITING Stop: 04/30/18 11:58 Sodium Chloride (Saline Flush 2.5 Ml Monoject Prefil Syrin) 2.5 ml IV Q8 AMANDA Stop: 04/30/18 13:59 Last Admin: 04/26/18 05:39 Dose: Not Given Documented by: - Allergies Allergies/Adverse Reactions: No Known Allergies Allergy (Verified 06/30/17 14:50) - Diet/Activity Discharge Diet: Tube Feeding (Comments) Hospital Course Hospital Course: The patient had a complicated and protracted hospital course. Weaning is very slow. At several points changing CODE STATUS was discussed. Despite the patient indicating no wish for tracheostomy and PEG tube while alone she typically changed her mind to refuse to answer when family was present. It took approximately 7-10 days to get her atrial fibrillation under control and wean her from pressor therapy. Ventilator weaning was continued. Eventually she was able to be extubated but required continuous BiPAP therapy. She did finally elected to undergo tracheostomy and PEG tube placements. Trach and PEG were placed on April 25. The patient is currently on pressure support during the day at 16/5 with an FiO2 of 30%. She rests at night on IMV. The goal would be to wean her from the ventilator completely. Physical Exam Vital Signs: Temp Pulse Resp BP Pulse Ox 99.9 F 115 H 14 110/66 100 04/26/18 11:48 04/26/18 11:48 04/26/18 11:48 04/26/18 11:48 04/26/18 11:48 Intake & Output 04/25/18 04/26/18 04/27/18 06:59 06:59 06:59 Intake Total 3687 9928 75 Output Total 7008 1035 250 Balance 50 1883 -175 Weight 40.1 kg 48.8 kg General appearance: PRESENT: mild distress, thin, other - Tracheostomy in place of verbal communication was possible. She is able to nod her head in response to questions. Head exam: PRESENT: normocephalic Eye exam: PRESENT: conjunctiva pale, EOMI. ABSENT: scleral icterus Ear exam: PRESENT: normal external ear exam Neck exam: PRESENT: tracheostomy Respiratory exam: PRESENT: clear to auscultation flaco - Anteriorly., prolonged expiratory phas, symmetrical, unlabored. ABSENT: rales, rhonchi, wheezes Cardiovascular exam: PRESENT: irregular rhythm Vascular exam: PRESENT: pallor GI/Abdominal exam: PRESENT: normal bowel sounds, soft, tenderness - At PEG tube site as this was newly placed yesterday. Rectal exam: PRESENT: deferred Gentrourinary exam: PRESENT: indwelling catheter Extremities exam: ABSENT: pedal edema Neurological exam: PRESENT: alert, awake Psychiatric exam: PRESENT: anxious Skin exam: PRESENT: other - Small contusion on the bridge of her nose from the BiPAP mask. Results Laboratory Results: 04/26/18 05:40 04/26/18 05:40 04/25/18 04/26/18 04/26/18 20:50 05:40 05:40 WBC 5.3 4.2 RBC 2.61 L 2.51 L Hgb 7.6 L 7.3 L Hct 22.9 L 22.0 L MCV 88 88 MCH 29.2 28.9 MCHC 33.3 33.0 RDW 15.0 H 15.0 H Plt Count 166 173 Sodium 136.5 L Potassium 3.4 L Chloride 105 Carbon Dioxide 27 Anion Gap 5 BUN 8 Creatinine 0.32 L Est GFR ( Amer) > 60 Est GFR (Non-Af Amer) > 60 Glucose 88 Calcium 7.3 L Blood Type Antibody Screen 04/26/18 09:45 WBC RBC Hgb Hct MCV MCH MCHC RDW Plt Count Sodium Potassium Chloride Carbon Dioxide Anion Gap BUN Creatinine Est GFR ( Amer) Est GFR (Non-Af Amer) Glucose Calcium Blood Type A POSITIVE Antibody Screen NEGATIVE 03/31/18 04/07/18 09:24 05:45 Troponin I < 0.012 0.017 NT-Pro-B Natriuret Pep 684 Impressions: Venous Doppler Study 03/31/18 12:07 IMPRESSION: NO EVIDENCE FOR DVT OR SVT IN THE RIGHT LEG. Head CT 04/05/18 09:43 IMPRESSION: NORMAL BRAIN CT WITH CONTRAST. EVIDENCE OF ACUTE STROKE: NO. Chest/Abdomen CTA 04/07/18 18:09 IMPRESSION: Negative examination for pulmonary embolism. Chest X-Ray 04/25/18 11:26 IMPRESSION: Chronic lung changes. Cannot exclude right middle lobe or lower lobe pneumonia. Plan Discharge Plan: The patient has been accepted at the [facility]. Arrangements for transportation are being made. The accepting physician will be Dr. York. I will be calling her with a doctor to doctor sign out. Time Spent: Greater than 30 Minutes
[2018-04-26] MEDS: DILTIAZEM HCL 60 MG TABLET PEG SCH ×2 (14:11→21:39)
[2018-04-26] MEDS: MORPHINE SULFATE 10 MG/ML INJ IV PRN ×2 (17:36→21:37)
[2018-04-26 20:58] LABS: HEMATOCRIT 30.3 % (36.0-47.0); MEAN CORPUSCULAR HEMOGLOBIN 29.3 pg (27.0-33.4); MEAN CORPUSCULAR HGB CONC 34.1 g/dL (32.0-36.0); MEAN CORPUSCULAR VOLUME 86 fl (80-97); PLATELET COUNT 220 10^3/uL (150-450); RED BLOOD COUNT 3.53 10^6/uL (3.72-5.28); RED CELL DISTRIBUTION WIDTH 15.4 % (11.5-14.0); WHITE BLOOD COUNT 5.2 10^3/uL (4.0-10.5)
[2018-04-26 21:10] LABS: HEMOGLOBIN 10.3 g/dL (12.0-15.5)
[2018-04-26] MEDS: ACETAMINOPHEN SOLN 325 MG/10.15 ML UDCUP NG PRN (22:23)
[2018-04-27 05:47] LABS: ABSOLUTE BASOPHILS # (AUTO) 0.1 10^3/uL (0.0-0.2); ABSOLUTE EOSINOPHILS # (AUTO) 0.1 10^3/uL (0.0-0.6); ABSOLUTE LYMPHOCYTES (AUTO) 0.5 10^3/uL (0.5-4.7); ABSOLUTE MONOCYTES (AUTO) 0.4 10^3/uL (0.1-1.4); ABSOLUTE NEUT (AUTO) 3.1 10^3/uL (1.7-8.2); BASOPHILS % (AUTO) 1.4 % (0-2); HEMATOCRIT 28.3 % (36.0-47.0); HEMOGLOBIN 9.5 g/dL (12.0-15.5); LYMPHOCYTES % (AUTO) 10.8 % (13-45); MEAN CORPUSCULAR HEMOGLOBIN 29.3 pg (27.0-33.4); MEAN CORPUSCULAR HGB CONC 33.7 g/dL (32.0-36.0); MEAN CORPUSCULAR VOLUME 87 fl (80-97); PLATELET COUNT 216 10^3/uL (150-450); RED BLOOD COUNT 3.26 10^6/uL (3.72-5.28); RED CELL DISTRIBUTION WIDTH 15.3 % (11.5-14.0); SEGMENTED NEUTROPHILS % (AUTO) 74.8 % (42-78); TOTAL CELLS COUNTED % (AUTO) 100 %; WHITE BLOOD COUNT 4.2 10^3/uL (4.0-10.5)
[2018-04-27 05:50] LABS: ARTERIAL BLOOD BASE EXCESS -1.2 mmol/L; ARTERIAL BLOOD H2CO3 1.13 mmol/L (1.05-1.35); ARTERIAL BLOOD HCO3 23.3 mmol/L (20-24); ARTERIAL BLOOD O2 SATURATION 96.5 % (94-98); ARTERIAL BLOOD PCO2 37.7 mmHg (35-45); ARTERIAL BLOOD PH 7.41 (7.35-7.45); ARTERIAL BLOOD PO2 85.1 mmHg (80-100); ARTERIAL BLOOD TOTAL CO2 24.4 mmol/L (21-25)
[2018-04-27 05:55] LABS: ARTERIAL BLOOD FIO2 30%
[2018-04-27] MEDS: GABAPENTIN 400 MG CAPSULE PO SCH ×2 (06:38→13:58)
[2018-04-27] MEDS: DILTIAZEM HCL 60 MG TABLET PEG SCH ×2 (06:38→13:59)
--- NOTE | 2018-04-27 07:41 | RADIOLOGY REPORT (SQ) ---
EXAM DESCRIPTION: X-ray single view chest. CLINICAL HISTORY: 62 years Female, resp failure COMPARISON: Multiple prior chest x-rays dating back to 04/06/[address] chest performed on 03/31/2018 TECHNIQUE: Single portable view of the chest performed on 04/27/2018 at 6:51 AM FINDINGS: The lungs are hyperinflated. There is increased lucency throughout the upper hemithoraces consistent with emphysematous changes. There is increasing opacification in the right inferior hemithorax concerning for a pneumonic infiltrate or aspiration. There is no evidence of a pneumothorax. The cardiac silhouette is normal in size and configuration. The mediastinal contours are normal. No acute osseous abnormality is identified. No focal soft tissue abnormalities are seen. Lines and tubes: A tracheostomy cannula is present in grossly satisfactory position. A right IJ central venous catheter is noted and the tip overlies the region of the superior vena cava. IMPRESSION: 1. Emphysematous changes. 2. Increasing opacification in the right inferior hemithorax concerning for a pneumonic infiltrate or aspiration. 3. Stable life support lines and tubes.
[2018-04-27] MEDS: NORMAL SALINE 1000 ML 1,000 ML IV PRN (08:01)
[2018-04-27] MEDS: LEVALBUTEROL HCL NEB 1.25 MG/3 ML AMPUL NEB SCH ×2 (08:33→15:20)
[2018-04-27] MEDS: IPRATROPIUM BROMIDE 0.02% NEB 0.5 MG/2.5 ML AMPUL NEB SCH ×2 (08:33→15:20)
[2018-04-27 09:24] LABS: ANION GAP 5 (5-19); BLOOD UREA NITROGEN 6 mg/dL (7-20); CALCIUM 7.3 mg/dL (8.4-10.2); CARBON DIOXIDE 25 mmol/L (22-30); CHLORIDE 108 mmol/L (98-107); GLUCOSE 106 mg/dL (75-110); PHOSPHORUS 2.9 mg/dL (2.5-4.5); POTASSIUM 3.4 mmol/L (3.6-5.0); SODIUM 137.7 mmol/L (137-145)
[2018-04-27] MEDS: INSULIN LISPRO 100 UNIT/ML 3 ML VIAL SUBCUT SCH ×2 (09:54→11:02)
[2018-04-27] MEDS: POTASSIUM CHLORIDE 20 MEQ/15 ML UDCUP NG SCH (09:55)
[2018-04-27] MEDS: ASPIRIN 325 MG TABLET PO SCH (09:55)
[2018-04-27] MEDS: FUROSEMIDE INJ/PF 20 MG/2 ML SDV IV SCH (09:56)
[2018-04-27] MEDS: NICOTINE 21 MG/24 HR PATCH.TD24 TD SCH (09:56)
[2018-04-27] MEDS: MIDODRINE HCL 5 MG TABLET PO SCH ×2 (09:57→13:59)
[2018-04-27] MEDS: MORPHINE SULFATE 10 MG/ML INJ IV PRN ×2 (10:07→13:59)
[2018-04-27] MEDS: ACETAMINOPHEN SOLN 325 MG/10.15 ML UDCUP NG PRN (14:51)
[2018-04-27 16:05] VITALS: BP 129/67
[2018-04-27] MEDS ORDERED: LORAZEPAM INJ 2 MG/1 ML VIAL IV ONE (16:30)
[2018-04-27] MEDS ORDERED: LORAZEPAM INJ 2 MG/1 ML VIAL ONE (16:31)
--- NOTE | 2018-04-27 16:51 | Progress Note ---
Provider Note Provider Note: Patient discharged to [facility] on 04/26 however transfer was delayed until today. She is going to [facility] on 04/27 afternoon. No overnight events. Patient was given Ativan 1mg IV * 1 dose at time of transfer. This will be a non-billing note. OK for discharge.
--- NOTE | 2018-04-29 13:35 | PDOC PROGRESS REPORT ---
Subjective Progress Note for:: 04/27/18 Subjective:: 24 hrs s/p PEG & trach ;stable at this time Reason For Visit: HYPOXIC RESPIRATORY DISTRESS Physical Exam Vital Signs: Temp Pulse Resp BP Pulse Ox 98.4 F 89 11 L 118/67 98 04/27/18 08:00 04/27/18 08:33 04/27/18 08:33 04/27/18 08:00 04/27/18 08:33 Intake & Output 04/26/18 04/27/18 04/28/18 06:59 06:59 06:59 Intake Total 2918 3277 1000 Output Total 1035 1455 25 Balance 1883 1822 975 Weight 48.8 kg 50.9 kg General appearance: PRESENT: no acute distress, disheveled, thin. ABSENT: cooperative Head exam: PRESENT: atraumatic, normocephalic Eye exam: PRESENT: conjunctiva pale, EOMI. ABSENT: nystagmus Mouth exam: PRESENT: dry mucosa, neck supple, tongue midline Neck exam: PRESENT: tracheostomy. ABSENT: carotid bruit, full ROM, JVD, lymphadenopathy, meningismus, tenderness, thyromegaly, tracheal deviation Respiratory exam: PRESENT: decreased breath sounds, prolonged expiratory phas, rales, rhonchi, unlabored Cardiovascular exam: PRESENT: RRR, +S1, +S2 Pulses: PRESENT: normal radial pulses GI/Abdominal exam: PRESENT: soft, other - PEG tube Gentrourinary exam: PRESENT: indwelling catheter Extremities exam: PRESENT: pedal edema. ABSENT: calf tenderness, clubbing, joint swelling Musculoskeletal exam: ABSENT: ambulatory, deformity, dislocation Neurological exam: PRESENT: altered, awake Psychiatric exam: PRESENT: anxious Skin exam: PRESENT: dry, warm Results Laboratory Results: 04/27/18 05:30 04/27/18 08:50 04/26/18 04/26/18 04/27/18 09:45 20:10 05:30 WBC 5.2 RBC 3.53 L Hgb 10.3 L D Hct 30.3 L MCV 86 MCH 29.3 MCHC 34.1 RDW 15.4 H Plt Count 220 Seg Neutrophils % Lymphocytes % Monocytes % Eosinophils % Basophils % Absolute Neutrophils Absolute Lymphocytes Absolute Monocytes Absolute Eosinophils Absolute Basophils Carbonic Acid 1.13 HCO3/H2CO3 Ratio 20:1 ABG pH 7.41 ABG pCO2 37.7 ABG pO2 85.1 ABG HCO3 23.3 ABG O2 Saturation 96.5 ABG Base Excess -1.2 FiO2 30% Sodium Potassium Chloride Carbon Dioxide Anion Gap BUN Creatinine Est GFR ( Amer) Est GFR (Non-Af Amer) Glucose Calcium Phosphorus Magnesium Blood Type A POSITIVE Antibody Screen NEGATIVE 04/27/18 04/27/18 04/27/18 05:30 05:30 06:00 WBC 4.2 RBC 3.26 L Hgb 9.5 L Hct 28.3 L MCV 87 MCH 29.3 MCHC 33.7 RDW 15.3 H Plt Count 216 Seg Neutrophils % 74.8 Lymphocytes % 10.8 L Monocytes % 10.0 Eosinophils % 3.0 Basophils % 1.4 Absolute Neutrophils 3.1 Absolute Lymphocytes 0.5 Absolute Monocytes 0.4 Absolute Eosinophils 0.1 Absolute Basophils 0.1 Carbonic Acid HCO3/H2CO3 Ratio ABG pH ABG pCO2 ABG pO2 ABG HCO3 ABG O2 Saturation ABG Base Excess FiO2 Sodium Cancelled Cancelled Potassium Cancelled Cancelled Chloride Cancelled Cancelled Carbon Dioxide Cancelled Cancelled Anion Gap Cancelled Cancelled BUN Cancelled Cancelled Creatinine Cancelled Cancelled Est GFR ( Amer) Cancelled Cancelled Est GFR (Non-Af Amer) Cancelled Cancelled Glucose Cancelled Cancelled Calcium Cancelled Cancelled Phosphorus Cancelled Cancelled Magnesium Cancelled Cancelled Blood Type Antibody Screen 04/27/18 08:50 WBC RBC Hgb Hct MCV MCH MCHC RDW Plt Count Seg Neutrophils % Lymphocytes % Monocytes % Eosinophils % Basophils % Absolute Neutrophils Absolute Lymphocytes Absolute Monocytes Absolute Eosinophils Absolute Basophils Carbonic Acid HCO3/H2CO3 Ratio ABG pH ABG pCO2 ABG pO2 ABG HCO3 ABG O2 Saturation ABG Base Excess FiO2 Sodium 137.7 Potassium 3.4 L Chloride 108 H Carbon Dioxide 25 Anion Gap 5 BUN 6 L Creatinine 0.31 L Est GFR ( Amer) > 60 Est GFR (Non-Af Amer) > 60 Glucose 106 Calcium 7.3 L Phosphorus 2.9 Magnesium 1.9 Blood Type Antibody Screen 03/31/18 04/07/18 09:24 05:45 Troponin I < 0.012 0.017 NT-Pro-B Natriuret Pep 684 Impressions: Venous Doppler Study 03/31/18 12:07 IMPRESSION: NO EVIDENCE FOR DVT OR SVT IN THE RIGHT LEG. Head CT 04/05/18 09:43 IMPRESSION: NORMAL BRAIN CT WITH CONTRAST. EVIDENCE OF ACUTE STROKE: NO. Chest/Abdomen CTA 04/07/18 18:09 IMPRESSION: Negative examination for pulmonary embolism. Chest X-Ray 04/27/18 06:00 IMPRESSION: 1. Emphysematous changes. 2. Increasing opacification in the right inferior hemithorax concerning for a pneumonic infiltrate or aspiration. 3. Stable life support lines and tubes. Assessment & Plan - Diagnosis (1) Acute on chronic respiratory failure with hypoxia and hypercapnia Is this a current diagnosis for this admission?: Yes Plan: stable at this time awaiting transfer (2) Atrial fibrillation, transient Is this a current diagnosis for this admission?: Yes Plan: Unchanged (3) COPD (chronic obstructive pulmonary disease) Qualifiers: COPD type: emphysema Is this a current diagnosis for this admission?: Yes Plan: Continue current bronchodilator therapy (4) Essential hypertension Is this a current diagnosis for this admission?: Yes Plan: Stable at this time (5) Lung nodule Is this a current diagnosis for this admission?: Yes Plan: New onset will investigate further after the acute event was biopsies are not particularly revealing in the face of acute inflammation - Time Total Critical Time (Minutes): 40
== END 2018-04-27 16:44 | DRG 4 ==
LOC: ER 09:18 → EH 12:27 → ICU 04-01 02:25 → 3W 04-22 12:28 → ICU 04-25 11:33
PROVIDERS: ADMIT Family Medicine; ATTEND Family Medicine
PROC: 5A1955Z Respiratory Ventilation, Greater than 96 Consecutive Hours (ICD-10-PCS; principal; 2018-03-31)
PROC: 0BH17EZ Insertion of Endotracheal Airway into Trachea, Via Natural or Artificial Opening (ICD-10-PCS; 2018-03-31)
PROC: 3E0F73Z Introduction of Anti-inflammatory into Respiratory Tract, Via Natural or Artificial Opening (ICD-10-PCS; 2018-03-31)
PROC: 05HM33Z Insertion of Infusion Device into Right Internal Jugular Vein, Percutaneous Approach (ICD-10-PCS; 2018-03-31)
PROC: 5A09557 Assistance with Respiratory Ventilation, Greater than 96 Consecutive Hours, Continuous Positive Airway Pressure (ICD-10-PCS; 2018-04-17)
PROC: 0B110F4 Bypass Trachea to Cutaneous with Tracheostomy Device, Open Approach (ICD-10-PCS; 2018-04-25)
PROC: 0DH63UZ Insertion of Feeding Device into Stomach, Percutaneous Approach (ICD-10-PCS; 2018-04-25)
PROC: 5A1945Z Respiratory Ventilation, 24-96 Consecutive Hours (ICD-10-PCS; 2018-04-25)
PROC: 30233N1 Transfusion of Nonautologous Red Blood Cells into Peripheral Vein, Percutaneous Approach (ICD-10-PCS; 2018-04-26)
PROC: 3E02340 Introduction of Influenza Vaccine into Muscle, Percutaneous Approach (ICD-10-PCS; 2018-04-27)
DX: J96.21 Acute and chronic respiratory failure with hypoxia (principal); J15.212 Pneumonia due to Methicillin resistant Staphylococcus aureus; K29.01 Acute gastritis with bleeding; Z99.11 Dependence on respirator [ventilator] status; R64 Cachexia; R78.81 Bacteremia; J96.22 Acute and chronic respiratory failure with hypercapnia; I48.0 Paroxysmal atrial fibrillation; J43.9 Emphysema, unspecified; J04.10 Acute tracheitis without obstruction; E87.6 Hypokalemia; I10 Essential (primary) hypertension; R91.1 Solitary pulmonary nodule; D64.9 Anemia, unspecified; G89.4 Chronic pain syndrome; L89.819 Pressure ulcer of head, unspecified stage; F17.210 Nicotine dependence, cigarettes, uncomplicated; B96.3 Hemophilus influenzae [H. influenzae] as the cause of diseases classified elsewhere; B96.89 Other specified bacterial agents as the cause of diseases classified elsewhere; Z78.1 Physical restraint status; Z23 Encounter for immunization; Z79.899 Other long term (current) drug therapy; Z99.81 Dependence on supplemental oxygen; Z90.710 Acquired absence of both cervix and uterus
CPT/HCPCS: 320; 36415; 36430; 36600; 70450; 70460; 71045; 71275; 80048; 80053; 80076; 80202; 80307; 81001; 82271; 82565; 82803; 82962; 83605; 83690; 83735; 83880; 84100; 84132; 84439; 84443; 84481; 84484; 85025; 85027; 85379; 85610; 86850; 86900; 86901; 86920; 87040; 87070; 87077; 87086; 87186; 87205; 90471; 90686; 93005; 93010; 93971; 94002; 94003; 94640; 94660; 96374; 99291; C1751; G0008; J0330; J0360; J0696; J1100; J1160; J1644; J1650; J1815; J1885; J1940; J2060; J2250; J2270; J2543; J2704; J2920; J2930; J3010; J3370; J3475; J3480; J3490; J7030; J7060; J7614; J7620; P9016; P9047; S0028; S0164